=== PATIENT | male | born 1980 | race Caucasian/White ===

== ENCOUNTER 2023-03-23 15:24 | Outpatient (OUT) | payer MEDICARE, MEDICAID, SELFPAY ==
[2023-03-23 21:20] LABS: Valproic Acid 39.2 ug/mL (50.0-100.0)
[2023-03-31 14:15] LABS: Lamotrigine (Lamictal), Serum 15.9 ug/mL (2.0-20.0)
== END 2023-03-23 15:25 ==
PROVIDERS: PCP Internal Medicine; Visit Provider Psychiatry & Neurology Neurology
DX: R51.9 Headache, unspecified (principal); G40.909 Epilepsy, unspecified, not intractable, without status epilepticus; G62.9 Polyneuropathy, unspecified; Z79.899 Other long term (current) drug therapy; Z51.81 Encounter for therapeutic drug level monitoring; R79.89 Other specified abnormal findings of blood chemistry; I70.91 Generalized atherosclerosis; M79.10 Myalgia, unspecified site; D51.3 Other dietary vitamin B12 deficiency anemia; E78.5 Hyperlipidemia, unspecified; G60.9 Hereditary and idiopathic neuropathy, unspecified; Z11.3 Encounter for screening for infections with a predominantly sexual mode of transmission; E53.1 Pyridoxine deficiency
CPT/HCPCS: 36415; 80164; 80165; 80175

== ENCOUNTER 2023-04-10 09:21 | Emergency (ER) | payer MEDICARE, MEDICAID, SELFPAY ==
[2023-04-10 09:26] VITALS: BP 132/93; PULSE 103; RESP 20; TEMP 36.8; O2SAT 96; BMI 26.6
--- NOTE | 2023-04-10 09:33 | XR_ITS ---
The [address] [address] Patient Name: NOA LEWIS MRN: [id number] date: 1980 Sex: M Assigned Patient Location: ER Current Patient Location: ER Accession/Order Number: [id number] Exam Date: 04/10/2023 09:38 Report Date: 04/10/2023 10:18 At the request of: SAMANTHA PELAYO Procedure: XR chest 1V TITLE: XR chest 1V COMPARISON: 2021 chest x-ray CLINICAL HISTORY: cough TECHNIQUE: One view. FINDINGS: Hypoinflated. Stable cardiomegaly mediastinal silhouettes. Mild central vascular prominence. Elevated right hemidiaphragm. Increased density left lung base. No significant effusion There are no significant skeletal abnormalities. IMPRESSION: HYPOINFLATED. LEFT BASE DENSITY LIKELY ATELECTASIS VERSUS INFILTRATE Electronically authenticated by: REBEKAH PRICE Date: 04/10/2023 10:18
--- NOTE | 2023-04-10 09:34 | ED.URI1 ---
HPI - URI/Sore Throat General Chief Complaint: Upper Respiratory Infection Stated Complaint: COUGH Time Seen by Provider: 04/10/23 09:27 Source: family and caregiver Source comment: MOM Limitations: no limitations Limitations comment: PT LIMITED VERBAL History of Present Illness HPI Narrative: 42-year-old male presents to the emergency department for a cough. He's had it for a few days and family has been giving him Claritin. He has MRDD and all the history is obtained from his family. No known fever, he gets checked every day. He has been checked for Covid as well and it was negative. Family is worried about pneumonia. Related Data Previous Rx's Medication Instructions Recorded azithromycin 250 mg tablet See Rx Instructions PO .COMPLEX #6 04/10/23 (Zithromax Z-Marcio) tabs Review of Systems ROS Narrative not obtainable, psychiatric disorder PFSH PFSH Social History Smoking status: Never smoker Exam Narrative Exam Narrative: Nurses note and vital signs reviewed and patient is not hypoxic. General: The patient appears in no apparent distress. Patient is resting comfortably on cart. Skin: Warm, dry, no pallor noted. There is no rash noted. Head: Normocephalic, atraumatic Eye: Normal conjunctiva, no drainage Ears, Nose, Mouth, and Throat: oral mucosa is moist. Nares patent. both myself and his family could not get him to open his mouth. Cardiovascular: Regular Rate and Rhythm Respiratory: Patient is in no distress, no accessory muscle use, lungs are clear to auscultation, no wheezing, rales or rhonchi Back: non-tender GI: nontender Musculoskeletal: The patient has no evidence of calf tenderness, no pitting edema, symmetrical pulses noted bilaterally Neurological: nonverbal, this is his baseline Psychiatric: cannot be assessed Constitutional Vital Signs - 24 hr 04/10/23 09:26 Temperature 98.2 F Pulse Rate [Monitor] 103 H Respiratory Rate 20 Blood Pressure [Right Arm] 132/93 H Pulse Oximetry 96 Oxygen Delivery Method Room Air Course Vital Signs Vital signs: Vital Signs Temperature 98.2 F 04/10/23 09:26 Pulse Rate 103 H 04/10/23 09:26 Respiratory Rate 20 04/10/23 09:26 Blood Pressure 132/93 H 04/10/23 09:26 Pulse Oximetry 96 04/10/23 09:26 Oxygen Delivery Method Room Air 04/10/23 09:26 Temperature 98.2 F 04/10/23 09:26 Pulse Rate 103 H 04/10/23 09:26 Respiratory Rate 20 04/10/23 09:26 Blood Pressure 132/93 H 04/10/23 09:26 Pulse Oximetry 96 04/10/23 09:26 Oxygen Delivery Method Room Air 04/10/23 09:26 MDM - URI/Sore Throat MDM Narrative Medical decision making narrative: Chest x-ray per radiologist suggests possible infiltrate at the lung base. This is consistent with his symptoms. Treatment diagnosis and follow-up were discussed with his family. Differential Diagnosis Differential diagnosis: Likely upper respiratory infection, viral infection and bronchitis Discharge Plan Discharge Chief Complaint: Upper Respiratory Infection Clinical Impression: Pneumonia Patient Disposition: Home, Self-Care Time of Disposition Decision: 10:31 Condition: Good Prescriptions / Home Meds: New azithromycin [Zithromax Z-Marcio] 250 mg tablet See Rx Instructions .ROUTE .COMPLEX Qty: 6 0RF Rx Instructions: For 250 mg dose pack: take 500 mg today (day 1), then 250 mg for 4 days (days 2-5) Instructions: Pneumonia (ED) Stand Alone Forms: Portal Instructions Referrals: Gasper Persaud DO [Primary Care Provider] - 1 week
--- NOTE | 2023-04-10 09:48 | PC.NURSE ---
0948 pt lung sound clear t/o all [place]. pt skin pink warm and dry. interacting with caregivers wnl for pt. Selene Edmond RN
[2023-04-10 10:38] VITALS: PULSE 85; RESP 20; O2SAT 95
== END 2023-04-10 10:39 | disposition home or self-care (01) ==
PROVIDERS: Emergency Provider Emergency Medicine; PCP Internal Medicine
DX: J18.9 Pneumonia, unspecified organism (principal); F79 Unspecified intellectual disabilities
CPT/HCPCS: 71045; 99283

== ENCOUNTER 2023-05-17 14:17 | Outpatient (OUT) | payer MEDICARE, MEDICAID, SELFPAY | END 2023-05-17 14:18 | disposition home or self-care (01) | LOC: LAB 14:19 | PROVIDERS: PCP Internal Medicine; Visit Provider Psychiatry & Neurology Neurology | DX: G40.909 Epilepsy, unspecified, not intractable, without status epilepticus (principal); G62.9 Polyneuropathy, unspecified; G60.9 Hereditary and idiopathic neuropathy, unspecified; R79.89 Other specified abnormal findings of blood chemistry; Z11.3 Encounter for screening for infections with a predominantly sexual mode of transmission; E53.1 Pyridoxine deficiency; I70.91 Generalized atherosclerosis; D51.3 Other dietary vitamin B12 deficiency anemia; M79.10 Myalgia, unspecified site; E78.5 Hyperlipidemia, unspecified | CPT/HCPCS: 36415; 80164; 80165; 80171; 80175; 80299 ==

== ENCOUNTER 2023-07-06 13:43 | Outpatient (OUT) | payer MEDICARE, MEDICAID, SELFPAY ==
--- NOTE | 2023-07-06 13:45 | XR_ITS ---
The [address] [address] Patient Name: NOA LEWIS MRN: [id number] date: 1980 Sex: M Assigned Patient Location: RAD Current Patient Location: RAD Accession/Order Number: [id number] Exam Date: 07/06/2023 13:50 Report Date: 07/06/2023 14:13 At the request of: KAROLINA CHRISTIE Procedure: XR chest 2V EXAM: XR chest 2V HISTORY: Pneumonia of left lower lobe J18.9 COMPARISON: 04/10/2023 TECHNIQUE: Upright PA and lateral chest x-ray FINDINGS: Improved aeration. The heart is not enlarged and there is mild prominence of the central pulmonary vasculature, with interval improvement of vascular congestion. Improved aeration is seen at the left lung base. No discrete infiltrate, effusion or pneumothorax is identified. The osseous structures are grossly intact. XR/XR chest 2V IMPRESSION: Significant improvement in the overall appearance of the chest, with improvement of vascular congestion and the near complete resolution of the basilar infiltrate on the left. No focal infiltrate or cardiac decompensation is identified at this time. Electronically authenticated by: TAMEKA DAVIS Date: 07/06/2023 14:13
== END 2023-07-06 13:44 | disposition home or self-care (01) ==
LOC: RAD 13:43
PROVIDERS: PCP Internal Medicine; Visit Provider Internal Medicine
DX: J18.9 Pneumonia, unspecified organism (principal)
CPT/HCPCS: 71046

== ENCOUNTER 2023-07-15 09:05 | Outpatient (OUT) | payer MEDICARE, MEDICAID, SELFPAY ==
--- NOTE | 2023-07-15 09:13 | XR_ITS ---
[place] [address] Patient Name: NOA LEWIS MRN: [id number] date: 1980 Sex: M Assigned Patient Location: [facility] Current Patient Location: [facility] Accession/Order Number: [id number] Exam Date: 07/15/2023 09:25 Report Date: 07/15/2023 16:37 At the request of: GORDY OLIVAS Procedure: XR lumbar spine 6V w bending Exam: Radiographs: XR lumbar spine 6V w bending Reason for exam: Lumbar Pain M54.50 Comparison: CT scan dated 02/14/2022 XR/XR lumbar spine 6V w bending IMPRESSION: No radiographically evident lumbar spine fractures or malalignment. No instability on flexion/extension views. Mild lumbar spine degenerative changes with preserved intervertebral disc heights. Remainder unremarkable. Electronically authenticated by: KAELA TREADWELL Date: 07/15/2023 16:37
== END 2023-07-15 09:06 | disposition home or self-care (01) ==
LOC: RAD 09:05
PROVIDERS: PCP Internal Medicine; Visit Provider Psychiatry & Neurology Neurology
DX: M54.50 Low back pain, unspecified (principal); M47.816 Spondylosis without myelopathy or radiculopathy, lumbar region
CPT/HCPCS: 72114

== ENCOUNTER 2023-08-07 14:02 | Emergency (ER) | payer MEDICARE, MEDICAID, SELFPAY ==
[2023-08-07 14:06] VITALS: PULSE 88; RESP 16; TEMP 36.7; O2SAT 97; BMI 27.6
--- NOTE | 2023-08-07 14:25 | ED.ABDPAIN1 ---
HPI - Abdominal Pain General Chief Complaint: Abdominal Pain Stated Complaint: CONSAPATION Time Seen by Provider: 08/07/23 14:25 Source: family and caregiver Mode of arrival: Wheelchair Limitations: altered mental status History of Present Illness HPI narrative: pt has hx of MRDD presented with mother for complaint of constipation he had his last bowel movement was 4 days ago, no throwing up and according to her he is also passing gas and history of the p.o. intake with no difficulty Related Data Previous Rx's Medication Instructions Recorded azithromycin 250 mg tablet See Rx Instructions PO .COMPLEX #6 04/10/23 (Zithromax Z-Marcio) tabs Allergies Allergy/AdvReac Type Severity Reaction Status Date / Time Pertussis Vaccines Allergy Intermediate Verified 08/07/23 14:13 Review of Systems ROS Status of ROS 10 or more systems reviewed and unremarkable except as noted in history and below PFSH PFSH Social History Smoking status: Never smoker Exam Narrative Exam Narrative: Nurses notes and vital signs reviewed and patient is not hypoxic. General: Well-appearing and in no apparent distress. Not cooperative fully with examination Skin: Warm, dry, no pallor noted. No rash. Head: Normocephalic, atraumatic. Respiratory: No accessory muscle use or respiratory distress. The patient was not very cooperative with examination he allowed me to examine his abdomen and it was not tender mildly distended The abdomen shows no tenderness and mild distention Constitutional Vital Signs, click to edit/add: Last Vital Signs Temp 98.1 F 08/07/23 14:06 Pulse 88 08/07/23 14:06 Resp 16 08/07/23 14:06 Pulse Ox 97 08/07/23 14:06 O2 Del Method Room Air 08/07/23 14:06 Course Vital Signs Vital signs: Vital Signs Temperature 98.1 F 08/07/23 14:06 Pulse Rate 88 08/07/23 14:06 Respiratory Rate 16 08/07/23 14:06 Pulse Oximetry 97 08/07/23 14:06 Oxygen Delivery Method Room Air 08/07/23 14:06 Temperature 98.1 F 08/07/23 14:06 Pulse Rate 88 08/07/23 14:06 Respiratory Rate 16 08/07/23 14:06 Pulse Oximetry 97 08/07/23 14:06 Oxygen Delivery Method Room Air 08/07/23 14:06 MDM - Abdominal Pain MDM Narrative Medical decision making narrative: The patient was not very cooperative but took multiple people to take his vitals he did not have any distress before we were trying to get his vitals and according to the mother he did not have any symptoms other than being constipated although he is passing gas She did try colace at home with no effect right now magnesium citrate will be the next to try and the patient mother instructed about bring him back in case of any nausea vomiting or no response to the treatment The patient is to follow up with primary care physician in next 2-3 days or to return to the emergency department should any of the signs or symptoms worsen or new symptoms develop. The patient agrees with the following Diagnosis and Treatment plan and the patient will be discharged home. Discharge Plan Discharge Chief Complaint: Abdominal Pain Clinical Impression: Constipation Patient Disposition: Home, Self-Care Time of Disposition Decision: 14:26 Condition: Good Prescriptions / Home Meds: No Action azithromycin [Zithromax Z-Marcio] 250 mg tablet See Rx Instructions .ROUTE .COMPLEX Qty: 6 0RF Rx Instructions: For 250 mg dose pack: take 500 mg today (day 1), then 250 mg for 4 days (days 2-5) Instructions: Constipation (ED) Stand Alone Forms: Portal Instructions Referrals: Gasper Persaud DO [Primary Care Provider] - 1 week Discharge Date/Time: 08/07/23 14:43
[2023-08-07] MEDS: MAGNESIUM CITRATE 296 ML SOLUTION PO (14:38)
== END 2023-08-07 14:43 | disposition home or self-care (01) ==
PROVIDERS: Emergency Provider Emergency Medicine; PCP Internal Medicine
DX: K59.00 Constipation, unspecified (principal); F79 Unspecified intellectual disabilities
CPT/HCPCS: 99283

== ENCOUNTER 2024-01-02 14:50 | Outpatient (OUT) | payer MEDICARE, MEDICAID, SELFPAY ==
[2024-01-04 06:09] LABS: Lamotrigine (Lamictal), Serum 17.6 ug/mL (2.0-20.0)
== END 2024-01-02 14:51 | disposition home or self-care (01) ==
LOC: LAB 14:55
PROVIDERS: PCP Internal Medicine; Visit Provider Psychiatry & Neurology Neurology
DX: G62.9 Polyneuropathy, unspecified (principal); R79.89 Other specified abnormal findings of blood chemistry; G60.9 Hereditary and idiopathic neuropathy, unspecified; Z11.3 Encounter for screening for infections with a predominantly sexual mode of transmission; E53.1 Pyridoxine deficiency; I70.91 Generalized atherosclerosis; D51.3 Other dietary vitamin B12 deficiency anemia
CPT/HCPCS: 36415; 80175; 80299

== ENCOUNTER 2024-03-12 21:57 | Emergency (ER) | payer MEDICARE, MEDICAID, SELFPAY ==
[2024-03-12 22:01] VITALS: BP 148/92; PULSE 83; TEMP 36.6; O2SAT 95
--- OUTSIDE RECORDS SUMMARY | 2024-03-12 22:01 | XMS_ITS ---
Patient Summarization (C-CDA 2.1 CCD) Created on: March 12, 2024 NOA LEWIS : 1980 Sex: Male Author Organization Sample organization Care Team Providers Care Enterprise Solutions Architect Name Role Phone SHAHNAZ GASPER~[id number] UNKNOWN Unavailable Unavailable SHAHNAZ, GASPER~[id number] UNKNOWN Unavailable Unavailable BALL, GASPER~[id number] UNKNOWN Unavailable Unavailable BALL, GASPER~[id number] UNKNOWN Unavailable Unavailable Donna Haque Unavailable Jennifer Trujillo Unavailable Gasper Persaud Unavailable JUICE NAVA Consulting Unavailable DIAB ., CHICHI Attending Unavailable DIAB ., CHICHI Admitting Unavailable SHAHNAZ, DR TURCIOS Primary Care Unavailable DIAB ., CHICHI Consulting Unavailable KEMAL, KYLER Consulting Unavailable KEMAL, KYLER Attending Unavailable KEMAL, KYLER Admitting Unavailable SHAHNAZ, DR TURCIOS Primary Care Unavailable SIRI COLUNGA Consulting Unavailable PETER, RAY Consulting Unavailable GERALD CRUZ Consulting UnavailEMMA Serrato Consulting Unavailable SHAHNAZ, DR TURCIOS Primary Care Unavailable BALL, DR TURCIOS Attending Unavailable BALL, DR TURCIOS Admitting Unavailable BEJ, GORDY Consulting Unavailable SHAHNAZ, DR TURCIOS Primary Care Unavailable BEJ, GORDY Attending Unavailable BEJ, GORDY Admitting Unavailable ZIEBER, DR VAISHNAVI Larkin Consulting Unavailable BALL, DR TURCIOS Primary Care Unavailable BEJ, GORDY Attending Unavailable BEJ, GORDY Admitting Unavailable BEJ, GORDY Consulting Unavailable BEJ, GORDY Consulting Unavailable BALL, DR TURCIOS Primary Care Unavailable BEJ, GORDY Attending Unavailable BEJ, GORDY Admitting Unavailable BEJ, GORDY Consulting Unavailable BALL, DR TURCIOS Primary Care Unavailable BEJ, GORDY Attending Unavailable BEJ, GORDY Admitting Unavailable BALL, DR TURCIOS Consulting Unavailable BALL, DR TURCIOS Primary Care Unavailable BALL, DR TURCIOS Attending Unavailable BALL, DR TURCIOS Admitting Unavailable ZIEBER, DR VAISHNAVI Larkin Consulting Unavailable SHAHNAZ, DR TURCIOS Consulting Unavailable SHAHNAZ, DR TURCIOS Primary Care Unavailable SHAHNAZ, DR TURCIOS Attending Unavailable BALL, DR TURCIOS Admitting Unavailable ZIEBER, DR VAISHNAVI Larkin Consulting Unavailable TIARRA YATES Consulting Unavailable VEL VazquezSIRI Attending Unavailable VEL ., SIRI Admitting Unavailable DR GASPER PERSAUD Primary Care Unavailable JUICE WILD Consulting Unavailable PAY ., DR MACIAS Consulting Unavailable PAY ., DR MACIAS Attending Unavailable PAY ., DR MACIAS Admitting Unavailable DR GASPER PERSAUD Primary Care Unavailable GORDY OLIVAS Attending Unavailable GORDY OLIVAS Attending Unavailable Allergies Allergy Classification Reported Allergen(s) Allergy Type Date of Onset Reaction(s) Facility (1 source) Pertussis Immune Globulin Drug allergy (disorder) 3 [facility] Repository (3 sources) Pertussis Vaccine Drug Allergy Unknown [facility] Other (3 sources) Vaccine product containing Bordetella pertussis antigen (medicinal product) Drug allergy 5 Unknown [facility] Other (3 sources) patient allergy list reviewed by nurse or physicia Propensity to adverse reactions 5 Comment:Done [facility] Other Encounters Encounter Date Encounter Type Care Provider Facility Start: 01-17-2024 End: 01-17-2024 ambulatory GORDY D BEJ Not Available Start: 10-18-2023 End: 10-18-2023 ambulatory GORDY D BEJ Not Available Start: 07-07-2023 End: 07-07-2023 ambulatory Gasper Persaud Other [facility] Other Start: 07-07-2023 Telephone encounter Gasper Persaud [facility] Start: 07-06-2023 End: 07-06-2023 ambulatory Gasper Persaud Other [facility] Other Start: 07-06-2023 Telephone encounter Gasper Persaud [facility] Start: 06-21-2023 End: 06-21-2023 ambulatory Gasper Persaud Other [facility] Other Start: 06-21-2023 Nursing evaluation o f patient and report Gasper Persaud [facility] Start: 05-02-2023 End: 05-02-2023 ambulatory Gasper Persaud Other [facility] Other Start: 05-02-2023 Telephone encounter Gasper Persaud [facility] Start: 04-18-2023 End: 04-18-2023 ambulatory Gasper Persaud Other [facility] Other Start: 04-18-2023 Office outpatient vi sit 15 minutes Gasper Persaud [facility] Start: 02-07-2023 End: 02-07-2023 ambulatory Gasper Persaud Other [facility] Other Start: 02-07-2023 Telephone encounter Gasper Persaud [facility] Start: 01-26-2023 End: 01-26-2023 ambulatory Gasper Persaud Other [facility] Other Start: 01-26-2023 Telephone encounter Gasper Persaud [facility] Start: 01-25-2023 End: 01-25-2023 ambulatory Gasper Persaud Other [facility] Other Start: 01-25-2023 Office outpatient vi sit 15 minutes Gasper Persaud [facility] Start: 01-23-2023 End: 01-23-2023 ambulatory JUICE NAVA Facility:[facility] Start: 01-07-2023 End: 01-07-2023 ambulatory Gasper Persaud Other [facility] Other Start: 01-07-2023 Telephone encounter Gasper Persaud [facility] Start: 11-23-2022 End: 11-24-2022 ambulatory GORDY OLIVAS Facility:[facility] Start: 11-19-2022 End: 11-19-[address] COLLEEN JOHNSON . Facility:[facility] Start: 09-13-2022 End: 09-14-2022 ambulatory GORDY OLIVAS Facility:[facility] Start: 06-19-2022 End: 06-19-2022 ambulatory Jennifer Trujillo Other [facility] Other Start: 06-19-2022 Office outpatient vi sit 15 minutes Jennifer Trujillo [facility] Start: 06-16-2022 End: 06-17-[address] VAISHNAVI BAER Facility:[facility] Start: 06-09-2022 End: 06-09-2022 ambulatory TIARRA YATES Facility:[facility] Start: 04-21-2022 End: 04-22-2022 ambulatory GORDY OLIVAS Facility:[facility] Start: 04-16-[address] GASPER PERSAUD Facili ty:[facility] Start: 03-10-2022 End: 03-11-[address] GASPER PERSAUD Facility:[facility] Start: 02-14-2022 End: 02-14-2022 ambulatory KYLERKARLENE SOMMER Facility:[facility] Start: 02-02-2022 End: 02-03-[address] GASPER PERSAUD Facility:[facility] Start: 09-29-2021 End: 09-29-2021 ambulatory Donna Haque Other [facility] Other Start: 09-29-2021 Office outpatient vi sit 15 minutes Donna Haque [facility] Start: 03-10-2021 Adult health examination Gasper Persaud Other [facility] Other Start: 03-21-2017 End: 09-16-2017 Ambulatory [id number] BERTA PERSAUD [place] [place] Immunization Date Immunization Notes Care Provider Fa kari 06-21-2023 influenza, injectabl e, quadrivalent, preservative free Gasper Persaud Other [facility] Other 07-28-2022 influenza virus vaccine, split virus (incl. purified surface antigen) Gasper Persaud Other [facility] Other 08-10-2021 influenza virus vaccine, split virus (incl. purified surface antigen) Gasper Persaud Other [facility] Other 07-08-2020 influenza virus vaccine, split virus (incl. purified surface antigen) Gasper Persaud Other [facility] Other 07-31-2019 influenza virus vaccine, split virus (incl. purified surface antigen) Gasper Persaud Other [facility] Other 05-22-2019 tetanus toxoid, reduced diphtheria toxoid, and acellular pertussis vaccine, adsorbed Gasper Persaud Other [facility] Other 07-11-2018 influenza virus vaccine, split virus (incl. purified surface antigen) Gasper Persaud Other [facility] Other 07-13-2017 tetanus and diphther ia toxoids, adsorbed, preservative free, for adult use (5 Lf of tetanus toxoid and 2 Lf of diphtheria toxoid) Gasper Persaud Other [facility] Other 08-12-2016 influenza virus vaccine, split virus (incl. purified surface antigen) Gasper Persaud Other [facility] Other 07-25-2015 tetanus and diphther ia toxoids, adsorbed, preservative free, for adult use (5 Lf of tetanus toxoid and 2 Lf of diphtheria toxoid) Gasper Persaud Other [facility] Other 07-29-2014 tetanus and diphther ia toxoids, adsorbed, preservative free, for adult use (5 Lf of tetanus toxoid and 2 Lf of diphtheria toxoid) Gasper Persaud Other [facility] Other 08-09-2013 tetanus and diphther ia toxoids, adsorbed, preservative free, for adult use (5 Lf of tetanus toxoid and 2 Lf of diphtheria toxoid) Gasper Persaud Other [facility] Other Medications Current Medications Medication Drug Class(es) Dates Sig (Normalized) Sig (Original) clonazePAM 0.5 mg oral tablet (9 sources) Benzodiazepine take 1 tablet by mouth every twenty-four hours KlonoPIN 0.5 MG 1 tablet at bedtime Orally Once a day Active dexamethasone 6 mg oral tablet (1 source) Corticosteroid Start: 09-29-2021 take 1 tablet by mouth every twenty-four hours Dexamethasone 6 MG 1 tablet Orally Once a day for 5 day(s) Sep, Active doxycycline hyclate 100 mg oral capsule (8 sources) Tetracycline-class Drug Start: 01-25-2023 take 1 capsule by mouth twice daily Doxycycline Hyclate 100 MG 1 capsule Orally twice daily for 10 days Jan, Active eslicarbazepine (11 sources) Aptiom Active fluticasone propionate 0.05 mg/actuat metered dose nasal spray (5 sources) Corticosteroid Start: 04-18-2023 take 1 spray(s) nasal route once daily Flonase Allergy Relief 50 MCG/ACT 1 spray in each nostril Nasally Once a day for 30 days Apr, Active Start: 04-18-2023 gabapentin 600 mg oral tablet (9 sources) Anti-epileptic Agent take 1 tablet by mouth every twelve hours Gabapentin 600 MG 1 tablet Orally twice a day Active lamoTRIgine 200 mg oral tablet (11 sources) Mood Stabilizer, Anti-epileptic Agent take 1 tablet by mouth every twelve hours LaMICtal 200 MG 1 tablet Orally twice a day Active take 1 tablet by hakan th every twenty-four hours LaMICtal 100 MG 1 tablet Orally Once a day for 30 day(s) Active loratadine 10 mg oral tablet (5 sources) Start: 04-18-2023 take 1 tablet by mouth once daily Loratadine 10 MG 1 tablet Orally Once a day for 30 days Apr, Active Start: 04-18-2023 Payers Date Payer Category Payer Medicare [id number] 1980 Unknown [id number] 2.16.84 [id number] 1980 Unknown [id number] 2.16.84 [id number] 1980 Unknown [id number] 2.16.84 [id number] 1980 Unknown [id number] .16.84 [id number] 1980 Unknown [id number] 2.16.84 [id number] 1980 Unknown [id number] 2.16.84 [id number] 1980 Unknown [id number] 2.16.84 [id number] 1980 Unknown [id number] 2.16.84 [id number] 1980 Unknown [id number] 2.16.84 [id number] 1980 Unknown [id number] 2.16.84 0.1.129172.3.579.2.593 1980 Unknown [id number] 2.16.84 [id number] 1980 Unknown [id number] 2.16.84 0.1.853479.3.579.2.1259 1980 Unknown [id number] 2.16.840 .[id number] 1961 Medicaid [id number] 2. [id number] 1961 Medicare [id number] 2.1 [id number] 1961 Self-pay Problems Active Problems Problem Classification Problem Date Documented Da te Episodic/Chronic Acute bronchitis (10 sources) Acute bronchitis due to other specified organisms; Translations: [Acute bronchitis] Onset: 05-19-2015 Episodic Aspiration pneumonitis; food/vomitus (7 sources) Pneumonitis due to inhalation of food and vomit; Translations: [Pneumonitis due to inhalation of food or vomitus] Onset: 03-10-2022 Episodic Attention-deficit, conduct, and disruptive behavior disorders (3 sources) Attention deficit hyperactivity disorder; Translations: [Attention deficit disorder of childhood with hyperactivity] Onset: 08-24-2016 Chronic Deficiency and other anemia (1 source) Other dietary vitamin B12 deficiency anemia; Translations: [OTH DIETARY VITAMIN B12 DEF ANEMIA] Onset: 11-25-2022 Episodic Developmental disorders (20 sources) Difficulty using verbal communication; Translations: [Developmental disorder of speech and language, unspecified] Onset: 07-29-2014 Chronic Diseases of mouth; excluding dental (6 sources) Xerostomia; Translations: [Dry mouth, unspecified] Onset: 08-24-2016 Episodic Disorders of lipid metabolism (1 source) Hyperlipidemia, unspecified; Translations: [HYPERLIPIDEMIA UNSPECIFIED] Onset: 11-25-2022 Chronic Disorders usually diagnosed in infancy, childhood, or adolescence (12 sources) Autism spectrum disorder; Translations: [Pervasive developmental disorder, unspecified] Chronic E Codes: Fall (2 sources) Unspecified fall, initial encounter; Translations: [Fall on same level from slipping, tripping and stumbling with subsequent striking against unspecified object, initial encounter] Onset: 06-10-2022 Episodic Epilepsy; convulsions (20 sources) Epilepsy; Translations: [Generalized seizure disorder] Onset: 07-29-2014 Chronic Epilepsy; convulsions (1 source) Unspecified convulsions; Translations: [UNSPECIFIED CONVULSIONS] Onset: 11-22-2022 Episodic Genitourinary symptoms and ill-defined conditions (9 sources) Functional urinary incontinence; Translations: [Functional urinary incontinence] Chronic Headache; including migraine (5 sources) Headache; including migraine; Translations: [HEADACHE UNSPECIFIED] Onset: 04-26-2022 Immunizations and screening for infectious disease (4 sources) Encounter for screening for infections with a predominantly sexual mode of transmission; Translations: [Vaccination given] Onset: 11-25-2022 Episodic Intracranial injury (1 source) Concussion without loss of consciousness, subsequent encounter Episodic Joint disorders and dislocations; trauma-related (3 sources) Unspecified subluxation of left shoulder joint, subsequent encounter; Translations: [Unspecified subluxation of left shoulder joint, subsequent encounter] Episodic Nutritional deficiencies (1 source) Pyridoxine deficiency; 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] Onset: 11-25-2022 Episodic Other aftercare (1 source) Other snf (current) drug therapy; Translations: [OTH HALFWAY CURRENT DRUG THERAPY] Onset: 01-24-2023 Episodic Other aftercare (3 sources) Long-term current use of drug therapy; 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 snf (current) drug therapy] Episodic Other connective tissue disease (1 source) Myalgia, unspecified site; Translations: [MYALGIA UNSPECIFIED SITE] Onset: 11-25-2022 Episodic Other ear and sense organ disorders (3 sources) Hearing loss; Translations: [Unspecified hearing loss, bilateral] Onset: 08-11-2016 Chronic Other injuries and conditions due to external causes (4 sources) Other specified injuries of head, initial encounter; Translations: [OTH SPEC INJURIES HEAD INITIAL ENC] Onset: 11-19-2022 Episodic Other nervous system disorders (1 source) Hereditary and idiopathic neuropathy, unspecified; Translations: [HEREDITARY IDIOPATH NEUROPATHY UNS] Onset: 11-25-2022 Chronic Other nervous system disorders (5 sources) Polyneuropathy, unspecified; Translations: [POLYNEUROPATHY UNSPECIFIED] Onset: 04-21-2022 Chronic Other non-traumatic joint disorders (4 sources) Pain in left shoulder; Translations: [PAIN IN LEFT SHOULDER] Onset: 01-23-2023 Episodic Other non-traumatic joint disorders (6 sources) Shoulder joint pain; Translations: [Pain in left shoulder] Onset: 02-26-2016 Episodic Other nutritional; endocrine; and metabolic disorders (3 sources) Simple obesity ; 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 obesity due to excess calories] Onset: 04-12-2016 Chronic Other nutritional; endocrine; and metabolic disorders (3 sources) Obese class I; Translations: [Body mass index 32.0-32.9, adult] Onset: 04-12-2016 Chronic Other nutritional; endocrine; and metabolic disorders (3 sources) Body mass index 30+ - obesity; Translations: [Body mass index 30.0-30.9, adult] Onset: 04-12-2016 Chronic Other nutritional; endocrine; and metabolic disorders (9 sources) Developmental delay; Translations: [Unspecified lack of expected normal physiological development in childhood] Episodic Other nutritional; endocrine; and metabolic disorders (1 source) Unspecified lack of expected normal physiological development in childhood; Translations: [UNS LACK EXP NL PHYSIOLOG DEV CHLD] Onset: 01-24-2023 Episodic Other nutritional; endocrine; and metabolic disorders (3 sources) Physiological development failure; Translations: [Unspecified lack of expected normal physiological development in childhood] Episodic Other skin disorders (1 source) Hidradenitis suppurativa Episodic Other upper respiratory disease (5 sources) Allergic rhinitis due to pollen; Translations: [Allergic rhinitis due to pollen] Chronic Other upper respiratory disease (1 source) Allergic rhinitis due to pollen Chronic Other upper respiratory disease (3 sources) Seasonal allergic rhinitis; 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 seasonal allergic rhinitis] Onset: 03-06-2018 Chronic Other upper respiratory disease (3 sources) Vasomotor rhinitis; Translations: [Vasomotor rhinitis] Onset: 01-01-2019 Chronic Paralysis (14 sources) Ataxic cerebral palsy; 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-29-2014 Chronic Peripheral and visceral atherosclerosis (2 sources) Unspecified atherosclerosis; Translations: [Generalized atherosclerosis] Onset: 09-18-2022 Chronic Pneumonia (except that caused by tuberculosis or sexually transmitted disease) (6 sources) Pneumonia, unspecified organism; Translations: [Pneumonia] Onset: 02-23-2022 Episodic Skin and subcutaneous tissue infections (9 sources) Carbuncle of right axilla; Translations: [Carbuncle of right axilla] Episodic Sprains and strains (7 sources) Strain of unspecified muscle, fascia and tendon at shoulder and upper arm level, left arm, subsequent encounter; Translations: [Sprain of shoulder and upper arm] Resolved: 09-07-2021 Episodic Superficial injury; contusion (20 sources) Contusion of left hip, initial encounter; Translations: [Contusion of scalp, initial encounter] Onset: 02-20-2016 Resolved: 09-07-2021 Episodic Unclassified (1 source) CONTACT W/AND (SUSP) EXPOS COVID-19; Translations: [CONTACT W/AND (SUSP) EXPOS COVID-19] Onset: 02-23-2022 Past or Other Problems Problem Classification Problem Date Documented Da te Episodic/Chronic Bacterial infection; unspecified site (3 sources) Bacterial infectious disease; Translations: [Bacterial infection, unspecified, in conditions classified elsewhere and of unspecified site] Onset: 6 Episodic E Codes: Adverse effects of medical drugs (3 sources) Antihypertensive adverse reaction; Translations: [Adverse effect of other antihypertensive drugs, initial encounter] Onset: 6 Episodic Influenza (3 sources) Influenza due to identified novel influenza A virus with other respiratory manifestations; Translations: [Influenza due to identified novel influenza A virus with other respiratory manifestations] Onset: 9 Episodic Malaise and fatigue (2 sources) Other malaise; 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 fatigue] Onset: 2 Episodic Nonmalignant breast conditions (3 sources) Hypertrophy of breast; Translations: [Hypertrophy of breast] Onset: 6 Episodic Nonspecific chest pain (3 sources) Chest pain; 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 chest pain] Onset: 6 Episodic Other ear and sense organ disorders (3 sources) Impacted cerumen; Translations: [Impacted cerumen] Onset: 6 Episodic Other fractures (3 sources) Fracture of multiple ribs ; Translations: [Multiple fractures of ribs, left side, subsequent encounter for fracture with routine healing] Onset: 6 Episodic Other gastrointestinal disorders (4 sources) Dysphagia, unspecified; Translations: [DYSPHAGIA UNSPECIFIED] Onset: 2 Episodic Other injuries and conditions due to external causes (4 sources) Unspecified injury of left lower leg, initial encounter; Translations: [UNS INJURY LT LOWER LEG INITIAL ENC] Onset: 1 Resolved: 1 Episodic Other injuries and conditions due to external causes (3 sources) History of fall; Translations: [History of falling] Onset: 8 Episodic Other screening for suspected conditions (not mental disorders or infectious disease) (1 source) Other specified abnormal findings of blood chemistry; Translations: [OTH SPEC ABNORMAL FINDINGS BLD CHEM] Onset: 2 Episodic Other upper respiratory infections (6 sources) Acute maxillary sinusitis; Translations: [Acute maxillary sinusitis, unspecified] Onset: 6 Episodic Residual codes; unclassified (3 sources) Pain, unspecified; Translations: [PAIN UNSPECIFIED] Onset: 2 Episodic Residual codes; unclassified (3 sources) Requires influenza virus vaccination; Translations: [Need for prophylactic vaccination and inoculation, Influenza] Onset: 3 Episodic Unclassified (1 source) Contact with and (suspected) exposure to covid-19 Z20.822 Onset: 2 Resolved: 2 Viral infection (1 source) COVID-19 Onset: 2 Resolved: 2 Results Test Name Value Interpretation Reference Range Facility XR HIP LT 2 3V W PELVISon XR HIP LT 2 3V W PELVIS EXAM: PA of the pelvis and left hip HISTORY: . Falls . COMPARISON: None. TECHNIQUE: 3 views FINDINGS: Bony pelvis is intact. No fracture or bony destructive process is noted. No fracture or dislocation of left hip is noted. Joint spaces well-maintained. Surrounding soft tissues are unremarkable. IMPRESSION: 1 negative AP of the pelvis. 2. Negative left hip. Electronically authenticated by: JUICE NAVA Date: 2023-01-23 09:52 Normal [facility] XR SHOULDER LT 2V or >on XR SHOULDER LT 2V or > EXAM: XR SHOULDER LT 2V or > HISTORY: . Falls . COMPARISON: 08/10/2021 TECHNIQUE: 3 views FINDINGS: No fracture or dislocation of left shoulder is noted. Glenohumeral joint is unremarkable. Early arthritic changes of the left acromioclavicular joint are noted. Surrounding soft tissues are unremarkable. IMPRESSION: 1 no acute bony abnormality of left shoulder. 2. Early arthritic changes of the left acromioclavicular joint. Electronically authenticated by: JUICE NAVA Date: 2023-01-23 09:51 Normal [facility] LAMOTRIGINEon 11-25-2022 Lamotrigine, Serum 15.7 ug/mL Normal 2.0-20.0 [facility] Comment on above: Result Comment: Dete ction Limit = 1.0 Performed By: #### L AMOT #### [facility] [address] [address] [address] Daphne Cheney LAMOTRIGINEon 09-17-2022 Lamotrigine, Serum 23.2 ug/mL Invalid Interpretation Code 2.0-20.0 [facility] Comment on above: Result Comment: Ve rified by repeat analysis Detection Limit = 1.0 Performed By: #### L AMOT #### [facility] [address] [address] [address] Daphne Cheney SARS-CoV-2 (COVID-19) RNA NA A+probe Ql (Resp)on 06-19-2022 SARS-CoV-2 (COVID-19) RNA TEO+probe Ql (Unsp spec) Positive [facility] Other XR MODIFIED BARIUM SWALLOWon 06-16-2022 XR MODIFIED BARIUM SWALLOW EXAMINATION: XR MODIFIED BARIUM SWALLOW HISTORY: Dysphagia COMPARISON: No relevant comparison available. TECHNIQUE: A swallowing evaluation was performed with fluoroscopy in the usual manner. Standard level fluoroscopic mode of operation utilized. FINDINGS: ORAL PHASE: Normal deglutition. PHARYNGEAL PHASE: Small moderate residual between the base of tongue and epiglottis which clears with a second swallow. ASPIRATION: Suspect deep penetration, possibly silent aspiration when swallowing thin liquid, which did not convincingly occur with nectar thickened liquid. STRUCTURE: No visible obstruction, stricture, or dilatation. OTHER: Negative. IMPRESSION: 1. Very limited examination due to excessive patient motion and difficulty cooperating. 2. Suspect deep penetration versus an aspiration when swallowing thin liquid. 3. Small moderate residual swallowing solids which clears with a second swallow. 4. Please see speech pathologist report for additional findings and recommendations. Electronically authenticated by: VAISHNAVI BAER Date: 2022-06-16 11:18 Normal [facility] XR KNEE GEMA 4V or >on 2021 XR KNEE GEMA 4V or > EXAM: XR KNEE GEMA 4V or > HISTORY: Unspecified fall COMPARISON: None. TECHNIQUE: 9 views total FINDINGS: No fracture, dislocation, subluxation or osseous lesion. No visualized knee effusion. Joint spaces are normal. IMPRESSION: Normal knee x-rays Electronically authenticated by: JUICE WILD Date: 2022-06-09 17:19 Normal [facility] LAMOTRIGINEon 04-24-2022 Lamotrigine, Serum 11.2 ug/mL Normal 2.0-20.0 [facility] Comment on above: Result Comment: Dete ction Limit = 1.0 Performed By: #### L AMOT ####[facility] [id number] [place], [place] [address]Lo. Daphne Cheney XR CHEST 2 Von 03-10-2022 XR CHEST 2 V EXAMINATION: XR CHES T 2 V HISTORY: Pneumonitis due to inhaled substance COMPARISON: XR chest 02/02/2022 FINDINGS: LUNGS: Underexpanded lungs with mild haziness in the medial right lung base and lateral left lung base. VASCULATURE: No increased pulmonary vasculature. PLEURA: No pneumothorax, effusion, or pleural thickening. CARDIAC: No cardiomegaly or cardiac silhouette abnormality. MEDIASTINUM: No visible mass or adenopathy. BONES: No fracture or visible bone lesion. OTHER: Negative. IMPRESSION: 1. Low lung volume examination with trace amount bibasilar infiltrates versus atelectasis; increased on right, improved on left. Electronically authenticated by: VAISHNAVI BAER Date: 2022-03-10 14:59 Normal The [facility] CARDIAC GORDY 3-6on 2 CK [Catalytic activity/Vol] 73 U/L Normal 39-308 [facility] Comment on above: Performed By: #### C MREP #### [facility] [address] [place] [address] Dr. Daphne Cheney CK.MB [Mass/Vol] 0.95 ng/mL Normal <=3.60 The [facility] Comment on above: Performed By: #### C MREP #### [facility] [address] [place] [address] Dr. Daphne Cheney HSTROP 4.8 pg/mL Normal 4.0-76.1 [facility] Comment on above: Result Comment: CUT- OFF POINTS HAVE BEEN ESTABLISHED BASED ON THE FOURTH UNIVERSAL DEFINITIONS OF MYOCARDIAL INFARCTION. THE UPPER REFERENCE LIMIT (URL) OF TROPONIN, DEFINED THE 99TH PERCENTILE OF cTnI DISTRIBUTION IN A REFERENCE POPULATION, HAS BEEN CONFIRMED THE DECISION THRESHOLD FOR [place] DIAGNOSIS. Performed By: #### C MREP #### [facility] [address] [place] [address] Dr. Daphne Cheney CARDIAC GORDY ADMITon 022 CK [Catalytic activity/Vol] 64 U/L Normal 39-308 [facility] Comment on above: Performed By: #### Siobhan SAMAYOA CMADM #### [facility] [address] [place] [address] Dr. Daphne Cheney CK.MB [Mass/Vol] 0.85 ng/mL Normal <=3.60 [facility] Comment on above: Performed By: #### Siobhan SAMAYOA CMADM #### [facility] [address] [place] [address] Dr. Daphne Cheney HSTROP 4.1 pg/mL Normal 4.0-76.1 [facility] Comment on above: Result Comment: CUT- OFF POINTS HAVE BEEN ESTABLISHED BASED ON THE FOURTH UNIVERSAL DEFINITIONS OF MYOCARDIAL INFARCTION. THE UPPER REFERENCE LIMIT (URL) OF TROPONIN, DEFINED THE 99TH PERCENTILE OF cTnI DISTRIBUTION IN A REFERENCE POPULATION, HAS BEEN CONFIRMED THE DECISION THRESHOLD FOR [place] DIAGNOSIS. Performed By: #### B HAYDE SAMAYOA #### [facility] [address] [address] [address] Daphne Cheney MANDIE 98 ng/mL Critically high 16-96 The [facility] Comment on above: Performed By: #### B HAYDE SAMAYOA #### [facility] [address] [address] [address] Daphne Cheney CBC AUTO DIFFon 02-14-2022 BASO # 0.1 103/ul Normal 0.0-0.1 [facility] Comment on above: Performed By: #### C BC ####[facility] [address] [address]DrGeorge Cheney Basophils/100 WBC (Bld) 0.5 % Normal 0.2-2.0 [facility] Comment on above: Performed By: #### C BC ####[facility] [address] [place], [place] [address]DrGeorge Cheney EO # 0.0 103/ul Normal 0.0-0.7 [facility] Comment on above: Performed By: #### C BC ####[facility] [address] [place], [place] [address]DrGeorge Cheney Eosinophils/100 WBC (Bld) 0.2 % Critically low 0.9-7.0 [facility] Comment on above: Performed By: #### C BC ####[facility] [address] [address]DrGeorge Cheney Erythrocyte distribution width (RBC) [Ratio] 13.0 % Normal 11.0-15.0 [facility] Comment on above: Performed By: #### C BC ####[facility] [address] [address]DrGeorge Cheney Hematocrit (Bld) [Volume fraction] 48.6 % Normal 42.0-54.0 [facility] Comment on above: Performed By: #### C BC ####[facility] [address] [place], [place] [address]DrGeorge Cheney Hemoglobin (Bld) [Mass/Vol] 15.2 g/dL Normal 14.0-18.0 [facility] Comment on above: Performed By: #### C BC ####[facility] [address] [address]DrGeorge Cheney IG # 0.05 10e3/ul Critically high 0.00-0.03 [facility] Comment on above: Performed By: #### C BC ####[facility] [address] [address]DrGeorge Cheney IG % 0.4 % Normal 0.0-0.5 [facility] Comment on above: Performed By: #### C BC ####[facility] [address] [place], [place] [address]DrGeorge Cheney LYMPH # 1.2 103/ul Normal 1.2-3.8 [facility] Comment on above: Performed By: #### C BC ####[facility] [address] [place], [place] [address]DrGeorge Cheney Lymphocytes/100 WBC (Bld) 9.2 % Critically low 20.5-60.0 [facility] Comment on above: Performed By: #### C BC ####[facility] [address] [place], [place] [address]DrGeorge Shahrzadjt Cheney MANUAL DIFF REQ NO Normal [facility] Comment on above: Performed By: #### C BC ####[facility] [address] [address]DrGeorge Cheney MCH (RBC) [Entitic mass] 28.7 pg Normal 25.9-34.0 [facility] Comment on above: Performed By: #### C BC ####[facility] [address] [place], [place] [address]DrGeorge Cheney MCHC (RBC) [Mass/Vol] 31.3 g/dL Normal 29.9-35.2 [facility] Comment on above: Performed By: #### C BC ####[facility] [address] [place], [place] [address]DrGeorge Cheney MCV (RBC) [Entitic vol] 91.9 fL Normal 80.0-94.0 [facility] Comment on above: Performed By: #### C BC ####[facility] [address] [address]Dr. Daphne Cheney MONO # 0.9 103/ul Critically high 0.3-0.8 [facility] Comment on above: Performed By: #### C BC ####[facility] [address] [address]Dr. Daphne Shravan Monocytes/100 WBC (Bld) 7.2 % Normal 1.7-12.0 [facility] Comment on above: Performed By: #### C BC ####[facility] [address] [place], [place] [address]DrGeorge Daphne Cheney NEUT # 10.7 103/ul Critically high 1.4-6.5 The [facility] Comment on above: Performed By: #### C BC ####[facility] [address] [place], [place] [address]Dr. Shahrzadtj Cheney Neutrophils/100 WBC (Bld) 82.5 % Critically high 43.0-75.0 [facility] Comment on above: Performed By: #### C BC ####[facility] [address] [place], [place] [address]Dr. Daphne Shravan Platelet mean volume (Bld) [Entitic vol] 8.4 fL Critically low 9.5-13.5 [facility] Comment on above: Performed By: #### C BC ####[facility] [address] [address]Dr. Shahrzadtj Shravan PLT 446 103/ul Normal 150-450 [facility] Comment on above: Performed By: #### C BC ####[facility] [address] [place], [place] [address]Dr. Daphne Cheney RBC 5.29 106/ul Normal 4.70-6.10 [facility] Comment on above: Performed By: #### C BC ####[facility] [address] [place], [place] [address]Dr. Daphne Cheney WBC 13.0 103/ul Critically high 4.0-11.0 [facility] Comment on above: Performed By: #### C ####[facility] [address] [place], [place] [address] ABD/PELVIS WO CONon 02-14 CT ABD/PELVIS WO CON EXAMINATION: CT CHEST WO CON, CT ABD/PELVIS WO CON INDICATION: Pneumonia. COMPARISON: None. TECHNIQUE: Multiple contiguous axial CT images of the chest, abdomen, and pelvis were obtained without the use of intravenous contrast. Coronal and sagittal reformations were performed. Dose reduction techniques were achieved by using automated exposure control and/or adjustment of mA and/or kV according to patient size and/or use of iterative reconstruction technique. FINDINGS: Evaluation of visceral organs limited by noncontrast technique. LOWER NECK: Unremarkable thyroid gland. CHEST: Patent central airways scattered bilateral groundglass and consolidative opacities, left worse than right. Small right pleural effusion with mild adjacent right lower lobe atelectasis. No pneumothorax. No mediastinal, hilar, internal mammary, axillary, or lower neck adenopathy. Nonaneurysmal thoracic aorta. Normal caliber main pulmonary trunk. The heart is normal in size. No pericardial effusion. Normal esophagus. ABDOMEN: Normal liver, gallbladder, pancreas, spleen, adrenal glands, and kidneys. Normal caliber bowel. No bowel thickening or inflammation. Normal appendix. Nonaneurysmal abdominal aorta. No abdominal adenopathy or ascites. PELVIS: Normal bladder, prostate gland, and seminal vesicles. No free pelvic fluid or adenopathy. MUSCULOSKELETAL: No acute osseous abnormality or suspicious osseous lesion. Small fat-containing right inguinal hernia. Bilateral gynecomastia. IMPRESSION: 1. Bilateral multifocal pneumonia with small right pleural effusion. 2. No acute process identified in the abdomen or pelvis. Electronically authenticated by: EMMA RODRIGUEZ Date: 2022-02-14 08:30 Normal The [facility] CT HEAD WO CONon 02-14-2022 CT HEAD WO CON EXAMINATION: CT HEAD WO CON HISTORY: Pain COMPARISON: CT head 08/21/2018. TECHNIQUE: CT examination of the head without IV contrast. Dose reduction techniques were achieved by using automated exposure control and/or adjustment of mA and/or kV according to patient size and/or use of iterative reconstruction technique. FINDINGS: Calvarium/skull base: No evidence of acute fracture or destructive lesion. Mastoids and middle ears demonstrate no substantial mucosal disease. Paranasal sinuses: No air fluid levels. Brain: No acute intracranial hemorrhage. No acute large vascular territory infarct. Similar age advanced patchy hypodensities along the posterior periatrial white matter unchanged from 2018. No mass lesion or mass effect. No hydrocephalus. IMPRESSION: No acute intracranial process. Electronically authenticated by: GERALD CRUZ Date: 2022-02-14 08:27 Normal [facility] Covid-19 PCR (CVDTB)on SARS-CoV-2 (COVID-19) RNA TEO+probe Ql (Unsp spec) Not detected Normal NOT DETECTED [facility] Comment on above: Result Comment: When diagnostic testing is negative, the possibility of a false negative should be considered in the context of a patient's recent exposures and the presence of clinical signs and symptoms consistent with SARS-CoV-2. This test is not yet approved or cleared by the [place] Food and Drug Administration (FDA). This test was developed by [employer], [place], [place]. The performance characteristics of this test were validated by The [facility]. The results are not intended to be used as the sole means for clinical diagnosis or patient management decisions. The [facility] is authorized under Clinical Laboratory Improvement Amendments (CLIA) to perform high- complexity testing. This test is not yet approved or cleared by the [place] FDA. When there are no FDA-approved or cleared tests available, and other criteria are met, FDA can make tests available under an emergency access mechanism called an Emergency Use Authorization (EUA). The EUA for this test is supported by the Multigraph Operator of Health and Human Service's declaration that circumstances exist to justify the emergency use of in vitro diagnostics for the detection and/or diagnosis of the virus that causes COVID-19. This EUA will remain in effect for the duration of the COVID-19 declaration justifying emergency of IVDs, unless it is terminated or revoked by the FDA (after which the test may no longer be used). Performed By: #### C VDTB #### [facility] [address] [place] [address] Dr. Daphne Cheney LIPASEon 02-14-2022 Lipase [Catalytic activity/Vol] 92.0 U/L Normal 73.0-393.0 [facility] Comment on above: Performed By: #### L IPA ####[facility] [address] [address]Dr. Daphne BUSH BLD IMMUNO SCREENon OCCULT BLOOD Negative Normal NEGATIVE [facility] Comment on above: Performed By: #### O BSCRN ####[facility] [address] [address]Dr. Daphne Cheney PROF CHEM 8 (BAS METB)on Anion gap [Moles/Vol] 12.3 mmol/L Normal [facility] Comment on above: Performed By: #### B HAYDE SAMAYOA #### [facility] [address] [place] [address] Dr. Daphne Cheney Calcium [Mass/Vol] 9.6 mg/dL Normal 8.5-10.1 [facility] Comment on above: Performed By: #### B HAYDE SAMAYOA #### [facility] [address] [place] [address] Dr. Daphne Cheney Chloride [Moles/Vol] 98 mmol/L Normal 98-107 [facility] Comment on above: Performed By: #### B HAYDE SAMAYOA #### [facility] [address] [place] [address] Dr. Daphne Cheney CO2 [Moles/Vol] 32.4 mmol/L Critically high 21.0-32.0 [facility] Comment on above: Performed By: #### HAYDE Mccann MP #### [facility] [address] [place] [address] Dr. Daphne Cheney Creatinine [Mass/Vol] 1.19 mg/dL Normal 0.70-1.30 [facility] Comment on above: Performed By: #### B HAYDE SAMAYOA #### [facility] [address] [place] [address] Dr. Daphne Cheney EGFR-AF MACANESE >60 Normal >=60 [facility] Comment on above: Performed By: #### B HAYDE SAMAYOA #### [facility] [address] [place], [place] [address] Dr. Daphne Cheney EGFR-NON AF MACANESE >60 Normal >=60 [facility] Comment on above: Performed By: #### B HAYDE SAMAYOA #### [facility] [address] [place] [address] Dr. Daphne Cheney Glucose [Mass/Vol] 120 mg/dL Critically high 74-106 [facility] Comment on above: Performed By: #### B DANITA, HAYDE #### [facility] [address] [place] [address] Dr. Daphne Cheney Potassium [Moles/Vol] 4.7 mmol/L Normal 3.5-5.1 [facility] Comment on above: Performed By: #### B HAYDE SAMAYOA #### [facility] [address] [place] [address] Dr. Daphne Cheney Sodium [Moles/Vol] 138 mmol/L Normal 136-145 [facility] Comment on above: Performed By: #### B HAYDE SAMAYOA #### [facility] [address] [place] [address] Dr. Daphne Cheney Urea nitrogen [Mass/Vol] 12.0 mg/dL Normal 7.0-18.0 [facility] Comment on above: Performed By: #### HAYDE Mccann MP #### [facility] [address] [place] [address] Dr. Daphne Cheney Urea nitrogen/Creatini ne [Mass ratio] 10.1 mg/mg Normal [facility] Comment on above: Performed By: #### HAYDE Mccann MP #### [facility] [address] [place] [address] Dr. Daphne Cheney XR KUB 1 VIEWon 02-14-2022 XR KUB 1 VIEW EXAM: XR KUB 1 VIEW 02/14/2022 4:13 AM EDT [id number] CLINICAL STATEMENT: Pain COMPARISON: No prior studies are available at the time of dictation. TECHNIQUE: Single abdominal radiograph is submitted. FINDINGS: The small bowel and colon are not distended. There is a nonobstructive bowel gas pattern. There is no intraperitoneal free air. There is no abnormal calcification or organomegaly detected. Bony elements are unremarkable. IMPRESSION: No evidence of bowel obstruction or free intraperitoneal air. FOLLOW-UP: Follow-up as clinically indicated. Electronically authenticated by: RAY SAID Date: 2022-02-14 06:35 Normal [facility] CBC AUTO DIFFon 02-02-2022 BASO # 0.0 103/ul Normal 0.0-0.1 [facility] Comment on above: Performed By: #### C BC #### [facility] [address] [place] [address] Dr. Daphne Cheney Basophils/100 WBC (Bld) 0.2 % Normal 0.2-2.0 [facility] Comment on above: Performed By: #### C BC #### [facility] [address] [place] [address] Dr. Daphne Cheney EO # 0.0 103/ul Normal 0.0-0.7 [facility] Comment on above: Performed By: #### C BC #### [facility] [address] [place] [address] Dr. Daphne Cheney Eosinophils/100 WBC (Bld) 0.0 % Critically low 0.9-7.0 [facility] Comment on above: Performed By: #### C BC #### [facility] [address] [place] [address] Dr. Daphne Cheney Erythrocyte distribution width (RBC) [Ratio] 13.8 % Normal 11.0-15.0 [facility] Comment on above: Performed By: #### C BC #### [facility] [address] [place] [address] Dr. Daphne Cheney Hematocrit (Bld) [Volume fraction] 42.5 % Normal 42.0-54.0 [facility] Comment on above: Performed By: #### C BC #### [facility] [address] [place] [address] Dr. Daphne Cheney Hemoglobin (Bld) [Mass/Vol] 13.9 g/dL Critically low 14.0-18.0 [facility] Comment on above: Performed By: #### C BC #### [facility] [address] [place] [address] Dr. Daphne Cheney IG # 0.13 10e3/ul Critically high 0.00-0.03 [facility] Comment on above: Performed By: #### C BC #### [facility] [address] [place] [address] Dr. Daphne Cheney IG % 1.0 % Critically high 0.0-0.5 [facility] Comment on above: Performed By: #### C BC #### [facility] [address] [place] [address] Dr. Daphne Cheney LYMPH # 1.2 103/ul Normal 1.2-3.8 [facility] Comment on above: Performed By: #### C BC #### [facility] [address] [place] [address] Dr. Daphne Cheney Lymphocytes/100 WBC (Bld) 8.6 % Critically low 20.5-60.0 [facility] Comment on above: Performed By: #### C BC #### [facility] [address] [place] [address] Dr. Daphne Cheney MANUAL DIFF REQ NO Normal [facility] Comment on above: Performed By: #### C BC #### [facility] [address] [place] [address] Dr. Daphne Cheney MCH (RBC) [Entitic mass] 29.4 pg Normal 25.9-34.0 [facility] Comment on above: Performed By: #### C BC #### [facility] [address] [place] [address] Dr. Daphne Cheney MCHC (RBC) [Mass/Vol] 32.7 g/dL Normal 29.9-35.2 [facility] Comment on above: Performed By: #### C BC #### [facility] [address] [place] [address] Dr. Daphne Cheney MCV (RBC) [Entitic vol] 90.0 fL Normal 80.0-94.0 [facility] Comment on above: Performed By: #### C BC #### [facility] [address] [place] [address] Dr. Daphne Cheney MONO # 1.3 103/ul Critically high 0.3-0.8 [facility] Comment on above: Performed By: #### C BC #### [facility] [address] [address] [address] Daphne Cheney Monocytes/100 WBC (Bld) 9.2 % Normal 1.7-12.0 [facility] Comment on above: Performed By: #### C BC #### [facility] [address] [address] [address] Daphne Cheney NEUT # 11.0 103/ul Critically high 1.4-6.5 [facility] Comment on above: Performed By: #### C BC #### [facility] [address] [address] [address] Daphne Cheney Neutrophils/100 WBC (Bld) 81.0 % Critically high 43.0-75.0 [facility] Comment on above: Performed By: #### C BC #### [facility] [address] [place] [address] Dr. Daphne Cheney Platelet mean volume (Bld) [Entitic vol] 9.6 fL Normal 9.5-13.5 [facility] Comment on above: Performed By: #### C BC #### [facility] [address] [place] [address] Dr. Daphne Cheney PLT 193 103/ul Normal 150-450 [facility] Comment on above: Performed By: #### C BC #### [facility] [address] [place] [address] Dr. Daphne Cheney RBC 4.72 106/ul Normal 4.70-6.10 [facility] Comment on above: Performed By: #### C BC #### [facility] [address] [place] [address] Dr. Daphne Cheney WBC 13.6 103/ul Critically high 4.0-11.0 [facility] Comment on above: Performed By: #### C BC #### [facility] [address] [place] [address] Dr. Daphne Cheney PROF 14(COMP METB)on 022 Albumin [Mass/Vol] 2.4 g/dL Critically low 3.4-5.0 [facility] Comment on above: Performed By: #### C MP #### [facility] [address] [address] [address] Daphne Cheney Albumin/Globulin [Mass ratio] 0.4 {ratio} Normal [facility] Comment on above: Performed By: #### C MP #### [facility] [address] [address] [address] Daphne Cheney ALP [Catalytic activity/Vol] 111 U/L Normal 46-116 [facility] Comment on above: Performed By: #### C MP #### [facility] [address] [address] [address] Daphne Cheney ALT [Catalytic activity/Vol] 92 U/L Critically high 16-63 [facility] Comment on above: Performed By: #### C MP #### [facility] [address] [place] [address] Dr. Daphne Cheney Anion gap [Moles/Vol] 13.5 mmol/L Normal [facility] Comment on above: Performed By: #### C MP #### [facility] [address] [address] [address] Daphne Cheney AST [Catalytic activity/Vol] 83 U/L Critically high 15-37 [facility] Comment on above: Performed By: #### C MP #### [facility] [address] [place] [address] Dr. Daphne Cheney Bilirubin [Mass/Vol] 0.7 mg/dL Normal 0.2-1.3 [facility] [facility] Comment on above: Performed By: #### C MP #### [facility] [address] [place] [address] Dr. Daphne Cheney Calcium [Mass/Vol] 8.8 mg/dL Normal 8.5-10.1 The [facility] Comment on above: Performed By: #### C MP #### [facility] [address] [address] [address] Daphne Cheney Chloride [Moles/Vol] 105 mmol/L Normal 98-107 The [facility] Comment on above: Performed By: #### C MP #### [facility] [address] [address] [address] Daphne Cheney CO2 [Moles/Vol] 28.4 mmol/L Normal 22.0-30.0 The [facility] Comment on above: Performed By: #### C MP #### [facility] [address] [place] [address] Dr. Daphne Cheney Creatinine [Mass/Vol] 1.09 mg/dL Normal 0.66-1.25 The [facility] Comment on above: Performed By: #### C MP #### [facility] [address] [place] [address] Dr. Daphne Cheney EGFR-AF MACANESE >60 Normal >=60 The [facility] Comment on above: Performed By: #### C MP #### [facility] [address] [place] [address] Dr. Daphne Cheney EGFR-NON AF MACANESE >60 Normal >=60 The [facility] Comment on above: Performed By: #### C MP #### [facility] [address] [place] [address] Dr. Daphne Cheney Globulin (S) [Mass/Vol] 5.4 g/dL Normal [facility] Comment on above: Performed By: #### C MP #### [facility] [address] [place] [address] Dr. Daphne Cheney Glucose [Mass/Vol] 122 mg/dL Critically high 74-106 The [facility] Comment on above: Performed By: #### C MP #### [facility] [address] [place] [address] Dr. Daphne Cheney Potassium [Moles/Vol] 3.9 mmol/L Normal 3.4-5.0 The [facility] Comment on above: Performed By: #### C MP #### [facility] [address] [place] [address] Dr. Daphne Cheney Protein [Mass/Vol] 7.8 g/dL Normal 6.1-8.2 The [facility] Comment on above: Performed By: #### C MP #### [facility] [address] [place] [address] Dr. Daphne Cheney Sodium [Moles/Vol] 143 mmol/L Normal 137-145 [facility] Comment on above: Performed By: #### C MP #### [facility] [address] [address] [address] Daphne Cheney Urea nitrogen [Mass/Vol] 23.0 mg/dL Critically high 7.0-18.0 [facility] Comment on above: Performed By: #### C MP #### [facility] [address] [place], [place] [address] Dr. Daphne Cheney Urea nitrogen/Creatini ne [Mass ratio] 21.1 mg/mg Normal [facility] Comment on above: Performed By: #### C MP #### [facility] [id number] Daphne Cheney XR CHEST 2 Von 02-02-2022 XR CHEST 2 V EXAMINATION: XR CHES T 2 V HISTORY: Acute bronchitis , cough, congestion COMPARISON: XR chest 08/21/2018 FINDINGS: LUNGS: Small patchy opacities scattered throughout left lung. Right lung is relatively clear. Underexpanded lungs. VASCULATURE: No increased pulmonary vasculature. PLEURA: No pneumothorax, effusion, or pleural thickening. CARDIAC: No cardiomegaly or cardiac silhouette abnormality. MEDIASTINUM: No visible mass or adenopathy. BONES: No fracture or visible bone lesion. OTHER: Negative. IMPRESSION: 1. Low lung volume examination with moderate left pulmonary infiltrates suggestive of pneumonia. Electronically authenticated by: VAISHNAVI BAER Date: 2022-02-02 11:00 Normal [facility] Social History Date Type Detail Facility Unknown if ever smoked [facility] Other Sex Assigned At Sex Assigned At Bir th [facility] Other Vital Signs Date Time Vital Sign Value Performing Clinician Facility 04-18-2023 15:15-0400 Body height 165.1 cm Gasper Persaud Other [facility] Other 04-18-2023 15:15-0400 Body mass index (BMI) [Ratio] 27.15 kg/m2 Gasper Persaud Other [facility] Other 04-18-2023 15:15-0400 Body weight 74.03 kg Gasper Ball Other [facility] Other 04-18-2023 15:15-0400 Diastolic blood pressure 78 mm[Hg] Gasper Ball Other [facility] Other 04-18-2023 15:15-0400 Respiratory rate 12 /min Gasper Ball Other [facility] Other 04-18-2023 15:15-0400 Systolic blood pressure 132 mm[Hg] Gasper Ball Other [facility] Other 01-25-2023 14:30-0400 Body height 165.1 cm Gasper Ball Other [facility] Other 01-25-2023 14:30-0400 Body mass index (BMI) [Ratio] 24.96 kg/m2 Gasper Ball Other [facility] Other 01-25-2023 14:30-0400 Body weight 68.04 kg Gasper Ball Other [facility] Other 01-25-2023 14:30-0400 Respiratory rate 12 /min Gasper Ball Other [facility] Other 06-19-2022 10:35-0400 Body height 165.1 cm Jennifer Trujillo Other [facility] Other 09-29-2021 16:50-0500 Body height 165.1 cm Donna Haque Other [facility] Other 09-29-2021 16:50-0500 Body temperature 98.7 [degF] Donna Haque Other [facility] Other 09-29-2021 16:50-0500 Diastolic blood pressure 89 mm[Hg] Donna Haque Other [facility] Other 09-29-2021 16:50-0500 Respiratory rate 18 /min Donna Haque Other [facility] Other 09-29-2021 16:50-0500 SaO2% (BldA) [Mass fraction] 98 % Donna Haque Other [facility] Other 09-29-2021 16:50-0500 Systolic blood pressure 131 mm[Hg] Donna Haque Other [facility] Other Evaluation note 07-06-2023 Note Date & Type Note Facility 07-06-2023 Evaluation note Encounter Date Diagnosis Assessment Notes Jun, Pneumonia of left lower lobe due to infectious organism (ICD-10 - J18.9) [facility] Other Evaluation note 01-25-2023 Note Date & Type Note Facility 01-25-2023 Evaluation note Encounter Date Diagnosis Assessment Notes Jan, Hidradenitis axillaris (ICD-10 - L73.2) warm compresses, begin antibiotics Jan, Concussion without loss of consciousness, subsequent encounter (ICD-10 - S06.0X0D) Rest, Advil as needed, monitor for MS changes Jan, Strain of left shoulder, subsequent encounter (ICD-10 - S46.912D) Heat/ice and lidocaine. ROM exercises Jan, Contusion of left hip, subsequent encounter (ICD-10 - S70.02XD) Ice/heat and Voltaren Gel [facility] Other Evaluation note 06-19-2022 Note Date & Type Note Facility 06-19-2022 Evaluation note Encounter Date Diagnosis Assessment Notes Jun, Contact with and (suspected) exposure to covid-19 (ICD-10 - Z20.822) 03 Jun, 2022 COVID-19 (ICD-10 - U07.1) Discharge Instructions for COVID-19 (Suspected or Confirmed ) material was printed Drink plenty fluids get plenty of rest. Continue home medications as prescribed. Take Tylenol or Motrin as needed for aches pains or fevers. You must quarantine for 5 days after the onset of your symptoms. Follow-up with your family physician if no improvement in 2 to 3 days. Go to the ER for worsening symptoms or concerns. [facility] Other Evaluation note 09-29-2021 Note Date & Type Note Facility 09-29-2021 Evaluation note Encounter Date Diagnosis Assessment Notes Sep, Injury of left knee, initial encounter (ICD-10 - S89.92XA) . Use TYLENOL AND VOLTARON GEL as directed for pain if needed. Contact office if symptoms are not improved within the next few days and we will help you get into specialist. [facility] Other Evaluation note Note Date & Type Note Facility Evaluation note No Information [facility] Other Evaluation note Note Date & Type Note Facility Evaluation note [facility] Other History general Narrative - Reported Note Date & Type Note Facility History general Narrative - Reported Type Medical History seizures Medical History htn Medical History mrdd Surgical History dental surgery Surgical History cystoscopy Hospitalization History pneumonia [facility] Other History general Narrative - Reported Note Date & Type Note Facility History general Narrative - Reported Type Medical History Development delay Medical History Functional urinary incontinence Medical History Generalized seizure disorder 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 Medical History Impaired verbal communication Surgical History dental surgery Surgical History cystoscopy Hospitalization History pneumonia [facility] Other History general Narrative - Reported Note Date & Type Note Facility History general Narrative - Reported [facility] Other Summary Purpose Family History No Family History Records FoundNo Family History Records FoundNo Family History Records Found Advance Directives No Advanced Directives Records FoundNo Advanced Directives Records FoundNo Advanced Directives Records Found Additional Source Comments (unrecognized sect ion and content) No Status Records FoundNo Status Records FoundNo Status Records Found INFORMATION SOURCE (unrecogn ized section and content) DATE CREATED AUTHOR 04/11/2018 Ryan Rodarte [facility] DATE CREATED AUTHOR AUTHOR'S ORGANIZ ATION 01/24/2023 [facility] DATE CREATED AUTHOR AUTHOR'S ORGANIZ ATION 01/18/2024 [facility] EPIC REASON FOR VISIT (unrecogniz ed section and content) PT FELL AT [employer] MENT, NEEDS LEGS CHECKED OUTWHITE EQUINOX, COVID EXPOSUREUpdatefell, bumps under armPossible ReactionReturn to WorkIncreased coughingFLU-SHOTXrayXray results FOR RECORDS PERTAINING TO PATIENTS WHO ARE OR HAVE BEEN ENROLLED IN A CHEMICAL DEPENDENCY/SUBSTANCEABUSE PROGRAM, SOME INFORMATION MAY BE OMITTED. This clinical summary was aggregated from multiple sources. Caution should be exercised in using it in the provision of clinical care. This summary normalizes information from multiple sources, and as a consequence, information in this document may materially change the coding, format and clinical context of patient data. In addition, data may be omitted in some cases. CLINICAL DECISIONS SHOULD BE BASED ON THE PRIMARY CLINICAL RECORDS. The car easily beat [facility]. provides no warranty or guarantee of the accuracy or completeness of information in this document.
--- NOTE | 2024-03-12 22:20 | XR_ITS ---
The [address] [address] Patient Name: NOA LEWIS MRN: [id number] date: 1980 Sex: M Assigned Patient Location: ER Current Patient Location: ED.MAIN Accession/Order Number: [id number] Exam Date: 03/12/2024 22:40 Report Date: 03/13/2024 00:39 At the request of: NICOLLE MARKER Procedure: XR shoulder LT min 2V EXAM: XR shoulder LT min 2V HISTORY: seizure, shoulder deformity COMPARISON: None. TECHNIQUE: 1 view left shoulder submitted. FINDINGS/IMPRESSION: Only one view submitted. This demonstrates acute significantly displaced distal left clavicle shaft fracture. The proximal shaft is displaced 1.1 cm cephalad to distal fracture fragment with some mild bony overlap. The left acromioclavicular and glenohumeral joints are still intact. No subluxation or dislocation. No other fractures are seen at left shoulder. Electronically authenticated by: VICKIE HUNTER Date: 03/13/2024 00:39
--- NOTE | 2024-03-12 22:21 | ED.GENADUL1 ---
HPI HPI - General Adult General Chief complaint: Extremity Injury, Upper Stated complaint: fall Time Seen by Provider: 03/12/24 22:10 Source: family Mode of arrival: ambulance Limitations: other (Non verbal. Hx MR) Limitations comment: Hx MRDD History of Present Illness HPI narrative: This 43-year-old male who lives at home with his mother is brought to the emergency department by EMS from home for evaluation of a left shoulder injury. The patient's mother states that she gave him his nighttime medications including seizure medications around 8 PM. He then went to bed and she heard a loud sound coming from his bedroom. She went to the bedroom and found him between the bed and the dresser. She assumes he had a seizure because he has seizures every other day. He has some abrasions to the left knee and a lump at the proximal aspect of the left shoulder. He is otherwise at his baseline mental status. She states he was not able to help himself get up after the fall out of bed and she believes it is because he may have dislocated his shoulder area. Related Data Home Medications ?Medication ?Instructions ?Recorded ?Confirmed brivaracetam 100 mg tablet mg PO 03/12/24 (Briviact) clonazepam 0.5 mg tablet mg 03/12/24 divalproex 250 mg tablet,delayed mg PO 03/12/24 release lamotrigine 200 mg tablet mg 03/12/24 Allergies Allergy/AdvReac Type Severity Reaction Status Date / Time Pertussis Vaccines Allergy Intermediate Verified 08/07/23 14:13 Opioid HPI Opioid Management Most Recent Opioid Data: No Data to Display Review of Systems ROS Status of ROS 10 or more systems reviewed and unremarkable except as noted in history and below [facility] Social History Smoking status: Never smoker Exam Narrative Exam Narrative: Vital signs and Nursing Notes reviewed: Patient is afebrile with a normal pulse, blood pressure is elevated at 148/92, he is not hypoxic with pulse ox of 95% on room air General: Awake, alert, nontoxic male, he is making grunting verbal sounds and acting appropriately according to his mother HEENT: Normocephalic atraumatic, mucous membranes are moist and pink, Neck: Supple, no meningeal signs, no anterior or posterior cervical lymphadenopathy Chest: Lungs are clear to auscultation with good air entry, there is no wheezing rhonchi or rales appreciated no accessory muscle use, patient is speaking in complete sentences-no chest wall tenderness to palpation CVS: Regular rate and rhythm S1-S2, no murmurs rubs or gallops, pulses are brisk and equal bilaterally ABD: Soft, nondistended, nontender, no rebound guarding or rigidity, bowel sounds are normal, no pulsatile masses appreciated Extremities: Patient resists any movement of the left upper extremity. There is a firm tender area at the proximal aspect of the left shoulder with a deformity noted at the distal clavicle Skin: Normal in appearance without rash,pallor, petechiae or purpura Neuro: At baseline with a history of MR Constitutional Vital Signs, click to edit/add: Last Vital Signs Temp 98 F 03/12/24 22:01 Pulse 83 03/12/24 22:01 Resp 18 03/12/24 22:01 BP 148/92 H 03/12/24 22:01 Pulse Ox 95 03/12/24 22:01 O2 Del Method Room Air 03/12/24 22:01 Course Vital Signs Vital signs: Vital Signs Temperature 98 F 03/12/24 22:01 Pulse Rate 83 03/12/24 22:01 Respiratory Rate 18 03/12/24 22:01 Blood Pressure 148/92 H 03/12/24 22:01 Pulse Oximetry 95 03/12/24 22:01 Oxygen Delivery Method Room Air 03/12/24 22:01 Temperature 98 F 03/12/24 22:01 Pulse Rate 83 03/12/24 22:01 Respiratory Rate 18 03/12/24 22:01 Blood Pressure 148/92 H 03/12/24 22:01 Pulse Oximetry 95 03/12/24 22:01 Oxygen Delivery Method Room Air 03/12/24 22:01 Medical Decision Making MDM Narrative Medical decision making narrative: This 43-year-old male with a history of MR is brought to the emergency department by EMS from home. He is accompanied by his mother who is the chief historian. She states that he went to bed tonight she heard a thud in his room. She went into his room because he frequently has seizures. She found him between the bed and the dresser. He was unable to help himself up off of the floor at that time and she noted a deformity and swelling at the proximal aspect of the left shoulder. He resists any range of motion and is tender at the proximal left shoulder. X-rays show a displaced distal clavicle fracture. The left shoulder itself appears normal with no fracture or dislocation. He was medicated in the emergency department with Tylenol. I discussed placing a clavicle strap or sling on this patient with his mother. We both agree that this would be a safety risk for him. Will be discharged home with referral to outpatient orthopedics. Medical Records Medical records narrative: [place] [address] XRay Report Signed Patient: NOA LEWIS MR#: [id number] : 1980 Acct:[id number] Age/Sex: 43 / M ADM Date: 03/12/24 Loc: ER Attending Dr: Ordering Physician: Rebeka Che Date of Service: 03/12/24 Procedure(s): XR clavicle LT Accession Number(s): [id number] cc: Gasper Persaud D.O.; Rebeka Che~ The [address] [address] Patient Name: NOA LEWIS MRN: [id number] date: 1980 Sex: M Assigned Patient Location: ER Current Patient Location: ER Accession/Order Number: [id number] Exam Date: 03/12/2024 22:40 Report Date: 03/12/2024 23:11 At the request of: REBEKA CHE Procedure: XR clavicle LT Examination:XR clavicle LT INDICATION:fall COMPARISON:None. TECHNIQUE:2 views of the left clavicle are submitted. FINDINGS:There is an acute comminuted distal left clavicular fracture. The fracture does not extend to the acromioclavicular joint. XR/XR clavicle LT IMPRESSION: Acute distal left clavicular fracture. Electronically authenticated by: KAROLYN GABRIEL Date: 03/12/2024 23:11 The [address] [place] [id number] XRay Report Signed Patient: NOA LEWIS MR#: [id number] : 1980 Acct:[id number] Age/Sex: 43 / M ADM Date: 03/12/24 Loc: ER Attending Dr: Ordering Physician: Rebeka Che Date of Service: 03/12/24 Procedure(s): XR shoulder LT min 2V Accession Number(s): [id number] cc: Gasper Persaud D.O.; Rebeka Che~ The [address] [place] [id number] Patient Name: NOA LEWIS MRN: [facility]:[id number] date: 1980 Sex: M Assigned Patient Location: ER Current Patient Location: ED.MAIN Accession/Order Number: [id number] Exam Date: 03/12/2024 22:40 Report Date: 03/13/2024 00:39 At the request of: REBEKA MARKER Procedure: XR shoulder LT min 2V EXAM: XR shoulder LT min 2V HISTORY: seizure, shoulder deformity COMPARISON: None. TECHNIQUE: 1 view left shoulder submitted. FINDINGS/IMPRESSION: Only one view submitted. This demonstrates acute significantly displaced distal left clavicle shaft fracture. The proximal shaft is displaced 1.1 cm cephalad to distal fracture fragment with some mild bony overlap. The left acromioclavicular and glenohumeral joints are still intact. No subluxation or dislocation. No other fractures are seen at left shoulder. Electronically authenticated by: EARL ANTON Date: 03/13/2024 00:39 Dictated By: Earl Anton D.O. Signed By: Discharge Plan Discharge Stand Alone Forms: Portal Instructions Chief Complaint: Extremity Injury, Upper Clinical Impression: Closed fracture of left clavicle Patient Disposition: Home, Self-Care Time of Disposition Decision: 23:27 Condition: Good Prescriptions / Home Meds: No Action lamotrigine 200 mg tablet divalproex 250 mg tablet,delayed release (DR/EC) PO clonazepam 0.5 mg tablet Briviact 100 mg tablet PO Print Language: Irish Instructions: Clavicle Fracture (ED) Referrals: Gasper Persaud DO [Primary Care Provider] - 1 week Con Coyle MD [Physician] - 1 week Discharge Date/Time: 03/13/24 00:24
--- NOTE | 2024-03-12 22:49 | XR_ITS ---
The [address] [address] Patient Name: NOA LEWIS MRN: [id number] date: 1980 Sex: M Assigned Patient Location: ER Current Patient Location: ER Accession/Order Number: [id number] Exam Date: 03/12/2024 22:40 Report Date: 03/12/2024 23:11 At the request of: NICOLLE MARKER Procedure: XR clavicle LT Examination:XR clavicle LT INDICATION:fall COMPARISON:None. TECHNIQUE:2 views of the left clavicle are submitted. FINDINGS:There is an acute comminuted distal left clavicular fracture. The fracture does not extend to the acromioclavicular joint. XR/XR clavicle LT IMPRESSION: Acute distal left clavicular fracture. Electronically authenticated by: KAROLYN GABRIEL Date: 03/12/2024 23:11
[2024-03-12] MEDS: ACETAMINOPHEN 325 MG TABLET 650 MG PO (23:36)
== END 2024-03-13 00:24 | disposition home or self-care (01) ==
PROVIDERS: Emergency Provider Emergency Medicine; PCP Internal Medicine
DX: S42.032A Displaced fracture of lateral end of left clavicle, initial encounter for closed fracture (principal); F79 Unspecified intellectual disabilities; X58.XXXA Exposure to other specified factors, initial encounter
CPT/HCPCS: 73000; 73030; 99284

== ENCOUNTER 2024-03-19 13:31 | Outpatient (OUT) | payer MEDICARE, MEDICAID, SELFPAY ==
--- NOTE | 2024-03-19 | XR_ITS ---
[address] [address] Patient Name: NOA LEWIS MRN: [id number] date: 1980 Sex: M Assigned Patient Location: Current Patient Location: Accession/Order Number: [id number] Exam Date: 03/19/2024 13:32 Report Date: 03/20/2024 12:00 At the request of: VAISHNAVI MUNOZ Procedure: XR clavicle LT PROCEDURE: XR clavicle LT HISTORY: LEFT CLAVICLE PAIN ; follow-up left clavicle fracture COMPARISON: XR clavicle left 03/12/2024 FINDINGS: BONES:Oblique fracture through distal left clavicle inferior displacement of the distal end of the clavicle slightly greater than one full bone width. The acromioclavicular joint appears to remain intact. SOFT TISSUES:No visible soft tissue swelling. EFFUSION:None visible. OTHER: Negative. XR/XR clavicle LT IMPRESSION: 1. Distal left clavicle fracture with marked inferior displacement; greater than previously seen. 2. Intact acromioclavicular joint. Electronically authenticated by: VAISHNAVI BAER Date: 03/20/2024 12:00
== END 2024-03-19 13:32 | disposition home or self-care (01) ==
LOC: EC 13:31
PROVIDERS: PCP Internal Medicine; Visit Provider Orthopaedic Surgery
DX: M89.8X1 Other specified disorders of bone, shoulder (principal); S42.032A Displaced fracture of lateral end of left clavicle, initial encounter for closed fracture
CPT/HCPCS: 73000

== ENCOUNTER 2024-03-26 10:12 | Outpatient (OUT) | payer MEDICARE, MEDICAID, SELFPAY ==
[2024-03-28 15:09] LABS: Lamotrigine (Lamictal), Serum 17.1 ug/mL (2.0-20.0)
== END 2024-03-26 10:13 | disposition home or self-care (01) ==
LOC: LAB 10:12
PROVIDERS: PCP Internal Medicine; Visit Provider Psychiatry & Neurology Neurology
DX: G40.909 Epilepsy, unspecified, not intractable, without status epilepticus (principal)
CPT/HCPCS: 36415; 80164; 80165; 80175

== ENCOUNTER 2024-04-02 12:22 | Outpatient (OUT) | payer MEDICARE, MEDICAID, SELFPAY ==
--- NOTE | 2024-04-02 | XR_ITS ---
The [address] [address] Patient Name: NOA LEWIS MRN: [id number] date: 1980 Sex: M Assigned Patient Location: Current Patient Location: Accession/Order Number: [id number] Exam Date: 04/02/2024 12:23 Report Date: 04/03/2024 11:02 At the request of: VAISHNAVI MUNOZ Procedure: XR clavicle LT PROCEDURE: XR clavicle LT HISTORY: LEFT CLAVICLE PAIN COMPARISON: XR clavicle left 03/19/2024 FINDINGS: BONES:Fracture of distal left clavicle with inferior displacement greater than one full bone width. Intact acromioclavicular joint. No appreciable abnormality of the glenohumeral joint. SOFT TISSUES:No visible soft tissue swelling. EFFUSION:None visible. OTHER: Negative. XR/XR clavicle LT IMPRESSION: 1. Stable, markedly displaced distal left clavicle fracture without radiographic evidence of osseous fusion or significant bone healing. Electronically authenticated by: VAISHNAVI BAER Date: 04/03/2024 11:02
== END 2024-04-02 12:23 | disposition home or self-care (01) ==
LOC: EC 12:22
PROVIDERS: PCP Internal Medicine; Visit Provider Orthopaedic Surgery
DX: S42.002D Fracture of unspecified part of left clavicle, subsequent encounter for fracture with routine healing (principal)
CPT/HCPCS: 73000

== ENCOUNTER 2024-04-23 10:27 | Outpatient (OUT) | payer MEDICARE, MEDICAID, SELFPAY ==
[2024-04-23 11:15] LABS: Ammonia 38 umol/L (11-32)
[2024-04-23 11:20] LABS: Alanine Aminotransferase 23 U/L (16-63); Aspartate Amino Transferase 17 U/L (15-37)
[2024-04-25 15:08] LABS: Lamotrigine (Lamictal), Serum 23.3 ug/mL (2.0-20.0)
== END 2024-04-23 10:28 | disposition home or self-care (01) ==
LOC: LAB 10:31
PROVIDERS: PCP Internal Medicine; Visit Provider Psychiatry & Neurology Neurology
DX: G62.9 Polyneuropathy, unspecified (principal); R79.89 Other specified abnormal findings of blood chemistry; G60.9 Hereditary and idiopathic neuropathy, unspecified; Z11.3 Encounter for screening for infections with a predominantly sexual mode of transmission; E53.1 Pyridoxine deficiency; I70.91 Generalized atherosclerosis; D51.3 Other dietary vitamin B12 deficiency anemia; M79.10 Myalgia, unspecified site; E78.5 Hyperlipidemia, unspecified; G40.909 Epilepsy, unspecified, not intractable, without status epilepticus
CPT/HCPCS: 36415; 80175; 82140; 84450; 84460

== ENCOUNTER 2024-04-27 14:15 | Outpatient (OUT) | payer MEDICARE, MEDICAID, SELFPAY | END 2024-04-27 14:16 | disposition home or self-care (01) | LOC: LAB 14:16 | PROVIDERS: PCP Internal Medicine; Visit Provider Psychiatry & Neurology Neurology | DX: G40.909 Epilepsy, unspecified, not intractable, without status epilepticus (principal) | CPT/HCPCS: 36415; 80164; 80165 ==

== ENCOUNTER 2024-04-30 10:35 | Outpatient (OUT) | payer MEDICARE, MEDICAID, SELFPAY ==
--- NOTE | 2024-04-30 | XR_ITS ---
[address] [address] Patient Name: NOA LEWIS MRN: [id number] date: 1980 Sex: M Assigned Patient Location: Current Patient Location: Accession/Order Number: [id number] Exam Date: 04/30/2024 10:36 Report Date: 05/01/2024 11:39 At the request of: VAISHNAVI MUNOZ Procedure: XR clavicle LT PROCEDURE: XR clavicle LT COMPARISON: 04/02/2024 HISTORY: LEFT CLAVICLE PAIN FINDINGS: BONES:Complex distal clavicle fracture with up to 2.2 cm of separation between the fracture fragments. Interval bone formation consistent with healing, incomplete bony bridging. SOFT TISSUES:Negative. No visible soft tissue swelling. EFFUSION:None visible. OTHER: Negative. XR/XR clavicle LT IMPRESSION: Healing displaced complex distal clavicle fracture Electronically authenticated by: JUICE BARRIOS Date: 05/01/2024 11:39
== END 2024-04-30 10:36 | disposition home or self-care (01) ==
LOC: EC 10:35
PROVIDERS: PCP Internal Medicine; Visit Provider Orthopaedic Surgery
DX: S42.032A Displaced fracture of lateral end of left clavicle, initial encounter for closed fracture (principal)
CPT/HCPCS: 73000

== ENCOUNTER 2024-06-05 09:55 | Outpatient (OUT) | payer MEDICARE, MEDICAID, SELFPAY ==
--- OUTSIDE RECORDS SUMMARY | 2024-06-05 10:09 | XMS_ITS | CCD ---
Author Organization [facility]iniS[facility]n Care Team Providers Care [employer] Business Analyst Name Role Phone HUNG GASPER~[phone] UNKNOWN Unavailable Unavailable HUNG, GASPER~[phone] UNKNOWN Unavailable Unavailable HUNG, GASPER~[phone] UNKNOWN Unavailable Unavailable BALL, GASPER~[phone] UNKNOWN Unavailable Unavailable Donna Haque Unavailable Jennifer Trujillo Unavailable Gasper Persaud Unavailable JUICE NAVA Consulting Unavailable DIAB ., CHICHI Attending Unavailable DIAB ., CHICHI Admitting Unavailable BALL, DR TURCIOS Primary Care Unavailable DIAB ., CHICHI Consulting Unavailable KEMAL, KYLER Consulting Unavailable KEMAL, KYLER Attending Unavailable KEMAL, KYLER Admitting Unavailable HUNG, DR TURCIOS Primary Care Unavailable VEL Vazquez, SIRI Consulting Unavailable PETER, RAY Consulting Unavailable GERALD CRUZ Consulting UnavailEMMA Serrato Consulting Unavailable HUNG, DR TURCIOS Primary Care Unavailable BALL, DR TURCIOS Attending Unavailable BALL, DR TURCIOS Admitting Unavailable BEJ, GORDY Consulting Unavailable HUNG, DR TURCIOS Primary Care Unavailable BEJ, GORDY [...] Care Unavailable BEJ, GORDY Attending Unavailable BEJ, GRODY Admitting Unavailable BALL, DR TURCIOS Consulting Unavailable BALL, DR TURCIOS Primary Care Unavailable BALL, DR TURCIOS Attending Unavailable BALL, DR TURCIOS Admitting Unavailable ZIEBER, DR VAISHNAVI Larkin Consulting Unavailable HUNG, DR TURCIOS Consulting Unavailable HUNG, DR TURCIOS Primary Care Unavailable HUNG, DR TURCIOS Attending Unavailable BALL, DR TURCIOS Admitting Unavailable ZIEBER, DR VAISHNAVI Larkin Consulting Unavailable TONOTIARRA HAYWOOD Consulting Unavailable VEL VazquezSIRI Attending Unavailable VEL ., SIRI Admitting Unavailable DR GASPER PERSAUD Primary Care Unavailable JUICE WILD Consulting Unavailable PAY ., DR MACIAS Consulting Unavailable PAY ., DR MACIAS Attending Unavailable PAY ., DR MACIAS Admitting Unavailable DR GASPER PERSAUD Primary Care Unavailable GORDY SCOTT Attending Unavailable GORDY SCOTT Attending Unavailable GORDY SCOTT Attending Unavailable Allergies Allergy Classification Reported Allergen(s) Allergy Type Date of Onset Reaction(s) Facility (1 source) Pertussis Immune Globulin Drug allergy (disorder) 3 [facility] Repository (3 sources) Pertussis Vaccine Drug Allergy Unknown [facility] Other (3 sources) Vaccine product containing Bordetella pertussis antigen (medicinal product) Drug allergy 5 Unknown [facility] Other (3 sources) patient allergy list reviewed by nurse or physicia Propensity to adverse reactions 5 Comment:Done [facility] Other Medications Current Medications Medication Drug Class(es) Dates Sig (Normalized) Sig (Original) clonazePAM 0.5 mg oral tablet (10 sources) Benzodiazepine Start: 04-10-2024 take 0.5 mg by mouth once daily at bedtime Clonazepam Active 0.5 MG PO Daily at bedtime April 10, 2024 12:00am take 1 tablet by hakan th every twenty-four hours KlonoPIN 0.5 MG 1 [...] daily for 10 days Jan, Active eslicarbazepine acetate 200 mg oral tablet (12 sources) Start: 04-10-2024 take 1 tablet by mouth once daily Eslicarbazepine (Aptiom) 200 mg tablet Active 400 MG PO Daily April 10, 2024 12:00am Aptiom Active fluticasone propionate 0.05 mg/actuat metered dose nasal spray (6 sources) Corticosteroid Start: 04-10-2024 take 1 spray(s) nasal route once daily Fluticasone Propionate (Flonase Allergy Relief) 50 mcg/actuation spray,suspension Active 1 SPRAY INTRANASAL Daily April 10, 2024 12:00am [employer] spray in each nostril Nasally Once a day; Note: Source Status: Taking; Provider: Hung Bullock Start: 04-18-2023 take 1 spray(s) nasa l route once daily Flonase Allergy Relief 50 MCG/ACT 1 spray in each nostril Nasally Once a day for 30 days Apr, Active Start: 04-18-2023 gabapentin 600 mg oral tablet (10 sources) Anti-epileptic Agent Start: 04-10-2024 take 600 mg by mouth twice daily Gabapentin Active 600 MG PO Twice daily April 10, 2024 12:00am take 1 tablet by hakan th every twelve hours Gabapentin 600 MG 1 tablet Orally twice a day Active lamoTRIgine 200 mg oral tablet (12 sources) Mood Stabilizer, Anti-epileptic Agent Start: 04-10-2024 take 1 tablet by mouth twice daily Lamotrigine (Lamictal) 200 mg tablet Active 200 MG PO Twice daily April 10, 2024 12:00am take 1 tablet by mouth every twe lve hours LaMICtal 200 MG 1 tablet Orally twice a day Active take 1 tablet by hakan th every twenty-four hours LaMICtal 100 MG 1 tablet Orally Once a d ay for 30 day(s) Active loratadine 10 mg oral tablet (6 sources) Start: 04-10-2024 take 1 tablet by mouth once daily Loratadine Active 1 TAB PO Daily April 10, 2024 12:00am [employer] tablet Orally Once a day; Note: Source Status: Taking; Provider: Hung Bullock Start: 04-18-2023 take 1 tablet by hakan th once daily Loratadine 10 MG 1 tablet Orally Once a day for 30 days Apr, Active Start: 04-18-2023 Problems Active Problems Problem Classification Problem Date [...] of speech and language, unspecified] Onset: 07-29-2014 04-08-2024 Chronic Diseases of mouth; excluding dental (6 sources) Xerostomia; Translations: [Dry mouth, unspecified] Onset: 08-24-2016 Episodic Disorders of lipid metabolism (2 sources) Hyperlipidemia, unspecified; Translations: [Hypercholesterolemi a] Onset: 11-25-2022 04-10-2024 Chronic Disorders usually diagnosed in infancy, childhood, [...] 11-25-2022 Episodic Other aftercare (1 source) Other group home (current) drug therapy; Translations: [OTH 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 DRUG THERAPY] Onset: 01-24-2023 Episodic Other aftercare (3 sources) Long-term current use of drug therapy; 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 group home (current) drug therapy] Episodic Other connective tissue [...] Chronic Other nutritional; endocrine; and metabolic disorders (10 sources) Developmental delay; Translations: [Unspecified lack of expected normal physiological development in childhood] 04-08-2024 Episodic Other nutritional; endocrine; and metabolic disorders (2 sources) Unspecified lack of expected normal physiological development in childhood; Translations: [Lack of normal physiological development, unspecified] Onset: 01-24-2023 04-10-2024 Episodic Other nutritional; endocrine; and metabolic disorders (3 sources) Physiological development failure; Translations: [Unspecified lack of expected normal physiological development in childhood] Episodic Other screening for suspected conditions (not mental disorders or infectious disease) (2 sources) Other specified abnormal findings of blood chemistry; Translations: [Encounter for screening for malignant neoplasm of colon] Onset: 09-18-2022 04-10-2024 Episodic Other skin disorders (1 source) Hidradenitis [...] [History of falling] Onset: 8 Episodic Other upper respiratory infections (6 sources) [...] Test Name Value Interpretation Reference Range Facility No Panel Informationon 03-26 Lamotrigine (Lamictal) Level 17.1 ug/mL 2.0-20.0 [facility] Comment on above: Detection Limit = 1. 0Performed at: [employer] [id number] Director: Chris Lux MD, Phone: [phone] Miscellaneous Test COMMENT . [facility] Comment on above: Test Ordered: [id number] Valproic Acid (Total+Free)Valproic Acid (Depakote)(R),S 11 [L ] ug/mL Reference Range: 50-100 Detection Limit = 4 <4 indicates None DetectedToxicity may occur at levels of 100-500. Measurementsof free unbound valproic acid may improve the assess-ment of clinical response.Free Valproic Acid (Depakote) 2.6 [L ] ug/mL Reference Range: 6.0-22.0 Detection Limit = 0.5Performed at: [facility] [employer] [id number] Director: Silvestre Nelson PhD, Phone: [phone] at: [facility] [employer] [id number] Director: Chris Lux MD, Phone: [phone] XR HIP LT 2 3V W PELVISon [...] JUICE NAVA Date: 2023-01-23 09:52 Normal [facility] XR SHOULDER LT 2V or >on XR [...] JUICE NAVA Date: 2023-01-23 09:51 Normal [facility] LAMOTRIGINEon 11-25-2022 Lamotrigine, Serum 15.7 ug/mL Normal 2.0-20.0 [facility] Comment on above: Result Comment: Dete ction Limit = 1.0 Performed By: #### L AMOT #### [facility] Laboratory [address] [place] [address] Dr. Daphne Cheney LAMOTRIGINEon 09-17-2022 Lamotrigine, Serum 23.2 ug/mL Invalid Interpretation Code 2.0-20.0 [facility] Comment on above: Result Comment: Ve rified by repeat analysis Detection Limit = 1.0 Performed By: #### L AMOT #### [facility] Laboratory [address] [place] [address] Dr. Daphne Cheney SARS-CoV-2 (COVID-19) RNA NA A+probe Ql (Resp)on 06-19-2022 SARS-CoV-2 (COVID-19) RNA TEO+probe Ql (Unsp spec) Positive [facility] Other XR MODIFIED BARIUM SWALLOWon 06-16-2022 XR [...] VAISHNAVI BAER Date: 2022-06-16 11:18 Normal [facility] XR KNEE GEMA 4V or >on 2021 XR KNEE GEMA 4V or > EXAM: XR KNEE GEMA 4V or > HISTORY: Unspecified fall COMPARISON: None. TECHNIQUE: 9 views total FINDINGS: No fracture, dislocation, subluxation or osseous lesion. No visualized knee effusion. Joint spaces are normal. IMPRESSION: Normal knee x-rays Electronically authenticated by: JUICE WILD Date: 2022-06-09 17:19 Normal [facility] LAMOTRIGINEon 04-24-2022 Lamotrigine, Serum 11.2 ug/mL Normal 2.0-20.0 [facility] Comment on above: Result Comment: Dete ction Limit = 1.0 Performed By: #### L AMOT ####[facility] [address] [place], [place] [address]Vh. Daphne Cheney XR CHEST 2 Von 03-10-2022 [...] VAISHNAVI BAER Date: 2022-03-10 14:59 Normal [facility] CARDIAC GORDY 3-6on 2 CK [Catalytic activity/Vol] 73 U/L Normal 39-308 [facility] Comment on above: Performed By: #### C MREP #### [facility] Laboratory [address] [address] [address] Daphne Cheney CK.MB [Mass/Vol] 0.95 ng/mL Normal <=3.60 [facility] Comment on above: Performed By: #### C MREP #### [facility] Laboratory [address] [address] [address] Daphne Cheney HSTROP 4.8 pg/mL Normal 4.0-76.1 [facility] Comment on above: Result Comment: CUT- OFF POINTS HAVE BEEN ESTABLISHED BASED ON THE FOURTH UNIVERSAL DEFINITIONS OF MYOCARDIAL INFARCTION. THE UPPER REFERENCE LIMIT (URL) OF TROPONIN, DEFINED THE 99TH PERCENTILE OF cTnI DISTRIBUTION IN A REFERENCE POPULATION, HAS BEEN CONFIRMED THE DECISION THRESHOLD FOR HI DIAGNOSIS. Performed By: #### C MREP #### [facility] Laboratory [address] [address] [address] Daphne Cheney CARDIAC GORDY ADMITon 022 CK [Catalytic activity/Vol] 64 U/L Normal 39-308 [facility] Comment on above: Performed By: #### Siobhan SAMAYOA CMADM #### [facility] Laboratory [address] [place] [address] Dr. Daphne Cheney CK.MB [Mass/Vol] 0.85 ng/mL Normal <=3.60 [facility] Comment on above: Performed By: #### B DANITA, CMADM #### [facility] Laboratory [address] [place] [address] Dr. Daphne Cheney HSTROP 4.1 pg/mL Normal 4.0-76.1 [facility] Comment on above: Result Comment: CUT- OFF POINTS HAVE BEEN ESTABLISHED BASED ON THE FOURTH UNIVERSAL DEFINITIONS OF MYOCARDIAL INFARCTION. THE UPPER REFERENCE LIMIT (URL) OF TROPONIN, DEFINED THE 99TH PERCENTILE OF cTnI DISTRIBUTION IN A REFERENCE POPULATION, HAS BEEN CONFIRMED THE DECISION THRESHOLD FOR HI DIAGNOSIS. Performed By: #### B DANITA, CMADM #### [facility] Laboratory [address] [address] [address] Daphne Cheney MANDIE 98 ng/mL Critically high 16-96 The [facility] Comment on above: Performed By: #### B JUNE SAMAYOADM #### [facility] Laboratory [address] [address] [address] Daphne Cheney CBC AUTO DIFFon 02-14-2022 BASO # 0.1 103/ul Normal 0.0-0.1 [facility] Comment on above: Performed By: #### C BC ####[facility] [address] [address]DrGeorge Cheney Basophils/100 WBC (Bld) 0.5 % Normal 0.2-2.0 [facility] Comment on above: Performed By: #### C BC ####[facility] [address] [address]DrGeorge Cheney EO # 0.0 103/ul Normal 0.0-0.7 [facility] Comment on above: Performed By: #### C BC ####[facility] [address] [address]DrGeorge Cheney Eosinophils/100 WBC (Bld) 0.2 % Critically low 0.9-7.0 [facility] Comment on above: Performed By: #### C BC ####[facility] [address] [address]DrGeorge Cheney Erythrocyte distribution width (RBC) [Ratio] 13.0 % Normal 11.0-15.0 [facility] Comment on above: Performed By: #### C BC ####[facility] [address] [address]DrGeorge Cheney Hematocrit (Bld) [Volume fraction] 48.6 % Normal 42.0-54.0 [facility] Comment on above: Performed By: #### C BC ####[facility] [address] [address]DrGeorge Cheney Hemoglobin (Bld) [Mass/Vol] 15.2 g/dL Normal 14.0-18.0 [facility] Comment on above: Performed By: #### C BC ####[facility] [address] [place] [id number]. Daphne Cheney IG # 0.05 10e3/ul Critically high 0.00-0.03 [facility] Comment on above: Performed By: #### C BC ####[facility] [address] [place] [id number]. Daphne Cheney IG % 0.4 % Normal 0.0-0.5 [facility] Comment on above: Performed By: #### C BC ####[facility] [address] [address]Dr. Shahrzadtj Cheney LYMPH # 1.2 103/ul Normal 1.2-3.8 [facility] Comment on above: Performed By: #### C BC ####[facility] [address] [address]Dr. Daphne Cheney Lymphocytes/100 WBC (Bld) 9.2 % Critically low 20.5-60.0 [facility] Comment on above: Performed By: #### C BC ####[facility] [address] [place] [phone]. Shahrzadtj Cheney MANUAL DIFF REQ NO Normal [facility] Comment on above: Performed By: #### C BC ####[facility] [address] [place] [phone]. Daphne Shravan MCH (RBC) [Entitic mass] 28.7 pg Normal 25.9-34.0 [facility] Comment on above: Performed By: #### C BC ####[facility] [address] [place] [phone]. Daphne Cheney MCHC (RBC) [Mass/Vol] 31.3 g/dL Normal 29.9-35.2 [facility] Comment on above: Performed By: #### C BC ####[facility] [address] [place] [phone]. Daphne Shravan MCV (RBC) [Entitic vol] 91.9 fL Normal 80.0-94.0 [facility] Comment on above: Performed By: #### C BC ####[facility] [address] [place] [phone]. Daphne Cheney MONO # 0.9 103/ul Critically high 0.3-0.8 The [facility] Comment on above: Performed By: #### C BC ####[facility] [address] [place] [phone]. Daphne Cheney Monocytes/100 WBC (Bld) 7.2 % Normal 1.7-12.0 [facility] Comment on above: Performed By: #### C BC ####[facility] [address] [place] [phone]. Daphne Cheney NEUT # 10.7 103/ul Critically high 1.4-6.5 [facility] Comment on above: Performed By: #### C BC ####[facility] [address] [address]Dr. Daphne Cheney Neutrophils/100 WBC (Bld) 82.5 % Critically high 43.0-75.0 [facility] Comment on above: Performed By: #### C BC ####[facility] [address] [place] [phone]. Daphne Cheney Platelet mean volume (Bld) [Entitic vol] 8.4 fL Critically low 9.5-13.5 [facility] Comment on above: Performed By: #### C BC ####[facility] [address] [place] [phone]. Daphne Cheney PLT 446 103/ul Normal 150-450 [facility] Comment on above: Performed By: #### C BC ####[facility] [address] [place] [phone]. Daphne Cheney RBC 5.29 106/ul Normal 4.70-6.10 [facility] Comment on above: Performed By: #### C BC ####[facility] [address] [place] [phone]. Daphne Cheney WBC 13.0 103/ul Critically high 4.0-11.0 [facility] Comment on above: Performed By: #### C BC ####[facility] [address] [place], [place] [address]Rp. [address] ABD/PELVIS WO CONon 02-14 CT [...] by: EMMA RODRIGUEZ Date: 2022-02-14 08:[address] [facility] CT HEAD WO CONon 02-14-2022 CT HEAD [...] GERALD CRUZ Date: 2022-02-14 08:27 Normal [facility] Covid-19 PCR (CVDTB)on SARS-CoV-2 (COVID-19) RNA TEO+probe Ql (Unsp spec) Not detected Normal NOT DETECTED [facility] Comment on above: Result Comment: When diagnostic testing is negative, the possibility of a false negative should be considered in the context of a patient's recent exposures and the presence of clinical signs and symptoms consistent with SARS-CoV-2. This test is not yet approved or cleared by the [place] Food and Drug Administration (FDA). This test was developed by [employer], [place], [place]. The performance characteristics of this test were validated by The [facility]. The results are not intended to be used as the sole means for clinical diagnosis or patient management decisions. The [facility] is authorized under Clinical Laboratory Improvement Amendments [...] for this test is supported by the [place] of Health and Human Service's declaration that [...] longer be used). Performed By: #### C VDTBH #### [facility] Laboratory [address] [place] [address] Dr. Daphne Cheney LIPASEon 02-14-2022 Lipase [Catalytic activity/Vol] 92.0 U/L Normal 73.0-393.0 [facility] Comment on above: Performed By: #### L IPA ####[facility] [address] [place], [place] [address]UuDr. Daphne Cheney OCC BLD IMMUNO SCREENon OCCULT BLOOD Negative Normal NEGATIVE [facility] Comment on above: Performed By: #### O BSCRN ####[facility] [address] [place], [place] [address]DmDr. Daphne Cheney PROF CHEM 8 (BAS METB)on Anion gap [Moles/Vol] 12.3 mmol/L Normal [facility] Comment on above: Performed By: #### B DANITA, CMADM #### [facility] Laboratory [address] [address] [address] Daphne Cheney Calcium [Mass/Vol] 9.6 mg/dL Normal 8.5-10.1 [facility] Comment on above: Performed By: #### B DANITA, CMADM #### [facility] Laboratory [address] [address] [address] Daphne Cheney Chloride [Moles/Vol] 98 mmol/L Normal 98-107 [facility] Comment on above: Performed By: #### B DANITA, CMADM #### [facility] Laboratory [address] [address] [address] Daphne Cheney CO2 [Moles/Vol] 32.4 mmol/L Critically high 21.0-32.0 [facility] Comment on above: Performed By: #### B DANITA, CMADM #### [facility] Laboratory [address] [address] [address] Daphne Cheney Creatinine [Mass/Vol] 1.19 mg/dL Normal 0.70-1.30 [facility] Comment on above: Performed By: #### B DANITA, CMADM #### [facility] Laboratory [address] [address] [address] Daphne Cheney EGFR-AF TUNISIAN >60 Normal >=60 [facility] Comment on above: Performed By: #### B DANITA, CMADM #### [facility] Laboratory [address] [address] [address] Daphne Cheney EGFR-NON AF TUNISIAN >60 Normal >=60 [facility] Comment on above: Performed By: #### B MP, CMADM #### [facility] Laboratory [address] [address] [address] Daphne Cheney Glucose [Mass/Vol] 120 mg/dL Critically high 74-106 [facility] Comment on above: Performed By: #### B MP, CMADM #### [facility] Laboratory [address] [address] [address] Daphne Cheney Potassium [Moles/Vol] 4.7 mmol/L Normal 3.5-5.1 [facility] Comment on above: Performed By: #### B MP, CMADM #### [facility] Laboratory [address] [address] [address] Daphne Cheney Sodium [Moles/Vol] 138 mmol/L Normal 136-145 [facility] Comment on above: Performed By: #### B DANITA, CMADM #### [facility] Laboratory [address] [address] [address] Daphne Cheney Urea nitrogen [Mass/Vol] 12.0 mg/dL Normal 7.0-18.0 [facility] Comment on above: Performed By: #### B DANITA, CMADM #### [facility] Laboratory [address] [address] [address] Daphne Cheney Urea nitrogen/Creatini ne [Mass ratio] 10.1 mg/mg Normal [facility] Comment on above: Performed By: #### B DANITA, CMADM #### [facility] Laboratory [address] [address] [address] Daphne Cheney XR KUB 1 VIEWon [...] Follow-up as clinically indicated. Electronically authenticated by: BINOR SAID Date: 2022-02-14 06:35 Normal [facility] CBC AUTO DIFFon 02-02-2022 BASO # 0.0 103/ul Normal 0.0-0.1 [facility] Comment on above: Performed By: #### C BC #### [facility] [facility] [address] [address] [address] Daphne Cheney Basophils/100 WBC (Bld) 0.2 % Normal 0.2-2.0 [facility] Comment on above: Performed By: #### C BC #### [facility] [address] [address] [address] Daphne Cheney EO # 0.0 103/ul Normal 0.0-0.7 [facility] Comment on above: Performed By: #### C BC #### [facility] [address] [place] [address] Dr. Daphne Cheney Eosinophils/100 WBC (Bld) 0.0 % Critically low 0.9-7.0 [facility] Comment on above: Performed By: #### C BC #### [facility] [address] [address] [address] Daphne Cheney Erythrocyte distribution width (RBC) [Ratio] 13.8 % Normal 11.0-15.0 [facility] Comment on above: Performed By: #### C BC #### [facility] [address] [place] [address] Dr. Daphne Cheney Hematocrit (Bld) [Volume fraction] 42.5 % Normal 42.0-54.0 [facility] Comment on above: Performed By: #### C BC #### [facility] [address] [address] [address] Daphne Cheney Hemoglobin (Bld) [Mass/Vol] 13.9 g/dL Critically low 14.0-18.0 [facility] Comment on above: Performed By: #### C BC #### [facility] [address] [address] [address] Daphne Cheney IG # 0.13 10e3/ul Critically high 0.00-0.03 [facility] Comment on above: Performed By: #### C BC #### [facility] [address] [place] [address] Dr. Daphne Cheney IG % 1.0 % Critically high 0.0-0.5 The [facility] Comment on above: Performed By: #### C BC #### [facility] [address] [place] [address] Dr. Daphne Cheney LYMPH # 1.2 103/ul Normal 1.2-3.8 The [facility] Comment on above: Performed By: #### C BC #### [facility] [address] [place] [address] Dr. Daphne Cheney Lymphocytes/100 WBC (Bld) 8.6 % Critically low 20.5-60.0 [facility] Comment on above: Performed By: #### C BC #### [facility] [address] [place] [address] Dr. Daphne Cheney MANUAL DIFF REQ NO Normal The [facility] Comment on above: Performed By: #### C BC #### [facility] [address] [place] [address] Dr. Daphne Cheney MCH (RBC) [Entitic mass] 29.4 pg Normal 25.9-34.0 [facility] Comment on above: Performed By: #### C BC #### [facility] [address] [place] [address] Dr. Daphne Cheney MCHC (RBC) [Mass/Vol] 32.7 g/dL Normal 29.9-35.2 The [facility] Comment on above: Performed By: #### C BC #### [facility] [address] [place] [address] Dr. Daphne Cheney MCV (RBC) [Entitic vol] 90.0 fL Normal 80.0-94.0 The [facility] Comment on above: Performed By: #### C BC #### [facility] [address] [place] [address] Dr. Daphne Cheney MONO # 1.3 103/ul Critically high 0.3-0.8 The [facility] Comment on above: Performed By: #### C BC #### [facility] [address] [place] [address] Dr. Daphne Cheney Monocytes/100 WBC (Bld) 9.2 % Normal 1.7-12.0 The [facility] Comment on above: Performed By: #### C BC #### [facility] [address] [place] [address] Dr. Daphne Cheney NEUT # 11.0 103/ul Critically high 1.4-6.5 The [facility] Comment on above: Performed By: #### C BC #### [facility] [address] [place] [address] Dr. Daphne Cheney Neutrophils/100 WBC (Bld) 81.0 % Critically high 43.0-75.0 The [facility] Comment on above: Performed By: #### C BC #### [facility] [address] [place] [address] Dr. Daphne Cheney Platelet mean volume (Bld) [Entitic vol] 9.6 fL Normal 9.5-13.5 The [facility] Comment on above: Performed By: #### C BC #### [facility] [address] [place] [address] Dr. Daphne Cheney PLT 193 103/ul Normal 150-450 The [facility] Comment on above: Performed By: #### C BC #### [facility] [address] [place] [address] Dr. Daphne Cheney RBC 4.72 106/ul Normal 4.70-6.10 The [facility] Comment on above: Performed By: #### C BC #### [facility] [address] [place] [address] Dr. Daphne Cheney WBC 13.6 103/ul Critically high 4.0-11.0 The [facility] Comment on above: Performed By: #### C BC #### [facility] [address] [place] [address] Dr. Daphne Cheney PROF 14(COMP METB)on 022 Albumin [Mass/Vol] 2.4 g/dL Critically low 3.4-5.0 The [facility] Comment on above: Performed By: #### C MP #### [facility] [address] [place] [address] Dr. Daphne Cheney Albumin/Globulin [Mass ratio] 0.4 {ratio} Normal [facility] Comment on above: Performed By: #### C MP #### [facility] [address] [place] [address] Dr. Daphne Cheney ALP [Catalytic activity/Vol] 111 U/L Normal 46-116 The [facility] Comment on above: Performed By: #### C MP #### [facility] [address] [place] [address] Dr. Daphne Cheney ALT [Catalytic activity/Vol] 92 U/L Critically high 16-63 [facility] Comment on above: Performed By: #### C MP #### [facility] [address] [place] [address] Dr. Daphne Cheney Anion gap [Moles/Vol] 13.5 mmol/L Normal [facility] Comment on above: Performed By: #### C MP #### [facility] [address] [place] [address] Dr. Daphne Cheney AST [Catalytic activity/Vol] 83 U/L Critically high 15-37 [facility] Comment on above: Performed By: #### C MP #### [facility] [address] [place] [address] Dr. Daphne Cheney Bilirubin [Mass/Vol] 0.7 mg/dL Normal 0.2-1.3 The [facility] Comment on above: Performed By: #### C MP #### [facility] [address] [place] [address] Dr. Daphne Cheney Calcium [Mass/Vol] 8.8 mg/dL Normal 8.5-10.1 The [facility] Comment on above: Performed By: #### C MP #### [facility] [address] [place] [address] Dr. Daphne Cheney Chloride [Moles/Vol] 105 mmol/L Normal 98-107 The [facility] Comment on above: Performed By: #### C MP #### [facility] [address] [place] [address] Dr. Daphne Cheney CO2 [Moles/Vol] 28.4 mmol/L Normal 22.0-30.0 The [facility] Comment on above: Performed By: #### C MP #### [facility] [address] [place] [address] Dr. Daphne Cheney Creatinine [Mass/Vol] 1.09 mg/dL Normal 0.66-1.25 [facility] Comment on above: Performed By: #### C MP #### [facility] [address] [place] [address] Dr. Daphne Cheney EGFR-AF TUNISIAN >60 Normal >=60 The [facility] Comment on above: Performed By: #### C MP #### [facility] [address] [place] [address] Dr. Daphne Cheney EGFR-NON AF TUNISIAN >60 Normal >=60 The [facility] Comment on above: Performed By: #### C MP #### [facility] [address] [place] [address] Dr. Daphne Cheney Globulin (S) [Mass/Vol] 5.4 g/dL Normal [facility] Comment on above: Performed By: #### C MP #### [facility] [address] [place] [address] Dr. Daphne Cheney Glucose [Mass/Vol] 122 mg/dL Critically high 74-106 [facility] Comment on above: Performed By: #### C MP #### [facility] [address] [place] [address] Dr. Daphne Cheney Potassium [Moles/Vol] 3.9 mmol/L Normal 3.4-5.0 The [facility] Comment on above: Performed By: #### C MP #### [facility] [address] [place] [address] Dr. Daphne Cheney Protein [Mass/Vol] 7.8 g/dL Normal 6.1-8.2 The [facility] Comment on above: Performed By: #### C MP #### [facility] [address] [place] [address] Dr. Daphne Cheney Sodium [Moles/Vol] 143 mmol/L Normal 137-145 The [facility] Comment on above: Performed By: #### C MP #### [facility] [address] [place], [place] [address] Dr. Daphne Cheney Urea nitrogen [Mass/Vol] 23.0 mg/dL Critically high 7.0-18.0 [facility] Comment on above: Performed By: #### C MP #### [facility] [address] [place], [place] [address] Dr. Daphne Cheney Urea nitrogen/Creatini ne [Mass ratio] 21.1 mg/mg Normal [facility] Comment on above: Performed By: #### C MP #### [facility] [address] [place], [place] [address] Dr. Daphne Cheney XR CHEST 2 Von [...] by: VAISHNAVI BAER Date: 2022-02-02 11:[address] [facility] Vital Signs Date Time Vital Sign Value Performing Clinician Facility 04-10-2024 14:40-0400 Body height 165.1 cm [facility] 04-10-2024 14:40-0400 Body mass index (BMI) [Ratio] 27.1 kg/m2 [facility] 04-10-2024 14:40-0400 Body weight 73.93 kg [facility] 04-10-2024 14:40-0400 Diastolic blood pressure 70 mm[Hg] [facility] 04-10-2024 14:40-0400 Heart rate 65 /min [facility] 04-10-2024 14:40-0400 Respiratory rate 12 /min [facility] 04-10-2024 14:40-0400 Systolic blood pressure 122 mm[Hg] [facility] 04-18-2023 15:15-0400 Body height 165.1 cm Gasper Ball Other [facility] Other 04-18-2023 15:15-0400 Body mass index (BMI) [Ratio] 27.15 kg/m2 Gasper Ball Other [facility] Other 04-18-2023 15:15-0400 Body weight 74.03 kg Gasper Ball Other [facility] Other 04-18-2023 15:15-0400 Diastolic blood pressure 78 mm[Hg] Gasper Ball Other [facility] Other 04-18-2023 15:15-0400 Respiratory rate 12 /min Gasper Ball Other [facility] Other 04-18-2023 15:15-0400 Systolic blood pressure 132 mm[Hg] Gasper Ball Other [facility] Other 01-25-2023 14:30-0400 Body height 165.1 cm Gasper Ball Other [facility] Other 01-25-2023 14:30-0400 Body mass index (BMI) [Ratio] 24.96 kg/m2 Gasper Ball Other [facility] Other 01-25-2023 14:30-0400 Body weight 68.04 kg Gasper Ball Other [facility] Other 01-25-2023 14:30-0400 Respiratory rate 12 /min Gasper Ball Other [facility] Other 06-19-2022 10:35-0400 Body height 165.1 cm Jennifer Trujillo Other [facility] Other 09-29-2021 16:50-0500 Body height 165.1 cm Donna Haque Other [facility] Other 09-29-2021 16:50-0500 Body temperature 98.7 [degF] Donna Haque Other [facility] Other 09-29-2021 16:50-0500 Diastolic blood pressure 89 mm[Hg] Donna Haque Other [facility] Other 09-29-2021 16:50-0500 Respiratory rate 18 /min Donna Haque Other [facility] Other 09-29-2021 16:50-0500 SaO2% (BldA) [Mass fraction] 98 % Donna Haque Other [facility] Other 09-29-2021 16:50-0500 Systolic blood pressure 131 mm[Hg] Donna Haque Other [facility] Other Encounters Encounter Date Encounter Type Care Provider Facility Start: 04-17-2024 End: 04-17-2024 ambulatory GORDY Lopez BELatisha Not Available Start: 04-10-2024 End: 04-10-2024 ambulatory [facility] Work Phone: Start: 04-10-2024 End: 04-10-2024 Encounter for general adult medical examination without abnormal findings [facility] Start: 04-10-2024 End: 04-10-2024 Patient encounter procedure [facility] Work Phone: Start: 03-26-2024 Non-patient / Non-visit [facility] Work Phone: Start: 01-17-2024 End: 01-17-2024 ambulatory GORDY D BEJ Not Available Start: 10-18-2023 End: 10-18-2023 ambulatory GORDY D BEJ Not Available Start: 07-07-2023 End: 07-07-2023 ambulatory Gasper Persaud Other [facility] Other Start: 07-07-2023 Telephone encounter Gasper Ball [facility] Start: 07-06-2023 End: 07-06-2023 ambulatory Gasper Ball Other [facility] Other Start: 07-06-2023 Telephone encounter Gasper Ball [facility] Start: 06-21-2023 End: 06-21-2023 ambulatory Gasper Ball Other [facility] Other Start: 06-21-2023 Nursing evaluation o f patient and report Gasper Ball [facility] Start: 05-02-2023 End: 05-02-2023 ambulatory Gasper Ball Other [facility] Other Start: 05-02-2023 Telephone encounter Gasper Ball [facility] Start: 04-18-2023 End: 04-18-2023 ambulatory Gasper Ball Other [facility] Other Start: 04-18-2023 Office outpatient vi sit 15 minutes Gasper Ball [facility] Start: 02-07-2023 End: 02-07-2023 ambulatory Gasper Ball Other [facility] Other Start: 02-07-2023 Telephone encounter Gasper Ball [facility] Start: 01-26-2023 End: 01-26-2023 ambulatory Gasper Ball Other [facility] Other Start: 01-26-2023 Telephone encounter Gasper Ball [facility] Start: 01-25-2023 End: 01-25-2023 ambulatory Gasper Ball Other [facility] Other Start: 01-25-2023 Office outpatient vi sit 15 minutes Gasper Persaud [facility] Start: 01-23-2023 End: 01-23-2023 ambulatory JUICE NAVA Facility:[facility] Start: 01-07-2023 End: 01-07-2023 ambulatory Gasper Persaud Other [facility] Other Start: 01-07-2023 Telephone encounter Gasper Persaud [facility] Start: 11-23-2022 End: 11-24-2022 ambulatory GORDY BEJ Facility:[facility] Start: 11-19-2022 End: 11-19-[address] COLLEEN JOHNSON . Facility:[facility] Start: 09-13-2022 End: 09-14-2022 ambulatory GORDY BEJ Facility:[facility] Start: 06-19-2022 End: 06-19-2022 ambulatory Jennifer Trujillo Other [facility] Other Start: 06-19-2022 Office outpatient vi sit 15 minutes Jennifer Trujillo [facility] Start: 06-16-2022 End: 06-17-[address] VAISHNAVI BAER Facility:[facility] Start: 06-09-2022 End: 06-09-2022 ambulatory TIARRA YATES Facility:[facility] Start: 04-21-2022 End: 04-22-2022 ambulatory GORDY SCOTT Facility:[facility] Start: 04-16-[address] GASPER Cobbi ty:[facility] Start: 03-10-2022 End: 03-11-[address] GASPER PERSAUD Facility:[facility] Start: 02-14-2022 End: 02-14-2022 ambulatory KYLER SOMMER Facility:[facility] Start: 02-02-2022 End: 02-03-[address] GASPER PERSAUD Facility:[facility] Start: 09-29-2021 End: 09-29-2021 ambulatory Donna Haque Other [facility] Other Start: 09-29-2021 Office outpatient vi sit 15 minutes Donna Haque [facility] Start: 03-10-2021 Adult health examination Gasper Persaud Other [facility] Other Start: 03-21-2017 End: 09-16-2017 Ambulatory [id number] BERTA PERSAUD Facility[facility] Plan of Treatment Date Care Activity Detail Author Comprehensive metabo lic 2000 panel - Serum or Plasma [facility] Immunizations Immunization Date Immunization Notes Care Provider Fa cility 06-21-2023 influenza, injectabl e, quadrivalent, preservative free Gasper Hung Other [facility] 07-28-2022 influenza virus vaccine, split virus (incl. purified surface antigen) Gasper Hung Other [facility] Other 07-28-2022 influenza virus vaccine, unspecified formulation [facility] 08-10-2021 influenza virus vaccine, split virus (incl. purified surface antigen) Gasper Hung Other [facility] Other 08-10-2021 influenza virus vaccine, unspecified formulation [facility] 07-08-2020 influenza virus vaccine, split virus (incl. purified surface antigen) Gasper Persaud Other [facility] Other 07-08-2020 influenza virus vaccine, unspecified formulation [facility] 07-31-2019 influenza virus vaccine, split virus (incl. purified surface antigen) Gasper Hung Other [facility] Other 07-31-2019 influenza virus vaccine, unspecified formulation [facility] 05-22-2019 tetanus and diphther ia toxoids, adsorbed, preservative free, for adult use (5 Lf of tetanus toxoid and 2 Lf of diphtheria toxoid) [facility] 05-22-2019 tetanus toxoid, reduced diphtheria toxoid, and acellular pertussis vaccine, adsorbed Gasper Persaud Other [facility] Other 07-11-2018 influenza virus vaccine, split virus (incl. purified surface antigen) Gasper Persaud Other [facility] Other 07-11-2018 influenza virus vaccine, unspecified formulation [facility] 07-13-2017 tetanus and diphther ia toxoids, adsorbed, preservative free, for adult use (5 Lf of tetanus toxoid and 2 Lf of diphtheria toxoid) Gasper Persaud Other [facility] 08-12-2016 influenza virus vaccine, split virus (incl. purified surface antigen) Gasper Persaud Other [facility] Other 08-12-2016 influenza virus vaccine, unspecified formulation [facility] 07-25-2015 tetanus and diphther ia toxoids, adsorbed, preservative free, for adult use (5 Lf of tetanus toxoid and 2 Lf of diphtheria toxoid) Gasper Persaud Other [facility] 07-29-2014 tetanus and diphther ia toxoids, adsorbed, preservative free, for adult use (5 Lf of tetanus toxoid and 2 Lf of diphtheria toxoid) Gasper Persaud Other [facility] 08-09-2013 tetanus and diphther ia toxoids, adsorbed, preservative free, for adult use (5 Lf of tetanus toxoid and 2 Lf of diphtheria toxoid) Gasper Persaud Other [facility] Payers Date Payer Category Payer Medicare [id number] 1980 Unknown [id number] 2.16.84 [id number] 1978 Unknown [id number] 2.16.84 [id number] 1978 Unknown [id number] 2.16.84 [id number] 1978 Unknown [id number] 2.16.84 0.1.199992.3.579.2.593 1978 Unknown [id number] 2.16.84 [id number] 1978 Unknown [id number] 2.16.84 0.1.593205.3.579.2.593 1978 Unknown [id number] 2.16.84 0.1.452396.3.579.2.593 1978 Unknown [id number] 2.16.84 0.1.902168.3.579.2.593 1978 Unknown [id number] 2.16.84 [id number] 1978 Unknown [id number] 2.16.84 0.1.559366.3.579.2.593 1978 Unknown [id number] 2.16.84 0.1.103552.3.579.2.593 1978 Unknown [id number] 2.16.84 0.1.243727.3.579.2.1259 1978 Unknown [id number] 2.16.84 0.1.928813.3.579.2.1259 1978 Unknown [id number] 2.16.840 .1.148612.3.579.2.1259 1961 Medicaid [id number] 2. [id number] 1961 Medicare [id number] 2.1 [id number] 1961 Self-pay Social History Date Type Detail Facility Unknown if ever smoked [facility] Other Sex Assigned At Sex Assigned At Bir th [facility] Other Start: 07-07-2018 Tobacco smoking status NHIS Never smoked tobacco (finding) [facility] Start: 1980 Sex Assigned At Male F [facility] Evaluation note 07-06-2023 Note Date & Type Note Facility 07-06-2023 Evaluation note Encounter Date Diagnosis Assessment Notes Jun, Pneumonia of left lower lobe due to infectious organism (ICD-10 - J18.9) [facility] Other Evaluation note 01-25-2023 Note Date & [...] (ICD-10 - S70.02XD) Ice/heat and Voltaren Gel [facility] Other Evaluation note 06-19-2022 Note Date & Type Note Facility 06-19-2022 Evaluation note Encounter Date Diagnosis Assessment Notes Jun, Contact with and (suspected) exposure to covid-19 (ICD-10 - Z20.822) Jun, COVID-19 (ICD-10 - U07.1) Discharge Instructions for [...] the ER for worsening symptoms or concerns. [facility] Other Evaluation note 09-29-2021 Note Date & Type Note Facility 09-29-2021 Evaluation note Encounter Date Diagnosis Assessment Notes Sep, Injury of left knee, initial encounter (ICD-10 - S89.92XA) . Use TYLENOL AND VOLTARON GEL as directed for pain if needed. Contact office if symptoms are not improved within the next few days and we will help you get into specialist. 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 Screening for colon cancer n oneactive Wellness examination noneact [facility] Work Phone: History general Narrative - Reported Note Date & Type Note Facility History general Narrative - Reported Type Medical History seizures Medical History htn Medical History mrdd Surgical History dental surgery Surgical History cystoscopy Hospitalization History pneumonia [facility] Other History general Narrative - Reported Note Date & Type Note Facility History general Narrative - Reported Type Medical History Development delay Medical History Functional urinary incontinence Medical History Generalized seizure disorder 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 Medical History Impaired verbal communication Surgical History dental surgery Surgical History cystoscopy Hospitalization History pneumonia [facility] Other History general Narrative - Reported Note Date & Type Note Facility History general Narrative - Reported [facility] Other Summary Purpose Family History No Family History Records Found Relationship Condition Age at Onset Recorded Date/T bronson father Unknown Advance Directives No Advanced Directives Records Found Advance Directive Response Recorded Date/ Time Advance Directives No October 23, 2017 12:06pm Chief Complaint and Reason for Visit Chief Complaint wellness Reason for Visit Developmental delay, severe Developmental language disorder with language impairment Generalized onset vrdtqufxv-ozozh-ruahwa epileptic seizure Screening for colon cancer Wellness examination Additional Source Comments (unrecognized sect ion and content) No Status Records FoundNo Status Records FoundNo Status Records Found INFORMATION SOURCE (unrecogn ized section and content) DATE CREATED AUTHOR [facility]11/2018 [place] [facility] DATE CREATED AUTHOR AUTHOR'S ORGANIZ ATION 01/24/2023 [facility] DATE CREATED AUTHOR AUTHOR'S ORGANIZ ATION 04/18/2024 [facility] EPIC REASON FOR VISIT (unrecogniz ed section and content) PT FELL AT [facility] MENT, NEEDS LEGS CHECKED OUTWHITE EQUINOX, COVID EXPOSUREUpdatefell, bumps under armPossible ReactionReturn to WorkIncreased coughingFLU-SHOTXrayXray results Care Teams (unrecognized sec tion and content) Team Status: Active Member Role Status Dates PHYSICIAN NO FAMILY Primary Care Provider Active Team Status: Active Member Role Status Dates PHYSICIAN NO FAMILY Primary Care Provider Active Start: March 26, 2024 Gordy Scott MD Attending Provider Active Start: March 26, 2024 Team Status: Inactive Member Role Status Dates PHYSICIAN NO FAMILY Primary Care Provider Active Start: April 10, 2024 End: April 10, 2024 Gasper Persaud DO Attending Provider Active Sta rt: April 10, 2024 End: April 10, 2024 Goals (unrecognized section and content) Goals may be documented in a n alternate section FOR RECORDS PERTAINING TO PATIENTS WHO ARE [...] BE BASED ON THE PRIMARY CLINICAL RECORDS. [facility] [employer] provides no warranty or guarantee of the accuracy or completeness of information in this document.
[2024-06-06 15:09] LABS: Lamotrigine (Lamictal), Serum 19.4 ug/mL (2.0-20.0)
== END 2024-06-05 09:56 | disposition home or self-care (01) ==
LOC: LAB 09:58
PROVIDERS: PCP Internal Medicine; Visit Provider Psychiatry & Neurology Neurology
DX: G62.9 Polyneuropathy, unspecified (principal); R79.89 Other specified abnormal findings of blood chemistry; G60.9 Hereditary and idiopathic neuropathy, unspecified; Z11.3 Encounter for screening for infections with a predominantly sexual mode of transmission; E53.1 Pyridoxine deficiency; I70.91 Generalized atherosclerosis; D51.3 Other dietary vitamin B12 deficiency anemia; M79.10 Myalgia, unspecified site; E78.5 Hyperlipidemia, unspecified; G40.909 Epilepsy, unspecified, not intractable, without status epilepticus
CPT/HCPCS: 36415; 80175; 80299

== ENCOUNTER 2024-06-11 10:22 | Outpatient (OUT) | payer MEDICARE, MEDICAID, SELFPAY ==
--- NOTE | 2024-06-11 | XR_ITS ---
The [address] [address] Patient Name: NOA LEWIS MRN: [id number] date: 1980 Sex: M Assigned Patient Location: Current Patient Location: Accession/Order Number: [id number] Exam Date: 06/11/2024 10:39 Report Date: 06/12/2024 10:28 At the request of: VAISHNAVI MUNOZ Procedure: XR clavicle LT PROCEDURE: XR clavicle LT HISTORY: LEFT CLAVICLE PAIN COMPARISON: XR clavicle left 04/30/2024 FINDINGS: BONES:Displaced fracture of distal clavicle with developing callus formation and osseous changes within the widened fracture line. Intact acromioclavicular joint. SOFT TISSUES:No visible soft tissue swelling. EFFUSION:None visible. OTHER: Negative. XR/XR clavicle LT IMPRESSION: 1. Grossly stable alignment of displaced distal clavicle fracture with ongoing bony changes/osseous healing. Electronically authenticated by: VAISHNAVI BAER Date: 06/12/2024 10:28
--- OUTSIDE RECORDS SUMMARY | 2024-06-11 10:44 | XMS_ITS | CCD ---
Author Organization [facility] CliniSyms Care Team Providers Care Stone Rubber Name Role Phone HUNG GASPER~[phone] UNKNOWN Unavailable Unavailable HUNG, GASPER~[phone] UNKNOWN Unavailable Unavailable HUNG, GASPER~[phone] UNKNOWN Unavailable Unavailable BALL, GASPER~[phone] UNKNOWN Unavailable Unavailable Donna Haque Unavailable Jennifer [...] Immune Globulin Drug allergy (disorder) 3 [facility] Repository (3 sources) Pertussis Vaccine Drug Allergy Unknown [employer] Other (3 sources) Vaccine product containing Bordetella pertussis antigen (medicinal product) Drug allergy 5 Unknown [employer] Other (3 sources) patient allergy list reviewed by nurse or physicia Propensity to adverse reactions 5 Comment:Done [employer] Other Medications Current Medications Medication Drug Class(es) [...] 11-25-2022 Episodic Other aftercare (1 source) Other care home (current) drug therapy; Translations: [OTH [employer] TENDER CURRENT DRUG THERAPY] Onset: 01-24-2023 Episodic Other aftercare (3 sources) Long-term current use of drug therapy; 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 care home (current) drug therapy] Episodic Other connective [...] 03-26 Lamotrigine (Lamictal) Level 17.1 ug/mL 2.0-20.0 [facility] Comment on above: Detection Limit = 1. 0Performed at: [employer] [id number] Director: Chris Lux MD, Phone: [phone] Miscellaneous Test COMMENT . [facility] Comment on above: Test Ordered: 550367 Valproic Acid (Total+Free)Valproic Acid (Depakote)(R),S 11 [L ] ug/mL Reference Range: 50-100 Detection Limit = 4 <4 indicates None DetectedToxicity may occur at levels of 100-500. Measurementsof free unbound valproic acid may improve the assess-ment of clinical response.Free Valproic Acid (Depakote) 2.6 [L ] ug/mL Reference Range: 6.0-22.0 Detection Limit = 0.5Performed at: [facility] [employer] [id number] Director: Silvestre Nelson PhD, Phone: [phone] at: [facility] [employer] [employer] [id number] Director: Chris Lux MD, Phone: [phone] XR HIP LT 2 3V W PELVISon [...] JUICE NAVA Date: 2023-01-23 09:52 Normal [facility] XR SHOULDER LT 2V or [...] JUICE NAVA Date: 2023-01-23 09:51 Normal [facility] LAMOTRIGINEon 11-25-2022 Lamotrigine, Serum 15.7 ug/mL Normal 2.0-20.0 [facility] Comment on above: Result Comment: Dete ction Limit = 1.0 Performed By: #### L AMOT #### [facility] [address] [place] [address] Dr. Daphne Cheney LAMOTRIGINEon 09-17-2022 Lamotrigine, Serum 23.2 ug/mL Invalid Interpretation Code 2.0-20.0 [facility] Comment on above: Result Comment: Ve rified by repeat analysis Detection Limit = 1.0 Performed By: #### L AMOT #### [facility] [address] [place] [address] Dr. Daphne Cheney SARS-CoV-2 (COVID-19) RNA NA A+probe Ql (Resp)on 06-19-2022 SARS-CoV-2 (COVID-19) RNA TEO+probe Ql (Unsp spec) Positive [employer] Other XR MODIFIED BARIUM SWALLOWon 06-16-2022 XR [...] VAISHNAVI BAER Date: 2022-06-16 11:18 Normal [facility] XR KNEE GEMA 4V or >on 2021 XR KNEE GEMA 4V or > EXAM: XR KNEE GEMA 4V or > HISTORY: Unspecified fall COMPARISON: None. TECHNIQUE: 9 views total FINDINGS: No fracture, dislocation, subluxation or osseous lesion. No visualized knee effusion. Joint spaces are normal. IMPRESSION: Normal knee x-rays Electronically authenticated by: JUICE WILD Date: 2022-06-09 17:19 Normal [facility] LAMOTRIGINEon 04-24-2022 Lamotrigine, Serum 11.2 ug/mL Normal 2.0-20.0 [facility] Comment on above: Result Comment: Dete ction Limit = 1.0 Performed By: #### L AMOT ####[facility] [address] [place], [place] [address]Uy. Daphne Cheney XR CHEST 2 Von 03-10-2022 [...] VAISHNAVI BAER Date: 2022-03-10 14:59 Normal [facility] CARDIAC GORDY 3-6on 2 CK [Catalytic activity/Vol] 73 U/L Normal 39-308 [facility] Comment on above: Performed By: #### C MREP #### [facility] [address] [address] [address] Daphne Cheney CK.MB [Mass/Vol] 0.95 ng/mL Normal <=3.60 [facility] Comment on above: Performed By: #### C MREP #### [facility] [address] [address] [address] Daphne Cheney HSTROP 4.8 pg/mL Normal 4.0-76.1 [facility] Comment on above: Result Comment: CUT- OFF POINTS HAVE BEEN ESTABLISHED BASED ON THE FOURTH UNIVERSAL DEFINITIONS OF MYOCARDIAL INFARCTION. THE UPPER REFERENCE LIMIT (URL) OF TROPONIN, DEFINED THE 99TH PERCENTILE OF cTnI DISTRIBUTION IN A REFERENCE POPULATION, HAS BEEN CONFIRMED THE DECISION THRESHOLD FOR MA DIAGNOSIS. Performed By: #### C MREP #### [facility] [address] [address] [address] Daphne Cheney CARDIAC GORDY ADMITon 022 CK [Catalytic activity/Vol] 64 U/L Normal 39-308 [facility] Comment on above: Performed By: #### Siobhan SAMAYOA CMADM #### [facility] [address] [place] [address] Dr. Daphne Cheney CK.MB [Mass/Vol] 0.85 ng/mL Normal <=3.60 [facility] Comment on above: Performed By: #### B DANITA, CMADM #### [facility] [address] [place] [address] Dr. Daphne Cheney HSTROP 4.1 pg/mL Normal 4.0-76.1 [facility] Comment on above: Result Comment: CUT- OFF POINTS HAVE BEEN ESTABLISHED BASED ON THE FOURTH UNIVERSAL DEFINITIONS OF MYOCARDIAL INFARCTION. THE UPPER REFERENCE LIMIT (URL) OF TROPONIN, DEFINED THE 99TH PERCENTILE OF cTnI DISTRIBUTION IN A REFERENCE POPULATION, HAS BEEN CONFIRMED THE DECISION THRESHOLD FOR MA DIAGNOSIS. Performed By: #### B DANITA, CMADM #### [facility] [address] [address] [address] Daphne Cheney MANDIE 98 ng/mL Critically high 16-96 [facility] Comment on above: Performed By: #### B JUNE SAMAYOADM #### [facility] [address] [address] [address] Daphne Cheney CBC AUTO DIFFon 02-14-2022 BASO # 0.1 103/ul Normal 0.0-0.1 [facility] Comment on above: Performed By: #### C BC ####[facility] [address] [address]DrGeorge Cheney Basophils/100 WBC (Bld) 0.5 % Normal 0.2-2.0 [facility] Comment on above: Performed By: #### C BC ####[facility] [address] [address]DrGeorge Cheney EO # 0.0 103/ul Normal 0.0-0.7 [facility] Comment on above: Performed By: #### C BC ####[facility] [address] [address]DrGeorge Cheney Eosinophils/100 WBC (Bld) 0.2 % Critically low 0.9-7.0 [facility] Comment on above: Performed By: #### C BC ####[facility] [address] [address]DrGeorge Cheney Erythrocyte distribution width (RBC) [Ratio] 13.0 % Normal 11.0-15.0 [facility] Comment on above: Performed By: #### C BC ####[facility] [address] [address]DrGeorge Cheney Hematocrit (Bld) [Volume fraction] 48.6 % Normal 42.0-54.0 [facility] Comment on above: Performed By: #### C BC ####[facility] [address] [address]DrGeorge Cheney Hemoglobin (Bld) [Mass/Vol] 15.2 g/dL Normal 14.0-18.0 [facility] Comment on above: Performed By: #### C BC ####[facility] [address] [address]Dr. Daphne Cheney IG # 0.05 10e3/ul Critically high 0.00-0.03 [facility] Comment on above: Performed By: #### C BC ####[facility] [address] [address]Dr. Daphne Cheney IG % 0.4 % Normal 0.0-0.5 [facility] Comment on above: Performed By: #### C BC ####[facility] [address] [address]Dr. Shahrzadtj Cheney LYMPH # 1.2 103/ul Normal 1.2-3.8 [facility] Comment on above: Performed By: #### C BC ####[facility] [address] [address]Dr. Daphne Cheney Lymphocytes/100 WBC (Bld) 9.2 % Critically low 20.5-60.0 [facility] Comment on above: Performed By: #### C BC ####[facility] [address] [address]Dr. Shahrzadtj Cheney MANUAL DIFF REQ NO Normal [facility] Comment on above: Performed By: #### C BC ####[facility] [address] [address]Dr. Daphne Shravan MCH (RBC) [Entitic mass] 28.7 pg Normal 25.9-34.0 [facility] Comment on above: Performed By: #### C BC ####[facility] [address] [address]Dr. Daphne Cheney MCHC (RBC) [Mass/Vol] 31.3 g/dL Normal 29.9-35.2 [facility] Comment on above: Performed By: #### C BC ####[facility] [address] [address]Dr. Daphne Shravan MCV (RBC) [Entitic vol] 91.9 fL Normal 80.0-94.0 [facility] Comment on above: Performed By: #### C BC ####[facility] [address] [address]Dr. Daphne Cheney MONO # 0.9 103/ul Critically high 0.3-0.8 [facility] Comment on above: Performed By: #### C BC ####[facility] [address] [address]Dr. Daphne Cheney Monocytes/100 WBC (Bld) 7.2 % Normal 1.7-12.0 [facility] Comment on above: Performed By: #### C BC ####[facility] [address] [address]Dr. Daphne Cheney NEUT # 10.7 103/ul Critically high 1.4-6.5 [facility] Comment on above: Performed By: #### C BC ####[facility] [address] [address]Dr. Daphne Cheney Neutrophils/100 WBC (Bld) 82.5 % Critically high 43.0-75.0 [facility] Comment on above: Performed By: #### C BC ####[facility] [address] [address]Dr. Daphne Cheney Platelet mean volume (Bld) [Entitic vol] 8.4 fL Critically low 9.5-13.5 [facility] Comment on above: Performed By: #### C BC ####[facility] [address] [address]Dr. Daphne Cheney PLT 446 103/ul Normal 150-450 [facility] Comment on above: Performed By: #### C BC ####[facility] [address] [address]Dr. Daphne Cheney RBC 5.29 106/ul Normal 4.70-6.10 [facility] Comment on above: Performed By: #### C BC ####[facility] [address] [address]Dr. Daphne Cheney WBC 13.0 103/ul Critically high 4.0-11.0 [facility] Comment on above: Performed By: #### C BC ####[facility] [address] [place], [place] [address]Xr. D[address] Che[address] CT ABD/PELVIS WO CONon 02-14 [...] by: EMMA RODRIGUEZ Date: 2022-02-14 08:[address] [facility] [address] HEAD WO CONon 02-14-2022 CT [...] GERALD CRUZ Date: 2022-02-14 08:27 Normal [facility] Covid-19 PCR (CVDTB)on SARS-CoV-2 (COVID-19) RNA TEO+probe Ql (Unsp spec) Not detected Normal NOT DETECTED [facility] Comment on above: Result Comment: When diagnostic testing is negative, the possibility of a false negative should be considered in the context of a patient's recent exposures and the presence of clinical signs and symptoms consistent with SARS-CoV-2. This test is not yet approved or cleared by the [place] Food and Drug Administration (FDA). This test was developed by [employer], [place], [place]. The performance characteristics of this test were validated by [facility]. The results are not intended to be used as the sole means for clinical diagnosis or patient management decisions. [facility] is authorized under Clinical Laboratory [...] for this test is supported by the [place] of Health and Human Service's declaration that [...] used). Performed By: #### C VDTBH #### [facility] [address] [place] [address] Dr. Daphne Cheney LIPASEon 02-14-2022 Lipase [Catalytic activity/Vol] 92.0 U/L Normal 73.0-393.0 [facility] Comment on above: Performed By: #### L IPA ####[facility] [address] [place], [place] [address]CsDr. Daphne Cheney OCC BLD IMMUNO SCREENon OCCULT BLOOD Negative Normal NEGATIVE [facility] Comment on above: Performed By: #### O BSCRN ####[facility] [address] [place], [place] [address]BfDr. Daphne Cheney PROF CHEM 8 (BAS METB)on Anion gap [Moles/Vol] 12.3 mmol/L Normal [facility] Comment on above: Performed By: #### B DANITA, CMADM #### [facility] [address] [address] [address] Daphne Cheney Calcium [Mass/Vol] 9.6 mg/dL Normal 8.5-10.1 [facility] Comment on above: Performed By: #### B DANITA, CMADM #### [facility] [address] [address] [address] Daphne Cheney Chloride [Moles/Vol] 98 mmol/L Normal 98-107 [facility] Comment on above: Performed By: #### B DANITA, CMADM #### [facility] [address] [address] [address] Daphne Cheney CO2 [Moles/Vol] 32.4 mmol/L Critically high 21.0-32.0 [facility] Comment on above: Performed By: #### B DANITA, CMADM #### [facility] [address] [address] [address] Daphne Cheney Creatinine [Mass/Vol] 1.19 mg/dL Normal 0.70-1.30 [facility] Comment on above: Performed By: #### B DANITA, CMADM #### [facility] [address] [address] [address] Daphne Cheney EGFR-AF AUSTRIAN >60 Normal >=60 [facility] Comment on above: Performed By: #### B DANITA, CMADM #### [facility] [address] [address] [address] Daphne Cheney EGFR-NON AF AUSTRIAN >60 Normal >=60 [facility] Comment on above: Performed By: #### B MP, CMADM #### [facility] [address] [address] [address] Daphne Cheney Glucose [Mass/Vol] 120 mg/dL Critically high 74-106 [facility] Comment on above: Performed By: #### B MP, CMADM #### [facility] [address] [address] [address] Daphne Cheney Potassium [Moles/Vol] 4.7 mmol/L Normal 3.5-5.1 [facility] Comment on above: Performed By: #### B MP, CMADM #### [facility] [address] [address] [address] Daphne Cheney Sodium [Moles/Vol] 138 mmol/L Normal 136-145 [facility] Comment on above: Performed By: #### B DANITA, CMADM #### [facility] [address] [address] [address] Daphne Cheney Urea nitrogen [Mass/Vol] 12.0 mg/dL Normal 7.0-18.0 [facility] Comment on above: Performed By: #### B DANITA, CMADM #### [facility] [address] [address] [address] Daphne Cheney Urea nitrogen/Creatini ne [Mass ratio] 10.1 mg/mg Normal [facility] Comment on above: Performed By: #### B DANITA, CMADM #### [facility] [address] [address] [address] Daphne Cheney XR KUB 1 VIEWon [...] BINOR SAID Date: 2022-02-14 06:35 Normal [facility] CBC AUTO DIFFon 02-02-2022 BASO # 0.0 103/ul Normal 0.0-0.1 [facility] Comment on above: Performed By: #### C BC #### [facility] [address] [address] [address] Daphne Cheney Basophils/100 WBC (Bld) 0.2 % Normal 0.2-2.0 [facility] Comment on above: Performed By: #### C BC #### [facility] [address] [address] [address] Daphne Cheney EO # 0.0 103/ul Normal 0.0-0.7 [facility] Comment on above: Performed By: #### C BC #### [facility] [address] [place] [address] Dr. Daphne Cheney Eosinophils/100 WBC (Bld) 0.0 % Critically low 0.9-7.0 [facility] Comment on above: Performed By: #### C BC #### [facility] [address] [address] [address] Daphne Cheney Erythrocyte distribution width (RBC) [Ratio] 13.8 % Normal 11.0-15.0 [facility] Comment on above: Performed By: #### C BC #### [facility] [address] [place] [address] Dr. Daphne Cheney Hematocrit (Bld) [Volume fraction] 42.5 % Normal 42.0-54.0 [facility] Comment on above: Performed By: #### C BC #### [facility] [address] [address] [address] Daphne Cheney Hemoglobin (Bld) [Mass/Vol] 13.9 g/dL Critically low 14.0-18.0 [facility] Comment on above: Performed By: #### C BC #### [facility] [address] [address] [address] Daphne Cheney IG # 0.13 10e3/ul Critically high 0.00-0.03 [facility] Comment on above: Performed By: #### C BC #### [facility] [address] [place] [address] Dr. Daphne Cheney IG % 1.0 % Critically high 0.0-0.5 [facility] Comment on above: Performed By: #### C BC #### [facility] [address] [place] [address] Dr. Daphne Cheney LYMPH # 1.2 103/ul Normal 1.2-3.8 [facility] Comment on above: Performed By: #### C BC #### [facility] [address] [place] [address] Dr. Daphne Cheney Lymphocytes/100 WBC (Bld) 8.6 % Critically low 20.5-60.0 [facility] Comment on above: Performed By: #### C BC #### [facility] [address] [place] [address] Dr. Daphne Cheney MANUAL DIFF REQ NO Normal [facility] Comment on above: Performed By: #### C BC #### [facility] [address] [place] [address] Dr. Daphne Cheney MCH (RBC) [Entitic mass] 29.4 pg Normal 25.9-34.0 [facility] Comment on above: Performed By: #### C BC #### [facility] [address] [place] [address] Dr. Daphne Cheney MCHC (RBC) [Mass/Vol] 32.7 g/dL Normal 29.9-35.2 [facility] Comment on above: Performed By: #### C BC #### [facility] [address] [place] [address] Dr. Daphne Cheney MCV (RBC) [Entitic vol] 90.0 fL Normal 80.0-94.0 [facility] Comment on above: Performed By: #### C BC #### [facility] [address] [place] [address] Dr. Daphne Cheney MONO # 1.3 103/ul Critically high 0.3-0.8 [facility] Comment on above: Performed By: #### C BC #### [facility] [address] [place] [address] Dr. Daphne Cheney Monocytes/100 WBC (Bld) 9.2 % Normal 1.7-12.0 [facility] Comment on above: Performed By: #### C BC #### [facility] [address] [place] [address] Dr. Daphne Cheney NEUT # 11.0 103/ul Critically high 1.4-6.5 [facility] Comment on above: Performed By: #### C BC #### [facility] [address] [place] [address] Dr. Daphne Cheney Neutrophils/100 WBC (Bld) 81.0 % Critically high 43.0-75.0 [facility] Comment on above: Performed By: #### C BC #### [facility] [address] [place] [address] Dr. Daphne Cheney Platelet mean volume (Bld) [Entitic vol] 9.6 fL Normal 9.5-13.5 [facility] Comment on above: Performed By: #### C BC #### [facility] [address] [place] [address] Dr. Daphne Cheney PLT 193 103/ul Normal 150-450 [facility] Comment on above: Performed By: #### C BC #### [facility] [address] [place] [address] Dr. Daphne Cheney RBC 4.72 106/ul Normal 4.70-6.10 [facility] Comment on above: Performed By: #### C BC #### [facility] [address] [place] [address] Dr. Daphne Cheney WBC 13.6 103/ul Critically high 4.0-11.0 [facility] Comment on above: Performed By: #### C BC #### [facility] [address] [place] [address] Dr. Daphne Cheney PROF 14(COMP METB)on 022 Albumin [Mass/Vol] 2.4 g/dL Critically low 3.4-5.0 [facility] Comment on above: Performed By: #### C MP #### [facility] [address] [place] [address] Dr. Daphne Cheney Albumin/Globulin [Mass ratio] 0.4 {ratio} Normal [facility] Comment on above: Performed By: #### C MP #### [facility] [address] [place] [address] Dr. Daphne Cheney ALP [Catalytic activity/Vol] 111 U/L Normal 46-116 [facility] Comment on above: Performed By: #### C MP #### [facility] [address] [place] [address] Dr. Daphne Cheney ALT [Catalytic activity/Vol] 92 U/L Critically high 16-63 [facility] Comment on above: Performed By: #### C MP #### [facility] [address] [place] [address] Dr. Daphne Cheney Anion gap [Moles/Vol] 13.5 mmol/L Normal [facility] Comment on above: Performed By: #### C MP #### [facility] [address] [place] [address] Dr. Daphne Cheney AST [Catalytic activity/Vol] 83 U/L Critically high 15-37 [facility] Comment on above: Performed By: #### C MP #### [facility] [address] [place] [address] Dr. Daphne Cheney Bilirubin [Mass/Vol] 0.7 mg/dL Normal 0.2-1.3 [facility] Comment on above: Performed By: #### C MP #### [facility] [address] [place] [address] Dr. Daphne Cheney Calcium [Mass/Vol] 8.8 mg/dL Normal 8.5-10.1 [facility] Comment on above: Performed By: #### C MP #### [facility] [address] [place] [address] Dr. Daphne Cheney Chloride [Moles/Vol] 105 mmol/L Normal 98-107 [facility] Comment on above: Performed By: #### C MP #### [facility] [address] [place] [address] Dr. Daphne Cheney CO2 [Moles/Vol] 28.4 mmol/L Normal 22.0-30.0 [facility] Comment on above: Performed By: #### C MP #### [facility] [address] [place] [address] Dr. Daphne Cheney Creatinine [Mass/Vol] 1.09 mg/dL Normal 0.66-1.25 [facility] Comment on above: Performed By: #### C MP #### [facility] [address] [place] [address] Dr. Daphne Cheney EGFR-AF AUSTRIAN >60 Normal >=60 [facility] Comment on above: Performed By: #### C MP #### [facility] [address] [place] [address] Dr. Daphne Cheney EGFR-NON AF AUSTRIAN >60 Normal >=60 [facility] Comment on above: Performed By: #### C MP #### [facility] [address] [place] [address] Dr. Daphne Cheney Globulin (S) [Mass/Vol] 5.4 g/dL Normal [facility] Comment on above: Performed By: #### C MP #### [facility] [address] [place] [address] Dr. Daphne Cheney Glucose [Mass/Vol] 122 mg/dL Critically high 74-106 [facility] Comment on above: Performed By: #### C MP #### [facility] [address] [place] [address] Dr. Daphne Cheney Potassium [Moles/Vol] 3.9 mmol/L Normal 3.4-5.0 [facility] Comment on above: Performed By: #### C MP #### [facility] [address] [place] [address] Dr. Daphne Cheney Protein [Mass/Vol] 7.8 g/dL Normal 6.1-8.2 [facility] Comment on above: Performed By: #### C MP #### [facility] [address] [place] [address] Dr. Daphne Cheney Sodium [Moles/Vol] 143 mmol/L Normal 137-145 [facility] Comment on above: Performed By: #### C MP #### [facility] [address], [place] [address] Dr. Daphne Cheney Urea nitrogen [Mass/Vol] 23.0 mg/dL Critically high 7.0-18.0 [facility] Comment on above: Performed By: #### C MP #### [facility] [address], [place] [address] Dr. Daphne Cheney Urea nitrogen/Creatini ne [Mass ratio] 21.1 mg/mg Normal [facility] Comment on above: Performed By: #### C MP #### [facility] [address], [place] [address] Dr. Daphne Cheney XR CHEST 2 Von [...] by: VAISHNAVI BAER Date: 2022-02-02 11:00 Normal [facility] Vital Signs Date Time Vital Sign Value Performing Clinician Facility 04-10-2024 14:40-0400 Body height 165.1 cm [facility] 04-10-2024 14:40-0400 Body mass index (BMI) [Ratio] 27.1 kg/m2 [facility] 04-10-2024 14:40-0400 Body weight 73.93 kg [facility] 04-10-2024 14:40-0400 Diastolic blood pressure 70 mm[Hg] [facility] 04-10-2024 14:40-0400 Heart rate 65 /min [facility] 04-10-2024 14:40-0400 Respiratory rate 12 /min [facility] 04-10-2024 14:40-0400 Systolic blood pressure 122 mm[Hg] [facility] 04-18-2023 15:15-0400 Body height 165.1 cm Gasper Ball Other [employer] [facility] [facility] Other 04-18-2023 15:15-0400 Body mass index (BMI) [Ratio] 27.15 kg/m2 Gasper Ball Other [employer] Other 04-18-2023 15:15-0400 Body weight 74.03 kg Gasper Ball Other [employer] Other 04-18-2023 15:15-0400 Diastolic blood pressure 78 mm[Hg] Gasper Ball Other [employer] Other 04-18-2023 15:15-0400 Respiratory rate 12 /min Gasper Ball Other [employer] Other 04-18-2023 15:15-0400 Systolic blood pressure 132 mm[Hg] Gasper Ball Other [employer] [facility] Other 01-25-2023 14:30-0400 Body height 165.1 cm Gasper Ball Other [employer] [facility] Other 01-25-2023 14:30-0400 Body mass index (BMI) [Ratio] 24.96 kg/m2 Gasper Ball Other [employer] [facility] Other 01-25-2023 14:30-0400 Body weight 68.04 kg Gasper Ball Other [employer] Other 01-25-2023 14:30-0400 Respiratory rate 12 /min Gasper Ball Other [employer] Other 06-19-2022 10:35-0400 Body height 165.1 cm Jennifer Trujillo Other [employer] Other 09-29-2021 16:50-0500 Body height 165.1 cm Donna Haque Other [employer] Other 09-29-2021 16:50-0500 Body temperature 98.7 [degF] Donna Haque Other [employer] Other 09-29-2021 16:50-0500 Diastolic blood pressure 89 mm[Hg] Donna Haque Other [employer] Other 09-29-2021 16:50-0500 Respiratory rate 18 /min Donna Haque Other [employer] Other 09-29-2021 16:50-0500 SaO2% (BldA) [Mass fraction] 98 % Donna Haque Other [employer] Other 09-29-2021 16:50-0500 Systolic blood pressure 131 mm[Hg] Donna Haque Other [employer] Other Encounters Encounter Date Encounter Type Care Provider Facility Start: 04-17-2024 End: 04-17-2024 ambulatory GORDY Lopez BELatisha Not Available Start: 04-10-2024 End: 04-10-2024 ambulatory [facility] Work Phone: Start: 04-10-2024 End: 04-10-2024 Encounter for general adult medical examination without abnormal findings [facility] Start: 04-10-2024 End: 04-10-2024 Patient encounter procedure [facility] Work Phone: Start: 03-26-2024 Non-patient / Non-visit [facility] [employer] Work Phone: Start: 01-17-2024 End: 01-17-2024 ambulatory GORDY D BEJ Not Available Start: 10-18-2023 End: 10-18-2023 ambulatory GORDY D BEJ Not Available Start: 07-07-2023 End: 07-07-2023 ambulatory Gasper Persaud Other [employer] Other Start: 07-07-2023 Telephone encounter Gasper Ball [facility] Start: 07-06-2023 End: 07-06-2023 ambulatory Gasper Ball Other [employer] Other Start: 07-06-2023 Telephone encounter Gasper Ball [facility] Start: 06-21-2023 End: 06-21-2023 ambulatory Gasper Ball Other [employer] Other Start: 06-21-2023 Nursing evaluation o f patient and report Gasper Ball [facility] Start: 05-02-2023 End: 05-02-2023 ambulatory Gasper Ball Other [employer] Other Start: 05-02-2023 Telephone encounter Gasper Ball [facility] Start: 04-18-2023 End: 04-18-2023 ambulatory Gasper Ball Other [employer] Other Start: 04-18-2023 Office outpatient vi sit 15 minutes Gasper Ball [facility] Start: 02-07-2023 End: 02-07-2023 ambulatory Gasper Ball Other [employer] Other Start: 02-07-2023 Telephone encounter Gasper Ball [facility] Start: 01-26-2023 End: 01-26-2023 ambulatory Gasper Ball Other [employer] Other Start: 01-26-2023 Telephone encounter Gasper Ball [facility] Start: 01-25-2023 End: 01-25-2023 ambulatory Gasper Ball Other [employer] Other Start: 01-25-2023 Office outpatient vi sit 15 minutes Gasper Persaud [facility] Start: 01-23-2023 End: 01-23-2023 ambulatory JUICE NAVA Facility:[facility] Start: 01-07-2023 End: 01-07-2023 ambulatory Gasper Persaud Other [employer] Other Start: 01-07-2023 Telephone encounter Gasper Persaud [facility] Start: 11-23-2022 End: 11-24-2022 ambulatory GORDY BEJ Facility:[facility] Start: 11-19-2022 End: 11-19-[address] COLLEEN JOHNSON . Facility:[facility] Start: 09-13-2022 End: 09-14-2022 ambulatory GORDY BEJ Facility:[facility] Start: 06-19-2022 End: 06-19-2022 ambulatory Jennifer Trujillo Other [employer] Other Start: 06-19-2022 Office outpatient vi sit [...] 09-29-2021 End: 09-29-2021 ambulatory Donna Haque Other [employer] Other Start: 09-29-2021 Office outpatient vi sit 15 minutes Donna Haque [facility] Start: 03-10-2021 Adult health examination Gasper Persaud Other [facility] Other Start: 03-21-2017 End: 09-16-2017 Ambulatory [id number] BERTA PERSAUD Facility:[facility] Plan of Treatment Date Care Activity Detail Author Comprehensive metabo lic 2000 panel - Serum or Plasma [facility] Immunizations Immunization Date Immunization Notes Care Provider Fa cility 06-21-2023 influenza, injectabl e, quadrivalent, preservative free Gasper Hung Other [facility] 07-28-2022 influenza virus vaccine, split virus (incl. purified surface antigen) Gasper Hung Other [facility] Other 07-28-2022 influenza virus vaccine, unspecified formulation [facility] 08-10-2021 influenza virus vaccine, split virus (incl. purified surface antigen) Gasper Hung Other [facility] Other 08-10-2021 influenza virus vaccine, unspecified formulation [facility] 07-08-2020 influenza virus vaccine, split virus (incl. purified surface antigen) Gasper Persaud Other [facility] Other 07-08-2020 influenza virus vaccine, unspecified formulation [facility] 07-31-2019 influenza virus vaccine, split virus (incl. purified surface antigen) Gasper Hung Other [facility] Other 07-31-2019 influenza virus vaccine, unspecified formulation [facility] 05-22-2019 tetanus and diphther ia toxoids, adsorbed, preservative free, for adult use (5 Lf of tetanus toxoid and 2 Lf of diphtheria toxoid) [facility] 05-22-2019 tetanus toxoid, reduced diphtheria toxoid, and acellular pertussis vaccine, adsorbed Gasper Persaud Other [facility] Other 07-11-2018 influenza virus vaccine, split virus (incl. purified surface antigen) Gasper Persaud Other [facility] Other 07-11-2018 influenza virus vaccine, unspecified formulation [facility] 07-13-2017 tetanus and diphther ia toxoids, adsorbed, preservative free, for adult use (5 Lf of tetanus toxoid and 2 Lf of diphtheria toxoid) Gasper Persaud Other [facility] 08-12-2016 influenza virus vaccine, split virus (incl. purified surface antigen) Gasper Persaud Other [facility] Other 08-12-2016 influenza virus vaccine, unspecified formulation [facility] 07-25-2015 tetanus and diphther ia toxoids, adsorbed, preservative free, for adult use (5 Lf of tetanus toxoid and 2 Lf of diphtheria toxoid) Gasper Persaud Other [facility] 07-29-2014 tetanus and diphther ia toxoids, adsorbed, preservative free, for adult use (5 Lf of tetanus toxoid and 2 Lf of diphtheria toxoid) Gasper Persaud Other [facility] 08-09-2013 tetanus and diphther ia toxoids, adsorbed, preservative free, for adult use (5 Lf of tetanus toxoid and 2 Lf of diphtheria toxoid) Gasper Persaud Other [facility] Payers Date Payer Category Payer Medicare [id number] 1980 Unknown [id number] 2.16.84 [id number] 1980 Unknown [id number] 2.16.84 [id number] 1980 Unknown [id number] 2.16.84 0.1.701964.3.579.2.593 1978 Unknown [id number] 2.16.84 0.1.500767.3.579.2.593 1978 Unknown [id number] 2.16.84 0.1.349857.3.579.2.593 1978 Unknown [id number] 2.16.84 0.1.156879.3.579.2.593 1978 Unknown [id number] 2.16.84 0.1.258390.3.579.2.593 1978 Unknown [id number] 2.16.84 0.1.514088.3.579.2.593 1978 Unknown [id number] 2.16.84 0.1.624641.3.579.2.593 1978 Unknown [id number] 2.16.84 0.1.025109.3.579.2.593 1978 Unknown [id number] 2.16.84 0.1.460746.3.579.2.593 1978 Unknown [id number] 2.16.84 0.1.590976.3.579.2.1259 1978 Unknown [id number] 2.16.84 0.1.723165.3.579.2.1259 1978 Unknown [id number] 2.16.840 .1.249432.3.579.2.1259 1961 Medicaid [id number] 2. [id number] 1961 Medicare [id number] 2.1 [id number] 1961 Self-pay Social History Date Type Detail Facility Unknown if ever smoked [employer] Other Sex Assigned At Sex Assigned At Bir th [employer] Other Start: 07-07-2018 Tobacco smoking status NHIS Never smoked tobacco (finding) [facility] Start: 1980 Sex Assigned At Male F [facility] Evaluation note 07-06-2023 Note Date & Type Note Facility 07-06-2023 Evaluation note Encounter Date Diagnosis Assessment Notes Jun, Pneumonia of left lower lobe due to infectious organism (ICD-10 - J18.9) [employer] Other Evaluation note 01-25-2023 Note Date & [...] (ICD-10 - S70.02XD) Ice/heat and Voltaren Gel [employer] Other Evaluation note 06-19-2022 Note Date & [...] the ER for worsening symptoms or concerns. [employer] Other Evaluation note 09-29-2021 Note Date & Type Note Facility 09-29-2021 Evaluation note Encounter Date Diagnosis Assessment Notes Sep, Injury of left knee, initial encounter (ICD-10 - S89.92XA) . Use TYLENOL AND VOLTARON GEL as directed for pain if needed. Contact office if symptoms are not improved within the next few days and we will help you get into specialist. [employer] Other Evaluation note Note Date & Type Note Facility Evaluation note No Information [employer] Other Evaluation note Note Date & Type Note Facility Evaluation note [employer] Other Evaluation note Note Date & Type Note Facility Evaluation note Diagnosis Onset Date Developmental delay, severe acute Developmental language disor olesya with language impairment acute Generalized onset myoclonic- tonic-clonic epileptic seizure acute Screening for colon cancer n oneactive Wellness examination noneact [facility] Work Phone: History general Narrative - Reported Note Date & Type Note Facility History general Narrative - Reported Type Medical History seizures Medical History htn Medical History mrdd Surgical History dental surgery Surgical History cystoscopy Hospitalization History pneumonia [facility] Other History general Narrative - Reported Note Date & Type Note Facility History general Narrative - Reported Type Medical History Development delay Medical History Functional urinary incontinence Medical History Generalized seizure disorder 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 Medical History Impaired verbal communication Surgical History dental surgery Surgical History cystoscopy Hospitalization History pneumonia [facility] Other History general Narrative - Reported Note Date & Type Note Facility History general Narrative - Reported [facility] Other Summary Purpose Family History No Family History Records Found Relationship Condition Age at Onset Recorded Date/T bronson father Unknown Advance Directives No Advanced Directives Records Found Advance Directive Response Recorded Date/ Time Advance Directives No October 23, 2017 12:06pm Chief Complaint and Reason for Visit Chief Complaint wellness Reason for Visit Developmental delay, severe Developmental language disorder with language impairment Generalized onset [id number] epileptic seizure Screening for colon cancer Wellness examination Additional Source Comments (unrecognized sect ion and content) No Status Records FoundNo Status Records FoundNo Status Records Found INFORMATION SOURCE (unrecogn ized section and content) DATE CREATED AUTHOR [facility] DATE CREATED AUTHOR AUTHOR'S ORGANIZ ATION 01/24/2023 [facility] DATE CREATED AUTHOR AUTHOR'S ORGANIZ ATION 04/18/2024 [facility] EPIC REASON FOR VISIT (unrecogniz [...] BE BASED ON THE PRIMARY CLINICAL RECORDS. [facility] [employer] provides no warranty or guarantee of the accuracy or completeness of information in this document.
== END 2024-06-11 10:23 | disposition home or self-care (01) ==
LOC: EC 10:23
PROVIDERS: PCP Internal Medicine; Visit Provider Orthopaedic Surgery
DX: S42.032D Displaced fracture of lateral end of left clavicle, subsequent encounter for fracture with routine healing (principal)
CPT/HCPCS: 73000

== ENCOUNTER 2024-08-13 10:18 | Outpatient (OUT) | payer MEDICARE, MEDICAID, SELFPAY ==
--- NOTE | 2024-08-13 | XR_ITS ---
[address] [address] Patient Name: NOA LEWIS MRN: [id number] date: 1980 Sex: M Assigned Patient Location: Current Patient Location: Accession/Order Number: [id number] Exam Date: 08/13/2024 10:22 Report Date: 08/14/2024 12:12 At the request of: VAISHNAVI MUNOZ Procedure: XR clavicle LT PROCEDURE: XR clavicle LT HISTORY: LEFT CLAVICLE PAIN COMPARISON: XR clavicle left 06/11/2024 FINDINGS: BONES:Distal left clavicle fracture with slight inferior displacement of the distal fragment, unchanged. Moderate density of the prior fracture line compatible with partial bone healing. Grossly intact acromioclavicular joint. SOFT TISSUES:No visible soft tissue swelling. EFFUSION:None visible. OTHER: Negative. XR/XR clavicle LT IMPRESSION: 1. Stable alignment and partial osseous healing of distal left clavicle fracture. Electronically authenticated by: VAISHNAVI BAER Date: 08/14/2024 12:12
--- OUTSIDE RECORDS SUMMARY | 2024-08-13 10:21 | XMS_ITS | CCD ---
Author Organization [facility] Care Team Providers Care Skill Training Program Coordinator Name Role Phone HUNG GASPER~[phone] UNKNOWN Unavailable Unavailable HUNG, GASPER~[phone] UNKNOWN Unavailable Unavailable BALL, GASPER~[phone] UNKNOWN Unavailable Unavailable BALL, GASPER~[phone] UNKNOWN Unavailable Unavailable Donna Haque Unavailable Jennifer Trujillo Unavailable Gasper Persaud Unavailable JUICE NAVA Consulting Unavailable DIAB ., CHICHI Attending Unavailable DIAB ., CHICHI Admitting Unavailable BALL, DR TURCIOS Primary Care Unavailable DIAB ., CHICHI Consulting Unavailable KEMAL, KYLER Consulting Unavailable KEMAL, KYLER Attending Unavailable KEMAL, KYLER Admitting Unavailable HUNG, DR TURCIOS Primary Care Unavailable VEL ., SIRI Consulting Unavailable PETER, RAY Consulting Unavailable [...] Consulting Unavailable TIARRA YATES Consulting Unavailable VEL ., SIRI Attending Unavailable VEL ., SIRI Admitting Unavailable HUNG, DR TURCIOS Primary Care Unavailable JUICE WILD Consulting Unavailable PAY ., DR MACIAS Consulting Unavailable PAY ., DR MACIAS Attending Unavailable PAY ., DR MACIAS Admitting Unavailable HUNG, DR TURCIOS Primary Care Unavailable Hung MABRY, Gasper Bullock Primary Care Provider GORDY SCOTT Attending Unavailable GORDY SCOTT Attending Unavailable GORDY SCOTT Attending Unavailable GORDY SCOTT Attending Unavailable BRENDON, GORDY Lopez Attending Unavailable Allergies Allergy Classification Reported Allergen(s) Allergy Type Date of Onset Reaction(s) Facility (1 source) Pertussis Immune Globulin Drug allergy (disorder) 3 [facility] Repository (3 sources) Pertussis Vaccine Drug Allergy Unknown Apiary Other (3 sources) Vaccine product containing Bordetella pertussis antigen (medicinal product) Drug allergy 5 Unknown Apiary Other (3 sources) patient allergy list reviewed by nurse or physicia Propensity to adverse reactions 5 Comment:Done Apiary Other (3 sources) Pertussis Immune Globulin Propensity to adverse reactions 3 [facility] Medications Current Medications Medication Drug Class(es) Dates Sig (Normalized) Sig (Original) brivaracetam 100 mg oral tablet (3 sources) Start: 05-31-2024 take 1 tablet by mouth every twelve hours brivaracetam (Briviact) 100 MG tablet tablet Indications: Focal epilepsy with impairment of consciousness, intractable (CMS/HCC) TAKE 1 TABLET BY MOUTH EVERY 12 HOURS 60 tablet 5 05/31/2024 Active cenobamate 100 mg oral tablet (5 sources) Start: 07-18-2024 End: 01-14-2025 take 1 tablet by mouth at bedtime Cenobamate (Xcopri) 100 MG tablet Indications: Focal epilepsy with impairment of consciousness, intractable (CMS/HCC) Take 100 mg by mouth at bedtime 30 tablet 5 07/18/2024 01/14/2025 Active Start: 05-09-2024 End: 10-06-2024 take 1 tablet by mouth at bedtime Cenobamate (Xcopri) 50 MG tablet Indications: Focal epilepsy with impairment of consciousness, intractable (CMS/HCC) Take 50 mg by mouth at bedtime 30 tablet 3 05/09/2024 07/17/2024 Discontinued (Therapy completed) clonazePAM 0.5 mg oral tablet (14 sources) Benzodiazepine Start: 04-10-2024 take 0.5 tablet by mouth at bedtime clonazePAM (KlonoPIN) 0.5 MG tablet Indications: Focal epilepsy with impairment of consciousness, intractable (CMS/HCC) TAKE 1/2 (ONE-HALF) OF A TABLET BY MOUTH AT BEDTIME 15 tablet 5 05/31/2024 Active take 1 tablet by hakan th [...] Active eslicarbazepine acetate 200 mg oral tablet (13 sources) Start: 04-10-2024 take 1 tablet by mouth once daily Eslicarbazepine (Aptiom) 200 mg tablet Active 400 MG PO Daily April 10, 2024 12:00am Aptiom Active fluticasone propionate 0.05 mg/actuat metered dose nasal spray (7 sources) Corticosteroid Start: 04-10-2024 take 1 spray(s) [...] Start: 04-18-2023 gabapentin 600 mg oral tablet (11 sources) Anti-epileptic Agent Start: 04-10-2024 take 600 mg by mouth twice daily Gabapentin Active 600 MG PO Twice daily April 10, 2024 12:00am take 1 tablet by hakan th every twelve hours Gabapentin 600 MG 1 tablet Orally twice a day Active lamoTRIgine 200 mg oral tablet (16 sources) Mood Stabilizer, Anti-epileptic Agent Start: 12-27-2023 End: 12-21-2024 take 1 tablet by mouth in the morning lamoTRIgine (LaMICtal) 200 MG tablet Indications: Focal epilepsy with impairment of consciousness, intractable (CMS/HCC) Take 1 tablet (200 mg) by mouth in the morning and 1 tablet (200 mg) before bedtime. 180 tablet 3 12/27/2023 12/21/2024 Active take 1 tablet by mouth every twe lve hours LaMICtal 200 MG 1 tablet Orally twice a day Active take 1 tablet by hakan th every twenty-four hours LaMICtal 100 MG 1 tablet Orally Once a d ay for 30 day(s) Active loratadine 10 mg oral tablet (7 sources) Start: 04-10-2024 take 1 tablet by mouth once daily Loratadine Active 1 TAB PO Daily April 10, 2024 12:00am FreeTextSi tablet Orally Once a day; Note: Source Status: Taking; Provider: Hung Bullock Start: 04-18-2023 take 1 tablet by hakan th once daily Loratadine 10 MG 1 tablet Orally Once a day for 30 days Apr, Active Start: 04-18-2023 midazolam 50 mg/ml nasal spray (3 sources) Benzodiazepine Start: 05-09-2024 Midazolam 5 MG /0.1ML solution Indications: Focal epilepsy with impairment of consciousness, intractable (CMS/HCC) 1 dose after convulsive seizure > 5 minutes. May repeat in other nostril 10 minutes later if needed 4 each 3 05/09/2024 Active divalproex sodium 250 mg delayed release oral tablet (3 sources) Mood Stabilizer, Anti-epileptic Agent Start: 04-17-2024 divalproex (Depakot e) 250 MG EC tablet Indications: Focal epilepsy with impairment of consciousness, intractable (CMS/HCC) 1 tab Q12 60 tablet 5 04/17/2024 Active Completed/Discontinued Medications Medication Drug Class(es) Dates Sig (Normalized) Sig (Original) Cenobamate (Xcopri) 25 MG tablet (3 sources) Start: 05-09-2024 End: 07-17-2024 Cenobamate (Xcopri) 25 MG tablet Indications: Focal epilepsy with impairment of consciousness, intractable (CMS/HCC) Take 12.5 mg by mouth at bedtime for 14 days, THEN 25 mg at bedtime for 14 days, THEN 50 mg at bedtime. 30 tablet 05/09/2024 07/17/2024 Discontinued (Therapy completed) Start: 05-09-2024 Cenobamate (Xc opri) 25 MG tablet Indications: Focal epilepsy with impairment of consciousness, intractable (CMS/HCC) Take 12.5 mg by mouth at bedtime for 14 days, THEN 25 mg at bedtime for 14 days, THEN 50 mg at bedtime. 30 tablet 05/09/2024 Active Problems Active Problems Problem Classification Problem Date [...] Onset: 08-24-2016 Episodic Disorders of lipid metabolism (3 sources) Hyperlipidemia, unspecified; Translations: [Hypercholesterolemi a] Onset: [...] 11-25-2022 Episodic Other aftercare (1 source) Other intermediate (current) drug therapy; Translations: [OTH PRISON CURRENT DRUG THERAPY] Onset: 01-24-2023 Episodic Other aftercare (3 sources) Long-term current use of drug therapy; 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 intermediate (current) drug therapy] Episodic Other connective tissue [...] Translations: [POLYNEUROPATHY UNSPECIFIED] Onset: 04-21-2022 Chronic Other nervous system disorders (5 sources) Static encephalopathy; 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] Onset: 03-15-2023 03-15-2023 Chronic Other non-traumatic joint disorders (4 sources) [...] Chronic Other nutritional; endocrine; and metabolic disorders (11 sources) Developmental delay; Translations: [Unspecified lack of expected normal physiological development in childhood] 04-08-2024 Episodic Other nutritional; endocrine; and metabolic disorders (3 sources) Unspecified lack of expected normal physiological development in childhood; Translations: [Lack of normal physiological development, unspecified] Onset: 01-24-2023 04-10-2024 Episodic Other nutritional; endocrine; and metabolic disorders (3 sources) Physiological development failure; Translations: [Unspecified lack of expected normal physiological development in childhood] Episodic Other screening for suspected conditions (not mental disorders or infectious disease) (3 sources) Other specified abnormal findings of blood [...] and of unspecified site] Onset: 6 Episodic Complications of surgical procedures or medical care (3 sources) Drug therapy finding; Translations: [Unspecified adverse effect of drug or medicament, initial encounter] Onset: 3 05-17-2023 Episodic E Codes: Adverse effects of medical [...] Interpretation Reference Range Facility No Panel Informationon 06-05 Lamotrigine (Lamictal) Level 19.4 ug/mL 2.0-20.0 [facility] Comment on above: Detection Limit = 1.0Performed at: [facility] [address] [id number] Director: Chris Lux MD, Phone: [phone] Miscellaneous Test COMMENT . [facility] Comment on above: Test Ordered: [id number] Cenobamate (Xcopri) , PlasmaCenobamate 2.6 [L ] ug/mL MX Reference Range: .Although the therapeutic range is not well established, thesuggested range at doses of 100 - 400 mg/day is 5 - 35 ug/mL.Toxic range has not been established.This test was developed and its performance characteristicsdetermined by [employer]. It has not been cleared or approvedby the Food and Drug Administration.Performed at: [facility] [place] [address] [id number] Director: Vero i[facility]cks [facility], Phone: [phone] at: [facility] [address] [id number] Director: Silvestre Nelson PhD, Phone: [phone] No Panel Informationon 04-27 Miscellaneous Test COMMENT . [facility] Comment on above: Test Ordered: [id number] Valproic Acid (Tota l+Free)Valproic Acid (Depakote)(R),S 41 [L ] ug/mL Reference Range: 50-100 Detection Limit = 4 <4 indicates None DetectedToxicity may occur at levels of 100-500. Measurementsof free unbound valproic acid may improve the assess-ment of clinical response.Free Valproic Acid (Depakote) 9.4 ug/mL Reference Range: 6.0-22.0 Detection Limit = 0.5Performed at: [facility] [address] [id number] Director: Silvestre Nelson PhD, Phone: [phone] at: [address] [id number] Director: Chris Lux MD, Phone: [phone] Laboratory - Chemistry and C hemistry - challengeon 04-23-2024 ALT [Catalytic activity/Vol] 23 U/L 16-63 [facility] Ammonia (P) [Moles/Vol] 38 umol/L High 11-32 [facility] AST [Catalytic activity/Vol] 17 U/L 15-37 [facility] No Panel Informationon 04-23 Lamotrigine (Lamictal) Level 23.3 ug/mL Abnormal 2.0-20.0 [facility] Comment on above: Verified by repeat analysis Detectio n Limit = 1.0Performed at: [address] [id number] Director: Chris Lux MD, Phone: [phone] Miscellaneous Test COMMENT . [facility] Comment on above: Test Ordered: [id number] Brivaracetam, SE/PL Brivaracetam 3.33 [H ] ug/mL Reference Range: 0.20 - 2.00This test was developed and its performance characteristicsdetermined by [employer]. It has not been cleared or approvedby the Food and Drug Administration.Performed at: [facility] [address] [id number] Director: Vero Hicks [facility], Phone: [phone] at: [address] [id number] Director: Silvestre Nelson PhD, Phone: [phone] No Panel Informationon 03-26 Lamotrigine (Lamictal) Level 17.1 ug/mL 2.0-20.0 [facility] Comment on above: Detection Limit = 1.0Performed at: [address] [id number] Director: Chris Lux MD, Phone: [phone] Miscellaneous Test COMMENT . [facility] Comment on above: Test Ordered: [id number] Valproic Acid (Tota l+Free)Valproic Acid (Depakote)(R),S 11 [L ] ug/mL Reference Range: 50-100 Detection Limit = 4 <4 indicates None DetectedToxicity may occur at levels of 100-500. Measurementsof free unbound valproic acid may improve the assess-ment of clinical response.Free Valproic Acid (Depakote) 2.6 [L ] ug/mL Reference Range: 6.0-22.0 Detection Limit = 0.5Performed at: [facility] TechnologiesSt. [facility] CenterBmosmi[address] [place], [place] [id number] Director: Silvestre Nelson PhD, Phone: [phone] at: [facility] [employer] Technologies[place] [address] [place], [place] [id number] Director: Chris Lux MD, Phone: [phone] XR HIP LT 2 3V W PELVISon [...] JUICE NAVA Date: 2023-01-23 09:52 Normal [facility] XR SHOULDER LT 2V or >on XR [...] JUICE NAVA Date: 2023-01-23 09:51 Normal [facility] LAMOTRIGINEon 11-25-2022 Lamotrigine, Serum 15.7 ug/mL Normal 2.0-20.0 [facility] Comment on above: Result Comment: Detection Limit = 1.0 Performed By: #### L AMOT #### [facility] [address] [place] [address] Dr. Daphne Cheney LAMOTRIGINEon 09-17-2022 Lamotrigine, Serum 23.2 ug/mL Invalid Interpretation Code 2.0-20.0 [facility] Comment on above: Result Comment: Verified by repeat candelario lysis Detection Limit = 1.0 Performed By: #### L AMOT #### [facility] [address] [place], [place] [address] Dr. Daphne Cheney SARS-CoV-2 (COVID-19) RNA NA A+probe Ql (Resp)on 06-19-2022 SARS-CoV-2 (COVID-19) RNA TEO+probe Ql (Unsp spec) Positive Apiary Other XR MODIFIED BARIUM SWALLOWon 06-16-2022 XR [...] VAISHNAVI BAER Date: 2022-06-16 11:18 Normal [facility] XR KNEE GEMA 4V or >on 2021 XR KNEE GEMA 4V or > EXAM: XR KNEE GEMA 4V or > HISTORY: Unspecified fall COMPARISON: None. TECHNIQUE: 9 views total FINDINGS: No fracture, dislocation, subluxation or osseous lesion. No visualized knee effusion. Joint spaces are normal. IMPRESSION: Normal knee x-rays Electronically authenticated by: JUICE WILD Date: 2022-06-09 17:19 Normal [facility] LAMOTRIGINEon 04-24-2022 Lamotrigine, Serum 11.2 ug/mL Normal 2.0-20.0 [facility] Comment on above: Result Comment: Detection Limit = 1.0 Performed By: #### L AMOT ####[facility] [address] [place], [place] [address]YpDr. Daphne Cheney XR CHEST 2 Von 03-10-2022 [...] VAISHNAVI BAER Date: 2022-03-10 14:59 Normal [facility] CARDIAC GORDY 3-6on 2 CK [Catalytic activity/Vol] 73 U/L Normal 39-308 [facility] Comment on above: Performed By: #### CMREP #### [facility] [address] [place] [address] Dr. Daphne Cheney CK.MB [Mass/Vol] 0.95 ng/mL Normal <=3.[address] [facility] Comment on above: Performed By: #### CMREP #### [facility] [address] [place] [address] Dr. Daphne Cheney HSTROP 4.8 pg/mL Normal 4.0-76.1 [facility] Comment on above: Result Comment: CUT-OFF POINTS HAVE BEEN ESTABLISHED BASED ON THE FOURTH UNIVERSAL DEFINITIONS OF MYOCARDIAL INFARCTION. THE UPPER REFERENCE LIMIT (URL) OF TROPONIN, DEFINED THE 99TH PERCENTILE OF cTnI DISTRIBUTION IN A REFERENCE POPULATION, HAS BEEN CONFIRMED THE DECISION THRESHOLD FOR MD DIAGNOSIS. Performed By: #### C MREP #### [facility] [address] [place] [address] [address] Daphne Cheney CARDIAC GORDY ADMITon 022 CK [Catalytic activity/Vol] 64 U/L Normal 39-308 [facility] Comment on above: Performed By: #### BMP, CMADM #### [facility] [address] [place] [address] Dr. Yilan Cheney CK.MB [Mass/Vol] 0.85 ng/mL Normal <=3.[address] [facility] Comment on above: Performed By: #### HAYDE AUGUST #### [facility] [address] [place] [address] [address] Daphne Cheney HSTROP 4.1 pg/mL Normal 4.0-76.1 [facility] Comment on above: Result Comment: CUT-OFF POINTS HAVE BEEN ESTABLISHED BASED ON THE FOURTH UNIVERSAL DEFINITIONS OF MYOCARDIAL INFARCTION. THE UPPER REFERENCE LIMIT (URL) OF TROPONIN, DEFINED THE 99TH PERCENTILE OF cTnI DISTRIBUTION IN A REFERENCE POPULATION, HAS BEEN CONFIRMED THE DECISION THRESHOLD FOR MD DIAGNOSIS. Performed By: #### B HAYDE SAMAYOA #### [facility] [address] [place] [address] [address] Daphne Cheney MANDIE 98 ng/mL Critically high 16-96 [facility] Comment on above: Performed By: #### HAYDE AUGUST #### [facility] [address] [place] [address] [address] Daphne Cheney CBC AUTO DIFFon 02-14-2022 BASO # 0.1 103/ul Normal 0.0-0.1 [facility] Comment on above: Performed By: #### CBC ####[facility] [address] [place] [address]DrGeorge Cheney Basophils/100 WBC (Bld) 0.5 % Normal 0.2-2.0 [facility] Comment on above: Performed By: #### CBC ####[facility] [address] [place] [address]Dr. Daphne Cheney EO # 0.0 103/ul Normal 0.0-0.7 [facility] Comment on above: Performed By: #### CBC ####[facility] ital [address] [place] [address]Dr. Daphne Cheney Eosinophils/100 WBC (Bld) 0.2 % Critically low 0.9-7.0 [facility] Comment on above: Performed By: #### CBC ####[facility] [address] [place] [address]Dr. Daphne Cheney Erythrocyte distribution width (RBC) [Ratio] 13.0 % Normal 11.0-15.0 [facility] Comment on above: Performed By: #### CBC ####[facility] [address] [place] [address]Dr. Daphne Cheney Hematocrit (Bld) [Volume fraction] 48.6 % Normal 42.0-54.0 [facility] Comment on above: Performed By: #### CBC ####[facility] [address] [place] [address]Dr. Daphne Cheney Hemoglobin (Bld) [Mass/Vol] 15.2 g/dL Normal 14.0-18.0 [facility] Comment on above: Performed By: #### CBC ####[facility] [address] [place] [address]Dr. Daphne Cheney IG # 0.05 10e3/ul Critically high 0.00-0.03 [facility] Comment on above: Performed By: #### CBC ####[facility] [address] [place] [address]Dr. Daphne Cheney IG % 0.4 % Normal 0.0-0.5 [facility] Comment on above: Performed By: #### CBC ####[facility] [address] [place] [address]Dr. Daphne Cheney LYMPH # 1.2 103/ul Normal 1.2-3.8 [facility] Comment on above: Performed By: #### CBC ####[facility] [address] [place] [address]Dr. Daphne Cheney Lymphocytes/100 WBC (Bld) 9.2 % Critically low 20.5-60.0 [facility] Comment on above: Performed By: #### CBC ####[facility] [address] [place] [address]Dr. Daphne Cheney MANUAL DIFF REQ NO Normal [facility] Comment on above: Performed By: #### CBC ####[facility] [address] [place] [address]Dr. Shahrzadtj Cheney MCH (RBC) [Entitic mass] 28.7 pg Normal 25.9-34.0 [facility] Comment on above: Performed By: #### CBC ####[facility] ital [address] [place] [address]Dr. Daphne Cheney MCHC (RBC) [Mass/Vol] 31.3 g/dL Normal 29.9-35.2 [facility] Comment on above: Performed By: #### CBC ####[facility] [address] [place] [address]Dr. Daphne Shravan MCV (RBC) [Entitic vol] 91.9 fL Normal 80.0-94.0 [facility] Comment on above: Performed By: #### CBC ####[facility] [address] [place], [place] [address]Dr. Daphne Cheney MONO # 0.9 103/ul Critically high 0.3-0.8 [facility] Comment on above: Performed By: #### CBC ####[facility] [address] [place], [place] [address]Dr. Daphne Cheney Monocytes/100 WBC (Bld) 7.2 % Normal 1.7-12.0 [facility] Comment on above: Performed By: #### CBC ####[facility] [address] [place], [place] [address]Dr. Daphne Cheney NEUT # 10.7 103/ul Critically high 1.4-6.[address] [facility] Comment on above: Performed By: #### CBC ####[facility] [address] [place], [place] [address]Dr. Daphne Cheney Neutrophils/100 WBC (Bld) 82.5 % Critically high 43.0-75.0 [facility] Comment on above: Performed By: #### CBC ####[facility] [address] [place], [place] [address]Dr. Daphne Cheney Platelet mean volume (Bld) [Entitic vol] 8.4 fL Critically low 9.5-13.5 [facility] Comment on above: Performed By: #### CBC ####[facility] [address] [place], [place] [address]Ww. Daphne Cheney PLT 446 103/ul Normal 150-450 [facility] Comment on above: Performed By: #### CBC ####[facility] [address] [place], [place] [address]Fu. Daphne Cheney RBC 5.29 106/ul Normal 4.70-6.10 [facility] Comment on above: Performed By: #### CBC ####[facility] [address] [place], [place] [address]Hd. Daphne Cheney WBC 13.0 103/ul Critically high 4.0-11.[address] [facility] Comment on above: Performed By: #### CBC ####[facility] [address] [place], [place] [address] ABD/PELVIS WO CONon 02-14 CT [...] EMMA RODRIGUEZ Date: 2022-02-14 08:30 Normal [facility] CT HEAD WO CONon 02-14-2022 CT [...] GERALD CRUZ Date: 2022-02-14 08:27 Normal [facility] Covid-19 PCR (CVDTB)on SARS-CoV-2 (COVID-19) RNA TEO+probe Ql (Unsp spec) Not detected Normal NOT DETECTED [facility] Comment on above: Result Comment: When diagnostic testing is negative, the possibility of a false negative should be considered in the context of a patient's recent exposures and the presence of clinical signs and symptoms consistent with SARS-CoV-2. This test is not yet approved or cleared by the [place] Food and Drug Administration (FDA). This test was developed by [employer], [place], [place]. The performance characteristics of this test were validated by [facility]. The results are not intended to be used as the sole means for clinical diagnosis or patient management decisions. [facility] is authorized under Clinical Laboratory Improvement Amendments [...] for this test is supported by the Orthotic Fitter of Health and Human Service's declaration that [...] used). Performed By: #### C VDTBH #### [facility] [address] [place] [address] [address] Daphne Cheney LIPASEon 02-14-2022 Lipase [Catalytic activity/Vol] 92.0 U/L Normal 73.0-393.0 [facility] Comment on above: Performed By: #### LIPA ####[facility] [address] [place] [address]Dr. Daphne Cheney OCC BLD IMMUNO SCREENon OCCULT BLOOD Negative Normal NEGATIVE [facility] Comment on above: Performed By: #### OBSCRN ####[facility] [address] [place] [address]Dr. Daphne Cheney PROF CHEM 8 (BAS METB)on Anion gap [Moles/Vol] 12.3 mmol/L Normal [facility] Comment on above: Performed By: #### MATA, JUNEDM #### [facility] [address] [place] [address] Dr. Daphne Cheney Calcium [Mass/Vol] 9.6 mg/dL Normal 8.5-10.1 [facility] Comment on above: Performed By: #### MATA, CMADM #### [facility] [address] [place] [address] Dr. Daphne Cheney Chloride [Moles/Vol] 98 mmol/L Normal 98-107 [facility] Comment on above: Performed By: #### MATA, CMADM #### [facility] [address] [place] [address] Dr. Daphne Cheney CO2 [Moles/Vol] 32.4 mmol/L Critically high 21.0-32.0 [facility] Comment on above: Performed By: #### MATA, CMADM #### [facility] [address] [place] [address] [address] Daphne Cheney Creatinine [Mass/Vol] 1.19 mg/dL Normal 0.70-1.30 [facility] Comment on above: Performed By: #### BMP, CMADM #### [facility] [address] [place] [address] [address] Daphne Cheney EGFR-AF MOROCCAN >60 Normal >=[address] [facility] Comment on above: Performed By: #### BMP, CMADM #### [facility] [address] [place] [address] [address] Daphne [place] EGFR-NON AF MOROCCAN >60 Normal >=60 [facility] Comment on above: Performed By: #### BMP, CMADM #### [facility] [address] [address] [address] Daphne Cheney Glucose [Mass/Vol] 120 mg/dL Critically high 74-106 [facility] Comment on above: Performed By: #### BMP, CMADM #### [facility] [address] [address] [address] Daphne Cheney Potassium [Moles/Vol] 4.7 mmol/L Normal 3.5-5.1 [facility] Comment on above: Performed By: #### BMP, CMADM #### [facility] [address] [place] [address] Dr. Daphne Cheney Sodium [Moles/Vol] 138 mmol/L Normal 136-145 [facility] Comment on above: Performed By: #### BMP, CMADM #### [facility] [address] [address] [address] Daphne Cheney Urea nitrogen [Mass/Vol] 12.0 mg/dL Normal 7.0-18.0 [facility] Comment on above: Performed By: #### BMP, CMADM #### [facility] [address] [address] [address] Daphne Cheney Urea nitrogen/Creatin ine [Mass ratio] 10.1 mg/mg Normal [facility] Comment on above: Performed By: #### BMP, CMADM #### [facility] [address] [address] [address] Daphne Cheney XR KUB 1 VIEWon [...] as clinically indicated. Electronically authenticated by: RAY GREEN Date: 2022-02-14 06:35 Normal [facility] CBC AUTO DIFFon 02-02-2022 BASO # 0.0 103/ul Normal 0.0-0.1 [facility] Comment on above: Performed By: #### CBC #### [facility] [address] [place] [address] Dr. Daphne Cheney Basophils/100 WBC (Bld) 0.2 % Normal 0.2-2.0 [facility] Comment on above: Performed By: #### CBC #### [facility] [address] [address] [address] Daphne Cheney EO # 0.0 103/ul Normal 0.0-0.7 [facility] Comment on above: Performed By: #### CBC #### [facility] [address] [address] [address] Daphne Cheney Eosinophils/100 WBC (Bld) 0.0 % Critically low 0.9-7.0 [facility] Comment on above: Performed By: #### CBC #### [facility] [address] [address] [address] Daphne Cheney Erythrocyte distribution width (RBC) [Ratio] 13.8 % Normal 11.0-15.0 [facility] Comment on above: Performed By: #### CBC #### [facility] [address] [place] [address] Dr. Daphne Cheney Hematocrit (Bld) [Volume fraction] 42.5 % Normal 42.0-54.0 [facility] Comment on above: Performed By: #### CBC #### [facility] [address] [address] [address] Daphne Cheney Hemoglobin (Bld) [Mass/Vol] 13.9 g/dL Critically low 14.0-18.0 [facility] Comment on above: Performed By: #### CBC #### [facility] [address] [address] [address] Daphne Cheney IG # 0.13 10e3/ul Critically high 0.00-0.03 [facility] Comment on above: Performed By: #### CBC #### [facility] [address] [address] [address] Daphne Cheney IG % 1.0 % Critically high 0.0-0.5 [facility] Comment on above: Performed By: #### CBC #### [facility] [address] [address] [address] Daphne Cheney LYMPH # 1.2 103/ul Normal 1.2-3.8 [facility] Comment on above: Performed By: #### CBC #### [facility] [address] [address] [address] Daphne Cheney Lymphocytes/100 WBC (Bld) 8.6 % Critically low 20.5-60.0 [facility] Comment on above: Performed By: #### CBC #### [facility] [address] [address] [address] Daphne Cheney MANUAL DIFF REQ NO Normal [facility] Comment on above: Performed By: #### CBC #### [facility] [address] [address] [address] Daphne Cheney MCH (RBC) [Entitic mass] 29.4 pg Normal 25.9-34.0 [facility] Comment on above: Performed By: #### CBC #### [facility] [address] [address] [address] Daphne Cheney MCHC (RBC) [Mass/Vol] 32.7 g/dL Normal 29.9-35.2 [facility] Comment on above: Performed By: #### CBC #### [facility] [address] [address] [address] Daphne Cheney MCV (RBC) [Entitic vol] 90.0 fL Normal 80.0-94.0 [facility] Comment on above: Performed By: #### CBC #### [facility] [address] [address] [address] Daphne Cheney MONO # 1.3 103/ul Critically high 0.3-0.8 [facility] Comment on above: Performed By: #### CBC #### [facility] [address] [address] [address] Daphne Cheney Monocytes/100 WBC (Bld) 9.2 % Normal 1.7-12.0 [facility] Comment on above: Performed By: #### CBC #### [facility] [address] [place] [address] Dr. Daphne Cheney NEUT # 11.0 103/ul Critically high 1.4-6.5 [facility] Comment on above: Performed By: #### CBC #### [facility] [address] [address] [address] Daphne Cheney Neutrophils/100 WBC (Bld) 81.0 % Critically high 43.0-75.0 [facility] Comment on above: Performed By: #### CBC #### [facility] [address] [address] [address] Daphne Cheney Platelet mean volume (Bld) [Entitic vol] 9.6 fL Normal 9.5-13.5 [facility] Comment on above: Performed By: #### CBC #### [facility] [address] [address] [address] Daphne Cheney PLT 193 103/ul Normal 150-450 [facility] Comment on above: Performed By: #### CBC #### [facility] [address] [place] [address] Dr. Daphne Cheney RBC 4.72 106/ul Normal 4.70-6.10 [facility] Comment on above: Performed By: #### CBC #### [facility] [address] [address] [address] Daphne Cheney WBC 13.6 103/ul Critically high 4.0-11.[address] [facility] Comment on above: Performed By: #### CBC #### [facility] [address] [place] [address] Dr. Daphne Cheney PROF 14(COMP METB)on 022 Albumin [Mass/Vol] 2.4 g/dL Critically low 3.4-5.0 [facility] Comment on above: Performed By: #### CMP #### [facility] [address] [place] [address] Dr. Daphne Cheney Albumin/Globulin [Mass ratio] 0.4 {ratio} Normal [facility] Comment on above: Performed By: #### CMP #### [facility] [address] [place] [address] Dr. Daphne Cheney ALP [Catalytic activity/Vol] 111 U/L Normal 46-116 [facility] Comment on above: Performed By: #### CMP #### [facility] [address] [place] [address] Dr. Daphne Cheney ALT [Catalytic activity/Vol] 92 U/L Critically high 16-63 [facility] Comment on above: Performed By: #### CMP #### [facility] [address] [place] [address] Dr. Daphne Cheney Anion gap [Moles/Vol] 13.5 mmol/L Normal [facility] Comment on above: Performed By: #### CMP #### [facility] [address] [place] [address] Dr. Daphne Cheney AST [Catalytic activity/Vol] 83 U/L Critically high 15-37 [facility] Comment on above: Performed By: #### CMP #### [facility] [address] [place] [address] Dr. Daphne Cheney Bilirubin [Mass/Vol] 0.7 mg/dL Normal 0.2-1.3 [facility] Comment on above: Performed By: #### CMP #### [facility] [address] [place] [address] Dr. Daphne Cheney Calcium [Mass/Vol] 8.8 mg/dL Normal 8.5-10.1 [facility] Comment on above: Performed By: #### CMP #### [facility] [address] [place] [address] Dr. Daphne Cheney Chloride [Moles/Vol] 105 mmol/L Normal 98-107 [facility] Comment on above: Performed By: #### CMP #### [facility] [address] [place] [address] Dr. Daphne Cheney CO2 [Moles/Vol] 28.4 mmol/L Normal 22.0-30.[address] [facility] Comment on above: Performed By: #### CMP #### [facility] [address] [place] [address] Dr. Daphne Cheney Creatinine [Mass/Vol] 1.09 mg/dL Normal 0.66-1.25 [facility] Comment on above: Performed By: #### CMP #### [facility] [address] [place] [address] Dr. Daphne Cheney EGFR-AF MOROCCAN >60 Normal >=[address] [facility] Comment on above: Performed By: #### CMP #### [facility] [address] [place] [address] Dr. Daphne Cheney EGFR-NON AF MOROCCAN >60 Normal >=60 [facility] Comment on above: Performed By: #### CMP #### [facility] [address] [place] [address] Dr. Daphne Cheney Globulin (S) [Mass/Vol] 5.4 g/dL Normal [facility] Comment on above: Performed By: #### CMP #### [facility] [address] [place] [address] Dr. Daphne Cheney Glucose [Mass/Vol] 122 mg/dL Critically high 74-106 [facility] Comment on above: Performed By: #### CMP #### [facility] [address] [place] [address] Dr. Daphne Cheney Potassium [Moles/Vol] 3.9 mmol/L Normal 3.4-5.0 [facility] Comment on above: Performed By: #### CMP #### [facility] [address] [address] [address] Daphne Cheney Protein [Mass/Vol] 7.8 g/dL Normal 6.1-8.2 [facility] Comment on above: Performed By: #### CMP #### [facility] [address] [address] [address] Daphne Cheney Sodium [Moles/Vol] 143 mmol/L Normal 137-145 [facility] Comment on above: Performed By: #### CMP #### [facility] [address] [address] [address] Daphne Cheney Urea nitrogen [Mass/Vol] 23.0 mg/dL Critically high 7.0-18.0 [facility] Comment on above: Performed By: #### CMP #### [facility] [address] [address] [address] Daphne Cheney Urea nitrogen/Creatin ine [Mass ratio] 21.1 mg/mg Normal [facility] Comment on above: Performed By: #### CMP #### [facility] [address] [address] [address] Daphne Cheney XR CHEST 2 Von [...] infiltrates suggestive of pneumonia. Electronically authenticated by: VAIHSNAVI BAER Date: 2022-02-02 11:00 Normal [facility] Vital Signs Date Time Vital Sign Value Performing Clinician Facility 04-10-2024 14:40-0400 Body height 165.1 cm [facility] 04-10-2024 14:40-0400 Body mass index (BMI) [Ratio] 27.1 kg/m2 [facility] 04-10-2024 14:40-0400 Body weight 73.93 kg [facility] 04-10-2024 14:40-0400 Diastolic blood pressure 70 mm[Hg] [facility] 04-10-2024 14:40-0400 Heart rate 65 /min [facility] 04-10-2024 14:40-0400 Respiratory rate 12 /min [facility] 04-10-2024 14:40-0400 Systolic blood pressure 122 mm[Hg] [facility] 04-18-2023 15:15-0400 Body height 165.1 cm Gasper Ball Other [facility] Other 04-18-2023 15:15-0400 Body mass index (BMI) [Ratio] 27.15 kg/m2 Gasper Ball Other [facility] Other 04-18-2023 15:15-0400 Body weight 74.03 kg Gasper Ball Other [facility] Other 04-18-2023 15:15-0400 Diastolic blood pressure 78 mm[Hg] Gasper Ball Other [facility] Other 04-18-2023 15:15-0400 Respiratory rate 12 /min Gasper Ball Other [facility] Other 04-18-2023 15:15-0400 Systolic blood pressure 132 mm[Hg] Gasper Ball Other [facility] Other 01-25-2023 14:30-0400 Body height 165.1 cm Gasper Ball Other [facility] Other 01-25-2023 14:30-0400 Body mass index (BMI) [Ratio] 24.96 kg/m2 Gasper Ball Other [facility] Other 01-25-2023 14:30-0400 Body weight 68.04 kg Gasper Ball Other [facility] Other 01-25-2023 14:30-0400 Respiratory rate 12 /min Gasper Ball Other [facility] Other 06-19-2022 10:35-0400 Body height 165.1 cm Jennifer Trujillo Other [facility] Other 09-29-2021 16:50-0500 Body height 165.1 cm Donna Archerault Other [facility] Other 09-29-2021 16:50-0500 Body temperature 98.7 [degF] Donna Archerault Other [facility] Other 09-29-2021 16:50-0500 Diastolic blood pressure 89 mm[Hg] Donna Archerault Other [facility] Other 09-29-2021 16:50-0500 Respiratory rate 18 /min Donna Archerault Other [facility] Other 09-29-2021 16:50-0500 SaO2% (BldA) [Mass fraction] 98 % Donna Archerault Other [facility] Other 09-29-2021 16:50-0500 Systolic blood pressure 131 mm[Hg] Donna Shabnam Other [facility] Other Encounters Encounter Date Encounter Type Care Provider Facility Start: 07-17-2024 End: 07-17-2024 Tio Scott MD Work Phone: [facility] Start: 07-17-2024 End: 07-17-2024 Tio Scott MD Work Phone: [facility] Start: 07-17-2024 End: 07-17-2024 Office outpatient visit 25 minutes Gordy Scott MD Work Phone: [facility] Comment on above: Focal epilepsy with impairment of consciousness, intractable (CMS/HCC) (Primary Dx); Static encephalopathy Start: 07-17-2024 End: 07-17-2024 ambulatory GORDY D BEJ Not Available Start: 06-26-2024 End: 06-26-2024 ambulatory [facility] Work Phone: Start: 06-26-2024 End: 06-26-2024 Patient encounter procedure [facility] Work Phone: Start: 06-05-2024 Non-patient / Non-visit [facility] Work Phone: Start: 05-09-2024 End: 05-09-2024 ambulatory GORDY D BEJ Not Available Start: 04-27-2024 Non-patient / Non-visit [facility] Work Phone: Start: 04-23-2024 Non-patient / Non-visit [facility] Work Phone: Start: 04-17-2024 End: 04-17-2024 ambulatory GORDY D BEJ Not Available Start: 04-10-2024 End: 04-10-2024 ambulatory [facility] Work Phone: Start: 04-10-2024 End: 04-10-2024 Encounter for general adult medical examination without abnormal findings [facility] Start: 04-10-2024 End: 04-10-2024 Patient encounter procedure [facility] Work Phone: Start: 03-26-2024 Non-patient / Non-visit [facility] Work Phone: Start: 01-17-2024 End: 01-17-2024 ambulatory GORDY D BEJ Not Available Start: 10-18-2023 End: 10-18-2023 ambulatory GORDY D BEJ Not Available Start: 07-07-2023 End: 07-07-2023 ambulatory Gasper Persaud Other [facility] Other Start: 07-07-2023 Telephone encounter Gasper Persaud [facility] Start: 07-06-2023 End: 07-06-2023 ambulatory Gasper Persaud Other [facility] Other Start: 07-06-2023 Telephone encounter Gasper Ball [facility] Start: 06-21-2023 End: 06-21-2023 ambulatory Gasper Persaud Other [facility] Other Start: 06-21-2023 Nursing evaluation o f patient and report Gasper Persaud [facility] Start: 05-02-2023 End: 05-02-2023 ambulatory Gasper Persaud Other [facility] Other Start: 05-02-2023 Telephone encounter Gasper Ball [facility] Start: 04-18-2023 End: 04-18-2023 ambulatory Gasper Persaud Other [facility] Other Start: 04-18-2023 Office outpatient vi sit 15 minutes Gasper Hung [facility] Start: 02-07-2023 End: 02-07-2023 ambulatory Gasper Persaud Other [facility] Other Start: 02-07-2023 Telephone encounter Gasper Ball [facility] Start: 01-26-2023 End: 01-26-2023 ambulatory Gasper Ball Other [facility] Other Start: 01-26-2023 Telephone encounter Gasper Ball [facility] Start: 01-25-2023 End: 01-25-2023 ambulatory Gasper Ball Other [facility] Other Start: 01-25-2023 Office outpatient vi sit 15 minutes Gasper Persaud [facility] Start: 01-23-2023 End: 01-23-2023 ambulatory JUICE NAVA Facility:[facility] Start: 01-07-2023 End: 01-07-2023 ambulatory Gasper Persaud Other [facility] Other Start: 01-07-2023 Telephone encounter Gasper Persaud [facility] Start: 11-23-2022 End: 11-24-2022 ambulatory GORDY RBENDON Facility:[facility] Start: 11-19-2022 End: 11-19-[address] COLLEEN JOHNSON . Facility:[facility] Start: 09-13-2022 End: 09-14-2022 ambulatory GORDY BEJ Facility:[facility] Start: 06-19-2022 End: 06-19-2022 ambulatory Jennifer Trujillo Other [facility] Other Start: 06-19-2022 Office outpatient vi sit 15 minutes Jennifer Trujillo [facility] Start: 06-16-2022 End: 06-17-[address] VAISHNAVI BAER Facility:[facility] Start: 06-09-2022 End: 06-09-2022 ambulatory TIARRA YATES Facility:[facility] Start: 04-21-2022 End: 04-22-2022 ambulatory GORDY SCOTT Facility:[facility] Start: 04-16-[address] [facility] Start: 03-10-2022 End: 03-11-[address] GASPER PERSAUD Facility:[facility] Start: 02-14-2022 End: 02-14-2022 ambulatory KYLER SOMMER Facility:[facility] Start: 02-02-2022 End: 02-03-[address] GASPER PERSAUD Facility:[facility] Start: 09-29-2021 End: 09-29-2021 ambulatory Donna Haque Other [facility] Other Start: 09-29-2021 Office outpatient vi sit 15 minutes Donna Haque [facility] Start: 03-10-2021 Adult health examination Aceremberto Persaud Other [facility] Other Start: 03-21-2017 End: 09-16-2017 Ambulatory GASPER~[id number] BERTA PERSAUD [place] [place] of Treatment Date Care Activity Detail Author Start: 09-18-2024 End: 09-18-2024 Patient encounter procedure 09/18/2024 11:30 AM EST Office Visit [facility] [address] [place] [address] Gordy Scott MD [address] [id number] [facility] Start: 07-17-2024 End: 07-17-2024 Patient encounter procedure 07/17/2024 11:30 AM EDT Office Visit [facility] [address] [place] [address] Gordy Scott MD [address] [address] [facility] Comment on above: Arrived Start: 06-17-2024 Influenza vaccination Influenz a Vaccine (#1) [facility] Start: 1980 Screening for malign ant neoplasm of colon [facility] Comprehensive metabo lic 2000 panel - Serum or Plasma [facility] Immunizations Immunization Date Immunization Notes Care Provider Fa cility 06-26-2024 influenza virus vaccine, unspecified formulation Gordy Scott MD Work Phone: [facility] 06-21-2023 influenza, injectabl e, quadrivalent, preservative free Gasper Persaud Other [facility] 07-28-2022 influenza virus vaccine, split virus (incl. purified surface antigen) Gasper Persaud Other [facility] Other 07-28-2022 influenza virus vaccine, unspecified formulation [facility] 08-10-2021 influenza virus vaccine, split virus (incl. purified surface antigen) Gasper Persaud Other [facility] Other 08-10-2021 influenza virus vaccine, unspecified formulation [facility] 07-08-2020 influenza virus vaccine, split virus (incl. purified surface antigen) Gasper Persaud Other [facility] Other 07-08-2020 influenza virus vaccine, unspecified formulation [facility] 07-31-2019 influenza virus vaccine, split virus (incl. purified surface antigen) Gasper Persaud Other [facility] Other 07-31-2019 influenza virus vaccine, unspecified formulation [facility] 05-22-2019 tetanus and diphther ia toxoids, adsorbed, preservative free, for adult use (5 Lf of tetanus toxoid and 2 Lf of diphtheria toxoid) [facility] 05-22-2019 tetanus toxoid, reduced diphtheria toxoid, and acellular pertussis vaccine, adsorbed Gasper Persaud Other [facility] Other 07-11-2018 influenza virus vaccine, split virus (incl. purified surface antigen) Gasper Persaud Other [facility] Other 07-11-2018 influenza virus vaccine, unspecified formulation [facility] 07-13-2017 tetanus and diphther ia toxoids, adsorbed, preservative free, for adult use (5 Lf of tetanus toxoid and 2 Lf of diphtheria toxoid) Gasper Persaud Other [facility] 08-12-2016 influenza virus vaccine, split virus (incl. purified surface antigen) Gasper Persaud Other [facility] Other 08-12-2016 influenza virus vaccine, unspecified formulation [facility] 07-25-2015 tetanus and diphther ia toxoids, adsorbed, preservative free, for adult use (5 Lf of tetanus toxoid and 2 Lf of diphtheria toxoid) Gasper Persaud Other [facility] 07-29-2014 tetanus and diphther ia toxoids, adsorbed, preservative free, for adult use (5 Lf of tetanus toxoid and 2 Lf of diphtheria toxoid) Gasper Persaud Other [facility] 08-09-2013 tetanus and diphther ia toxoids, adsorbed, preservative free, for adult use (5 Lf of tetanus toxoid and 2 Lf of diphtheria toxoid) Gasper Persaud Other [facility] Payers Date Payer Category Payer Medicaid [facility] [id number] 2017-Present [phone] [address] [place] [address] Medicaid [id number] 2017 Medicare [id number] 2008 Medicare MEDICARE MEDICAR E RAILROAD [id number] 2008-Present [facility] RAILROAD MEDICARE [address] [address] [place] [address] Medicare [id number] 1978 Unknown [id number] 1978 Unknown [id number] 1978 Unknown [id number] 1978 Unknown [id number] [id number] 1978 Unknown [id number] [id number] 1978 Unknown [id number] .[id number] 1978 Unknown [id number] 1978 Unknown [id number] [id number]3 1978 Unknown [id number] 2.16.840.1.593685.3.579.2.593 1978 Unknown [id number] [id number]3 1978 Unknown [id number] [id number]3 1978 Unknown [id number] [id number]59 1978 Unknown [id number] [id number]59 1978 Unknown [id number] 2.16.840.1.528094.3.579.2.1259 1978 Unknown [id number] [id number]59 1978 Unknown [id number] [id number] 1959 Medicaid [id number] 1959 Medicare [id number] 1961 Self-pay Social History Date Type Detail Facility Unknown if ever smoked [facility] Other Start: 03-11-2023 Sex Assigned At N [facility] Other Start: 07-07-2018 End: 03-11-2023 Tobacco smoking status [facility] Never smoked tobacco (finding) [facility] Start: 1980 Sex Assigned At Male F [facility] Start: 03-11-2023 Alcoholic beverage intake Lifetime non-drinker (finding) [facility] Start: 03-11-2023 History of Social function [facility] Start: 03-11-2023 Alcohol Comment Caffeine: none [facility] Start: 1980 Sex assigned at Not on file [facility] Clinical Notes 12-14-2021 to 07-17-2024 Gordy Scott MD - 07/17/2024 11:55 AM EDTMpradip Scott MD - 07/17/2024 11:30 AM EDT Note Date & Type Note Facility 07-17-2024 History of Presen t illness Narrative Associated Problem(s): Focal epilepsy with impairment of consciousness, intractable (CMS/HCC) Driving - does not drive. Incr CNB to 100 hs. Refer for VNS implantation - Odom. I will get the name of the surgeon. CNB level before f/u appt. Images from the original note were not included. Outpatient Progress Note Prev Appt: 04/24/2024 Chief Complaint Patient presents with Seizures Assessment and Plan - Focal epilepsy with impairment of consciousness, intractable (CMS/HCC) Driving - does not drive. Incr CNB to 100 hs. Refer for VNS implantation - Odom. I will get the name of the surgeon. CNB level before f/u appt. No orders of the defined types were placed in this encounter. Follow-Up - Follow up in about 2 months (around 09/16/2024). Lab Frequency Next Occurrence XR lumbar spine 6+ views including oblique flexion extension Once 07/14/2023 History of Present Illness, Associated Treatments and Results - Dx EPILEPSY Tx CNB 50 [2.6] + VPA 250 q12 [41/9.4f] + LTG 200 q12 [23.3, was 10.5, was 15.7 (on 500), was 8.0..11.2 (on 400)] + BRV 100 q12 [was 2.9] + clonazapam 0.25 hs + prn midazolam nasal 5 AEs somnolence since med change Hx Sz - , , Sep, mostly at work, convulsive, recently without falls. 2 sz recently, staring, biting fingers, Jeremías, tremoring , 17 min. Hand shaking - somewhat new sx. Jerks - still very frequent spasms, were up to 40/d in Apr, now much less. Fully alert. Nearly all early AM after pt's arrival at work, apparently all myoclonic jerks. ?Behavioral, excitement. ?Carbs with breakfast. ... Mid-Jan 9 jerks in a row. Last GTC - ~2019. Note home had been recording extremely long times, 10-35 min, but apparently they were counting pt chewing on thumb while still responsive. Prev pt of Dr. Rivera, [facility]). Failed VPA 500 (15# wt gain), TPM ?dose (ineff) ([facility]), [facility], ESL 800 (no change), LTG 500-600 (ataxia), clonazepam 0.5 (drooling, other behaviors) ZNS 200 (mood-grouchy, chewing hands) ... Highest LTG dose 400 mg/d, no more effective; failed GTC wean (11/2018) ([facility]) Note possibility that ASDs are controlling GTCs but extremity extension events are behavioral. Onset after 1982 (after age 3) Semeiology Staring -> extrems extended to lower right, body to upper left. No GTCs. Duration 1-2 s . No significant change since age 1. 2-20 in a row, fully alert in between. (Difficult to test alertness interictally due to brevity.) (Note some descriptions use the word jerks , but description was more shukri to brief tonic sz.). 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 Only 2-3 words at age 3. L hand preference noted age 10 mo. Trigger Preg EEG (_, [facility]) - _ (_, [facility]) - _. Amb EEG (none). VEEG (03/2022) Review of phone video of recent event. Pt stares, rocks forward/backward, R hand brought to mouth, then will stick arms out, R arm somewhat more stiffly than L. Then back to rocking, arm to mouth. Several iterations. Will follow some instructions (07/2016, 6 d, [facility]) - (a) EEG Sz L fro-tem, no clinical signs; (b) Parox Event (rocking back and forth, repeated touching of R hand to mouth, mouth opening and closing, head turning R & L), no EEG change; (c) SW L fro-tem & R tem (2007, 6 d) - ??Sp L temp. ARMAAN MR PET SPECT Imaging CT brain (02/2022, [facility]) - patchy hypodensities . Testing Surgery Born -- at term , labor and delivery -- HTN, but not clearly dx as eclampsia Congenital anomalies -- absent complications -- absent Meningitis/encephalitis -- absent Head trauma -- none Structural lesions -- absent Febrile seizures -- none FHx epilepsy -- absent FHx febrile sz -- absent Physical Exam - General appearance, mentation, extraocular movements, facial strength and movement, hearing, upper and lower extremity strength and tone, sensation to gross testing, coordination, and gait are normal or at baseline unless noted below. HEENT - ___, unchanged: ___, orig: ___ MS - ___, unchanged: Vocalizations, perseverative and self-stim behaviors, orig: ___ CNN - ___, unchanged: ___, orig: ___ Motor - ___, unchanged: ___, orig: ___ Sens - ___, unchanged: ___, orig: ___ Reflex - ___, unchanged: ___, orig: ___ Coord - ___, unchanged: ___, orig: ___ Gait - ___, unchanged: ___, orig: ___ Vestib - ___, unchanged: ___, orig: ___ MSK - ___, unchanged: ___, orig: ___ Other - ___, unchanged: ___, orig: ___ Vital Signs - Visit Vitals Smoking Status Never Review of Systems - . Const: Denies appetite change, fever, chills. Allergy: Denies medication reaction. Ocular: Denies visual acuity change. ENT: Denies hearing change. Endoc: Denies weight loss. Resp: Denies dyspnoea, wheezing. Cardiac: Denies angina, palpitations. GI: Denies nausea, vomiting. Haem: Denies bleeding. : Denies incontinence. MSK: Denies arthralgias, joint oedema. Derm: Denies rash, hair loss. Neuro: Denies ataxia, tremor. Also see HPI for elements of ROS documented therein and for details of positive findings, which shall supersede the foregoing. PMH, PSH, Allergies, FH, SH - Past Medical History: Diagnosis Date Developmental delay Seizure disorder (CMS/HCC) Past Surgical History: Procedure Laterality Date DENTAL SURGERY multiple Allergies Allergen Reactions Pertussis Immune Globulin Family History Problem Relation Name Age of Onset Hypertension Mother Heart disease Father COD: MD Hypertension Maternal Grandmother Cancer Maternal Grandmother Hypertension Maternal Grandfather Diabetes Maternal Grandfather Hypertension Paternal Grandmother Hypertension Paternal Grandfather Outpatient Encounter Medications as of 07/17/2024 Medication Sig Dispense Refill brivaracetam (Briviact) 100 MG tablet tablet TAKE 1 TABLET BY MOUTH EVERY 12 HOURS 60 tablet 5 Cenobamate (Xcopri) 25 MG tablet Take 12.5 mg by mouth at bedtime for 14 days, THEN 25 mg at bedtime for 14 days, THEN 50 mg at bedtime. 30 tablet 0 Cenobamate (Xcopri) 50 MG tablet Take 50 mg by mouth at bedtime 30 tablet 3 clonazePAM (KlonoPIN) 0.5 MG tablet TAKE 1/2 (ONE-HALF) OF A TABLET BY MOUTH AT BEDTIME 15 tablet 5 divalproex (Depakote) 250 MG EC tablet 1 tab Q12 60 tablet 5 lamoTRIgine (LaMICtal) 200 MG tablet Take 1 tablet (200 mg) by mouth in the morning and 1 tablet (200 mg) before bedtime. 180 tablet 3 Midazolam 5 MG/0.1ML solution 1 dose after convulsive seizure > 5 minutes. May repeat in other nostril 10 minutes later if needed 4 each 3 No facility-administered encounter medications on file as of 07/17/2024. Gordy Scott M.D. documented in this encounter [facility] 07-06-2023 Evaluation note Encounter Date Diagnosis Assessment Notes Jun, Pneumonia of left lower lobe due to infectious organism (ICD-10 - J18.9) [facility] Other 04-11-2023 Evaluation note* Encounter Date Diagnosis Assessment Notes Treatment Notes Treatment Clinical Notes Jan, Hidradenitis axillaris (ICD-10 - L73.2) warm compresses, begin antibiotics Jan, Concussion without loss of consciousness, subsequent encounter (ICD-10 - S06.0X0D) Rest, Advil as needed, monitor for MS changes Jan, Strain of left shoulder, subsequent encounter (ICD-10 - S46.912D) Heat/ice and lidocaine. ROM exercises Jan, Contusion of left hip, subsequent encounter (ICD-10 - S70.02XD) Ice/heat and Voltaren Gel [facility] Other 2022 Evaluation note* Encounter Date Diagnosis Assessment Notes Treatment Notes Treatment Clinical Notes Jun, Contact with and (suspected) exposure [...] the ER for worsening symptoms or concerns. [facility] Other 12-14-2021 Evaluation note* Encounter Date Diagnosis Assessment Notes Treatment Notes Treatment Clinical Notes Sep, Injury of left knee, initial encounter (ICD-10 - S89.92XA) . Use TYLENOL AND VOLTARON GEL as directed for pain if needed. Contact office if symptoms are not improved within the next few days and we will help you get into specialist. [facility] Other Evaluation noteNo InformationNortAquaBling Other Evaluation noteNoMurfie Other evaluation note* Diagnosis Onset Date Resolution Status Developmental delay, severe acute Developmental language disor olesya with language impairment acute Generalized onset myoclonic- tonic-clonic epileptic seizure acute Screening for colon cancer n oneactive Wellness examination noneact [facility] Work Phone: Evaluation note* Diagnosis Onset Date Resolution Status Developmental delay, severe acute Developmental language disor olesya with language impairment acute Generalized onset myoclonic- tonic-clonic epileptic seizure acute Medicare annual wellness visit, subsequent noneactive Screening for colon cancer n oneactive [facility] Work Phone: Evaluation note* Diagnosis Focal epilepsy with impairment of consciousness, intractable (CMS/HCC)- Primary Localization-related (focal) (partial) epilepsy and epileptic syndromes with simple partial seizures, with intractable epilepsy 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, spinal cord, and nervous system documented in this encounter [facility] Narrative - Reported* Type Description Date Medical History seizures Medical History htn Medical History mrdd Surgical History dental surgery Surgical History cystoscopy Hospitalization History pneumonia Api[facility] Other History general Narrative - Reported* Type Description Date Medical History Development delay Medical History Functional urinary incontinence Medical History Generalized seizure disorder 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 Medical History Impaired verbal communication Surgical History dental surgery Surgical History cystoscopy Hospitalization History pneumonia [facility]pi[facility] Other History general Narrative - ReportedNort [employer] Other Summary Purpose Family History Relationship Condition Age at Onset Recorded Date/T bronson father Unknown Advance Directives Advance Directive Response Recorded Date/ Time Advance Directives No October 23, 2017 12:06pm Chief Complaint and Reason for Visit Chief Complaint wellness Reason for Visit Developmental delay, severe Developmental language disorder with language impairment Generalized onset lrzcavhgn-ewabp-ewmmsp epileptic seizure Screening for colon cancer Wellness examination Chief Complaint wellness flu shot Reason for Visit Developmental delay, severe Developmental language disorder with language impairment Generalized onset glzpurizt-parib-amyprh epileptic seizure Medicare annual wellness visit, subsequent Screening for colon cancer Additional Source Comments (unrecognized sect ion and content) No Status Records FoundNo Status Records FoundNo Status Records Found INFORMATION SOURCE (unrecogn ized section and content) DATE CREATED AUTHOR 04/11/2018 [facility] DATE CREATED AUTHOR AUTHOR'S ORGANIZ ATION 01/24/2023 [facility] DATE CREATED AUTHOR AUTHOR'S ORGANIZ ATION 07/18/2024 [facility] EPIC REASON FOR VISIT (unrecogniz ed section and content) Reason Comments Seizures Care Teams (unrecognized sec tion and content) Team Status: Active Member Role Status Dates PHYSICIAN NO FAMILY Primary Care Provider Active Team Status: Inactive Member Role Status Dates PHYSICIAN NO FAMILY Primary Care Provider Active Start: April 10, 2024 End: April 10, 2024 Gasper Persaud DO Attending Provider Active Sta rt: April 10, 2024 End: April 10, 2024 Team Status: Active Member Role Status Dates PHYSICIAN NO FAMILY Primary Care Provider Active Start: April 23, 2024 Gordy Scott MD Attending Provider Active Start: April 23, 2024 Team Status: Active Member Role Status Dates PHYSICIAN NO FAMILY Primary Care Provider Active Start: April 27, 2024 Gordy Scott MD Attending Provider Active Start: April 27, 2024 Team Status: Active Member Role Status Dates PHYSICIAN NO FAMILY Primary Care Provider Active Start: June 05, 2024 Gordy Scott MD Attending Provider Active Start: June 05, 2024 Team Status: Inactive Member Role Status Dates PHYSICIAN NO FAMILY Primary Care Provider Active Start: June 26, 2024 End: June 26, 2024 Gasper Persaud DO Attending Provider Active Sta rt: June 26, 2024 End: June 26, 2024 Team Status: Active Member Role Status Dates PHYSICIAN NO FAMILY Primary Care Provider Active Start: March 26, 2024 Gordy Scott MD Attending Provider Active Start: March 26, 2024 Skill Training Program Coordinator Relationship Specialty Start Date End Date Gasper Persaud MD PCP - General Internal Medicine 03/15/23 Skill Training Program Coordinator Relationship Specialty Start Date End Date Gasper Persaud MD PCP - General Internal Medicine 03/15/23 Goals (unrecognized section and content) Goals may [...] BE BASED ON THE PRIMARY CLINICAL RECORDS. [employer] [facility]. provides no warranty or guarantee of the accuracy or completeness of information in this document.
== END 2024-08-13 10:19 | disposition home or self-care (01) ==
LOC: EC 10:18
PROVIDERS: PCP Internal Medicine; Visit Provider Orthopaedic Surgery
DX: S42.032D Displaced fracture of lateral end of left clavicle, subsequent encounter for fracture with routine healing (principal)
CPT/HCPCS: 73000

== ENCOUNTER 2024-08-31 14:16 | Outpatient (OUT) | payer MEDICARE, MEDICAID, SELFPAY ==
--- OUTSIDE RECORDS SUMMARY | 2024-08-31 14:24 | XMS_ITS | CCD ---
Author Organization [facility] Care Team Providers Care Traffic I Manager Name Role Phone HUNG GASPER~[phone] UNKNOWN Unavailable Unavailable HUNG, GASPER~[phone] UNKNOWN Unavailable Unavailable BALL, GASPER~[phone] UNKNOWN Unavailable Unavailable BALL, GASPER~[phone] UNKNOWN Unavailable Unavailable Donna Haque Unavailable Jennifer [...] Immune Globulin Drug allergy (disorder) 3 [facility] Repository (3 sources) Pertussis Vaccine Drug Allergy Unknown [facility] Other (3 sources) Vaccine product containing Bordetella pertussis antigen (medicinal product) Drug allergy 5 Unknown [facility] Other (3 sources) patient allergy list reviewed by nurse or physicia Propensity to adverse reactions 5 Comment:Done [facility] Other (3 sources) Pertussis Immune Globulin Propensity [...] 11-25-2022 Episodic Other aftercare (1 source) Other penitentiary (current) drug therapy; Translations: [OTH SENIOR CARE CURRENT DRUG THERAPY] Onset: 01-24-2023 Episodic Other aftercare (3 sources) Long-term current use of drug therapy; 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 [facility] Comment on above: Test Ordered: [id number] Cenobamate (Xcopri) , PlasmaCenobamate 2.6 [L ] ug/mL MX Reference Range: .Although the therapeutic range is not well established, thesuggested range at doses of 100 - 400 mg/day is 5 - 35 ug/mL.Toxic range has not been established.This test was developed and its performance characteristicsdetermined by [employer]. It has not been cleared or approvedby the Food and Drug Administration.Performed at: [facility] [place] [address] [id number] Director: Vero Hicks [facility], Phone: [phone] at: [facility] [employer] [id number] Director: Silvestre Nelson PhD, Phone: [phone] No Panel Informationon 04-27 Miscellaneous Test COMMENT . [facility] Comment on above: Test Ordered: [id number] Valproic Acid (Tota l+Free)Valproic Acid (Depakote)(R),S 41 [L ] ug/mL Reference Range: 50-100 Detection Limit = 4 <4 indicates None DetectedToxicity may occur at levels of 100-500. Measurementsof free unbound valproic acid may improve the assess-ment of clinical response.Free Valproic Acid (Depakote) 9.4 ug/mL Reference Range: 6.0-22.0 Detection Limit = 0.5Performed at: [facility] [employer] [id number] Director: Silvestre Nelson PhD, Phone: [phone] at: [address] [id number] Director: Chris Lux MD, Phone: [phone] Laboratory - Chemistry and C hemistry - challengeon 04-23-2024 ALT [Catalytic activity/Vol] 23 U/L 16-63 [facility] Ammonia (P) [Moles/Vol] 38 umol/L High 11-32 [facility] AST [Catalytic activity/Vol] 17 U/L 15-37 [facility] No Panel Informationon 04-23 Lamotrigine (Lamictal) Level 23.3 ug/mL Abnormal 2.0-20.0 [facility] Comment on above: Verified by repeat analysis Detectio n Limit = 1.0Performed at: [address] [id number] Director: Chris Lux MD, Phone: [phone] Miscellaneous Test COMMENT . [facility] Comment on above: Test Ordered: [id number] Brivaracetam, SE/PL Brivaracetam 3.33 [H ] ug/mL Reference Range: 0.20 - 2.00This test was developed and its performance characteristicsdetermined by [employer]. It has not been cleared or approvedby the Food and Drug Administration.Performed at: [employer] [address] [id number] Director: Vero Hicks [facility], Phone: [phone] at: [address] [id number] Director: Silvestre Nelson PhD, Phone: [phone] No Panel Informationon 03-26 Lamotrigine (Lamictal) Level 17.1 ug/mL 2.0-20.0 [facility] Comment on above: Detection Limit = 1.0Performed at: [address] [id number] Director: Chris Lux MD, Phone: [phone] Miscellaneous Test COMMENT . [facility] Comment on above: Test Ordered: [id number] Valproic Acid (Tota l+Free)Valproic Acid (Depakote)(R),S 11 [L ] ug/mL Reference Range: 50-100 Detection Limit = 4 <4 indicates None DetectedToxicity may occur at levels of 100-500. Measurementsof free unbound valproic acid may improve the assess-ment of clinical response.Free Valproic Acid (Depakote) 2.6 [L ] ug/mL Reference Range: 6.0-22.0 Detection Limit = 0.5Performed at: [facility] [place], [place] [id number] Director: Silvestre Nelson PhD, Phone: [phone] at: [facility] [address] [place], [place] [id number] Director: Chris Lux MD, Phone: [phone] XR HIP LT 2 3V W PELVISon [...] JUICE NAVA Date: 2023-01-23 09:52 Normal [facility] XR SHOULDER LT 2V or >on [...] JUICE NAVA Date: 2023-01-23 09:51 Normal [facility] LAMOTRIGINEon 11-25-2022 Lamotrigine, Serum 15.7 ug/mL Normal 2.0-20.0 [facility] Comment on above: Result Comment: Detection Limit = 1.0 Performed By: #### L AMOT #### [facility] [address] [place] [address] Dr. Daphne Cheney LAMOTRIGINEon 09-17-2022 Lamotrigine, Serum 23.2 ug/mL Invalid Interpretation Code 2.0-20.0 [facility] Comment on above: Result Comment: Verified by repeat candelario lysis Detection Limit = 1.0 Performed By: #### L AMOT #### [facility] [address] [place], [place] [address] Dr. Daphne Cheney SARS-CoV-2 (COVID-19) RNA NA A+probe Ql (Resp)on 06-19-2022 SARS-CoV-2 (COVID-19) RNA TEO+probe Ql (Unsp spec) Positive [facility] Other XR MODIFIED BARIUM SWALLOWon 06-16-2022 XR [...] VAISHNAVI BAER Date: 2022-06-16 11:18 Normal [facility] XR KNEE GEMA 4V or >on 2021 XR KNEE GEMA 4V or > EXAM: XR KNEE GEMA 4V or > HISTORY: Unspecified fall COMPARISON: None. TECHNIQUE: 9 views total FINDINGS: No fracture, dislocation, subluxation or osseous lesion. No visualized knee effusion. Joint spaces are normal. IMPRESSION: Normal knee x-rays Electronically authenticated by: JUICE WILD Date: 2022-06-09 17:19 Normal [facility] LAMOTRIGINEon 04-24-2022 Lamotrigine, Serum 11.2 ug/mL Normal 2.0-20.0 [facility] Comment on above: Result Comment: Detection Limit = 1.0 Performed By: #### L AMOT ####[facility] [address] [place], [place] [address]CsDr. Daphne Cheney XR CHEST 2 Von 03-10-2022 [...] VAISHNAVI BAER Date: 2022-03-10 14:59 Normal [facility] CARDIAC GORDY 3-6on 2 CK [Catalytic activity/Vol] 73 U/L Normal 39-308 [facility] Comment on above: Performed By: #### CMREP #### [facility] [address] [place] [address] Dr. Daphne Cheney CK.MB [Mass/Vol] 0.95 ng/mL Normal <=3.[address] [facility] Comment on above: Performed By: #### CMREP #### [facility] [address] [place] [address] Dr. Daphne Cheney HSTROP 4.8 pg/mL Normal 4.0-76.1 [facility] Comment on above: Result Comment: CUT-OFF POINTS HAVE BEEN ESTABLISHED BASED ON THE FOURTH UNIVERSAL DEFINITIONS OF MYOCARDIAL INFARCTION. THE UPPER REFERENCE LIMIT (URL) OF TROPONIN, DEFINED THE 99TH PERCENTILE OF cTnI DISTRIBUTION IN A REFERENCE POPULATION, HAS BEEN CONFIRMED THE DECISION THRESHOLD FOR MD DIAGNOSIS. Performed By: #### C MREP #### [facility] [address] [place] [address] [address] Daphne Cheney CARDIAC GORDY ADMITon 022 CK [Catalytic activity/Vol] 64 U/L Normal 39-308 [facility] Comment on above: Performed By: #### BMP, CMADM #### [facility] [address] [place] [address] Dr. Yilan Cheney CK.MB [Mass/Vol] 0.85 ng/mL Normal <=3.[address] [facility] Comment on above: Performed By: #### HAYDE AUGUST #### [facility] [address] [place] [address] [address] Daphne Cheney HSTROP 4.1 pg/mL Normal 4.0-76.1 [facility] Comment on above: Result Comment: CUT-OFF POINTS HAVE BEEN ESTABLISHED BASED ON THE FOURTH UNIVERSAL DEFINITIONS OF MYOCARDIAL INFARCTION. THE UPPER REFERENCE LIMIT (URL) OF TROPONIN, DEFINED THE 99TH PERCENTILE OF cTnI DISTRIBUTION IN A REFERENCE POPULATION, HAS BEEN CONFIRMED THE DECISION THRESHOLD FOR MD DIAGNOSIS. Performed By: #### B HAYDE SAMAYOA #### [facility] [address] [place] [address] [address] Daphne Cheney MANDIE 98 ng/mL Critically high 16-96 [facility] Comment on above: Performed By: #### HAYDE AUGUST #### [facility] [address] [place] [address] [address] Daphne Cheney CBC AUTO DIFFon 02-14-2022 BASO # 0.1 103/ul Normal 0.0-0.1 [facility] Comment on above: Performed By: #### CBC ####[facility] [address] [place] [address]DrGeorge Cheney Basophils/100 WBC (Bld) 0.5 % Normal 0.2-2.0 [facility] Comment on above: Performed By: #### CBC ####[facility] [address] [place] [address]Dr. Daphne Cheney EO # 0.0 103/ul Normal 0.0-0.7 [facility] Comment on above: Performed By: #### CBC ####[facility] ital [address] [place] [address]Dr. Daphne Cheney Eosinophils/100 WBC (Bld) 0.2 % Critically low 0.9-7.0 [facility] Comment on above: Performed By: #### CBC ####[facility] [address] [place] [address]Dr. Daphne Cheney Erythrocyte distribution width (RBC) [Ratio] 13.0 % Normal 11.0-15.0 [facility] Comment on above: Performed By: #### CBC ####[facility] [address] [place] [address]Dr. Daphne Cheney Hematocrit (Bld) [Volume fraction] 48.6 % Normal 42.0-54.0 [facility] Comment on above: Performed By: #### CBC ####[facility] [address] [place] [address]Dr. Daphne Cheney Hemoglobin (Bld) [Mass/Vol] 15.2 g/dL Normal 14.0-18.0 [facility] Comment on above: Performed By: #### CBC ####[facility] [address] [place] [address]Dr. Daphne Cheney IG # 0.05 10e3/ul Critically high 0.00-0.03 [facility] Comment on above: Performed By: #### CBC ####[facility] [address] [place] [address]Dr. Daphne Cheney IG % 0.4 % Normal 0.0-0.5 [facility] Comment on above: Performed By: #### CBC ####[facility] [address] [place] [address]Dr. Daphne Cheney LYMPH # 1.2 103/ul Normal 1.2-3.8 [facility] Comment on above: Performed By: #### CBC ####[facility] [address] [place] [address]Dr. Daphne Cheney Lymphocytes/100 WBC (Bld) 9.2 % Critically low 20.5-60.0 [facility] Comment on above: Performed By: #### CBC ####[facility] [address] [place] [address]Dr. Daphne Cheney MANUAL DIFF REQ NO Normal [facility] Comment on above: Performed By: #### CBC ####[facility] [address] [place] [address]Dr. Shahrzadtj Cheney MCH (RBC) [Entitic mass] 28.7 pg Normal 25.9-34.0 [facility] Comment on above: Performed By: #### CBC ####[facility] ital [address] [place] [address]Dr. Daphne Chneey MCHC (RBC) [Mass/Vol] 31.3 g/dL Normal 29.9-35.2 [facility] Comment on above: Performed By: #### CBC ####[facility] ital [address] [place] [address]Dr. Daphne Shravan MCV (RBC) [Entitic vol] 91.9 fL Normal 80.0-94.0 [facility] Comment on above: Performed By: #### CBC ####[facility] [address] [place], [place] [address]Dr. Daphne Cheney MONO # 0.9 103/ul Critically high 0.3-0.8 [facility] Comment on above: Performed By: #### CBC ####[facility] [address] [place], [place] [address]Dr. Daphne Cheney Monocytes/100 WBC (Bld) 7.2 % Normal 1.7-12.0 [facility] Comment on above: Performed By: #### CBC ####[facility] [address] [place], [place] [address]Dr. Daphne Cheney NEUT # 10.7 103/ul Critically high 1.4-6.[address] [facility] Comment on above: Performed By: #### CBC ####[facility] [address] [place], [place] [address]Dr. Daphne Cheney Neutrophils/100 WBC (Bld) 82.5 % Critically high 43.0-75.0 [facility] Comment on above: Performed By: #### CBC ####[facility] [address] [place], [place] [address]Dr. Daphne Cheney Platelet mean volume (Bld) [Entitic vol] 8.4 fL Critically low 9.5-13.5 [facility] Comment on above: Performed By: #### CBC ####[facility] [address] [place], [place] [address]Bq. Daphne Cheney PLT 446 103/ul Normal 150-450 [facility] Comment on above: Performed By: #### CBC ####[facility] [address] [place], [place] [address]Or. Daphne Cheney RBC 5.29 106/ul Normal 4.70-6.10 [facility] Comment on above: Performed By: #### CBC ####[facility] [address] [place], [place] [address]Lu. Daphne Cheney WBC 13.0 103/ul Critically high 4.0-11.[address] [facility] Comment on above: Performed By: #### CBC ####[facility] [address] [place], [place] [address] ABD/PELVIS WO CONon 02-14 CT [...] EMMA RODRIGUEZ Date: 2022-02-14 08:30 Normal [facility] CT HEAD WO CONon 02-14-2022 CT [...] GERALD CRUZ Date: 2022-02-14 08:27 Normal [facility] Covid-19 PCR (CVDTB)on SARS-CoV-2 (COVID-19) RNA TEO+probe Ql (Unsp spec) Not detected Normal NOT DETECTED [facility] Comment on above: Result Comment: When diagnostic testing is negative, the possibility of a false negative should be considered in the context of a patient's recent exposures and the presence of clinical signs and symptoms consistent with SARS-CoV-2. This test is not yet approved or cleared by the [place] Food and Drug Administration (FDA). This test was developed by [employer], [place], [place]. The performance characteristics of this test were validated by [facility]. The results are not intended to be used as the sole means for clinical diagnosis or patient management decisions. [facility] is authorized under Clinical Laboratory Improvement [...] for this test is supported by the Certified [employer] of Health and Human Service's declaration that [...] used). Performed By: #### C VDTBH #### [facility] [address] [place] [address] [address] Daphne Cheney LIPASEon 02-14-2022 Lipase [Catalytic activity/Vol] 92.0 U/L Normal 73.0-393.0 [facility] Comment on above: Performed By: #### LIPA ####[facility] [address] [place] [address]Dr. Daphne Cheney OCC BLD IMMUNO SCREENon OCCULT BLOOD Negative Normal NEGATIVE [facility] Comment on above: Performed By: #### OBSCRN ####[facility] [address] [place] [address]Dr. Daphne Cheney PROF CHEM 8 (BAS METB)on Anion gap [Moles/Vol] 12.3 mmol/L Normal [facility] Comment on above: Performed By: #### MATA, JUNEDM #### [facility] [address] [place] [address] Dr. Daphne Cheney Calcium [Mass/Vol] 9.6 mg/dL Normal 8.5-10.1 [facility] Comment on above: Performed By: #### MATA, CMADM #### [facility] [address] [place] [address] Dr. Daphne Cheney Chloride [Moles/Vol] 98 mmol/L Normal 98-107 [facility] Comment on above: Performed By: #### MATA, CMADM #### [facility] [address] [place] [address] Dr. Daphne Cheney CO2 [Moles/Vol] 32.4 mmol/L Critically high 21.0-32.0 [facility] Comment on above: Performed By: #### MATA, CMADM #### [facility] [address] [place] [address] [address] Daphne Cheney Creatinine [Mass/Vol] 1.19 mg/dL Normal 0.70-1.30 [facility] Comment on above: Performed By: #### BMP, CMADM #### [facility] [address] [place] [address] [address] Daphne Cheney EGFR-AF SOUTH AFRICAN >60 Normal >=[address] [facility] Comment on above: Performed By: #### BMP, CMADM #### [facility] [address] [place] [address] [address] Daphne Cheney EGFR-NON AF SOUTH AFRICAN >60 Normal >=60 [facility] Comment on above: Performed By: #### BMP, CMADM #### [facility] [address] [place] [address] [address] Daphne Cheney Glucose [Mass/Vol] 120 mg/dL Critically high 74-106 [facility] Comment on above: Performed By: #### BMP, CMADM #### [facility] [address] [place] [address] [address] Daphne Cheney Potassium [Moles/Vol] 4.7 mmol/L Normal 3.5-5.1 [facility] Comment on above: Performed By: #### BMP, CMADM #### [facility] [address] [place] [address] Dr. Daphne Cheney Sodium [Moles/Vol] 138 mmol/L Normal 136-145 [facility] Comment on above: Performed By: #### BMP, CMADM #### [facility] [address] [place] [address] [address] Daphne Cheney Urea nitrogen [Mass/Vol] 12.0 mg/dL Normal 7.0-18.0 [facility] Comment on above: Performed By: #### BMP, CMADM #### [facility] [address] [place] [address] [address] Daphne Cheney Urea nitrogen/Creatin ine [Mass ratio] 10.1 mg/mg Normal [facility] Comment on above: Performed By: #### BMP, CMADM #### [facility] [address] [place] [address] [address] Daphne Cheney XR KUB 1 VIEWon [...] RAY GREEN Date: 2022-02-14 06:35 Normal [facility] CBC AUTO DIFFon 02-02-2022 BASO # 0.0 103/ul Normal 0.0-0.1 [facility] Comment on above: Performed By: #### CBC #### [facility] [address] [place] [address] Dr. Daphne Cheney Basophils/100 WBC (Bld) 0.2 % Normal 0.2-2.0 [facility] Comment on above: Performed By: #### CBC #### [facility] [address] [place] [address] [address] Daphne Cheney EO # 0.0 103/ul Normal 0.0-0.7 [facility] Comment on above: Performed By: #### CBC #### [facility] [address] [place] [address] [address] Daphne Cheney Eosinophils/100 WBC (Bld) 0.0 % Critically low 0.9-7.0 [facility] Comment on above: Performed By: #### CBC #### [facility] [address] [place] [address] [address] Daphne Cheney Erythrocyte distribution width (RBC) [Ratio] 13.8 % Normal 11.0-15.0 [facility] Comment on above: Performed By: #### CBC #### [facility] [address] [place] [address] Dr. Daphne Cheney Hematocrit (Bld) [Volume fraction] 42.5 % Normal 42.0-54.0 [facility] Comment on above: Performed By: #### CBC #### [facility] [address] [place] [address] [address] Daphne Cheney Hemoglobin (Bld) [Mass/Vol] 13.9 g/dL Critically low 14.0-18.0 [facility] Comment on above: Performed By: #### CBC #### [facility] [address] [place] [address] [address] Daphne Cheney IG # 0.13 10e3/ul Critically high 0.00-0.03 [facility] Comment on above: Performed By: #### CBC #### [facility] [address] [place] [address] [address] Daphne Cheney IG % 1.0 % Critically high 0.0-0.5 [facility] Comment on above: Performed By: #### CBC #### [facility] [address] [place] [address] [address] Daphne Cheney LYMPH # 1.2 103/ul Normal 1.2-3.8 [facility] Comment on above: Performed By: #### CBC #### [facility] [address] [place] [address] [address] Daphne Cheney Lymphocytes/100 WBC (Bld) 8.6 % Critically low 20.5-60.0 [facility] Comment on above: Performed By: #### CBC #### [facility] [address] [place] [address] [address] Daphne Cheney MANUAL DIFF REQ NO Normal [facility] Comment on above: Performed By: #### CBC #### [facility] [address] [place] [address] [address] Daphne Cheney MCH (RBC) [Entitic mass] 29.4 pg Normal 25.9-34.0 [facility] Comment on above: Performed By: #### CBC #### [facility] [address] [place] [address] [address] Daphne Cheney MCHC (RBC) [Mass/Vol] 32.7 g/dL Normal 29.9-35.2 [facility] Comment on above: Performed By: #### CBC #### [facility] [address] [place] [address] [address] Daphne Cheney MCV (RBC) [Entitic vol] 90.0 fL Normal 80.0-94.0 [facility] Comment on above: Performed By: #### CBC #### [facility] [address] [place] [address] [address] Daphne Cheney MONO # 1.3 103/ul Critically high 0.3-0.8 [facility] Comment on above: Performed By: #### CBC #### [facility] [address] [place] [address] [address] Daphne Cheney Monocytes/100 WBC (Bld) 9.2 % Normal 1.7-12.0 [facility] Comment on above: Performed By: #### CBC #### [facility] [address] [place] [address] Dr. Daphne Cheney NEUT # 11.0 103/ul Critically high 1.4-6.5 [facility] Comment on above: Performed By: #### CBC #### [facility] [address] [place] [address] [address] Daphne Cheney Neutrophils/100 WBC (Bld) 81.0 % Critically high 43.0-75.0 [facility] Comment on above: Performed By: #### CBC #### [facility] [address] [place] [address] [address] Daphne Cheney Platelet mean volume (Bld) [Entitic vol] 9.6 fL Normal 9.5-13.5 [facility] Comment on above: Performed By: #### CBC #### [facility] [address] [place] [address] [address] Daphne Cheney PLT 193 103/ul Normal 150-450 [facility] Comment on above: Performed By: #### CBC #### [facility] [address] [place] [address] Dr. Daphne Cheney RBC 4.72 106/ul Normal 4.70-6.10 [facility] Comment on above: Performed By: #### CBC #### [facility] [address] [place] [address] [address] Daphne Cheney WBC 13.6 103/ul Critically high 4.0-11.[address] [facility] Comment on above: Performed By: #### CBC #### [facility] [address] [place] [address] Dr. Daphne Cheney PROF 14(COMP METB)on 022 Albumin [Mass/Vol] 2.4 g/dL Critically low 3.4-5.0 The [facility] Comment on above: Performed By: #### CMP #### [facility] [address] [place] [address] Dr. Daphne Cheney Albumin/Globulin [Mass ratio] 0.4 {ratio} Normal [facility] Comment on above: Performed By: #### CMP #### [facility] [address] [place] [address] Dr. Daphne Cheney ALP [Catalytic activity/Vol] 111 U/L Normal 46-116 [facility] Comment on above: Performed By: #### CMP #### [facility] [address] [place] [address] Dr. Daphne Cheney ALT [Catalytic activity/Vol] 92 U/L Critically high 16-63 [facility] Comment on above: Performed By: #### CMP #### [facility] [address] [place] [address] Dr. Daphne Cheney Anion gap [Moles/Vol] 13.5 mmol/L Normal [facility] Comment on above: Performed By: #### CMP #### [facility] [address] [place] [address] Dr. Daphne Cheney AST [Catalytic activity/Vol] 83 U/L Critically high 15-37 [facility] Comment on above: Performed By: #### CMP #### [facility] [address] [place] [address] Dr. Daphne Cheney Bilirubin [Mass/Vol] 0.7 mg/dL Normal 0.2-1.3 [facility] Comment on above: Performed By: #### CMP #### [facility] [address] [place] [address] Dr. Daphne Cheney Calcium [Mass/Vol] 8.8 mg/dL Normal 8.5-10.1 [facility] Comment on above: Performed By: #### CMP #### [facility] [address] [place] [address] Dr. Daphne Cheney Chloride [Moles/Vol] 105 mmol/L Normal 98-107 [facility] Comment on above: Performed By: #### CMP #### [facility] [address] [place] [address] Dr. Daphne Cheney CO2 [Moles/Vol] 28.4 mmol/L Normal 22.0-30.[address] [facility] Comment on above: Performed By: #### CMP #### [facility] [address] [place] [address] Dr. Daphne Cheney Creatinine [Mass/Vol] 1.09 mg/dL Normal 0.66-1.25 [facility] Comment on above: Performed By: #### CMP #### [facility] [address] [place] [address] Dr. Daphne Cheney EGFR-AF SOUTH AFRICAN >60 Normal >=[address] [facility] Comment on above: Performed By: #### CMP #### [facility] [address] [place] [address] Dr. Daphne Cheney EGFR-NON AF SOUTH AFRICAN >60 Normal >=60 [facility] Comment on above: Performed By: #### CMP #### [facility] [address] [place] [address] Dr. Daphne Cheney Globulin (S) [Mass/Vol] 5.4 g/dL Normal [facility] Comment on above: Performed By: #### CMP #### [facility] [address] [place] [address] Dr. Daphne Cheney Glucose [Mass/Vol] 122 mg/dL Critically high 74-106 [facility] Comment on above: Performed By: #### CMP #### [facility] [address] [place] [address] Dr. Daphne Cheney Potassium [Moles/Vol] 3.9 mmol/L Normal 3.4-5.0 [facility] Comment on above: Performed By: #### CMP #### [facility] [address] [address] [address] Daphne Cheney Protein [Mass/Vol] 7.8 g/dL Normal 6.1-8.2 [facility] Comment on above: Performed By: #### CMP #### [facility] [address] [address] [address] Daphne Cheney Sodium [Moles/Vol] 143 mmol/L Normal 137-145 [facility] Comment on above: Performed By: #### CMP #### [facility] [address] [address] [address] Daphne Cheney Urea nitrogen [Mass/Vol] 23.0 mg/dL Critically high 7.0-18.0 [facility] Comment on above: Performed By: #### CMP #### [facility] [address] [address] [address] Daphne Cheney Urea nitrogen/Creatin ine [Mass ratio] 21.1 mg/mg Normal [facility] Comment on above: Performed By: #### CMP #### [facility] [address] [address] [address] Daphne Cheney XR CHEST 2 Von [...] by: VAISHNAVI BAER Date: 2022-02-02 11:00 Normal [facility] Vital Signs Date Time Vital Sign Value Performing Clinician Facility 04-10-2024 14:40-0400 Body height 165.1 cm [facility] 04-10-2024 14:40-0400 Body mass index (BMI) [Ratio] 27.1 kg/m2 [facility] 04-10-2024 14:40-0400 Body weight 73.93 kg [facility] 04-10-2024 14:40-0400 Diastolic blood pressure 70 mm[Hg] [facility] 04-10-2024 14:40-0400 Heart rate 65 /min [facility] 04-10-2024 14:40-0400 Respiratory rate 12 /min [facility] 04-10-2024 14:40-0400 Systolic blood pressure 122 mm[Hg] [facility] 04-18-2023 15:15-0400 Body height 165.1 cm Gasper Ball Other [facility] Other 04-18-2023 15:15-0400 Body mass index (BMI) [Ratio] 27.15 kg/m2 Gasper Ball Other [employer] [facility] Other 04-18-2023 15:15-0400 Body weight 74.03 kg Gasper Ball Other [facility] Other 04-18-2023 15:15-0400 Diastolic blood pressure 78 mm[Hg] Gasper Ball Other [facility] Other 04-18-2023 15:15-0400 Respiratory rate 12 /min Gasper Ball Other [facility] Other 04-18-2023 15:15-0400 Systolic blood pressure 132 mm[Hg] Gasper Ball Other [facility] Other 01-25-2023 14:30-0400 Body height 165.1 cm Gasper Ball Other [facility] Other 01-25-2023 14:30-0400 Body mass index (BMI) [Ratio] 24.96 kg/m2 Gasper Ball Other [facility] Other 01-25-2023 14:30-0400 Body weight 68.04 kg Gasper Ball Other [facility] Other 01-25-2023 14:30-0400 Respiratory rate 12 /min Gasper Ball Other [facility] Other 06-19-2022 10:35-0400 Body height 165.1 cm Jennifer Trujillo Other [facility] Other 09-29-2021 16:50-0500 Body height 165.1 cm Donna Archerault Other [facility] Other 09-29-2021 16:50-0500 Body temperature 98.7 [degF] Donna Archerault Other [facility] Other 09-29-2021 16:50-0500 Diastolic blood pressure 89 mm[Hg] Donna Archerault Other [facility] Other 09-29-2021 16:50-0500 Respiratory rate 18 /min Donna Archerault Other [facility] Other 09-29-2021 16:50-0500 SaO2% (BldA) [Mass fraction] 98 % Donna Archerault Other [facility] Other 09-29-2021 16:50-0500 Systolic blood pressure 131 mm[Hg] Donna Shabnam Other [facility] Other Encounters Encounter Date Encounter Type Care [...] Not Available Start: 06-26-2024 End: 06-26-2024 ambulatory [facility] Work Phone: Start: 06-26-2024 End: 06-26-2024 Patient encounter procedure [facility] Work Phone: Start: 06-05-2024 Non-patient / Non-visit [facility] Work Phone: Start: 05-09-2024 End: 05-09-2024 ambulatory GORDY D BEJ Not Available Start: 04-27-2024 Non-patient / Non-visit [facility] Work Phone: Start: 04-23-2024 Non-patient / Non-visit [facility] Work Phone: Start: 04-17-2024 End: 04-17-2024 ambulatory GORDY D BEJ Not Available Start: 04-10-2024 End: 04-10-2024 ambulatory [facility] Work Phone: Start: 04-10-2024 End: 04-10-2024 Encounter for general adult medical examination without abnormal findings [facility] Start: 04-10-2024 End: 04-10-2024 Patient encounter procedure [facility] Work Phone: Start: 03-26-2024 Non-patient / Non-visit [facility] Work Phone: Start: 01-17-2024 End: 01-17-2024 ambulatory GORDY D BEJ Not Available Start: 10-18-2023 End: 10-18-2023 ambulatory GORDY D BEJ Not Available Start: 07-07-2023 End: 07-07-2023 ambulatory Gasper Persaud Other [facility] Other Start: 07-07-2023 Telephone encounter Gasper Persaud [facility] Start: 07-06-2023 End: 07-06-2023 ambulatory Gasper Persaud Other [facility] Other Start: 07-06-2023 Telephone encounter Gasper Ball [facility] Start: 06-21-2023 End: 06-21-2023 ambulatory Gasper Persaud Other [facility] Other Start: 06-21-2023 Nursing evaluation o f patient and report Gasper Persaud [facility] Start: 05-02-2023 End: 05-02-2023 ambulatory Gasper Persaud Other [facility] Other Start: 05-02-2023 Telephone encounter Gasper Ball [facility] Start: 04-18-2023 End: 04-18-2023 ambulatory Gasper Persaud Other [facility] Other Start: 04-18-2023 Office outpatient vi sit 15 minutes Gasper Hung [facility] Start: 02-07-2023 End: 02-07-2023 ambulatory Gasper Persaud Other [facility] Other Start: 02-07-2023 Telephone encounter Gasper Ball [facility] Start: 01-26-2023 End: 01-26-2023 ambulatory Gasper Ball Other [facility] Other Start: 01-26-2023 Telephone encounter Gasper Ball [facility] Start: 01-25-2023 End: 01-25-2023 ambulatory Gasper Ball Other [facility] Other Start: 01-25-2023 Office outpatient vi sit 15 minutes Gasper Persaud [facility] Start: 01-23-2023 End: 01-23-2023 ambulatory JUICE ANVA Facility:[facility] Start: 01-07-2023 End: 01-07-2023 ambulatory Gasper Persaud Other [facility] Other Start: 01-07-2023 Telephone encounter Gasper Persaud [facility] Start: 11-23-2022 End: 11-24-2022 ambulatory GORDY BRENDON Facility:[facility] Start: 11-19-2022 End: 11-19-[address] COLLEEN JOHNSON . Facility:[facility] Start: 09-13-2022 End: 09-14-2022 ambulatory GORDY BEJ Facility:[facility] Start: 06-19-2022 End: 06-19-2022 ambulatory Jennifer Trujillo Other [facility] Other Start: 06-19-2022 Office outpatient vi sit 15 minutes Jennifer Trujillo [facility] Start: 06-16-2022 End: 06-17-[address] VAISHNAVI BAER Facility:[facility] Start: 06-09-2022 End: 06-09-2022 ambulatory TIARRA YATES Facility:[facility] Start: 04-21-2022 End: 04-22-2022 ambulatory GORDY SCOTT Facility:[facility] Start: 04-16-[address] [facility] Start: 03-10-2022 End: 03-11-[address] GASPER PERSAUD Facility:[facility] Start: 02-14-2022 End: 02-14-2022 ambulatory KYLER SOMMER Facility:[facility] Start: 02-02-2022 End: 02-03-[address] GASPER PERSAUD Facility:[facility] Start: 09-29-2021 End: 09-29-2021 ambulatory Donna Haque Other [facility] Other Start: 09-29-2021 Office outpatient vi sit 15 minutes Donna Haque [facility] Start: 03-10-2021 Adult health examination Aceremberto Persaud Other [facility] Other Start: 03-21-2017 End: 09-16-2017 Ambulatory GASPER~[id number] BERTA PERSAUD [place] Treatment Date Care Activity Detail Author Start: 09-18-2024 End: 09-18-2024 Patient encounter procedure 09/18/2024 11:30 AM EST Office Visit [facility] [address] [place] [address] Gordy Scott MD [address] [id number] [facility] Start: 07-17-2024 End: 07-17-2024 Patient encounter procedure 07/17/2024 11:30 AM EDT Office Visit [facility] [address] [place] [address] Gordy Scott MD [address] [address] [facility] Comment on above: Arrived Start: 06-17-2024 Influenza vaccination Influenz a Vaccine (#1) [facility] Start: 1980 Screening for malign ant neoplasm of colon [facility] Comprehensive metabo lic 2000 panel - Serum or Plasma [facility] Immunizations Immunization Date Immunization Notes Care Provider Fa cility 06-26-2024 influenza virus vaccine, unspecified formulation Gordy Scott MD Work Phone: [facility] 06-21-2023 influenza, injectabl e, quadrivalent, preservative free Gasper Persaud Other [facility] 07-28-2022 influenza virus vaccine, split virus (incl. purified surface antigen) Gasper Persaud Other [facility] Other 07-28-2022 influenza virus vaccine, unspecified formulation [facility] 08-10-2021 influenza virus vaccine, split virus (incl. purified surface antigen) Gasper Persaud Other [facility] Other 08-10-2021 influenza virus vaccine, unspecified formulation [facility] 07-08-2020 influenza virus vaccine, split virus (incl. purified surface antigen) Gasper Persaud Other [facility] Other 07-08-2020 influenza virus vaccine, unspecified formulation [facility] 07-31-2019 influenza virus vaccine, split virus (incl. purified surface antigen) Gasper Persaud Other [facility] Other 07-31-2019 influenza virus vaccine, unspecified formulation [facility] 05-22-2019 tetanus and diphther ia toxoids, adsorbed, preservative free, for adult use (5 Lf of tetanus toxoid and 2 Lf of diphtheria toxoid) [facility] 05-22-2019 tetanus toxoid, reduced diphtheria toxoid, and acellular pertussis vaccine, adsorbed Gasper Persaud Other [facility] Other 07-11-2018 influenza virus vaccine, split virus (incl. purified surface antigen) Gasper Persaud Other [facility] Other 07-11-2018 influenza virus vaccine, unspecified formulation [facility] 07-13-2017 tetanus and diphther ia toxoids, adsorbed, preservative free, for adult use (5 Lf of tetanus toxoid and 2 Lf of diphtheria toxoid) Gasper Persaud Other [facility] 08-12-2016 influenza virus vaccine, split virus (incl. purified surface antigen) Gasper Persaud Other [facility] Other 08-12-2016 influenza virus vaccine, unspecified formulation [facility] 07-25-2015 tetanus and diphther ia toxoids, adsorbed, preservative free, for adult use (5 Lf of tetanus toxoid and 2 Lf of diphtheria toxoid) Gasper Persaud Other [facility] 07-29-2014 tetanus and diphther ia toxoids, adsorbed, preservative free, for adult use (5 Lf of tetanus toxoid and 2 Lf of diphtheria toxoid) Gasper Persaud Other [facility] 08-09-2013 tetanus and diphther ia toxoids, adsorbed, preservative free, for adult use (5 Lf of tetanus toxoid and 2 Lf of diphtheria toxoid) Gasper Persaud Other [facility] Payers Date Payer Category Payer Medicaid [facility] [place] [id number] 2017-Present [phone] [address] [place] [address] Medicaid [id number] 2017 Medicare [id number] 2008 Medicare MEDICARE MEDICAR E RAILROAD [id number] 2008-Present [facility] RAILROAD MEDICARE [address] [address] [place] [address] Medicare [id number] 1978 Unknown [id number] 1978 Unknown [id number] 1978 Unknown [id number] 1978 Unknown [id number] 2.16840.1.483644.3.579.2.593 1978 Unknown [id number] 2.16.840.1.253843.3.579.2.593 1978 Unknown [id number] .[id number] 1978 Unknown [id number] 1978 Unknown [id number] 2.16.840.1.280005.3.579.2.593 1978 Unknown [id number] 2.16.840.1.915369.3.579.2.593 1978 Unknown [id number] 2.16.840.1.385284.3.579.2.593 1978 Unknown [id number] 2.16.840.1.434516.3.579.2.593 1978 Unknown [id number] 2.16.840.1.522336.3.579.2.1259 1978 Unknown [id number] 2.16.840.1.243492.3.579.2.1259 1978 Unknown [id number] 2.16.840.1.148693.3.579.2.1259 1978 Unknown [id number] 2.16.840.1.233476.3.579.2.1259 1978 Unknown [id number] 2.16.840.1.157597.3.579.2.1259 1959 Medicaid [id number] [id number] 1961 Medicare [id number] [id number] 1961 Self-pay Social History Date Type Detail Facility Unknown if ever smoked [facility] Other Start: 03-11-2023 Sex Assigned At [facility] Other Start: 07-07-2018 End: 03-11-2023 Tobacco smoking status [facility] Never smoked tobacco (finding) [facility] Start: 1980 Sex Assigned At Male [facility] Start: 03-11-2023 Alcoholic beverage intake Lifetime [...] 100 hs. Refer for VNS implantation - Odmo. I will get the name of the [...] Preg EEG (_, [facility]) - _ (_, [facility]) - _. Amb EEG (none). VEEG (03/2022) [...] Gordy Scott M.D. documented in this encounter [facility] 07-06-2023 Evaluation note Encounter Date Diagnosis Assessment Notes Jun, Pneumonia of left lower lobe due to infectious organism (ICD-10 - J18.9) [facility] Other 04-11-2023 Evaluation note* Encounter Date Diagnosis [...] (ICD-10 - S70.02XD) Ice/heat and Voltaren Gel [facility] Other 2022 Evaluation note* Encounter Date Diagnosis [...] the ER for worsening symptoms or concerns. [facility] Other 12-14-2021 Evaluation note* Encounter Date Diagnosis Assessment Notes Treatment Notes Treatment Clinical Notes Sep, Injury of left knee, initial encounter (ICD-10 - S89.92XA) . Use TYLENOL AND VOLTARON GEL as directed for pain if needed. Contact office if symptoms are not improved within the next few days and we will help you get into specialist. 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 Medicare annual wellness visit, subsequent noneactive Screening for colon cancer n oneactive [facility] Work Phone: Evaluation note* Diagnosis Focal [...] surgery Surgical History cystoscopy Hospitalization History pneumonia [facility] Other History general Narrative - Reported* Type Description Date Medical History Development delay Medical History Functional urinary incontinence Medical History Generalized seizure disorder 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 Medical History Impaired verbal communication Surgical History dental surgery Surgical History cystoscopy Hospitalization History pneumonia [facility] Other History general Narrative - ReportedNort [place] Other Summary Purpose Family History Relationship Condition Age at Onset Recorded Date/T bronson father Unknown Advance Directives Advance Directive Response Recorded Date/ Time Advance Directives No October 23, 2017 12:06pm Chief Complaint and Reason for Visit Chief Complaint wellness Reason for Visit Developmental delay, severe Developmental language disorder with language impairment Generalized onset wljwdjsgf-xfqco-zrkvbd epileptic seizure Screening for colon cancer Wellness examination Chief Complaint wellness flu shot Reason for Visit Developmental delay, severe Developmental language disorder with language impairment Generalized onset xqqcyoqiq-gfahy-euhnaq epileptic seizure Medicare annual wellness visit, subsequent Screening for colon cancer Additional Source Comments (unrecognized sect ion and content) No Status Records FoundNo Status Records FoundNo Status Records Found INFORMATION SOURCE (unrecogn ized section and content) DATE CREATED AUTHOR [facility]11/[facility] DATE CREATED AUTHOR AUTHOR'S ORGANIZ ATION 01/24/2023 [facility] DATE CREATED AUTHOR AUTHOR'S ORGANIZ ATION 07/18/2024 [facility] Special[facility] EPIC REASON FOR VISIT (unrecogniz [...] Attending Provider Active Start: March 26, 2024 Traffic I Manager Relationship Specialty Start Date End Date Gasper Persaud MD PCP - General Internal Medicine 03/15/23 Traffic I Manager Relationship Specialty Start Date End Date Gasper [...] BE BASED ON THE PRIMARY CLINICAL RECORDS. [employer] [facility]. provides no warranty or guarantee of the accuracy or completeness of information in this document.
== END 2024-08-31 14:17 | disposition home or self-care (01) ==
LOC: LAB 14:18
PROVIDERS: PCP Internal Medicine; Visit Provider Psychiatry & Neurology Neurology
DX: R51.9 Headache, unspecified (principal); G62.9 Polyneuropathy, unspecified; R79.89 Other specified abnormal findings of blood chemistry; G60.9 Hereditary and idiopathic neuropathy, unspecified; Z11.3 Encounter for screening for infections with a predominantly sexual mode of transmission; E53.1 Pyridoxine deficiency; I70.91 Generalized atherosclerosis; D51.3 Other dietary vitamin B12 deficiency anemia; M79.10 Myalgia, unspecified site; E78.5 Hyperlipidemia, unspecified
CPT/HCPCS: 36415; 80299

== ENCOUNTER 2024-10-22 13:07 | Outpatient (OUT) | payer MEDICARE, MEDICAID, SELFPAY ==
--- NOTE | 2024-10-22 | XR_ITS ---
The [address] [address] Patient Name: NOA LEWIS MRN: [id number] date: 1980 Sex: M Assigned Patient Location: Current Patient Location: Accession/Order Number: [id number] Exam Date: 10/22/2024 13:12 Report Date: 10/22/2024 15:00 At the request of: VAISHNAVI MUNOZ Procedure: XR clavicle LT PROCEDURE: XR clavicle LT DATE: 10/22/2024 1:12 PM EST COMPARISONS: 08/13/2024 CLINICAL INDICATION: LEFT CLAVICLE PAIN FINDINGS: There is deformity of the distal clavicle as on previous images. This is consistent with a lucency that persists at a placed distal clavicle fracture. It appears there is osseous bridging across the fracture site. This deformity is stable from previous exam. The acromioclavicular joint is intact.. XR/XR clavicle LT IMPRESSION: Left clavicle radiographs are stable from 08/13/2024. There is evidence of residual deformity due to old distal clavicle fracture. The appearance of the clavicle is stable from previous exam of 08/13/2024 Electronically authenticated by: HAYLIE RODRIGUES Date: 10/22/2024 15:00
== END 2024-10-22 13:08 | disposition home or self-care (01) ==
LOC: EC 13:08
PROVIDERS: PCP Internal Medicine; Visit Provider Orthopaedic Surgery
DX: S42.032D Displaced fracture of lateral end of left clavicle, subsequent encounter for fracture with routine healing (principal)
CPT/HCPCS: 73000

== ENCOUNTER 2024-10-25 15:56 | Outpatient (OUT) | payer MEDICARE, MEDICAID, SELFPAY ==
--- OUTSIDE RECORDS SUMMARY | 2024-10-25 16:17 | XMS_ITS | CCD ---
Author Organization [facility] Care Team Providers Care Medical Records Assistant Name Role Phone HUNG GASPER~[phone] UNKNOWN Unavailable Unavailable HUNG, GASPER~[phone] UNKNOWN Unavailable Unavailable BALL, GASPER~[phone] UNKNOWN Unavailable Unavailable BALL, GASPER~[phone] UNKNOWN Unavailable Unavailable Donna Haque Unavailable Jennifer [...] Unavailable HUNG, DR TURCIOS Primary Care Unavailable Gasper Persaud MD Primary Care Provider Gasper Persaud DO Primary Care Provider GORDY SCOTT Attending Unavailable BEGORDY Good Attending Unavailable BEGORDY Good Attending Unavailable BEGORDY Good Attending Unavailable BEGORDY Good Attending Unavailable BELatisha, GORDY Lopez Attending Unavailable Allergies Allergy Classification Reported Allergen(s) Allergy Type Date of Onset Reaction(s) Facility (1 source) Pertussis Immune Globulin Drug allergy (disorder) 3 [facility] (3 sources) Pertussis Vaccine Drug Allergy Unknown [facility] Other (3 sources) Vaccine product containing Bordetella pertussis antigen (medicinal product) Drug allergy 5 Unknown [facility] Other (3 sources) patient allergy list reviewed by nurse or physicia Propensity to adverse reactions 5 Comment:Done [facility] Other (6 sources) Pertussis Immune Globulin Propensity to adverse reactions 3 [facility] (1 source) Pertussis Vaccines Propensity to adverse reactions to drug 7 [facility] Medications Current Medications Medication Drug Class(es) Dates Sig (Normalized) Sig (Original) brivaracetam 100 mg oral tablet (6 sources) Start: 05-31-2024 take 1 tablet by mouth every twelve hours brivaracetam (Briviact) 100 MG tablet tablet Indications: Focal epilepsy with impairment of consciousness, intractable (CMS/HCC) TAKE 1 TABLET BY MOUTH EVERY 12 HOURS 60 tablet 5 05/31/2024 Active cenobamate 100 mg oral tablet (8 sources) Start: 07-18-2024 End: 01-14-2025 take 1 [...] (Therapy completed) clonazePAM 0.5 mg oral tablet (17 sources) Benzodiazepine Start: 04-10-2024 take 0.5 tablet by mouth at bedtime clonazePAM (KlonoPIN) 0.5 MG tablet Indications: Focal epilepsy with impairment of consciousness, intractable (CMS/HCC) TAKE 1/2 (ONE-HALF) OF A TABLET BY MOUTH AT BEDTIME 15 tablet 5 05/31/2024 Active take 1 tablet by hakan th every twenty-four hours KlonoPIN 0.5 MG 1 tablet at bedtime Orally Once a day Active cloNIDine hydrochloride 0.1 mg oral tablet (1 source) Central alpha-2 Adrenergic Agonist Start: 08-26-2017 take 1 tablet by mouth twice daily cloNIDine (CATAPRES) 0.1 mg tablet Take 1 tablet (0.1 mg total) by mouth 2 (two) times a day. 60 tablet 5 08/26/2017 Active dexamethasone 6 mg oral tablet (1 [...] day Active lamoTRIgine 200 mg oral tablet (20 sources) Mood Stabilizer, Anti-epileptic Agent Start: 12-27-2023 End: 12-21-2024 take 1 tablet by mouth in the morning lamoTRIgine (LaMICtal) 200 MG tablet Indications: Focal epilepsy with impairment of consciousness, intractable (CMS/HCC) Take 1 tablet (200 mg) by mouth in the morning and 1 tablet (200 mg) before bedtime. 180 tablet 3 12/27/2023 12/21/2024 Active take 450 mg by mouth once daily LAMOTRIGINE (LAMICTAL ORAL) Indications: 450mg daily Take by mouth Indications: 450mg daily. Active take 1 tablet by hakan th every twelve hours LaMICtal 200 MG 1 [...] for 30 days Apr, Active Start: 04-18-2023 LORazepam 0.5 mg oral tablet (1 source) Benzodiazepine Start: 11-01-2017 LORazepam (ATI VAN) 0.[address] Cobian 11/01/2017 Active midazolam 50 mg/ml nasal spray (8 sources) Benzodiazepine Start: 05-09-2024 End: 09-18-2024 Midazolam 5 MG/0.1ML solution Indications: Focal epilepsy with impairment of consciousness, intractable (CMS/HCC) 1 dose after convulsive seizure > 5 minutes. May repeat in other nostril 10 minutes later if needed 4 each 3 09/18/2024 Active divalproex sodium 250 mg delayed release oral tablet (6 sources) Mood Stabilizer, Anti-epileptic Agent Start: 04-17-2024 [...] usually diagnosed in infancy, childhood, or adolescence (13 sources) Autism spectrum disorder; Translations: [Pervasive developmental disorder, unspecified] Onset: 05-25-2017 05-25-2017 Chronic E Codes: Fall (2 sources) Unspecified [...] 11-25-2022 Episodic Other aftercare (1 source) Other terminal clerk (current) drug therapy; Translations: [OTH [facility] CURRENT DRUG THERAPY] Onset: 01-24-2023 Episodic Other aftercare (3 sources) Long-term current use of drug therapy; 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 penitentiary (current) drug therapy] Episodic Other connective tissue [...] Onset: 04-21-2022 Chronic Other nervous system disorders (10 sources) Static encephalopathy; 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 Comment on above: Detection Limit = 1.0Performed at: - [address] [id number] Director: Chris Lux MD, Phone: [phone] Miscellaneous Test COMMENT . [facility] Comment on above: Test Ordered: [id number] Cenobamate (Xcopri) , PlasmaCenobamate 2.6 [L ] ug/mL MX Reference Range: .Although the therapeutic range is not well established, thesuggested range at doses of 100 - 400 mg/day is 5 - 35 ug/mL.Toxic range has not been established.This test was developed and its performance characteristicsdetermined by [facility]. It has not been cleared or approvedby the Food and Drug Administration.Performed at: [email or web address] [address] [id number] Director: [facility], Phone: [phone] at: [facility] [address] [id number] Director: Silvestre Nelson PhD, Phone: [phone] No Panel Informationon 04-27 Miscellaneous Test COMMENT . [facility] Comment on above: Test Ordered: [id number] Valproic Acid (Tota l+Free)Valproic Acid (Depakote)(R),S 41 [L ] ug/mL CB Reference Range: 50-100 Detection Limit = 4 <4 indicates None DetectedToxicity may occur at levels of 100-500. Measurementsof free unbound valproic acid may improve the assess-ment of clinical response.Free Valproic Acid (Depakote) 9.4 ug/mL Reference Range: 6.0-22.0 Detection Limit = 0.5Performed at: [address] [id number] Director: Silvestre Nelson PhD, Phone: [phone] at: [address] [id number] Director: Chris Lux MD, Phone: [phone] Laboratory - Chemistry and C hemistry - challengeon 04-23-2024 ALT [Catalytic activity/Vol] 23 U/L 16-[address] [facility] Ammonia (P) [Moles/Vol] 38 umol/L High 11-[address] [facility] AST [Catalytic activity/Vol] 17 U/L 15-[address] [facility] No Panel Informationon 04-23 Lamotrigine (Lamictal) Level 23.3 ug/mL Abnormal 2.0-20.[address] [facility] Comment on above: Verified by repeat analysis Detectio n Limit = 1.0Performed at: [address] [id number] Director: Chris Lux MD, Phone: [phone] Miscellaneous Test COMMENT . [facility] Comment on above: Test Ordered: [id number] Brivaracetam, SE/PL Brivaracetam 3.33 [H ] ug/mL MX Reference Range: 0.20 - 2.00This test was developed and its performance characteristicsdetermined by [facility]. It has not been cleared or approvedby the Food and Drug Administration.Performed at: [employer] [employer] [address] [id number] Director: [facility], Phone: [phone] at: [address] [id number] Director: Silvestre Nelson PhD, Phone: [phone] No Panel Informationon 03-26 Lamotrigine (Lamictal) Level 17.1 ug/mL 2.0-20.[address] [facility] Comment on above: Detection Limit = 1.0Performed at: [employer] [id number] Director: Chris Lux MD, Phone: [phone] Miscellaneous Test COMMENT . [facility] Comment on above: Test Ordered: [id number] Valproic Acid (Tota l+Free)Valproic Acid (Depakote)(R),S 11 [L ] ug/mL Reference Range: 50-100 Detection Limit = 4 <4 indicates None DetectedToxicity may occur at levels of 100-500. Measurementsof free unbound valproic acid may improve the assess-ment of clinical response.Free Valproic Acid (Depakote) 2.6 [L ] ug/mL Reference Range: 6.0-22.0 Detection Limit = 0.5Performed at: [facility] [id number] Director: Silvestre Nelson PhD, Phone: [phone] at: [employer] [id number] Director: Chris Lux MD, Phone: [phone] XR HIP LT 2 3V W PELVISon [...] by: JUICE NAVA Date: 2023-01-23 09:52 Normal [facility] XR SHOULDER LT 2V or >on [...] JUICE NAVA Date: 2023-01-23 09:51 Normal [facility] LAMOTRIGINEon 11-25-2022 Lamotrigine, Serum 15.7 ug/mL Normal 2.0-20.0 [facility] Comment on above: Result Comment: Detection Limit = 1.0 Performed By: #### L AMOT #### [facility] [address] [address] [address] Daphne Cheney LAMOTRIGINEon 09-17-2022 Lamotrigine, Serum 23.2 ug/mL Invalid Interpretation Code 2.0-20.0 [facility] Comment on above: Result Comment: Verified by repeat candelario lysis Detection Limit = 1.0 Performed By: #### L AMOT #### [facility] [address] [address] [address] Daphne Cheney SARS-CoV-2 (COVID-19) RNA NA A+probe Ql (Resp)on 06-19-2022 SARS-CoV-2 (COVID-19) RNA TEO+probe Ql (Unsp spec) Positive [facility] Other XR MODIFIED BARIUM SWALLOWon 06-16-2022 XR [...] VAISHNAVI BAER Date: 2022-06-16 11:18 Normal [facility] XR KNEE GEMA 4V or >on 2021 XR KNEE GEMA 4V or > EXAM: XR KNEE GEMA 4V or > HISTORY: Unspecified fall COMPARISON: None. TECHNIQUE: 9 views total FINDINGS: No fracture, dislocation, subluxation or osseous lesion. No visualized knee effusion. Joint spaces are normal. IMPRESSION: Normal knee x-rays Electronically authenticated by: JUICE WILD Date: 2022-06-09 17:19 Normal [facility] LAMOTRIGINEon 04-24-2022 Lamotrigine, Serum 11.2 ug/mL Normal 2.0-20.0 [facility] Comment on above: Result Comment: Detection Limit = 1.0 Performed By: #### L AMOT ####[facility] [address] [place], [place] [address]KlDr. Daphne Cheney XR CHEST 2 Von 03-10-2022 [...] VAISHNAVI BAER Date: 2022-03-10 14:59 Normal [facility] CARDIAC GORDY 3-6on 2 CK [Catalytic activity/Vol] 73 U/L Normal 39-308 [facility] Comment on above: Performed By: #### CMREP #### [facility] [address] [place], [place] [address] Dr. Daphne Cheney CK.MB [Mass/Vol] 0.95 ng/mL Normal <=3.60 [facility] Comment on above: Performed By: #### CMREP #### [facility] [address] [address] [address] Daphne Cheney HSTROP 4.8 pg/mL Normal 4.0-76.1 [facility] Comment on above: Result Comment: CUT-OFF POINTS HAVE BEEN ESTABLISHED BASED ON THE FOURTH UNIVERSAL DEFINITIONS OF MYOCARDIAL INFARCTION. THE UPPER REFERENCE LIMIT (URL) OF TROPONIN, DEFINED THE 99TH PERCENTILE OF cTnI DISTRIBUTION IN A REFERENCE POPULATION, HAS BEEN CONFIRMED THE DECISION THRESHOLD FOR MT DIAGNOSIS. Performed By: #### C MREP #### [facility] [address] [address] [address] Daphne Cheney CARDIAC GORDY ADMITon 022 CK [Catalytic activity/Vol] 64 U/L Normal 39-308 [facility] Comment on above: Performed By: #### BMP, CMADM #### [facility] [address] [place] [address] Dr. Daphne Cheney CK.MB [Mass/Vol] 0.85 ng/mL Normal <=3.60 [facility] Comment on above: Performed By: #### BMP, CMADM #### [facility] [address] [address] [address] Daphne Cheney HSTROP 4.1 pg/mL Normal 4.0-76.1 [facility] Comment on above: Result Comment: CUT-OFF POINTS HAVE BEEN ESTABLISHED BASED ON THE FOURTH UNIVERSAL DEFINITIONS OF MYOCARDIAL INFARCTION. THE UPPER REFERENCE LIMIT (URL) OF TROPONIN, DEFINED THE 99TH PERCENTILE OF cTnI DISTRIBUTION IN A REFERENCE POPULATION, HAS BEEN CONFIRMED THE DECISION THRESHOLD FOR MT DIAGNOSIS. Performed By: #### B MP, CMADM #### [facility] [address] [address] [address] Daphne Cheney MANDIE 98 ng/mL Critically high 16-96 [facility] Comment on above: Performed By: #### BMP, CMADM #### [facility] [address] [address] [address] Daphne Cheney CBC AUTO DIFFon 02-14-2022 BASO # 0.1 103/ul Normal 0.0-0.1 [facility] Comment on above: Performed By: #### CBC ####[facility] [address] [address]Dr. Daphne Cheney Basophils/100 WBC (Bld) 0.5 % Normal 0.2-2.0 [facility] Comment on above: Performed By: #### CBC ####[facility] ital [address] [address]Dr. Daphne Cheney EO # 0.0 103/ul Normal 0.0-0.7 [facility] Comment on above: Performed By: #### CBC ####[facility] ital [address] [address]Dr. Daphne Cheney Eosinophils/100 WBC (Bld) 0.2 % Critically low 0.9-7.0 [facility] Comment on above: Performed By: #### CBC ####[facility] [address] [place], [place] [address]Dr. Daphne Cheney Erythrocyte distribution width (RBC) [Ratio] 13.0 % Normal 11.0-15.0 [facility] Comment on above: Performed By: #### CBC ####[facility] [address] [place], [place] [address]Dr. Daphne Cheney Hematocrit (Bld) [Volume fraction] 48.6 % Normal 42.0-54.0 [facility] Comment on above: Performed By: #### CBC ####[facility] [address] [place], [place] [address]Dr. Daphne Cheney Hemoglobin (Bld) [Mass/Vol] 15.2 g/dL Normal 14.0-18.0 [facility] Comment on above: Performed By: #### CBC ####[facility] ital [address] [address]Dr. Daphne Cheney IG # 0.05 10e3/ul Critically high 0.00-0.03 [facility] Comment on above: Performed By: #### CBC ####[facility] ital [address] [place], [place] [address]Dr. Daphne Cheney IG % 0.4 % Normal 0.0-0.5 [facility] Comment on above: Performed By: #### CBC ####[facility] [address] [address]Dr. Daphne Cheney LYMPH # 1.2 103/ul Normal 1.2-3.8 [facility] Comment on above: Performed By: #### CBC ####[facility] [address] [id number]. Daphne Cheney Lymphocytes/100 WBC (Bld) 9.2 % Critically low 20.5-60.0 [facility] Comment on above: Performed By: #### CBC ####[facility] ital [address] [address]Dr. Daphne Cheney MANUAL DIFF REQ NO Normal [facility] Comment on above: Performed By: #### CBC ####[facility] ital [address] [address]Dr. Daphne Cheney MCH (RBC) [Entitic mass] 28.7 pg Normal 25.9-34.0 [facility] Comment on above: Performed By: #### CBC ####[facility] [address] [address]Dr. Daphne Cheney MCHC (RBC) [Mass/Vol] 31.3 g/dL Normal 29.9-35.2 [facility] Comment on above: Performed By: #### CBC ####[facility] ital [address] [address]Dr. Daphne Chenye MCV (RBC) [Entitic vol] 91.9 fL Normal 80.0-94.0 [facility] Comment on above: Performed By: #### CBC ####[facility] [address] [address]DrGeorge Cheney MONO # 0.9 103/ul Critically high 0.3-0.8 [facility] Comment on above: Performed By: #### CBC ####[facility] [address] [address]Dr. Daphne Cheney Monocytes/100 WBC (Bld) 7.2 % Normal 1.7-12.0 [facility] Comment on above: Performed By: #### CBC ####[facility] ital [address] [address]Dr. Daphne Cheney NEUT # 10.7 103/ul Critically high 1.4-6.5 [facility] Comment on above: Performed By: #### CBC ####[facility] ital [address] [address]Dr. Daphne Cheney Neutrophils/100 WBC (Bld) 82.5 % Critically high 43.0-75.0 [facility] Comment on above: Performed By: #### CBC ####[facility] [address] [address]Dr. Daphne Cheney Platelet mean volume (Bld) [Entitic vol] 8.4 fL Critically low 9.5-13.5 [facility] Comment on above: Performed By: #### CBC ####[facility] [address] [address]Dr. Daphne Cheney PLT 446 103/ul Normal 150-450 [facility] Comment on above: Performed By: #### CBC ####[facility] [address] [address]Dr. Daphne Cheney RBC 5.29 106/ul Normal 4.70-6.10 [facility] Comment on above: Performed By: #### CBC ####[facility] [address] [address]Dr. Daphne Cheney WBC 13.0 103/ul Critically high 4.0-11.0 [facility] Comment on above: Performed By: #### CBC ####[facility] [address] [address] Daphne [address] CT ABD/PELVIS WO CONon 02-14 [...] EMMA RODRIGUEZ Date: 2022-02-14 08:30 Normal [facility] CT HEAD WO CONon 02-14-2022 CT [...] GERALD CRUZ Date: 2022-02-14 08:27 Normal [facility] Covid-19 PCR (CVDTB)on SARS-CoV-2 (COVID-19) RNA TEO+probe Ql (Unsp spec) Not detected Normal NOT DETECTED [facility] Comment on above: Result Comment: When diagnostic testing is negative, the possibility of a false negative should be considered in the context of a patient's recent exposures and the presence of clinical signs and symptoms consistent with SARS-CoV-2. This test is not yet approved or cleared by the [place] Food and Drug Administration (FDA). This test was developed by [employer], [place], [place]. The performance characteristics of this test were validated by [facility]. The results are not intended to be used as the sole means for clinical diagnosis or patient management decisions. [facility] is authorized under Clinical Laboratory Improvement [...] for this test is supported by the [place] of Health and Human Service's declaration that [...] used). Performed By: #### C VDTBH #### [facility] [address] [place], [place] [address] Dr. Daphne Cheney LIPASEon 02-14-2022 Lipase [Catalytic activity/Vol] 92.0 U/L Normal 73.0-393.0 [facility] Comment on above: Performed By: #### LIPA ####[facility] [address] [place], [place] [address]OiDr. Daphne Cheney OCC BLD IMMUNO SCREENon OCCULT BLOOD Negative Normal NEGATIVE [facility] Comment on above: Performed By: #### OBSCRN ####[facility] [address] [place], [place] [address]QnDr. Daphne Cheney PROF CHEM 8 (BAS METB)on Anion gap [Moles/Vol] 12.3 mmol/L Normal [facility] Comment on above: Performed By: #### BMP, CMADM #### [facility] [address] [address] [address] Daphne Cheney Calcium [Mass/Vol] 9.6 mg/dL Normal 8.5-10.1 [facility] Comment on above: Performed By: #### BMP, CMADM #### [facility] [address] [address] [address] Daphne Cheney Chloride [Moles/Vol] 98 mmol/L Normal 98-107 [facility] Comment on above: Performed By: #### BMP, CMADM #### [facility] [address] [address] [address] Daphne Cheney CO2 [Moles/Vol] 32.4 mmol/L Critically high 21.0-32.0 [facility] Comment on above: Performed By: #### BMP, CMADM #### [facility] [address] [place] [address] Dr. Daphne Cheney Creatinine [Mass/Vol] 1.19 mg/dL Normal 0.70-1.30 [facility] Comment on above: Performed By: #### BMP, CMADM #### [facility] [address] [place] [address] Dr. Daphne Cheney EGFR-AF SUDANESE >60 Normal >=60 [facility] Comment on above: Performed By: #### BMP, CMADM #### [facility] [address] [place] [address] Dr. Daphne Cheney EGFR-NON AF SUDANESE >60 Normal >=60 [facility] Comment on above: Performed By: #### BMP, CMADM #### [facility] [address] [address] [address] Daphne Cheney Glucose [Mass/Vol] 120 mg/dL Critically high 74-106 [facility] Comment on above: Performed By: #### BMP, CMADM #### [facility] [address] [place] [address] Dr. Daphne Cheney Potassium [Moles/Vol] 4.7 mmol/L Normal 3.5-5.1 [facility] Comment on above: Performed By: #### BMP, CMADM #### [facility] [address] [address] [address] Daphne Cheney Sodium [Moles/Vol] 138 mmol/L Normal 136-145 [facility] Comment on above: Performed By: #### BMP, CMADM #### [facility] [address] [address] [address] Daphne Cheney Urea nitrogen [Mass/Vol] 12.0 mg/dL Normal 7.0-18.0 [facility] Comment on above: Performed By: #### BMP, CMADM #### [facility] [address] [address] [address] Daphne Cheney Urea nitrogen/Creatin ine [Mass ratio] 10.1 mg/mg Normal [facility] Comment on above: Performed By: #### BMP, CMADM #### [facility] [address] [place] [address] Dr. Daphne Cheney XR KUB 1 VIEWon [...] RAY SAID Date: 2022-02-14 06:35 Normal [facility] CBC AUTO DIFFon 02-02-2022 BASO # 0.0 103/ul Normal 0.0-0.1 [facility] Comment on above: Performed By: #### CBC #### [facility] [address] [address] [address] Daphne Cheney Basophils/100 WBC (Bld) 0.2 % Normal 0.2-2.0 [facility] Comment on above: Performed By: #### CBC #### [facility] [address] [address] [address] Daphne Cheney EO # 0.0 103/ul Normal 0.0-0.7 [facility] Comment on above: Performed By: #### CBC #### [facility] [address] [address] [address] Daphne Cheney Eosinophils/100 WBC (Bld) 0.0 % Critically low 0.9-7.0 [facility] Comment on above: Performed By: #### CBC #### [facility] [address] [address] [address] Daphne Cheney Erythrocyte distribution width (RBC) [Ratio] 13.8 % Normal 11.0-15.0 [facility] Comment on above: Performed By: #### CBC #### [facility] [address] [place] [address] Dr. Daphne Cheney Hematocrit (Bld) [Volume fraction] 42.5 % Normal 42.0-54.0 [facility] Comment on above: Performed By: #### CBC #### [facility] [address] [address] [address] Daphne Cheney Hemoglobin (Bld) [Mass/Vol] 13.9 g/dL Critically low 14.0-18.0 [facility] Comment on above: Performed By: #### CBC #### [facility] [address] [address] [address] Daphne Cheney IG # 0.13 10e3/ul Critically high 0.00-0.03 [facility] Comment on above: Performed By: #### CBC #### [facility] [address] [place] [address] Dr. Daphne Cheney IG % 1.0 % Critically high 0.0-0.5 [facility] Comment on above: Performed By: #### CBC #### [facility] [address] [place] [address] Dr. Daphne Cheney LYMPH # 1.2 103/ul Normal 1.2-3.8 [facility] Comment on above: Performed By: #### CBC #### [facility] [address] [place] [address] Dr. Daphne Cheney Lymphocytes/100 WBC (Bld) 8.6 % Critically low 20.5-60.0 [facility] Comment on above: Performed By: #### CBC #### [facility] [address] [place] [address] Dr. Daphne Cheney MANUAL DIFF REQ NO Normal [facility] Comment on above: Performed By: #### CBC #### [facility] [address] [place] [address] Dr. Daphne Cheney MCH (RBC) [Entitic mass] 29.4 pg Normal 25.9-34.0 [facility] Comment on above: Performed By: #### CBC #### [facility] [address] [place] [address] Dr. Daphne Cheney MCHC (RBC) [Mass/Vol] 32.7 g/dL Normal 29.9-35.2 [facility] Comment on above: Performed By: #### CBC #### [facility] [address] [place] [address] Dr. Daphne Cheney MCV (RBC) [Entitic vol] 90.0 fL Normal 80.0-94.0 [facility] Comment on above: Performed By: #### CBC #### [facility] [address] [place] [address] Dr. Daphne Cheney MONO # 1.3 103/ul Critically high 0.3-0.8 [facility] Comment on above: Performed By: #### CBC #### [facility] [address] [place] [address] Dr. Daphne Cheney Monocytes/100 WBC (Bld) 9.2 % Normal 1.7-12.0 [facility] Comment on above: Performed By: #### CBC #### [facility] [address] [place] [address] Dr. Daphne Cheney NEUT # 11.0 103/ul Critically high 1.4-6.5 [facility] Comment on above: Performed By: #### CBC #### [facility] [address] [place] [address] Dr. Daphne Cheney Neutrophils/100 WBC (Bld) 81.0 % Critically high 43.0-75.0 [facility] Comment on above: Performed By: #### CBC #### [facility] [address] [place] [address] Dr. Daphne Cheney Platelet mean volume (Bld) [Entitic vol] 9.6 fL Normal 9.5-13.5 [facility] Comment on above: Performed By: #### CBC #### [facility] [address] [place] [address] Dr. Daphne Cheney PLT 193 103/ul Normal 150-450 [facility] Comment on above: Performed By: #### CBC #### [facility] [address] [place] [address] Dr. Daphne Cheney RBC 4.72 106/ul Normal 4.70-6.10 [facility] Comment on above: Performed By: #### CBC #### [facility] [address] [place] [address] Dr. Daphne Cheney WBC 13.6 103/ul Critically high 4.0-11.0 [facility] Comment on above: Performed By: #### CBC #### [facility] [address] [place] [address] Dr. Daphne Cheney PROF 14(COMP METB)on 022 Albumin [Mass/Vol] 2.4 g/dL Critically low 3.4-5.0 [facility] Comment on above: Performed By: #### CMP #### [facility] [address] [place] [address] Dr. Daphne Cheney Albumin/Globulin [Mass ratio] 0.4 {ratio} Normal [facility] Comment on above: Performed By: #### CMP #### [facility] [address] [place] [address] Dr. Daphne Cheney ALP [Catalytic activity/Vol] 111 U/L Normal 46-116 [facility] Comment on above: Performed By: #### CMP #### [facility] [address] [place] [address] Dr. Daphne Cheney ALT [Catalytic activity/Vol] 92 U/L Critically high 16-63 [facility] Comment on above: Performed By: #### CMP #### [facility] [address] [address] [address] Daphne Cheney Anion gap [Moles/Vol] 13.5 mmol/L Normal [facility] Comment on above: Performed By: #### CMP #### [facility] [address] [address] [address] Daphne Cheney AST [Catalytic activity/Vol] 83 U/L Critically high 15-37 [facility] Comment on above: Performed By: #### CMP #### [facility] [address] [address] [address] Daphne Cheney Bilirubin [Mass/Vol] 0.7 mg/dL Normal 0.2-1.3 [facility] Comment on above: Performed By: #### CMP #### [facility] [address] [place] [address] Dr. Daphne Cheney Calcium [Mass/Vol] 8.8 mg/dL Normal 8.5-10.1 [facility] Comment on above: Performed By: #### CMP #### [facility] [address] [address] [address] Daphne Cheney Chloride [Moles/Vol] 105 mmol/L Normal 98-107 [facility] Comment on above: Performed By: #### CMP #### [facility] [address] [place] [address] Dr. Daphne Cheney CO2 [Moles/Vol] 28.4 mmol/L Normal 22.0-30.0 [facility] Comment on above: Performed By: #### CMP #### [facility] [address] [address] [address] Daphne Cheney Creatinine [Mass/Vol] 1.09 mg/dL Normal 0.66-1.25 [facility] Comment on above: Performed By: #### CMP #### [facility] [address] [place] [address] Dr. Daphne Cheney EGFR-AF SUDANESE >60 Normal >=60 [facility] Comment on above: Performed By: #### CMP #### [facility] [address] [address] [address] Daphne Cheney EGFR-NON AF SUDANESE >60 Normal >=60 [facility] Comment on above: Performed By: #### CMP #### [facility] [address] [place] [address] Dr. Daphne Cheney Globulin (S) [Mass/Vol] 5.4 g/dL Normal [facility] Comment on above: Performed By: #### CMP #### [facility] [address] [place] [address] Dr. Daphne Cheney Glucose [Mass/Vol] 122 mg/dL Critically high 74-106 [facility] Comment on above: Performed By: #### CMP #### [facility] [address] [place] [address] Dr. Daphne Cheney Potassium [Moles/Vol] 3.9 mmol/L Normal 3.4-5.0 [facility] Comment on above: Performed By: #### CMP #### [facility] [address] [place] [address] Dr. Daphne Cheney Protein [Mass/Vol] 7.8 g/dL Normal 6.1-8.2 [facility] Comment on above: Performed By: #### CMP #### [facility] [address] [place] [address] Dr. Daphne Cheney Sodium [Moles/Vol] 143 mmol/L Normal 137-145 [facility] Comment on above: Performed By: #### CMP #### [facility] [address] [place] [address] Dr. Daphne Cheney Urea nitrogen [Mass/Vol] 23.0 mg/dL Critically high 7.0-18.0 [facility] Comment on above: Performed By: #### CMP #### [facility] [address] [place] [address] Dr. Daphne Cheney Urea nitrogen/Creatin ine [Mass ratio] 21.1 mg/mg Normal [facility] Comment on above: Performed By: #### CMP #### [facility] [address] [place] [address] Dr. Daphne Cheney XR CHEST 2 Von [...] by: VAISHNAVI BAER Date: 2022-02-02 11:00 Normal [facility] Vital Signs Date Time Vital Sign Value Performing Clinician Facility 09-18-2024 12:00-0500 Body height 162.6 cm Gordy Scott MD Work Phone: [facility] 09-18-2024 12:00-0500 Body mass index (BMI) [Ratio] 26.61 kg/m2 Gordy Scott MD Work Phone: [facility] 09-18-2024 12:00-0500 Body weight 70.31 kg Gordy Scott MD Work Phone: [facility] 04-10-2024 14:40-0400 Body height 165.1 cm [facility] 04-10-2024 14:40-0400 Body mass index (BMI) [Ratio] 27.1 kg/m2 [facility] 04-10-2024 14:40-0400 Body weight 73.93 kg [facility] 04-10-2024 14:40-0400 Diastolic blood pressure 70 mm[Hg] [facility] 04-10-2024 14:40-0400 Heart rate 65 /min [facility] 04-10-2024 14:40-0400 Respiratory rate 12 /min [facility] 04-10-2024 14:40-0400 Systolic blood pressure 122 mm[Hg] [facility] 04-18-2023 15:15-0400 Body height 165.1 cm Gasper Ball Other [facility] Other 04-18-2023 15:15-0400 Body mass index (BMI) [Ratio] 27.15 kg/m2 Gasper Ball Other [facility] Other 04-18-2023 15:15-0400 Body weight 74.03 kg Gasper Ball Other [facility] Other 04-18-2023 15:15-0400 Diastolic blood pressure 78 mm[Hg] Gasper Ball Other [facility] Other 04-18-2023 15:15-0400 Respiratory rate 12 /min Gasper Ball Other [facility] Other 04-18-2023 15:15-0400 Systolic blood pressure 132 mm[Hg] Gasper Ball Other [facility] Other 01-25-2023 14:30-0400 Body height 165.1 cm Gasper Ball Other [facility] Other 01-25-2023 14:30-0400 Body mass index (BMI) [Ratio] 24.96 kg/m2 Gasper Ball Other [facility] Other 01-25-2023 14:30-0400 Body weight 68.04 kg Gasper Ball Other [facility] Other 01-25-2023 14:30-0400 Respiratory rate 12 /min Gasper Ball Other [facility] Other 06-19-2022 10:35-0400 Body height 165.1 cm Jennifer Trujillo Other [facility] Other 09-29-2021 16:50-0500 Body height 165.1 cm Donna Haque Other [facility] Other 09-29-2021 16:50-0500 Body temperature 98.7 [degF] Donna Haque Other [facility] Other 09-29-2021 16:50-0500 Diastolic blood pressure 89 mm[Hg] Donna Haque Other [facility] Other 09-29-2021 16:50-0500 Respiratory rate 18 /min Donna Haque Other [facility] Other 09-29-2021 16:50-0500 SaO2% (BldA) [Mass fraction] 98 % Donna Haque Other [facility] Other 09-29-2021 16:50-0500 Systolic blood pressure 131 mm[Hg] Donna Haque Other [facility] Other Encounters Encounter Date Encounter Type Care Provider Facility Start: 09-18-2024 End: 09-18-2024 [employer] Gordy Scott MD Work Phone: [facility] Start: 09-18-2024 End: 09-18-2024 Bamboo flowsheet Gordy Scott MD Work Phone: [facility] Start: 09-18-2024 End: 09-18-2024 Office outpatient visit 25 minutes Gordy Scott MD Work Phone: [facility] Comment on above: Focal epilepsy with impairment of consciousness, intractable (CMS/HCC) (Primary Dx); Static encephalopathy Start: 09-18-2024 End: 09-18-2024 ambulatory GORDY SCOTT Not Available Start: 08-30-2024 End: 09-05-2024 Telephone encounter [facility] Comment on above: NEW PATIENT REFERRAL Start: 07-17-2024 End: 07-17-2024 Bamboo flowsheet Gordy Scott MD Work Phone: [facility] Start: 07-17-2024 End: 07-17-2024 Bamboo flowsheet Gordy Scott MD Work Phone: [facility] Start: 07-17-2024 End: 07-17-2024 Office outpatient visit 25 minutes Gordy Scott MD Work Phone: [facility] Comment on above: Focal epilepsy with impairment of consciousness, intractable (CMS/HCC) (Primary Dx); Static encephalopathy Start: 07-17-2024 End: 07-17-2024 ambulatory GORDY D BEJ Not Available Start: 06-26-2024 End: 06-26-2024 ambulatory [facility] Work Phone: Start: 06-26-2024 End: 06-26-2024 Patient encounter procedure [facility] Work Phone: Start: 06-05-2024 Non-patient / Non-visit [facility] Work Phone: Start: 05-09-2024 End: 05-09-2024 ambulatory GORDY D BEJ Not Available Start: 04-27-2024 Non-patient / Non-visit [facility] Work Phone: Start: 04-23-2024 Non-patient / Non-visit [facility] Work Phone: Start: 04-17-2024 End: 04-17-2024 ambulatory GORDY D BEJ Not Available Start: 04-10-2024 End: 04-10-2024 ambulatory [facility] Work Phone: Start: 04-10-2024 End: 04-10-2024 Encounter for general adult medical examination without abnormal findings [facility] Start: 04-10-2024 End: 04-10-2024 Patient encounter procedure [facility] Work Phone: Start: 03-26-2024 Non-patient / Non-visit [facility] Work Phone: Start: 01-17-2024 End: 01-17-2024 ambulatory GORDY D BEJ Not Available Start: 10-18-2023 End: 10-18-2023 ambulatory GORDY D BEJ Not Available Start: 07-07-2023 End: 07-07-2023 ambulatory Gasper Persaud Other [facility] Other Start: 07-07-2023 Telephone encounter Gasper Ball [facility] Start: 07-06-2023 End: 07-06-2023 ambulatory Gasper Ball Other [facility] Other Start: 07-06-2023 Telephone encounter Gasper Ball [facility] Start: 06-21-2023 End: 06-21-2023 ambulatory Gasper Ball Other [facility] Other Start: 06-21-2023 Nursing evaluation o f patient and report Gasper Persaud [facility] Start: 05-02-2023 End: 05-02-2023 ambulatory Gasper Hung Other [facility] Other Start: 05-02-2023 Telephone encounter Gasper Ball [facility] Start: 04-18-2023 End: 04-18-2023 ambulatory Gasper Ball Other [facility] Other Start: 04-18-2023 Office outpatient vi sit 15 minutes Gasper Ball [facility] Start: 02-07-2023 End: 02-07-2023 ambulatory Gasper Ball Other [facility] Other Start: 02-07-2023 Telephone encounter Gasper Ball [facility] Start: 01-26-2023 End: 01-26-2023 ambulatory Gasper Ball Other [facility] Other Start: 01-26-2023 Telephone encounter Gasper Ball [facility] Start: 01-25-2023 End: 01-25-2023 ambulatory Gasper Persaud Other [facility] Other Start: 01-25-2023 Office outpatient vi sit 15 minutes Gasper Persaud [facility] Start: 01-23-2023 End: 01-23-2023 ambulatory JUICE NAVA Facility:[facility] Start: 01-07-2023 End: 01-07-2023 ambulatory Gasper Persaud Other [facility] Other Start: 01-07-2023 Telephone encounter Gasper Persaud [facility] Start: 11-23-2022 End: 11-24-2022 ambulatory GORDY BELatisha Facility:[facility] Start: 11-19-2022 End: 11-19-[address] COLLEEN JOHNSON . Facility:[facility] Start: 09-13-2022 End: 09-14-2022 ambulatory GORDY BELatisha Facility:[facility] Start: 06-19-2022 End: 06-19-2022 ambulatory Jennifer Trujillo Other [facility] Other Start: 06-19-2022 Office outpatient vi sit 15 minutes Jennifer Trujillo [facility] Start: 06-16-2022 End: 06-17-2022 [...] 09-29-2021 End: 09-29-2021 ambulatory Donna Haque Other [facility] Other Start: 09-29-2021 Office outpatient vi sit 15 minutes Donna Haque [facility] Start: 03-10-2021 Adult health examination Ace Persaud Other [facility] Other Start: 03-21-2017 End: 09-16-2017 Ambulatory GASPER~[id number] UNKNOWN BALL Facility:[facility] Plan of Treatment Date Care Activity Detail Author Start: 12-18-2024 End: 12-18-2024 Patient encounter procedure 12/18/2024 10:45 AM EST Office Visit [facility] [address] [facility] [address] [place] [address] Gordy Scott MD [address] [facility] [address] [id number] [facility] Start: 09-18-2024 End: 09-18-2024 Patient encounter procedure [facility] Comment on above: Arrived Start: 07-17-2024 End: 07-17-2024 Patient encounter procedure 07/17/2024 11:30 AM EDT Office Visit [facility] [address] [facility] [address] [place] [address] Gordy Scott MD [address] [facility] [address] [address] Arrived [facility] Comment on above: Arrived Start: 06-17-2024 Influenza vaccination N S [facility] Start: 1997 DTaP,Tdap and Td Vac cines (1 - Tdap) DTaP,Tdap and Td Vaccines (1 - Tdap) [facility] Start: 1996 Adult BMI Screening Adult BMI Screen ing [facility] Start: 1990 Depression Screening Depression Scre ening [facility] Start: 1990 Tobacco Screening Tobacco Screening [facility] Start: 1978 Screening for malign ant neoplasm of colon [facility] Comprehensive metabo lic 2000 panel - Serum or Plasma [facility] Immunizations Immunization Date Immunization Notes Care Provider Travon pierce 06-26-2024 influenza virus vaccine, unspecified formulation Gordy Scott MD Work Phone: [facility] 06-21-2023 influenza, injectabl e, quadrivalent, preservative free Gasper Persaud Other [facility] 07-28-2022 influenza virus vaccine, split virus (incl. purified surface antigen) Gasper Persaud Other [employer] Other 07-28-2022 influenza virus vaccine, unspecified formulation [facility] 08-10-2021 influenza virus vaccine, split virus (incl. purified surface antigen) Gasper Persaud Other [employer] Other 08-10-2021 influenza virus vaccine, unspecified formulation [facility] 07-08-2020 influenza virus vaccine, split virus (incl. purified surface antigen) Gasper Persaud Other [facility] [employer] Other 07-08-2020 influenza virus vaccine, unspecified formulation [facility] 07-31-2019 influenza virus vaccine, split virus (incl. purified surface antigen) Gasper Persaud Other [facility] [employer] Other 07-31-2019 influenza virus vaccine, unspecified formulation [facility] 05-22-2019 tetanus and diphther ia toxoids, adsorbed, preservative free, for adult use (5 Lf of tetanus toxoid and 2 Lf of diphtheria toxoid) [facility] 05-22-2019 tetanus toxoid, reduced diphtheria toxoid, and acellular pertussis vaccine, adsorbed Gasper Persaud Other [facility] [employer] Other 07-11-2018 influenza virus vaccine, split virus (incl. purified surface antigen) Gasper Persaud Other [facility] [employer] Other 07-11-2018 influenza virus vaccine, unspecified formulation [facility] 07-13-2017 tetanus and diphther ia toxoids, adsorbed, preservative free, for adult use (5 Lf of tetanus toxoid and 2 Lf of diphtheria toxoid) Gasper Persaud Other [facility] 08-12-2016 influenza virus vaccine, split virus (incl. purified surface antigen) Gasper Persaud Other [facility] [employer] Other 08-12-2016 influenza virus vaccine, unspecified formulation [facility] 07-25-2015 tetanus and diphther ia toxoids, adsorbed, preservative free, for adult use (5 Lf of tetanus toxoid and 2 Lf of diphtheria toxoid) Gasper Persaud Other [facility] 07-29-2014 tetanus and diphther ia toxoids, adsorbed, preservative free, for adult use (5 Lf of tetanus toxoid and 2 Lf of diphtheria toxoid) Gasper Persaud Other [facility] 08-09-2013 tetanus and diphther ia toxoids, adsorbed, preservative free, for adult use (5 Lf of tetanus toxoid and 2 Lf of diphtheria toxoid) Gasper Persaud Other [facility] Payers Date Payer Category Payer Medicaid [id number] 2017 Medicare [id number] 2008 Medicare [id number] 1978 Unknown [id number] 2.16.84 0.1.076796.3.579.2.593 1978 Unknown [id number] 2.16.84 0.1.186480.3.579.2.593 1978 Unknown [id number] 2.16.84 0.1.494332.3.579.2.593 1978 Unknown [id number] 2.16.84 0.1.843091.3.579.2.593 1978 Unknown [id number] 2.16.84 0.1.908061.3.579.2.593 1978 Unknown [id number] 2.16.84 0.1.109864.3.579.2.593 1978 Unknown [id number] 2.16.84 0.1.373348.3.579.2.593 1978 Unknown [id number] 2.16.84 0.1.962707.3.579.2.593 1978 Unknown [id number] 2.16.84 0.1.220015.3.579.2.593 1978 Unknown [id number] 2.16.84 0.1.548347.3.579.2.593 1978 Unknown [id number] 2.16.84 0.1.548931.3.579.2.593 1978 Unknown [id number] 2.16.84 0.1.556905.3.579.2.1259 1978 Unknown [id number] 2.16.84 0.1.550127.3.579.2.1259 1978 Unknown [id number] 2.16.84 0.1.650795.3.579.2.1259 1978 Unknown [id number] 2.16.84 0.1.045175.3.579.2.1259 1978 Unknown [id number] 2.16.84 0.1.544371.3.579.2.1259 1978 Unknown [id number] 2.16.840 .1.506292.3.579.2.1259 1961 Medicaid [id number] 2. [id number]. 1961 Medicare [id number] 2.1 [id number] 1961 Self-pay Social History Date Type Detail Facility Unknown if ever smoked [facility] Other Start: 11-27-2020 End: 03-11-2023 Sex Assigned At [employer] Other Start: 07-07-2018 End: 03-11-2023 Tobacco smoking status NHIS Never smoked tobacco (finding) [facility] Start: 1980 Sex Assigned At Male F [facility] Start: 03-11-2023 Alcoholic beverage intake Lifetime non-drinker (finding) [facility] Start: 11-27-2020 End: 03-11-2023 History of Social function [facility] Start: 03-11-2023 Alcohol Comment Caffeine: none [facility] Start: 1980 Sex assigned at Not on file [facility] Tobacco smoking status NCIS Tobacco smoking consumption unknown [facility] Unknown [facility] Start: 05-22-2015 Sex Male (finding) [facility] Clinical Notes 09-29-2021 to 09-18-2024 Gordy Scott MD - 09/18/2024 11:30 AM Radha Scott MD - 09/18/2024 11:30 AM Radha Scott MD - 09/18/2024 11:30 AM ESTTelephone Encounter - Rebekah Puckett - 08/30/2024 2:30 PM EST Note Date & Type Note Facility 09-18-2024 History of Presen t illness Narrative Associated Problem(s): Focal epilepsy with impairment of consciousness, intractable (CMS/HCC) Driving - does not drive. (Continue current regimen.) Re-refer for VNS implantation - Odom. No phone call received. Levels before appt. Orders: Midazolam 5 MG/0.1ML solution; 1 dose after convulsive seizure > 5 minutes. May repeat in other nostril 10 minutes later if needed Associated Problem(s): Static encephalopathy Images from the original note were not included. Outpatient Progress Note Patient: Armando Hameed Dept: Neurology : 1980 Appt Date: 09/18/2024 Prev Appt: 07/17/2024 Chief Complaint Patient presents with Seizures Assessment and Plan - Assessment & Plan Focal epilepsy with impairment of consciousness, intractable (CMS/HCC) Driving - does not drive. (Continue current regimen.) Re-refer for VNS implantation - Odom. No phone call received. Levels before appt. Orders: Midazolam 5 MG/0.1ML solution; 1 dose after convulsive seizure > 5 minutes. May repeat in other nostril 10 minutes later if needed Static encephalopathy No orders of the defined types were placed in this encounter. Follow-Up - Follow up December - routine appt MD; also after implantation. Lab Frequency Next Occurrence XR lumbar spine 6+ views including oblique flexion extension Once 07/14/2023 History of Present Illness, Associated Treatments and Results - Dx EPILEPSY Tx CNB 100 [11.8 on 100, was 2.6 on 50] + VPA 250 q12 [was 41/9.4f] + LTG 200 q12 [was 23.3, 10.5, 15.7 (on 500), was 8.0..11.2 (on 400)] + BRV 100 q12 [was 2.9] + clonazapam 0.25 hs + prn midazolam nasal 5 AEs somnolence since med change Hx Sz - remain ~5/mo (outlier 10 in Sep), mostly at work, convulsive, some with falls. 2 sz recently, staring, biting fingers, Jeremías, tremoring , 17 min. Hand shaking - somewhat new sx. Jerks - still very frequent spasms, were up to 40/d in Apr, now much less. Fully alert. Nearly all early AM after pt's arrival at work, apparently all myoclonic jerks. ?Behavioral, excitement. ?Carbs with breakfast. ... Mid-Apr 9 jerks in a row. Last GTC [...] Preg EEG (_, [facility]) - _ (_, [place]) - _. Amb EEG (none). VEEG (03/2022) [...] orig: ___ Vital Signs - Visit Vitals Ht 5' 4 Wt 155 lb BMI 26.61 kg/m Smoking Status Never BSA 1.78 m Review of Systems - . Const: Denies [...] Onset Hypertension Mother Heart disease Father COD: [place] Hypertension Maternal Grandmother Cancer Maternal Grandmother Hypertension Maternal Grandfather Diabetes Maternal Grandfather Hypertension Paternal Grandmother Hypertension Paternal Grandfather Outpatient Encounter Medications as of 09/18/2024 Medication Sig Dispense Refill brivaracetam (Briviact) 100 MG tablet tablet TAKE 1 TABLET BY MOUTH EVERY 12 HOURS 60 tablet 5 Cenobamate (Xcopri) 100 MG tablet Take 100 mg by mouth at bedtime 30 tablet 5 clonazePAM (KlonoPIN) 0.5 MG tablet TAKE 1/2 [...] facility-administered encounter medications on file as of 09/18/2024. Gordy Scott M.D. [facility] Neurology ? [address] [facility] [address] ? [place] [address] ? ? fax Neurology ? Clinical Neurophysiology ? Epilepsy ? Sleep Disorders ? Clinical Informatics documented in this encounter [facility] 08-30-2024 Miscellaneous Notes Formattin g of this note might be different from the original. First Attempt Made from [employer]- Left Voicemail New patient referral received. Dx:Localization-related (focal) (partial) symptomatic epilepsy and epileptic syndromes with complex partial seizures, intractable, without status epilepticus ([facility]) [G40.219]/ Referred by: Gordy Scott MD Referred to: Providers patient can see in clinic (Make sure if ASHLI is listed the patient has not seen a Neurologist before): Please contact patient to schedule from referral, Thanks! PLEASE REVIEW PLAN OVER THE PHONE AND ADVISE PATIENT TO BRING UPDATED INSURANCE INFORMATION TO THEIR NEW PATIENT APPOINTMENT 2nd attempt: Called and left patient a voicemail once more letting them know we have received their referral, are ready to schedule, and to call us back at their earliest convenience to do so. Machine Silver Stripper provided callback number for scheduling or to address any questions or concerns they may have. [facility] Telephone encount er Note First Attempt Made from Workque- Left Voicemail New patient referral received. Dx:Localization-related (focal) (partial) symptomatic epilepsy and epileptic syndromes with complex partial seizures, intractable, without status epilepticus (CMS-HCC) [G40.219]/ Referred by: Gordy Scott MD Referred to: Providers patient can see in clinic (Make sure if ASHLI is listed the patient has not seen a Neurologist before): Please contact patient to schedule from referral, Thanks! PLEASE REVIEW PLAN OVER THE PHONE AND ADVISE PATIENT TO BRING UPDATED INSURANCE INFORMATION TO THEIR NEW PATIENT APPOINTMENT [facility]-30-2024 Telephone encount er Note 2nd attempt: Called and left patient a voicemail once more letting them know we have received their referral, are ready to schedule, and to call us back at their earliest convenience to do so. Machine Silver Stripper provided callback number for scheduling or to address any questions or concerns they may have. [facility] 07-17-2024 History of Presen t illness Narrative [...] 100 hs. Refer for VNS implantation - Ilene. I will get the name of the [...] med change Hx Sz - , , , mostly at work, convulsive, recently without falls. 2 sz recently, staring, biting fingers, Jeremías, tremoring , 17 min. Hand shaking - somewhat new sx. Jerks - still very frequent spasms, were up to 40/d in Jan, now much less. Fully alert. Nearly all [...] Preg EEG (_, [facility]) - _ (_, [place]) - _. Amb EEG (none). VEEG (03/2022) [...] Onset Hypertension Mother Heart disease Father COD: [place] Hypertension Maternal Grandmother Cancer Maternal Grandmother Hypertension [...] Gordy Scott M.D. documented in this encounter [facility] 07-06-2023 Evaluation note Encounter Date Diagnosis Assessment Notes Jun, Pneumonia of left lower lobe due to infectious organism (ICD-10 - J18.9) [facility] Other 04-11-2023 Evaluation note* Encounter Date Diagnosis [...] (ICD-10 - S70.02XD) Ice/heat and Voltaren Gel [facility] Other 2022 Evaluation note* Encounter Date Diagnosis [...] the ER for worsening symptoms or concerns. [facility] Other 12-14-2021 Evaluation note* Encounter Date Diagnosis Assessment Notes Treatment Notes Treatment Clinical Notes Sep, Injury of left knee, initial encounter (ICD-10 - S89.92XA) . Use TYLENOL AND VOLTARON GEL as directed for pain if needed. Contact office if symptoms are not improved within the next few days and we will help you get into specialist. [facility] Other Evaluation noteNo InformationNortBeatDeck Other Evaluation noteNortBeatDeck Other Evaluation note* Diagnosis Onset Date Resolution Status Developmental delay, severe acute Developmental language disor olesya with language impairment acute Generalized onset myoclonic- tonic-clonic epileptic seizure acute Screening for colon cancer n oneactive Wellness examination noneact [facility] Work Phone: Evaluation note* Diagnosis Onset Date Resolution Status Developmental delay, severe acute Developmental language disor olesya with language impairment acute Generalized onset myoclonic- tonic-clonic epileptic seizure acute Medicare annual wellness visit, subsequent noneactive Screening for colon cancer n oneactive [facility] Work Phone: Evaluation note* Diagnosis Focal epilepsy with impairment of consciousness, intractable (CMS/HCC)- Primary Localization-related (focal) (partial) epilepsy and epileptic syndromes with simple partial seizures, with intractable epilepsy 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, spinal cord, and nervous system documented [facility] Diagnosis Focal epilepsy with impairment of consciousness, intractable (CMS/HCC)- Primary Localization-related (focal) (partial) epilepsy and epileptic syndromes with simple partial seizures, with intractable epilepsy 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, spinal cord, and nervous system Medication side effect Focal epilepsy with impairment of consciousness, intractable (CMS/HCC)- Primary Localization-related (focal) (partial) epilepsy and epileptic syndromes with simple partial seizures, with intractable epilepsy Medication side effect Focal epilepsy with impairment of consciousness, intractable (CMS/HCC)- Primary Localization-related (focal) (partial) epilepsy and epileptic syndromes with simple partial seizures, with intractable epilepsy 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, spinal cord, and nervous system Medication side effect Focal epilepsy with impairment of consciousness, intractable (CMS/HCC) Localization-related (focal) (partial) epilepsy and epileptic syndromes with simple partial seizures, with intractable epilepsy Focal epilepsy with impairment of consciousness, intractable (CMS/HCC) Localization-related (focal) (partial) epilepsy and epileptic syndromes with simple partial seizures, with intractable epilepsy Focal epilepsy with impairment of consciousness, intractable (CMS/HCC) Localization-related (focal) (partial) epilepsy and epileptic syndromes with simple partial seizures, with intractable epilepsy Focal epilepsy with impairment of consciousness, intractable (CMS/HCC)- Primary Localization-related (focal) (partial) epilepsy and epileptic syndromes with simple partial seizures, with intractable epilepsy 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, spinal cord, 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, intractable (CMS/HCC)- Primary Localization-related (focal) (partial) epilepsy and epileptic syndromes with simple partial seizures, with intractable epilepsy 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, spinal cord, and nervous system documented in this encounter [facility] Healthcare[facility] general Narrative - Reported* Type Description Date Medical History seizures Medical History htn Medical History mrdd Surgical History dental surgery Surgical History cystoscopy Hospitalization History pneumonia [facility] Other History general Narrative - Reported* Type Description Date Medical History Development delay Medical History Functional urinary incontinence Medical History Generalized seizure disorder 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 Medical History Impaired verbal communication Surgical History dental surgery Surgical History cystoscopy Hospitalization History pneumonia [facility] Other History general Narrative - ReportedNort FlipKey Other InstructionsNot on filedocumented in this encounter [facility] Summary Purpose Family History Relationship Condition Age at Onset Recorded Date/T bronson father Unknown Advance Directives Advance Directive Response Recorded Date/ Time Advance Directives No October 23, 2017 12:06pm Chief Complaint and Reason for Visit Chief Complaint wellness Reason for Visit Developmental delay, severe Developmental language disorder with language impairment Generalized onset abntunnpq-cuves-timkgg epileptic seizure Screening for colon cancer Wellness examination Chief Complaint wellness flu shot Reason for Visit Developmental delay, severe Developmental language disorder with language impairment Generalized onset mrgorsowu-yxhjv-wqvtid epileptic seizure Medicare annual wellness visit, subsequent Screening for colon cancer Additional Source Comments (unrecognized sect ion and content) No Status Records FoundNo Status Records FoundNo Status Records Found INFORMATION SOURCE (unrecogn ized section and content) DATE CREATED AUTHOR 04/11/2018 Ryan Rodarte [facility] DATE CREATED AUTHOR AUTHOR'S ORGANIZ ATION 01/24/2023 [facility] DATE CREATED AUTHOR AUTHOR'S ORGANIZ ATION 09/20/2024 [facility] EPIC REASON FOR VISIT (unrecogniz ed section and content) Reason Comments Seizures Reason Onset Date Comments NEW PATIENT REFERRAL 08/30/2024 Care Teams (unrecognized sec tion and content) [...] Attending Provider Active Start: March 26, 2024 Medical Records Assistant Relationship Specialty Start Date End Date Gasper Persaud MD PCP - General Internal Medicine 03/15/23 Medical Records Assistant Relationship Specialty Start Date End Date Gasper Persaud MD PCP - General Internal Medicine 03/15/23 Medical Records Assistant Relationship Specialty Start Date End Date Gasper Persaud DO [address] [place] [address] PCP - General 05/25/17 Medical Records Assistant Relationship Specialty Start Date End Date Gasper Persaud MD PCP - General Internal Medicine 03/15/23 Medical Records Assistant Relationship Specialty Start Date End Date Gasper [...] BE BASED ON THE PRIMARY CLINICAL RECORDS. [employer] provides no warranty or guarantee of the accuracy or completeness of information in this document.
[2024-10-29 11:07] LABS: Lamotrigine (Lamictal), Serum 19.7 ug/mL (2.0-20.0)
== END 2024-10-25 15:57 | disposition home or self-care (01) ==
LOC: LAB 15:58
PROVIDERS: PCP Internal Medicine; Visit Provider Psychiatry & Neurology Neurology
DX: G62.9 Polyneuropathy, unspecified (principal); R79.89 Other specified abnormal findings of blood chemistry; G60.9 Hereditary and idiopathic neuropathy, unspecified; Z11.3 Encounter for screening for infections with a predominantly sexual mode of transmission; E53.1 Pyridoxine deficiency; I70.91 Generalized atherosclerosis; D51.3 Other dietary vitamin B12 deficiency anemia; M79.10 Myalgia, unspecified site; E78.5 Hyperlipidemia, unspecified; G40.909 Epilepsy, unspecified, not intractable, without status epilepticus
CPT/HCPCS: 36415; 80164; 80165; 80175; 80299

== ENCOUNTER 2025-04-25 15:09 | Outpatient (OUT) | payer MEDICARE, MEDICAID, SELFPAY ==
--- OUTSIDE RECORDS SUMMARY | 2024-03-13 07:00 | XMS_ITS ---
Author Organization [facility] Address [address] [place] [address] Care Team Providers Care Assistant Maintenance Manager Name Role Phone Dr. Roger Strange Primary Care Provider [phone] REASON FOR VISIT new patient dental exam Encounters Encounter Location Date Provider Diagnosis [facility] [address] [place] [address] 03/13/2024 Roger Strange Plan Of Treatment No Information Progress Notes * NOA LE[birth year]DOB:[birth year] (44 yo M)Acc No.[id number]:03/13/2024 Patient: NOA RENAE Provider: Latisha Strange DDS :1980 A ge:43 Y S ex:Male Date:03/13/2024 Address:[address] [place], [place] [id number] Subjective: * Chief Complaints: * 1 . New patient dental exam. * Medical History: Objective: * Vitals: Assessment: Plan: * Treatment: * Images: * Electronic signature of Dr. Roger Strange , DMD on 04/25/2025 at 03:15 PM EDT Sign off status: Pending * Provider: Latisha Strange DDS Date: 03/13/2024 Generated for Ally aguayo/Jeri/eTransmitting on: 0 04/25/2025 03:15 PM EDT
--- OUTSIDE RECORDS SUMMARY | 2024-10-15 06:30 | XMS_ITS ---
Author Organization [facility] Address [address] [place] [address] Care Team Providers Care Salesperson [employer] Name Role Phone KAROLINA CHRISTIE DO Primary Care Provider Con Shields Unavailable [phone] Results Component Value Reference Range Notes SCC- CLAVICLE LEFT [id number] Reviewed date:10/23/2024 03:06:28 PM Interpretation: Performing Lab: Notes/Report: REASON FOR VISIT LEFT CLAVICLE FX Encounters Encounter Location Date Provider Diagnosis [facility] Office [address] [place] [address] [place] [address] 10/15/2024 Con Coyle Displaced fracture of lateral end of left clavicle, subsequent encounter for fracture with routine healing S42.032D Assessments Encounter Date Diagnosis (ICD Code) Assessment Notes Treatment Notes Treatment Clinical Notes Section Notes 10/15/2024 Displaced fracture of lateral end of left clavicle, subsequent encounter for fracture with routine healing (ICD-10 - S42.032D) Plan Of Treatment No Information Progress Notes * NOA HAMEED BDOB:1979 (44 yo M)Acc No.[id number]:10/15/2024 Patient: NOA RENAE Siobhan Provider: Selene Coyle MD :1980 A ge:44 Y S ex:Male Date:10/15/2024 Address:[address] [place] [id number] Pcp:KAROLINA CHRISTIE DO Subjective: * Chief Complaints: * 1 . LEFT CLAVICLE FX. * Medical History: Objective: * Vitals: Assessment: * Assessment: 1. D isplaced fracture of lateral end of left clavicle, subsequent encounter for fracture with routine healing - S42.032D Plan: * Treatment: Forms: * Images: * Electronic signature of Ananda Coyle MD on 04/25/2025 at 03:15 PM EDT Sign off status: Pending * Provider: Selene Coyle MD Date: Generated for Ally aguayo/Jeri/Irineo on: 0 04/25/2025 03:15 PM EDT
--- OUTSIDE RECORDS SUMMARY | 2025-04-25 15:14 | XMS_ITS | Patient Health Record ---
Author Organization [facility] es Address [address] [place] [address] Care Team Providers Care Manager Oracle Database Name Role Phone Dr. Roger Strange Primary Care Provider Renate Duke Unavailable [phone] Reason For Referral No Information Encounters Encounter Location Date Provider Diagnosis [facility] [address] [place] [address] 02/21/2025 Renate Duke Plan Of Treatment No Information Insurance Providers Payer Name Payer Address Payer Phone Subscriber Number Group Number Insured Name Patient Relationship to Insured Coverage Start Date Coverage End Date [place] [address] [place] [phone] [id number] NOA LEWIS Self - patient is the insured 5
--- OUTSIDE RECORDS SUMMARY | 2025-04-25 15:14 | XMS_ITS | Clinical Summary ---
Author Organization [facility] Address [address] [place] [address] Care Team Providers Care Still Pump Operator Name Role Phone Gasper Persaud Primary Care Provider [phone] Allergies Active Allergy Reactions Criticality Noted Date Comments Pertussis Immune Globulin 05/30/2003 Medications Midazolam 5 MG/0.1ML solutionIndicati ons:Focal epilepsy with impairment of consciousness, intractable (HCC) 1 dose after convulsive seizure > 5 minutes. May repeat in other nostril 10 minutes later if needed 4 each 3 4 Active brivaracetam (Briviact) 100 MG tablet tabletIndication s:Focal epilepsy with impairment of consciousness, intractable (HCC) TAKE 1 TABLET BY MOUTH EVERY 12 HOURS 60 tablet 5 5 Active clonazePAM (KlonoPIN) 0.5 MG tabletIndication s:Focal epilepsy with impairment of consciousness, intractable (HCC) TAKE 1/2 (ONE-HALF) OF A TABLET BY MOUTH AT BEDTIME 15 tablet 5 5 Active lamoTRIgine (LaMICtal) 200 MG tabletIndication s:Focal epilepsy with impairment of consciousness, intractable (HCC) Take 1 tablet (200 mg) by mouth in the morning and 1 tablet (200 mg) before bedtime. 60 tablet 5 5 06/16/20 25 Active Xcopri 100 MG tabletIndication s:Focal epilepsy with impairment of consciousness, intractable (HCC) TAKE 1 TABLET BY MOUTH ONCE DAILY AT BEDTIME 30 tablet 5 5 Active divalproex (Depakote) 250 MG EC tabletIndication s:Focal epilepsy with impairment of consciousness, intractable (HCC) 1 tab QAM 30 tablet 5 5 Active Active Problems Problem Noted Date Diagnosed Date Developmental delay, severe 09/17/2024 Assessment & Plan (12/19/2024 9:57 AM EST): (No available tx.) Medication side effect 05/17/2023 Assessment & Plan (07/19/2023 12:58 PM EDT): (Med stopped.) Focal epilepsy with impairme nt of consciousness, intractable 03/15/2023 Assessment & Plan (12/19/2024 9:57 AM EST): Driving - does not drive. (Continue current regimen.) Hold off on VNS referral for now, mom wants to consider. Ask pt ambassador to speak with mom. Long discussion re low-carb diet. Avoid bread, potatoes, (regular) ice cream. Levels before appt. Orders: lamoTRIgine (LaMICtal) 200 MG tablet; Take 1 tablet (200 mg) by mouth in the morning and 1 tablet (200 mg) before bedtime. divalproex (Depakote) 250 MG EC tablet; 1 tab Q12 Cenobamate (Xcopri) 100 MG tablet; Take 100 mg by mouth at bedtime Assessment & Plan (09/18/2024 2:57 PM EST): Driving - does not drive. (Continue current regimen.) Re-refer for VNS implantation - [place]. No phone call received. Levels before appt. Orders: Midazolam 5 MG/0.1ML solution; 1 dose after convulsive seizure > 5 minutes. May repeat in other nostril 10 minutes later if needed Assessment & Plan (07/17/2024 11:56 AM EDT): Driving - does not drive. Incr CNB to 100 hs. Refer for VNS implantation - [facility]. I will get the name of the surgeon. CNB level before f/u appt. Assessment & Plan (05/09/2024 2:07 PM EDT): Driving - does not drive. Add CNB titration pack (12.5 qhs x 2 w then 25 at bedtime x 2 w), then 50 at bedtime. When changing to 50, decr VPA to qd x 1 week, then stop. CNB, LTG levels in 8 w. Also nasal midazolam 5, std instr: spray in 1 nostril for seizure lasting 5 min, may repeat spray in other nostril in 3-5 min. At f/u appt consider re-adding low dose VPA e.g. 125 to keep LTG level higher. Further Options - LCM, CBD, VNS. Assessment & Plan (04/17/2024 1:53 PM EDT): Driving - does not drive. Incr VPA to 250 q12. Levels in 1 w, f/t, with AST ALT NH4. Also consider LCM, CBD, VNS. Assessment & Plan (01/17/2024 1:10 PM EDT): Driving - does not drive. Restart VPA 250 qam. Also start ZNS 100 -> 200. Level after 3 w, *decide on dose change*. Then begin LTG taper - LTG 100/200 x 1 w, 100 q12 x 1 w, 50/100 x 1 w, 50 q12 x 1 w, 50 hs x 1 w, then stop. Call office if seizures worsen. Also consider LCM, CBD, VNS. Assessment & Plan (10/18/2023 11:39 AM EST): Driving - does not drive. Try tapering GBP by 1/2 pill q 2 w until stopped. Levels before next appt. Should addl med be needed, consider TPM, or LCM. From prev: [[[ Consider amb EEG, VNS, re-EMU. ]]] Assessment & Plan (07/19/2023 12:57 PM EDT): Levels before next appt. Should addl med be needed, consider TPM, or LCM. (Continue current meds.) Driving - does not drive. From prev: [[[ Consider amb EEG, VNS, re-EMU. ]]] Assessment & Plan (05/17/2023 1:09 PM EDT): (Continue current regimen.) Levels now. (All) Action/reminder - MD to call mom when levels received, consider dose changes. From prev: [[[ Consider amb EEG, VNS, re-EMU. 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 Assessment & Plan (12/19/2024 9:57 AM EST): (No available tx.) Assessment & Plan (09/18/2024 2:57 PM EST): Encounters Date Type Department Care Team Description 03/18/2025 Telephone [facility] [address] [place] [address] Sayda Anderson MA from Last 3 Months Family History Medical History Relation Name Comments Heart disease Father COD: [place] Diabetes Maternal Grandfather Hypertension Maternal Grandfather Cancer Maternal Grandmother Hypertension Maternal Grandmother Hypertension Mother Hypertension Paternal Grandfather Hypertension Paternal Grandmother Relation Name Status Comments Father Maternal Grandfather Maternal Grandmother Mother Alive Paternal Grandfather Paternal Grandmother Social History Tobacco Use Types Packs/Day Years Used Date Smoking Tobacco: Never Tobacco Cessation:Counseling Given: Not Answered Alcohol Use Standard Drinks/Week Comments Never 0 (1 standard drink = 0.6 oz pur e alcohol) Caffeine: none Sex and Gender Information Value Date Recorded Sex Assigned at Not on file Legal Sex Male 7:17 PM EDT Gender Identity Not on file Sexual Orientation Not on file Last Filed Vital Signs Vital Sign Reading Time Taken Comments Blood Pressure 189/108 05/09/2024 1:00 PM EDT Pulse 77 05/09/2024 1:00 PM EDT Temperature - - Respiratory Rate - - Oxygen Saturation - - Inhaled Oxygen Concentration - - Weight 68 kg (150 lb) 12/18/2024 10:41 AM EST Height 162.6 cm (5' 4 ) 12/18/2024 10:41 AM EST Body Mass Index 25.75 12/18/2024 10:41 AM EST Plan of Treatment Upcoming Encounters Date Type Department Care Team (Late Contact Info) Description 07/02/2025 10:45 AM EDT Office Visit [facility] [address] [place] [address] Prabhu Scott MD [address] [facility] [address] [place] [address] Health Maintenance Due Date Last Done Comments CT Colonography 1978 Colonoscopy 1978 Colorectal Cancer Screening 1978 FIT-DNA 1978 FIT 1978 FOBT 1978 Sigmoidoscopy 1978 Influenza Vaccine (#1) 2025 4, 07/28/2022, 07/11/2018, Additional history exists [place] [address] MEDICAID [place] Care Teams Still Pump Operator Relationship Specialty Start Date End Date Gasper Persaud DO PCP - General Internal Medicine 03/15/23
--- OUTSIDE RECORDS SUMMARY | 2025-04-25 15:14 | XMS_ITS | Patient Health Record ---
Author Organization [facility] [place] Address [address] [place] [address] Care Team Providers Care Shaper Set Up Operator Name Role Phone Gasper Persaud DO Primary Care Provider Unavaila ble Allergies Allergen (clinical drug ingredient) Drug/Non Drug Allergy documented on EMR Reaction Allergy Type Onset Date Status Pertussis from DPT vaccine (uncoded) Unknown Allergy Active Reason For Referral No Information Medications Medication SIG (Take, Route, Frequency, Duration) Notes Start Date End Date Status Aptiom 400 MG 1 tablet Orally Once a day 9 Active Social History Tobacco Use: Social History Observation Description Date Details (start date - stop date) Never Smoker NA - NA Tobacco Use/Smoking Question Answer Notes Patient is a nonsmoker Problems Problem Type SNOMED Code ICD Code Onset Dates Problem Status W/U Status Risk Notes Problem [id number] 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) Active confirmed Problem 151161475 Unspecified 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 (F09) Active confirmed Problem 822585744 Nonpsychotic mental disorder, 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) Active confirmed Problem 442399333 Partial symptomatic epilepsy with complex partial seizures, not intractable, without status epilepticus (G40.209) Active confirmed Plan Of Treatment No Information Insurance Providers Payer Name Payer Address Payer Phone Subscriber Number Group Number Insured Name Patient Relationship to Insured Coverage Start Date Coverage End Date MEDICARE RAILROAD [address] [address] [place], [place] [id number] Armando Hameed Self - patient is the insured 8 [place]ID [place] 2ND [place] [address] [facility] [place] [id number] Hameed Armando Self - patient is the insured 8 Medical (General) History Medical History History ICD Code epilepsy Surgical History Surgery Date(Month/Year) sedation with oral surgery 1983 1995 199 9 2002 2007 2010 Hospitalization History Reason Date(Month/Year) bronchitis 1983 week in [facility] for work up of epilepsy 2016
--- OUTSIDE RECORDS SUMMARY | 2025-04-25 15:15 | XMS_ITS | Encounter Summary ---
Author Organization [facility] Address [address] [place] [address] Care Team Providers Care Casino Attendant Name Role Phone Gasper Persaud DO Primary Care Provider [phone] Encounter Details Date Type Department Care Team ([facility] Contact Info) Description 05/22/2024 Telephone [facility] [place] [facility] [address] [place] [phone] Prabhu Scott MD [address] [place], [place] [id number] Social History Tobacco Use Types Packs/Day Years Used Date Smoking Tobacco: Never Alcohol Use Standard Drinks/Week Comments Never 0 (1 standard drink = 0.6 oz pur e alcohol) Caffeine: none Sex and Gender Information Value Date Recorded Sex Assigned at Not on file Legal Sex Male 7:17 PM EDT Gender Identity Not on file Sexual Orientation Not on file documented as of this encounter Miscellaneous Notes * Telephone Encounter - [place] - 05/22/2024 3:11 PM EDT Mom called states patient is doing well on the Xcopri 25 mg titr. He is now on the 25 mg part of the titr. She did say that his legs are shaking from the waist down only. He is have some difficulty with bowel movements, once he has a movement the leg shaking stops. She has given him some miralax for a day or two to help it along. documented in this encounter Plan of Treatment Upcoming Encounters Date Type Department Care Team (Late Contact Info) Description 07/02/2025 10:45 AM EDT Office Visit [facility] [address] [facility] [address] [place] [address] Prabhu Scott MD [address] [facility] [address] [place] [address] documented as of this encounter Visit Diagnoses Not on filedocumented in this encounter Care Teams Casino Attendant Relationship Specialty Start Date End Date Gasper Persaud DO PCP - General Internal Medicine 03/15/23 documented as of this encounter
--- OUTSIDE RECORDS SUMMARY | 2025-04-25 15:15 | XMS_ITS | Encounter Summary ---
Author Organization [facility] Address [address] [facility] [place] [address] Care Team Providers Care Electrical Instrument Technician Name Role Phone Gasper Persaud DO Primary Care Provider [phone] Encounter Details Date Type Department Care Team ([facility] Contact Info) Description 03/11/[address] [facility] [address] [phone] Prabhu Scott MD [address] [phone] Social History Tobacco Use Types Packs/Day Years [...] on file documented as of this encounter Plan of Treatment Upcoming Encounters Date Type Department Care Team ([facility] Contact Info) Description 07/02/2025 10:45 AM EDT Office Visit [facility] [address] [facility] [address] [place] [phone] Prabhu Scott MD [address] [phone] documented as of this encounter Visit Diagnoses Not on filedocumented in this encounter Care Teams Electrical Instrument Technician Relationship Specialty Start Date End Date Gasper Persaud DO PCP - General Internal Medicine 03/15/23 documented as of this encounter
--- OUTSIDE RECORDS SUMMARY | 2025-04-25 15:15 | XMS_ITS | Patient Health Record ---
Author Organization [facility] Address [address] [place] [address] Care Team Providers Care Compressor Station Engineer Chief Name Role Phone KAROLINA CHRISTIE DO Primary Care Provider Con Shields Unavailable [phone] Lyndsay Malik Unavailable Allergies No Known Allergies Results Component Value Reference Range Notes [facility]- [facility] LEFT [id number] Reviewed date:08/13/2024 10:49:17 AM Interpretation: Performing Lab: Notes/Report: [facility]- [facility] LEFT [id number] Reviewed date:12/19/2024 09:48:48 AM Interpretation: Performing Lab: Notes/Report: Reason For Referral No Information Medications Medication SIG (Take, Route, Frequency, Duration) Notes Start Date End Date Status Depakote Active LaMICtal Active Briviact Active KlonoPIN Active Social History Tobacco Use: Social History Observation Description Date Details (start date - stop date) Never Smoker NA - NA AUDIT-C (Standard) Question Answer Notes Did you have a drink containing alcohol in the p ast year? No Points 0 Interpretation Negative Tobacco Control (Standard) Question Answer Notes Tobacco use: Nonsmoker Problems Problem Type SNOMED Code ICD Code Onset Dates Problem Status W/U Status Risk Notes Problem 8854759 Displaced fracture of lateral end of left clavicle, initial encounter for closed fracture (S42.032A) Active confirmed Problem 31512112 Displaced fracture of lateral end of left clavicle, subsequent encounter for fracture with routine healing (S42.032D) Active confirmed Vital Signs Height 5'4 in 08/13/2024 Weight 160 lbs 08/13/2024 BMI 27.46 08/13/2024 Encounters Encounter Location Date Provider Diagnosis [facility] Office [address] [place] [address] [place] [address] 04/30/2024 Lyndsay Malik Displaced fracture of lateral end of left clavicle, initial encounter for closed fracture S42.032A [facility] [address] [facility] [place] [address] [place] [address] 06/11/2024 Lyndsay [facility] Displaced fracture of lateral end of left clavicle, subsequent encounter for fracture with routine healing S42.032D [facility] [address] [facility] [place] [address] [place] [address] 08/13/2024 Lyndsay [facility] Displaced fracture of lateral end of left clavicle, subsequent encounter for fracture with routine healing S42.032D [facility] [address] [facility] [place] [address] [place] [address] 10/22/2024 Lyndsay [facility] Displaced fracture of lateral end of left clavicle, subsequent encounter for fracture with routine healing S42.032D Assessments Encounter Date Diagnosis (ICD Code) Assessment Notes Treatment Notes Treatment Clinical Notes Section Notes 04/30/2024 Displaced fracture of lateral end of left clavicle, initial encounter for closed fracture (ICD-10 - S42.032A) 06/11/2024 Displaced fracture of lateral end of left clavicle, subsequent encounter for fracture with routine healing (ICD-10 - S42.032D) 08/13/2024 Displaced fracture of lateral end of left clavicle, subsequent encounter for fracture with routine healing (ICD-10 - S42.032D) 10/22/2024 Displaced fracture of lateral end of left clavicle, subsequent encounter for fracture with routine healing (ICD-10 - S42.032D) 04/30/2024 Other The patient is doing well with help of his mother. I discussed with her to try to prevent him from lifting/pushing/p ulling with this arm. We will see him back in 4 weeks with another x-ray to reevaluate his progress. 06/11/2024 Other Patient is doin g well and has returned to his baseline activities of daily living pain-free. We will see him back in 2 months to repeat x-rays and reassess his progress. 08/13/2024 Other Patient's x-ray today is reassuring that there was no further displacement of the current fracture/no new fractures after his recent fall during his seizure. Patient is back to his normal activities of daily living with no issue. We will see patient back in 2 months for likely a final x-ray. 10/22/2024 Other Patient is now 7 months out from injury and doing well and back to all his activities of daily living. X-rays look good today and we can see the patient back on an as-needed basis. Plan Of Treatment Pending Test Test Name Order Date [facility]- [facility] LEFT [id number] 03/19/2024 [facility]- [facility] LEFT [id number] 04/02/2024 [facility]- [facility] LEFT [id number] 04/30/2024 [facility]- [facility] LEFT [id number] 06/11/2024 Insurance Providers Payer Name Payer Address Payer Phone Subscriber Number Group Number Insured Name Patient Relationship to Insured Coverage Start Date Coverage End Date [employer] [address] [address] [place] [address] [id number] NOA LEWIS Self - patient is the insured
--- OUTSIDE RECORDS SUMMARY | 2025-04-25 15:15 | XMS_ITS | Encounter Summary ---
Author Organization [facility] Address [address] [place], [place] [address] Care Team Providers Care Layout Mechanic Name Role Phone Treasure Ruth Primary Care Provider [phone] Source Comments In the event this information is protected by the Federal Confidentiality of Alcohol and Drug AbusePatient Records regulations: The Federal rules restrict any use of the information to criminally investigate or prosecute any alcohol or drug abuse patient.[facility] Encounter Details Date Type Department Care Team (Latest Contact Info) Description 05/28/2003 Prob Sum Review Provider, Marcelino Social History Tobacco Use Types Packs/Day Years Used Date Smoking Tobacco: Never Assessed Sex and Gender Information Value Date Recorded Sex Assigned at Not on file Legal Sex Male 8:45 AM EST Gender Identity Not on file Sexual Orientation Not on file documented as of this encounter Plan of Treatment Not on file documented as of this encounter Visit Diagnoses Not on filedocumented in this encounter Care Teams Layout Mechanic Relationship Specialty Start Date End Date Treasure Ruth [address] [place] [address] PCP - General 05/29/02 documented as of this encounter
--- OUTSIDE RECORDS SUMMARY | 2025-04-25 15:15 | XMS_ITS | Clinical Summary ---
Author Organization [facility] Address [id number] [address] [place] [address] Care Team Providers Care Jewelry Polisher Name Role Phone Gasper Persaud DO Primary Care Provider [phone] Allergies Active Allergy Reactions Criticality Noted Date Comments Pertussis Vaccines 05/16/2017 Medications * This document contains information received from the source organization and may not represent a complete record from that organization. LAMOTRIGINE (LAMICTAL ORAL)Indication s:450mg daily Take by mouth Indications: 450mg daily. Active cloNIDine (CATAPRES) 0.1 mg tablet Take 1 tablet (0.1 mg total) by mouth 2 (two) times a day. 60 tablet 5 08/26/2017 Active LORazepam (ATIVAN) 0.[address] 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 Intellectual disability 05/25/2017 Encounters Date Type Department Care Team Description 03/15/2025 Travel from Last 3 Months Social History Tobacco Use Types Packs/Day Years Used Date Smoking Tobacco: Never Assessed Childcare Answer Date Recorded Childcare Unknown 03/28/2019 Employment Answer Date Recorded Employment Unknown 03/28/2019 Purpose - Life Answer Date Recorded Purpose and direction in life Unknown Sex and Gender Information Value Date Recorded Sex Assigned at Not on file Legal Sex Male 11:50 AM EDT Gender Identity Not on file Sexual Orientation Not on file Plan of Treatment Health Maintenance Due Date Last Done Comments Depression Screening 1990 Tobacco Screening 1990 Adult BMI Screening 1996 COVID-19 Vaccine (2023-2 5 season) 2024 12/11/2020, 11/13/2020 Influenza Vaccine 06/17/2025 06/26/2024, , 07/11/2018, Additional history exists DTaP,Tdap and Td Vaccines (2 - Td or Tdap) 05/22/2029 05/22/2019 Medical Devices Not on file Insurance MEDICAID [place] MEDICARE Care Teams Jewelry Polisher Relationship Specialty Start Date End Date Gasper Persaud DO [address] [place] [address] PCP - General 05/25/17
--- OUTSIDE RECORDS SUMMARY | 2025-04-25 15:15 | XMS_ITS | Encounter Summary ---
Author Organization [facility] Address [address] [place] [address] Care Team Providers Care Electronic Service Technician Name Role Phone Gasper Persaud DO Primary Care Provider [phone] Encounter Details Date Type Department Care Team ([facility] Contact Info) Description 11/05/2024 Orders Only [facility] [address] [id number] Prabhu Scott MD [address] [id number] Social History Tobacco Use Types Packs/Day Years [...] Upcoming Encounters Date Type Department Care Team ([facility] Contact Info) Description 07/02/2025 10:45 AM EDT Office Visit [facility] [address] [facility] [address] [place] [id number] Prabhu Scott MD [address] [id number] documented as of this encounter Visit Diagnoses Not on filedocumented in this encounter Care Teams Electronic Service Technician Relationship Specialty Start Date End Date Gsaper Persaud DO PCP - General Internal Medicine 03/15/23 documented as of this encounter
--- OUTSIDE RECORDS SUMMARY | 2025-04-25 15:15 | XMS_ITS | Clinical Summary ---
Author Organization [facility] Address [address] [place] [address] Care Team Providers Care Air Conditioning Unit Tester Name Role Phone Treasure Ruth Primary Care Provider [phone] Allergies Active Allergy Reactions Criticality Noted Date Comments Pertussis Immune Globulin 05/30/2003 Medications lamoTRIgine (LAMICTAL) 200 mg tablet Take 1 tablet by mouth twice daily. 60 tablet 5 6 Active cloNIDine HCl (CATAPRES) 0.1 mg tablet Take 0.5 tablets by mouth every 12 hours. 30 tablet 0 6 Active White Petrolatum-Mine ral Oil (LUBRICANT EYE) 56.8-41.5 % oint Use 1 application in both eyes at bedtime as needed. 1 Tube 0 6 Active Active Problems Problem Noted Date Diagnosed Date Seizure 08/02/2016 Localization-related (focal) (partial) epilepsy and epileptic syndromes with simple partial seizures, without mention of intractable epilepsy 05/29/2003 Other sleep disturbances 05/29/2003 Unspecified intellectual disabilities 05/29/2003 Social History Tobacco Use Types Packs/Day Years Used Date Smoking Tobacco: Never Assessed Sex and Gender Information Value Date Recorded Sex Assigned at Not on file Legal Sex Male 8:45 AM EST Gender Identity Not on file Sexual Orientation Not on file Last Filed Vital Signs Vital Sign Reading Time Taken Comments Blood Pressure 129/79 08/07/2016 7:40 AM EDT Pulse 76 08/07/2016 7:40 AM EDT Temperature 36.8 C (98.2 F) 08/07/2016 7:40 AM EDT Respiratory Rate 16 08/07/2016 7:40 AM EDT Oxygen Saturation 95% 08/07/2016 7:40 AM EDT Inhaled Oxygen Concentration - - Weight 84.2 kg (185 lb 10 oz) 08/02/2016 10:00 A M EDT Height 166.1 cm (5' 5.39 ) 05/30/2003 3:20 PM ED T Body Mass Index - - Plan of Treatment Health Maintenance Due Date Last Done Comments Anxiety Screening 1996 Depression Screening 1996 HIV Screening 1996 Hepatitis C Screening 1996 DTaP,Tdap,Td Vaccine (1 - Tdap) 1997 Hepatitis B Vaccine (1 of 3 - 19+ 3-dose series) 09/[address] Colonography 2023 Cologuard (FIT-DNA) 2023 Colonoscopy 2023 Colorectal Cancer Screening 2023 Diabetes Screening 2023 08/02/2016 Fecal Occult Blood 2023 Sigmoidoscopy 2023 Covid-19 Vaccine ( season) 2024 Influenza Vaccine (#1) 2025 Procedures Procedure Name Priority Date/Time Associated Diagnosis Comments COMPREHENSIVE METABOLIC PANEL (EU,FV,HL,LUISA,MM,SP) JAYDEN 08/02/2016 3:54 PM EDT from Last 3 Months or Most Recently Relevant to Health Maintenance Results * COMPREHENSIVE METABOLIC PANEL (EU,FV,HL,LUISA,MM,SP) (08/02/2016 3:54 PM EDT) Pathologist [facility] Protein, Total 7.3 6.0 - 8.4 g/dL 08/02/2016 5:20 PM EDT [facility] Albumin 3.6 3.5 - 5.0 g/dL 08/02/2016 5:20 PM EDT [facility] Calcium 9.8 8.5 - 10.5 mg/dL 08/02/2016 5:20 PM EDT [facility] Bilirubin, Total 0.3 0.0 - 1.5 mg/dL 08/02/2016 5:20 PM EDT [facility] Alkaline Phosphatase 96 40 - 150 U/L 08/02/2016 5:20 PM EDT [facility] AST 21 7 - 40 U/L 08/02/2016 5:20 PM EDT [facility] Glucose 87 65 - 100 mg/dL 08/02/2016 5:20 PM EDT [facility] BUN 17 10 - 25 mg/dL 08/02/2016 5:20 PM EDT [facility] Creatinine 1.12 0.70 - 1.40 mg/dL 08/02/2016 5:20 PM EDT [facility] Sodium 142 135 - 146 mmol/L 08/02/2016 5:20 PM EDT [facility] Potassium 4.0 3.5 - 5.0 mmol/L 08/02/2016 5:20 PM EDT [facility] Chloride 102 98 - 110 mmol/L 08/02/2016 5:20 PM EDT [facility] CO2 24 23 - 32 mmol/L 08/02/2016 5:20 PM EDT [facility] Anion Gap 16 9 - 18 mmol/L 08/02/2016 5:20 PM EDT [facility] ALT 18 5 - 50 U/L 08/02/2016 5:20 PM EDT [facility] Glom Filtration Rate (AA) >60 >60 08/02/2016 5:20 PM EDT [facility] eGFR-All Other Races >60 >60 . 08/02/2016 5:20 PM EDT [facility] Comment:eGFR LRR Standardiza tion Blood specimen (specimen) BLOOD SPECIMEN / Unknown 08/02/2016 3:54 PM EDT 08/02/2016 3:55 PM EDT Kianna Waldrop PATTERN SETTER.[facility] Result [facility] [address] [place] [address] from Last 3 Months or Most Recently Relevant to Health Maintenance Insurance [place]ICAID [place] MEDICARE [employer] Care Teams Air Conditioning Unit Tester Relationship Specialty Start Date End Date Treasure Ruth [address] [place] [id number] PCP - General 05/29/02
[2025-04-25 15:30] LABS: Hematocrit 47.0 % (42.0-54.0); Hemoglobin 15.7 g/dL (14.0-18.0); Immature Granulocytes Abs Auto 0.02 10^3/uL (0.00-0.03); Immature Granulocytes Pct Auto 0.3 % (0.0-0.5); Lymphocytes Absolute Auto 3.1 10^3/uL (1.2-3.8); Mean Corpuscular HGB Conc 33.4 g/dL (29.9-35.2); Mean Corpuscular Hemoglobin 30.8 pg (25.9-34.0); Mean Corpuscular Volume 92.2 fL (80.0-94.0); Platelet Count 208 10^3/uL (150-450); Red Blood Count 5.10 10^6/uL (4.70-6.10); White Blood Count 7.3 10^3/uL (4.0-11.0)
[2025-04-25 15:59] LABS: Alanine Aminotransferase 19 U/L (16-63); Albumin Globulin Ratio 0.6; Albumin Level 2.9 g/dL (3.4-5.0); Alkaline Phosphatase 116 U/L (46-116); Anion Gap 9.9; Aspartate Amino Transferase 17 U/L (15-37); Blood Urea Nitrogen 15.0 mg/dL (7.0-18.0); Calcium 9.5 mg/dL (8.5-10.1); Carbon Dioxide 32.4 mmol/L (21.0-32.0); Chloride 103 mmol/L (98-107); Estimated GFR (African America >60 (>=60 mL/min/1.73m^2); Estimated GFR (Non-African Ame >60 (>=60 mL/min/1.73m^2); Globulin 4.8 g/dL; Glucose 114 mg/dL (74-106); Potassium 4.3 mmol/L (3.5-5.1); Sodium 141 mmol/L (136-145); Total Protein 7.7 g/dL (6.4-8.2)
== END 2025-04-25 15:10 | disposition home or self-care (01) ==
LOC: LAB 15:12
PROVIDERS: PCP Internal Medicine; Visit Provider Internal Medicine
DX: G40.409 Other generalized epilepsy and epileptic syndromes, not intractable, without status epilepticus (principal); R53.83 Other fatigue; Z79.899 Other long term (current) drug therapy
CPT/HCPCS: 36415; 80053; 85025

== ENCOUNTER 2025-06-18 14:55 | Outpatient (OUT) | payer MEDICARE, MEDICAID, SELFPAY ==
--- OUTSIDE RECORDS SUMMARY | 2025-06-18 15:16 | XMS_ITS | CCD ---
Author Organization [facility] Care Team Providers Care Polytechnic Teacher Name Role Phone HUNG GASPER~[phone] UNKNOWN Unavailable Unavailable HUNG, GASPER~[phone] UNKNOWN Unavailable Unavailable BALL, GASPER~[phone] UNKNOWN Unavailable Unavailable BALL, GASPER~[phone] UNKNOWN Unavailable Unavailable Donna Haque Unavailable Jennifer Trujillo Unavailable Gasper Persaud Unavailable JUICE NAVA Consulting Unavailable DIAB ., CHICHI Attending Unavailable DIAB ., CHICHI Admitting Unavailable BALL, DR TURCIOS Primary Care Unavailable DIAB ., CHICHI Consulting Unavailable KEMAL, KYLER Consulting Unavailable KEMAL, KYLER Attending Unavailable KEMAL, KYLER Admitting Unavailable BALL, DR TURCIOS Primary Care Unavailable VEL ., [...] DR TURCIOS Admitting Unavailable ZIEBER, DR VAISHNAVI aLrkin Consulting Unavailable TIARRA YATES Consulting Unavailable VEL [...] SCOTT Attending Unavailable BEGORDY Good Attending Unavailable BEJGORDY Attending Unavailable BEGORDY Good Attending Unavailable BELatisha, GORDY Lopez Attending Unavailable BRENDON, GORDY Lopez Attending Unavailable GASPER PERSAUD Referring Unavailable GASPER PERSAUD Primary Care Unavailable NO FAMILY, PHYSICIAN Primary Care Provider Unava ilable Gasper Persaud DO Attending Provider [phone] Gasper Persaud DO Primary Care Provider Gasper Persaud DO Primary Care Provider Allergies Allergy Classification Reported Allergen(s) Allergy Type Date of Onset Reaction(s) Facility (1 source) Pertussis Immune Globulin Drug allergy (disorder) 3 [facility] Repository (3 sources) Pertussis Vaccine Drug Allergy Unknown [facility] Other (3 sources) Vaccine product containing Bordetella pertussis antigen (medicinal product) Drug allergy 5 Unknown [facility] Other (3 sources) patient allergy list reviewed by nurse or physicia Propensity to adverse reactions 5 Comment:Done [employer] Other (14 sources) Pertussis Immune Globulin Propensity to adverse reactions 3 [facility] (2 sources) Pertussis Vaccines; Translations: [PERTUSSIS VACCINES] Propensity to adverse reactions to drug 7 [facility] Medications Current Medications Medication Drug Class(es) Dates Sig (Normalized) Sig (Original) brivaracetam 100 mg oral tablet (16 sources) Start: 05-31-2024 End: 06-03-2025 take 1 tablet by mouth every twelve hours Briviact 100 MG tablet tablet Indications: Focal epilepsy with impairment of consciousness, intractable (HCC) TAKE 1 TABLET BY MOUTH EVERY 12 HOURS 60 tablet 5 06/03/2025 Active cenobamate 100 mg oral tablet (19 sources) Start: 07-18-2024 End: 06-17-2025 take 1 tablet by mouth once daily at bedtime Xcopri 100 MG tablet Indications: Focal epilepsy with impairment of consciousness, intractable (HCC) TAKE 1 TABLET BY MOUTH ONCE DAILY AT BEDTIME 30 tablet 5 01/15/2025 Active Start: 05-09-2024 End: 10-06-2024 take 1 tablet by mouth at bedtime Cenobamate (Xcopri) 50 MG tablet Indications: Focal epilepsy with impairment of consciousness, intractable (CMS/HCC) Take 50 mg by mouth at bedtime 30 tablet 3 05/09/2024 07/17/2024 Discontinued (Therapy completed) cloNIDine hydrochloride 0.1 mg oral tablet (1 [...] Active eslicarbazepine acetate 200 mg oral tablet (15 sources) Start: 04-10-2024 take 1 tablet by mouth once daily Eslicarbazepine (Aptiom) 200 mg tablet Active 400 MG PO Daily April 10, 2024 12:00am Complies with drug therapy Aptiom Active fluticasone propionate 0.05 mg/actuat metered dose nasal spray (9 sources) Corticosteroid Start: 04-10-2024 take 1 spray(s) nasal route once daily Fluticasone Propionate (Flonase Allergy Relief) 50 mcg/actuation spray,suspension Active 1 SPRAY INTRANASAL Daily April 10, 2024 12:00am [employer] spray in each nostril Nasally Once a day; Note: Source Status: Taking; Provider: Hung Bullock Complies with drug therapy Start: 04-18-2023 take 1 spray(s) nasa l route once daily Flonase Allergy Relief 50 MCG/ACT 1 spray in each nostril Nasally Once a day for 30 days Apr, Active Start: 04-18-2023 gabapentin 600 mg oral tablet (13 sources) Anti-epileptic Agent Start: 04-10-2024 take 1 tablet by mouth twice daily Gabapentin 600 mg tablet Active 600 MG PO Twice daily April 10, 2024 12:00am Complies with drug therapy take 1 tablet by hakan th every twelve hours Gabapentin 600 MG 1 tablet Orally twice a day Active lamoTRIgine 200 mg oral tablet (20 sources) Mood Stabilizer, Anti-epileptic Agent Start: 12-27-2023 End: 06-16-2025 take 1 tablet by mouth in the morning lamoTRIgine (LaMICtal) 200 MG tablet Indications: Focal epilepsy with impairment of consciousness, intractable (HCC) Take 1 tablet (200 mg) by mouth in the morning and 1 tablet (200 mg) before bedtime. 60 tablet 5 12/18/2024 06/16/2025 Active take 450 mg by mouth once [...] day(s) Active loratadine 10 mg oral tablet (9 sources) Start: 04-10-2024 take 1 tablet by mouth once daily Loratadine 10 mg tablet Active 1 TAB PO Daily April 10, 2024 12:00am [employer] tablet Orally Once a day; Note: Source Status: Taking; Provider: Hung Bullock Complies with drug therapy Start: 04-18-2023 take 1 tablet by hakan th once daily Loratadine 10 MG 1 tablet Orally Once a day for 30 days Apr, Active Start: 04-18-2023 LORazepam 0.5 mg oral tablet (1 source) Benzodiazepine Start: 11-01-2017 LORazepam (CHERRI DIEGO) 0.[address] Cobian 11/01/2017 Active midazolam 50 mg/ml nasal spray (16 sources) Benzodiazepine Start: 05-09-2024 End: 09-18-2024 Midazolam 5 MG/0.1ML solution Indications: Focal epilepsy with impairment of consciousness, intractable (HCC) 1 dose after convulsive seizure > 5 minutes. May repeat in other nostril 10 minutes later if needed 4 each 3 09/18/2024 Active divalproex sodium 250 mg delayed release oral tablet (16 sources) Mood Stabilizer, Anti-epileptic Agent Start: 03-18-2025 divalproex (Depakot e) 250 MG EC tablet Indications: Focal epilepsy with impairment of consciousness, intractable (HCC) 1 tab QAM 30 tablet 5 03/18/2025 Active Start: 04-17-2024 End: 12-18-2024 divalproex (Depakote) 250 MG EC tablet Indications: Focal epilepsy with impairment of consciousness, intractable (CMS/HCC) 1 tab Q12 60 tablet 5 12/18/2024 Active Completed/Discontinued Medications Medication Drug Class(es) Dates Sig (Normalized) Sig (Original) azithromycin 250 mg oral tablet (2 sources) Macrolide Antimicrobial Start: 01-30-2025 End: 04-24-2025 Azithromycin 250 mg tablet Discontinued 250 MG PO .COMPLEX 6 5 January 30, 2025 12:00am April 24, 2025 1:51pm 2 tabs on first day followed by 1 tab on days 2-5 Cenobamate (Xcopri) 25 MG tablet (3 sources) [...] mg at bedtime. 30 tablet 05/09/2024 Active clonazePAM 0.5 mg oral tablet (20 sources) Benzodiazepine Start: 04-10-2024 End: 06-04-2025 take 0.5 tablet by mouth at bedtime clonazePAM (KlonoPIN) 0.5 MG tablet Indications: Focal epilepsy with impairment of consciousness, intractable (HCC) TAKE 1/2 (ONE-HALF) OF A TABLET BY MOUTH AT BEDTIME 15 tablet 5 12/07/2024 06/04/2025 Discontinued (Reorder) take 1 tablet by hakan th every twenty-four hours KlonoPIN 0.5 MG 1 tablet at bedtime Orally Once a day Active Problems Active Problems Problem Classification Problem [...] Onset: 08-24-2016 Episodic Disorders of lipid metabolism (5 sources) Hyperlipidemia, unspecified; Translations: [Hypercholesterolemi a] Onset: [...] 11-25-2022 Episodic Other aftercare (1 source) Other jail (current) drug therapy; Translations: [OTH GROUP HOME CURRENT DRUG THERAPY] Onset: 01-24-2023 Episodic Other aftercare (3 sources) Long-term current use of drug therapy; 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 jail (current) drug therapy] Episodic Other aftercare (1 source) Taking high risk medication; 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 jail (current) drug therapy] 04-24-2025 Episodic Other connective tissue disease (1 source) Myalgia, unspecified site; Translations: [MYALGIA UNSPECIFIED SITE] Onset: 11-25-2022 Episodic Other connective tissue disease (1 source) Repeated falls; Translations: [Repeated falls] Onset: 03-15-2025 Episodic Other ear and sense organ disorders [...] Onset: 04-21-2022 Chronic Other nervous system disorders (20 sources) Static encephalopathy; 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] Onset: [...] Chronic Other nutritional; endocrine; and metabolic disorders (4 sources) Unspecified lack of expected normal physiological development in childhood; Translations: [Lack of normal physiological development, unspecified] Onset: 01-24-2023 04-10-2024 Episodic Other nutritional; endocrine; and metabolic disorders (3 sources) Physiological development failure; Translations: [Unspecified lack of expected normal physiological development in childhood] Episodic Other screening for suspected conditions (not mental disorders or infectious disease) (4 sources) Other specified abnormal findings of blood [...] rhinitis; Translations: [Vasomotor rhinitis] Onset: 01-01-2019 Chronic Other upper respiratory infections (8 sources) Acute maxillary sinusitis; Translations: [Acute maxillary sinusitis, unspecified] Onset: 05-10-2016 01-30-2025 Episodic Paralysis (14 sources) Ataxic cerebral palsy; Translations: [...] Complications of surgical procedures or medical care (14 sources) Drug therapy finding; Translations: [Unspecified adverse [...] [History of falling] Onset: 8 Episodic Other nutritional; endocrine; and metabolic disorders (20 sources) Developmental delay; Translations: [Unspecified lack of expected normal physiological development in childhood] Onset: 4 04-08-2024 Episodic Residual codes; unclassified (3 sources) Pain, [...] 06-05 Lamotrigine (Lamictal) Level 19.4 ug/mL 2.0-20.0 [facility] Comment on above: Detection Limit = 1.0Performed at: [address] [id number] Director: Chris Lux MD, Phone: [phone] Miscellaneous Test COMMENT . [facility] Comment on above: Test Ordered: [id number] Cenobamate (Xcopri) , PlasmaCenobamate 2.6 [L ] ug/mL Reference Range: .Although the therapeutic range is not well established, thesuggested range at doses of 100 - 400 mg/day is 5 - 35 ug/mL.Toxic range has not been established.This test was developed and its performance characteristicsdetermined by [employer]. It has not been cleared or approvedby the Food and Drug Administration.Performed at: [facility] [place] [id number] Director: Vero Hicks [facility], Phone: [phone] at: [address] [id number] Director: Silvestre Nelson PhD, Phone: [phone] No Panel Informationon 04-27 Miscellaneous Test COMMENT . [facility] Comment on above: Test Ordered: [id number] Valproic Acid (Tota l+Free)Valproic Acid (Depakote)(R),S 41 [L ] ug/mL Reference Range: 50-100 Detection Limit = 4 <4 indicates None DetectedToxicity may occur at levels of 100-500. Measurementsof free unbound valproic acid may improve the assess-ment of clinical response.Free Valproic Acid (Depakote) 9.4 ug/mL Reference Range: 6.0-22.0 Detection Limit = 0.5Performed at: [address] [id number] Director: Silvestre Nelson PhD, Phone: [phone] at: [address] [id number] Director: Chris Lux MD, Phone: [phone] Laboratory - Chemistry and C hemistry - challengeon 04-23-2024 ALT [Catalytic activity/Vol] 23 U/L 16-63 [facility] Ammonia (P) [Moles/Vol] 38 umol/L High 11-32 [facility] AST [Catalytic activity/Vol] 17 U/L 15-37 [facility] No Panel Informationon 04-23 Lamotrigine (Lamictal) Level 23.3 ug/mL Abnormal 2.0-20.0 [facility] Comment on above: Verified by repeat analysis Detectio n Limit = 1.0Performed at: [address] [id number] Director: Chris Lux MD, Phone: [phone] Miscellaneous Test COMMENT . [facility] Comment on above: Test Ordered: [id number] Brivaracetam, SE/PL Brivaracetam 3.33 [H ] ug/mL Reference Range: 0.20 - 2.00This test was developed and its performance characteristicsdetermined by [employer]. It has not been cleared or approvedby the Food and Drug Administration.Performed at: [employer] [address] [id number] Director: Vero Hicks [facility], Phone: [phone] at: [address] [id number] Director: Silvestre Nelson PhD, Phone: [phone] No Panel Informationon 03-26 Lamotrigine (Lamictal) Level 17.1 ug/mL 2.0-20.0 [facility] Comment on above: Detection Limit = 1.0Performed at: [address] [id number] Director: Chris Lux MD, Phone: [phone] Miscellaneous Test COMMENT . [facility] Comment on above: Test Ordered: [id number] Valproic Acid (Tota l+Free)Valproic Acid (Depakote)(R),S 11 [L ] ug/mL Reference Range: 50-100 Detection Limit = 4 <4 indicates None DetectedToxicity may occur at levels of 100-500. Measurementsof free unbound valproic acid may improve the assess-ment of clinical response.Free Valproic Acid (Depakote) 2.6 [L ] ug/mL Reference Range: 6.0-22.0 Detection Limit = 0.5Performed at: - [facility] [place], [place] [id number] Director: Silvestre Nelson PhD, Phone: [phone] at: [facility] [id number] Director: Chris Lux MD, Phone: [phone] XR HIP LT 2 3V W PELVISon [...] Date: 2023-01-23 09:52 Normal [facility] XR SHOULDER LT 2V or >on [...] Date: 2023-01-23 09:51 Normal [facility] LAMOTRIGINEon 11-25-2022 Lamotrigine, Serum 15.7 ug/mL Normal 2.0-20.0 [facility] Comment on above: Result Comment: Detection Limit = 1.0 Performed By: #### L AMOT #### [facility] [address] [place] [address] Dr. Daphne Cheney LAMOTRIGINEon 09-17-2022 Lamotrigine, Serum 23.2 ug/mL Invalid Interpretation Code 2.0-20.0 [facility] Comment on above: Result Comment: Verified by repeat candelario lysis Detection Limit = 1.0 Performed By: #### L AMOT #### [facility] [address] [address] [address] Daphne Cheney SARS-CoV-2 (COVID-19) RNA NA A+probe Ql (Resp)on 06-19-2022 SARS-CoV-2 (COVID-19) RNA TEO+probe Ql (Unsp spec) Positive [employer] Other XR MODIFIED BARIUM SWALLOWon 06-16-2022 XR [...] Date: 2022-06-16 11:18 Normal [facility] XR KNEE GEMA 4V or >on 2021 XR KNEE GEMA 4V or > EXAM: XR KNEE GEMA 4V or > HISTORY: Unspecified fall COMPARISON: None. TECHNIQUE: 9 views total FINDINGS: No fracture, dislocation, subluxation or osseous lesion. No visualized knee effusion. Joint spaces are normal. IMPRESSION: Normal knee x-rays Electronically authenticated by: JUICE WILD Date: 2022-06-09 17:19 Normal [facility] LAMOTRIGINEon 04-24-2022 Lamotrigine, Serum 11.2 ug/mL Normal 2.0-20.0 [facility] Comment on above: Result Comment: Detection Limit = 1.0 Performed By: #### L AMOT ####[facility] [address] [place], [place] [address]YhDr. Daphne Cheney XR CHEST 2 Von 03-10-2022 [...] Date: 2022-03-10 14:59 Normal [facility] CARDIAC GORDY 3-6on 2 CK [Catalytic activity/Vol] 73 U/L Normal 39-308 [facility] Comment on above: Performed By: #### CMREP #### [facility] [address] [address] [address] Daphne Cheney CK.MB [Mass/Vol] 0.95 ng/mL Normal <=3.60 [facility] Comment on above: Performed By: #### CMREP #### [facility] [address] [address] [address] Daphne Cheney HSTROP 4.8 pg/mL Normal 4.0-76.1 [facility] Comment on above: Result Comment: CUT-OFF POINTS HAVE BEEN ESTABLISHED BASED ON THE FOURTH UNIVERSAL DEFINITIONS OF MYOCARDIAL INFARCTION. THE UPPER REFERENCE LIMIT (URL) OF TROPONIN, DEFINED THE 99TH PERCENTILE OF cTnI DISTRIBUTION IN A REFERENCE POPULATION, HAS BEEN CONFIRMED THE DECISION THRESHOLD FOR ID DIAGNOSIS. Performed By: #### C MREP #### [facility] [address] [address] [address] Daphne Cheney CARDIAC GORDY ADMITon 022 CK [Catalytic activity/Vol] 64 U/L Normal 39-308 [facility] Comment on above: Performed By: #### BMP, CMADM #### [facility] [address] [address] [address] Daphne Cheney CK.MB [Mass/Vol] 0.85 ng/mL Normal <=3.60 [facility] Comment on above: Performed By: #### MATA, CMADM #### [facility] [address] [address] [address] Daphne Cheney HSTROP 4.1 pg/mL Normal 4.0-76.1 [facility] Comment on above: Result Comment: CUT-OFF POINTS HAVE BEEN ESTABLISHED BASED ON THE FOURTH UNIVERSAL DEFINITIONS OF MYOCARDIAL INFARCTION. THE UPPER REFERENCE LIMIT (URL) OF TROPONIN, DEFINED THE 99TH PERCENTILE OF cTnI DISTRIBUTION IN A REFERENCE POPULATION, HAS BEEN CONFIRMED THE DECISION THRESHOLD FOR ID DIAGNOSIS. Performed By: #### B HAYDE SAMAYOA #### [facility] [address] [address] [address] Daphne Cheney MANDIE 98 ng/mL Critically high 16-96 [facility] Comment on above: Performed By: #### BMP, CMADM #### [facility] [address] [address] [address] Daphne Cheney CBC AUTO DIFFon 02-14-2022 BASO # 0.1 103/ul Normal 0.0-0.1 [facility] Comment on above: Performed By: #### CBC ####[facility] [address] [address]DrGeorge Cheney Basophils/100 WBC (Bld) 0.5 % Normal 0.2-2.0 [facility] Comment on above: Performed By: #### CBC ####[facility] [address] [address]DrGeorge Cheney EO # 0.0 103/ul Normal 0.0-0.7 [facility] Comment on above: Performed By: #### CBC ####[facility] [address] [address]DrGeorge Cheney Eosinophils/100 WBC (Bld) 0.2 % Critically low 0.9-7.0 [facility] Comment on above: Performed By: #### CBC ####[facility] [address] [address]Dr. Daphne Cheney Erythrocyte distribution width (RBC) [Ratio] 13.0 % Normal 11.0-15.0 [facility] Comment on above: Performed By: #### CBC ####[facility] [address] [address]Dr. Daphne Cheney Hematocrit (Bld) [Volume fraction] 48.6 % Normal 42.0-54.0 [facility] Comment on above: Performed By: #### CBC ####[facility] [address] [address]Dr. Dpahne Cheney Hemoglobin (Bld) [Mass/Vol] 15.2 g/dL Normal 14.0-18.0 [facility] Comment on above: Performed By: #### CBC ####[facility] [address] [address]Dr. Daphne Cheney IG # 0.05 10e3/ul Critically high 0.00-0.03 [facility] Comment on above: Performed By: #### CBC ####[facility] [address] [address]Dr. Daphne Cheney IG % 0.4 % Normal 0.0-0.5 [facility] Comment on above: Performed By: #### CBC ####[facility] [address] [address]Dr. Daphne Cheney LYMPH # 1.2 103/ul Normal 1.2-3.8 [facility] Comment on above: Performed By: #### CBC ####[facility] [address] [address]Dr. Daphne Cheney Lymphocytes/100 WBC (Bld) 9.2 % Critically low 20.5-60.0 [facility] Comment on above: Performed By: #### CBC ####[facility] [address] [address]Dr. Daphne Cheney MANUAL DIFF REQ NO Normal [facility] Comment on above: Performed By: #### CBC ####[facility] [address] [address]Dr. Daphne Cheney MCH (RBC) [Entitic mass] 28.7 pg Normal 25.9-34.0 [facility] Comment on above: Performed By: #### CBC ####[facility] [address] [address]Dr. Daphne Cheney MCHC (RBC) [Mass/Vol] 31.3 g/dL Normal 29.9-35.2 [facility] Comment on above: Performed By: #### CBC ####[facility] [address] [address]Dr. Shahrzadtj Cheney MCV (RBC) [Entitic vol] 91.9 fL Normal 80.0-94.0 [facility] Comment on above: Performed By: #### CBC ####[facility] [address] [address]Dr. Daphne Cheney MONO # 0.9 103/ul Critically high 0.3-0.8 [facility] Comment on above: Performed By: #### CBC ####[facility] [address] [address]Dr. Daphne Cheney Monocytes/100 WBC (Bld) 7.2 % Normal 1.7-12.0 [facility] Comment on above: Performed By: #### CBC ####[facility] [address] [address]Dr. Daphne Cheney NEUT # 10.7 103/ul Critically high 1.4-6.5 [facility] Comment on above: Performed By: #### CBC ####[facility] [address] [address]Dr. Daphne Cheney Neutrophils/100 WBC (Bld) 82.5 % Critically high 43.0-75.0 [facility] Comment on above: Performed By: #### CBC ####[facility] [address] [place], [place] [address]Dr. Daphne Cheney Platelet mean volume (Bld) [Entitic vol] 8.4 fL Critically low 9.5-13.5 [facility] Comment on above: Performed By: #### CBC ####[facility] [address] [place], [place] [address]Fh. Daphne Cheney PLT 446 103/ul Normal 150-450 [facility] Comment on above: Performed By: #### CBC ####[facility] [address] [place], [place] [address]Xk. Daphne Cheney RBC 5.29 106/ul Normal 4.70-6.10 [facility] Comment on above: Performed By: #### CBC ####[facility] [address] [place], [place] [address]Ij. Daphne Cheney WBC 13.0 103/ul Critically high 4.0-11.0 [facility] Comment on above: Performed By: #### CBC ####[facility] [address] [place], [place] [address]Yk. Daphne Cheney CT ABD/PELVIS WO CONon 02-14 [...] Date: 2022-02-14 08:30 Normal [facility] CT HEAD WO CONon 02-14-2022 CT [...] Date: 2022-02-14 08:27 Normal [facility] Covid-19 PCR (CVDTB)on SARS-CoV-2 (COVID-19) RNA TEO+probe Ql (Unsp spec) Not detected Normal NOT DETECTED [facility] Comment on above: Result Comment: When diagnostic testing is negative, the possibility of a false negative should be considered in the context of a patient's recent exposures and the presence of clinical signs and symptoms consistent with SARS-CoV-2. This test is not yet approved or cleared by the [place] Food and Drug Administration (FDA). This test was developed by [employer], [place], [place]. The performance characteristics of this test were validated by [facility]. The results are not intended to be used as the sole means for clinical diagnosis or patient management decisions. [facility] is authorized under Clinical Laboratory Improvement [...] for this test is supported by the [place] of Health and Human Service's declaration that [...] used). Performed By: #### C VDTBH #### [facility] [address] [address] [address] Daphne Cheney LIPASEon 02-14-2022 Lipase [Catalytic activity/Vol] 92.0 U/L Normal 73.0-393.0 [facility] Comment on above: Performed By: #### LIPA ####[facility] [address] [address]Dr. Daphne Cheney OCC BLD IMMUNO SCREENon OCCULT BLOOD Negative Normal NEGATIVE [facility] Comment on above: Performed By: #### OBSCRN ####[facility] [address] [address]Dr. Daphne Cheney PROF CHEM 8 (BAS METB)on Anion gap [Moles/Vol] 12.3 mmol/L Normal [facility] Comment on above: Performed By: #### MATA, CMADM #### [facility] [address] [address] [address] Daphne Cheney Calcium [Mass/Vol] 9.6 mg/dL Normal 8.5-10.1 [facility] Comment on above: Performed By: #### BMP, CMADM #### [facility] [address] [address] [address] Daphne Cheney Chloride [Moles/Vol] 98 mmol/L Normal 98-107 [facility] Comment on above: Performed By: #### BMP, CMADM #### [facility] [address] [address] [address] Daphne Cheney CO2 [Moles/Vol] 32.4 mmol/L Critically high 21.0-32.0 [facility] Comment on above: Performed By: #### BMP, CMADM #### [facility] [address] [address] [address] Daphne Cheney Creatinine [Mass/Vol] 1.19 mg/dL Normal 0.70-1.30 [facility] Comment on above: Performed By: #### BMP, CMADM #### [facility] [address] [address] [address] Daphne Cheney EGFR-AF SAO TOMEAN >60 Normal >=60 [facility] Comment on above: Performed By: #### BMP, CMADM #### [facility] [address] [address] [address] Daphne Cheney EGFR-NON AF SAO TOMEAN >60 Normal >=60 [facility] Comment on above: Performed By: #### BMP, CMADM #### [facility] [address] [address] [address] Daphne Cheney Glucose [Mass/Vol] 120 mg/dL Critically high 74-106 [facility] Comment on above: Performed By: #### BMP, CMADM #### [facility] [address] [address] [address] Daphne Cheney Potassium [Moles/Vol] 4.7 mmol/L Normal 3.5-5.1 [facility] Comment on above: Performed By: #### BMP, CMADM #### [facility] [address] [address] [address] Daphne Cheney Sodium [Moles/Vol] 138 mmol/L Normal 136-145 [facility] Comment on above: Performed By: #### BMP, CMADM #### [facility] [address] [address] [address] Daphne Cheney Urea nitrogen [Mass/Vol] 12.0 mg/dL Normal 7.0-18.0 [facility] Comment on above: Performed By: #### BMP, CMADM #### [facility] [address] [address] [address] Daphne Cheney Urea nitrogen/Creatin ine [Mass ratio] 10.1 mg/mg Normal [facility] Comment on above: Performed By: #### BMP, CMADM #### [facility] [address] [place] [address] Dr. Daphne Cheney XR KUB 1 VIEWon [...] RAY GREEN Date: 2022-02-14 06:35 Normal [facility] CBC AUTO DIFFon 02-02-2022 BASO # 0.0 103/ul Normal 0.0-0.1 [facility] Comment on above: Performed By: #### CBC #### [facility] [address] [place] [address] Dr. Daphne Cheney Basophils/100 WBC (Bld) 0.2 % Normal 0.2-2.0 [facility] Comment on above: Performed By: #### CBC #### [facility] [address] [place] [address] Dr. Daphne Cheney EO # 0.0 103/ul Normal 0.0-0.7 [facility] Comment on above: Performed By: #### CBC #### [facility] [address] [place] [address] Dr. Daphne Cheney Eosinophils/100 WBC (Bld) 0.0 % Critically low 0.9-7.0 [facility] Comment on above: Performed By: #### CBC #### [facility] [address] [place] [address] Dr. Daphne Cheney Erythrocyte distribution width (RBC) [Ratio] 13.8 % Normal 11.0-15.0 [facility] Comment on above: Performed By: #### CBC #### [facility] [address] [place] [address] Dr. Daphne Cheney Hematocrit (Bld) [Volume fraction] 42.5 % Normal 42.0-54.0 [facility] Comment on above: Performed By: #### CBC #### [facility] [address] [place] [address] Dr. Daphne Cheney Hemoglobin (Bld) [Mass/Vol] 13.9 g/dL Critically low 14.0-18.0 [facility] Comment on above: Performed By: #### CBC #### [facility] [address] [place] [address] Dr. Daphne Cheney IG # 0.13 10e3/ul Critically high 0.00-0.03 [facility] Comment on above: Performed By: #### CBC #### [facility] [address] [place] [address] Dr. Daphne Cheney IG % 1.0 % Critically high 0.0-0.5 [facility] Comment on above: Performed By: #### CBC #### [facility] [address] [place] [address] Dr. Daphne Cheney LYMPH # 1.2 103/ul Normal 1.2-3.8 [facility] Comment on above: Performed By: #### CBC #### [facility] [address] [place] [address] Dr. Daphne Cheney Lymphocytes/100 WBC (Bld) 8.6 % Critically low 20.5-60.0 [facility] Comment on above: Performed By: #### CBC #### [facility] [address] [place] [address] Dr. Daphne Cheney MANUAL DIFF REQ NO Normal [facility] Comment on above: Performed By: #### CBC #### [facility] [address] [place] [address] Dr. Daphne Cheney MCH (RBC) [Entitic mass] 29.4 pg Normal 25.9-34.0 [facility] Comment on above: Performed By: #### CBC #### [facility] [address] [place] [address] Dr. Daphne Cheney MCHC (RBC) [Mass/Vol] 32.7 g/dL Normal 29.9-35.2 [facility] Comment on above: Performed By: #### CBC #### [facility] [address] [address] [address] Daphne Cheney MCV (RBC) [Entitic vol] 90.0 fL Normal 80.0-94.0 [facility] Comment on above: Performed By: #### CBC #### [facility] [address] [address] [address] Daphne Cheney MONO # 1.3 103/ul Critically high 0.3-0.8 [facility] Comment on above: Performed By: #### CBC #### [facility] [address] [place] [address] Dr. Daphne Cheney Monocytes/100 WBC (Bld) 9.2 % Normal 1.7-12.0 [facility] Comment on above: Performed By: #### CBC #### [facility] [address] [place] [address] Dr. Daphne Cheney NEUT # 11.0 103/ul Critically high 1.4-6.5 [facility] Comment on above: Performed By: #### CBC #### [facility] [address] [place] [address] Dr. Daphne Cheney Neutrophils/100 WBC (Bld) 81.0 % Critically high 43.0-75.0 [facility] Comment on above: Performed By: #### CBC #### [facility] [address] [place] [address] Dr. Daphne Cheney Platelet mean volume (Bld) [Entitic vol] 9.6 fL Normal 9.5-13.5 [facility] Comment on above: Performed By: #### CBC #### [facility] [address] [place] [address] Dr. Daphne Cheney PLT 193 103/ul Normal 150-450 [facility] Comment on above: Performed By: #### CBC #### [facility] [address] [place] [address] Dr. Daphne Cheney RBC 4.72 106/ul Normal 4.70-6.10 [facility] Comment on above: Performed By: #### CBC #### [facility] [address] [address] [address] Daphne Cheney WBC 13.6 103/ul Critically high 4.0-11.0 [facility] Comment on above: Performed By: #### CBC #### [facility] [address] [address] [address] Daphne Cheney PROF 14(COMP METB)on 022 Albumin [Mass/Vol] 2.4 g/dL Critically low 3.4-5.0 [facility] Comment on above: Performed By: #### CMP #### [facility] [address] [address] [address] Daphne Cheney Albumin/Globulin [Mass ratio] 0.4 {ratio} Normal [facility] Comment on above: Performed By: #### CMP #### [facility] [address] [place] [address] Dr. Daphne Cheney ALP [Catalytic activity/Vol] 111 U/L Normal 46-116 [facility] Comment on above: Performed By: #### CMP #### [facility] [address] [place] [address] Dr. Daphne Cheney ALT [Catalytic activity/Vol] 92 U/L Critically high 16-63 [facility] Comment on above: Performed By: #### CMP #### [facility] [address] [place] [address] Dr. Daphne Cheney Anion gap [Moles/Vol] 13.5 mmol/L Normal [facility] Comment on above: Performed By: #### CMP #### [facility] [address] [place] [address] Dr. Daphne Cheney AST [Catalytic activity/Vol] 83 U/L Critically high 15-37 [facility] Comment on above: Performed By: #### CMP #### [facility] [address] [place] [address] Dr. Daphne Cheney Bilirubin [Mass/Vol] 0.7 mg/dL Normal 0.2-1.3 [facility] Comment on above: Performed By: #### CMP #### [facility] [address] [address] [address] Daphne Cheney Calcium [Mass/Vol] 8.8 mg/dL Normal 8.5-10.1 [facility] Comment on above: Performed By: #### CMP #### [facility] [address] [place] [address] Dr. Daphne Cheney Chloride [Moles/Vol] 105 mmol/L Normal 98-107 [facility] Comment on above: Performed By: #### CMP #### [facility] [address] [address] [address] Daphne Cheney CO2 [Moles/Vol] 28.4 mmol/L Normal 22.0-30.0 [facility] Comment on above: Performed By: #### CMP #### [facility] [address] [place] [address] Dr. Daphne Cheney Creatinine [Mass/Vol] 1.09 mg/dL Normal 0.66-1.25 [facility] Comment on above: Performed By: #### CMP #### [facility] [address] [place] [address] Dr. Daphne Cheney EGFR-AF SAO TOMEAN >60 Normal >=60 [facility] Comment on above: Performed By: #### CMP #### [facility] [address] [address] [address] Daphne Cheney EGFR-NON AF SAO TOMEAN >60 Normal >=60 [facility] Comment on above: Performed By: #### CMP #### [facility] [address] [place] [address] Dr. Daphne Cheney Globulin (S) [Mass/Vol] 5.4 g/dL Normal [facility] Comment on above: Performed By: #### CMP #### [facility] [address] [address] [address] Daphne Cheney Glucose [Mass/Vol] 122 mg/dL Critically high 74-106 [facility] Comment on above: Performed By: #### CMP #### [facility] [address] [address] [address] Daphne Cheney Potassium [Moles/Vol] 3.9 mmol/L Normal 3.4-5.0 [facility] Comment on above: Performed By: #### CMP #### [facility] [address] [place], [place] [address] Dr. Daphne Cheney Protein [Mass/Vol] 7.8 g/dL Normal 6.1-8.2 [facility] Comment on above: Performed By: #### CMP #### [facility] [address] [address] [address] Daphne Cheney Sodium [Moles/Vol] 143 mmol/L Normal 137-145 [facility] Comment on above: Performed By: #### CMP #### [facility] [address] [place], [place] [address] Dr. Daphne Cheney Urea nitrogen [Mass/Vol] 23.0 mg/dL Critically high 7.0-18.0 [facility] Comment on above: Performed By: #### CMP #### [facility] [address] [address] [address] Daphne Cheney Urea nitrogen/Creatin ine [Mass ratio] 21.1 mg/mg Normal [facility] Comment on above: Performed By: #### CMP #### [facility] [address] [address] [address] Daphne Cheney XR CHEST 2 Von [...] Time Vital Sign Value Performing Clinician Facility 04-24-2025 13:54-0400 Body height 165.1 cm PHYSICIAN [facility] 04-24-2025 13:54-0400 Body mass index (BMI) [Ratio] 25.1 kg/m2 PHYSICIAN NO [facility] 04-24-2025 13:54-0400 Body weight 68.49 kg PHYSICIAN NO [facility] 04-24-2025 13:54-0400 Diastolic blood pressure 88 mm[Hg] PHYSICIAN NO [facility] 04-24-2025 13:54-0400 Heart rate 73 /min PHYSICIAN NO [facility] 04-24-2025 13:54-0400 Respiratory rate 12 /min PHYSICIAN NO [facility] 04-24-2025 13:54-0400 Systolic blood pressure 137 mm[Hg] PHYSICIAN NO [facility] 01-30-2025 14:21-0400 Body height 165.1 cm [facility] 01-30-2025 14:21-0400 Body temperature 97.1 [degF] [facility] 01-30-2025 14:21-0400 Diastolic blood pressure 82 mm[Hg] [facility] 01-30-2025 14:21-0400 Heart rate 73 /min [facility] 01-30-2025 14:21-0400 Respiratory rate 16 /min [facility] 01-30-2025 14:21-0400 Systolic blood pressure 129 mm[Hg] [facility] 12-18-2024 10:41-0500 Body height 162.6 cm Gordy Scott MD Work Phone: [facility] 12-18-2024 10:41-0500 Body mass index (BMI) [Ratio] 25.75 kg/m2 Gordy Scott MD Work Phone: [facility] 12-18-2024 10:41-0500 Body weight 68.04 kg Gordy Scott MD Work Phone: [facility] 09-18-2024 12:00-0500 Body height 162.6 cm Gordy Scott MD Work Phone: [facility] 09-18-2024 12:00-0500 Body mass index (BMI) [Ratio] 26.61 kg/m2 Gordy Scott MD Work Phone: [facility] 09-18-2024 12:00-0500 Body weight 70.31 kg Gordy Scott MD Work Phone: [facility] 04-10-2024 14:40-0400 Body height 165.1 cm [facility] 04-10-2024 14:40-0400 Body mass index (BMI) [Ratio] 27.1 kg/m2 [facility] 04-10-2024 14:40-0400 Body weight 73.93 kg [facility] 04-10-2024 14:40-0400 Diastolic blood pressure 70 mm[Hg] [facility] 04-10-2024 14:40-0400 Heart rate 65 /min [facility] 04-10-2024 14:40-0400 Respiratory rate 12 /min [facility] 04-10-2024 14:40-0400 Systolic blood pressure 122 mm[Hg] [facility] 04-18-2023 15:15-0400 Body height 165.1 cm Gasper Ball Other [facility] [employer] Other 04-18-2023 15:15-0400 Body mass index (BMI) [Ratio] 27.15 kg/m2 Gasper Ball Other [facility] [employer] Other 04-18-2023 15:15-0400 Body weight 74.03 kg Gasper Ball Other [facility] [employer] Other 04-18-2023 15:15-0400 Diastolic blood pressure 78 mm[Hg] Gasper Ball Other [facility] [employer] Other 04-18-2023 15:15-0400 Respiratory rate 12 /min Gasper Ball Other [facility] [employer] Other 04-18-2023 15:15-0400 Systolic blood pressure 132 mm[Hg] Gasper Ball Other [facility] [employer] Other 01-25-2023 14:30-0400 Body height 165.1 cm Gasper Ball Other [employer] Other 01-25-2023 14:30-0400 Body mass index (BMI) [Ratio] 24.96 kg/m2 Gasper Ball Other [employer] Other 01-25-2023 14:30-0400 Body weight 68.04 kg Gasper Ball Other [employer] Other 01-25-2023 14:30-0400 Respiratory rate 12 /min Gasper Ball Other [employer] Other 06-19-2022 10:35-0400 Body height 165.1 cm Jennifer Cassandra Other [employer] Other 09-29-2021 16:50-0500 Body height 165.1 cm Donna Haque Other [employer] Other 09-29-2021 16:50-0500 Body temperature 98.7 [degF] Donna Haque Other [employer] Other 09-29-2021 16:50-0500 Diastolic blood pressure 89 mm[Hg] Donna Haque Other [employer] Other 09-29-2021 16:50-0500 Respiratory rate 18 /min Donna Haque Other [employer] Other 09-29-2021 16:50-0500 SaO2% (BldA) [Mass fraction] 98 % Donna Haque Other [employer] Other 09-29-2021 16:50-0500 Systolic blood pressure 131 mm[Hg] Donna Haque Other [employer] Other Encounters Encounter Date Encounter Type Care Provider Facility Start: 06-04-2025 End: 06-04-2025 Refill Stephenie Bobby MA [facility] Comment on above: Focal epilepsy with impairment of consciousness, intractable (HCC) Start: 06-02-2025 End: 06-03-2025 Refill Gordy Scott MD Work Phone: [facility] Comment on above: Focal epilepsy with impairment of consciousness, intractable (HCC) Start: 04-24-2025 End: 04-24-2025 ambulatory PHYSICIAN [facility] Work Phone: Start: 04-24-2025 End: 04-24-2025 Patient encounter procedure Gasper Persaud DO -[facility] Work Phone: Start: 03-15-2025 ambulatory GASPER PERSAUD [facility] Start: 01-30-2025 End: 01-30-2025 ambulatory [facility] Work Phone: Start: 01-30-2025 End: 01-30-2025 Patient encounter procedure [facility] Work Phone: Start: 01-14-2025 End: 01-15-2025 Refill Gordy Scott MD Work Phone: [facility] Comment on above: Focal epilepsy with impairment of consciousness, intractable (CMS/HCC) Start: 12-18-2024 End: 12-18-2024 Bamboo flowshernandez Scott MD Work Phone: [facility] Start: 12-18-2024 End: 12-18-2024 Bamboo flowsheet Gordy Scott MD Work Phone: [facility] Start: 12-18-2024 End: 12-18-2024 Office outpatient visit 25 minutes Gordy Scott MD Work Phone: [facility] Comment on above: Focal epilepsy with impairment of consciousness, intractable (CMS/HCC) (Primary Dx); Developmental delay, severe; Static encephalopathy; Focal epilepsy with impairment of consciousness, intractable (CMS/HCC) Start: 12-18-2024 End: 12-18-2024 ambulatory GORDY D BEJ Not Available Start: 11-30-2024 End: 11-30-2024 Refill Sayda Anderson MA [facility] 111 Comment on above: Focal epilepsy with impairment of consciousness, intractable (CMS/HCC) Start: 11-08-2024 End: 11-08-2024 Telephone encounter Gordy Scott MD Work Phone: [facility] 111 Start: 09-18-2024 End: 09-18-2024 Bamboo flowshernandez Scott MD Work Phone: [facility] Start: 09-18-2024 End: 09-18-2024 Bamboo flowshernandez Scott MD Work Phone: [facility] Start: 09-18-2024 End: 09-18-2024 Office outpatient visit 25 minutes Gordy Scott MD Work Phone: [facility] Comment on above: Focal epilepsy with impairment of consciousness, intractable (CMS/HCC) (Primary Dx); Static encephalopathy Start: 09-18-2024 End: 09-18-2024 ambulatory GORDY D BEJ Not Available Start: 08-30-2024 End: 09-05-2024 Telephone encounter [facility] Comment on above: NEW PATIENT REFERRAL Start: 07-17-2024 End: 07-17-2024 Bamboo flowshernandez Scott MD Work Phone: [facility] Start: 07-17-2024 End: 07-17-2024 Bamboo flowshernandez Scott MD Work Phone: [facility] Start: 07-17-2024 End: 07-17-2024 Office outpatient visit 25 minutes Gordy Scott MD Work Phone: [facility] Comment on above: Focal epilepsy with impairment of consciousness, intractable (CMS/HCC) (Primary Dx); Static encephalopathy Start: 07-17-2024 End: 07-17-2024 ambulatory GORDY D BEJ Not Available Start: 06-26-2024 End: 06-26-2024 ambulatory [facility] Work Phone: Start: 06-26-2024 End: 06-26-2024 Patient encounter procedure [facility] Work Phone: Start: 06-05-2024 Non-patient / Non-visit [facility] Work Phone: Start: 05-09-2024 End: 05-09-2024 ambulatory GORDY D BEJ Not Available Start: 04-27-2024 Non-patient / Non-visit [facility] Work Phone: Start: 04-23-2024 Non-patient / Non-visit [facility] Work Phone: Start: 04-17-2024 End: 04-17-2024 ambulatory GORDY D BEJ Not Available Start: 04-10-2024 End: 04-10-2024 ambulatory [facility] Work Phone: Start: 04-10-2024 End: 04-10-2024 Encounter for general adult medical examination without abnormal findings [facility] Start: 04-10-2024 End: 04-10-2024 Patient encounter procedure [facility] Work Phone: Start: 03-26-2024 Non-patient / Non-visit [facility] Work Phone: Start: 01-17-2024 End: 01-17-2024 ambulatory GORDY D BEJ Not Available Start: 07-07-2023 End: 07-07-2023 ambulatory Gasper Persaud Other [employer] Other Start: 07-07-2023 Telephone encounter Gasper [facility] Start: 07-06-2023 End: 07-06-2023 ambulatory Gasper Ball Other [employer] Other Start: 07-06-2023 Telephone encounter Gasper Ball [facility] Start: 06-21-2023 End: 06-21-2023 ambulatory Gasper Ball Other [employer] Other Start: 06-21-2023 Nursing evaluation o f patient and report Gasper Ball [facility] Start: 05-02-2023 End: 05-02-2023 ambulatory Gasper Ball Other [employer] Other Start: 05-02-2023 Telephone encounter Gasper Ball [facility] Start: 04-18-2023 End: 04-18-2023 ambulatory Gasper Ball Other [employer] Other Start: 04-18-2023 Office outpatient vi sit 15 minutes Gasper Ball [facility] Start: 02-07-2023 End: 02-07-2023 ambulatory Gasper Ball Other [employer] Other Start: 02-07-2023 Telephone encounter Gasper Ball [facility] Start: 01-26-2023 End: 01-26-2023 ambulatory Gasper Ball Other [employer] Other Start: 01-26-2023 Telephone encounter Gasper Ball [facility] Start: 01-25-2023 End: 01-25-2023 ambulatory Gasper Ball Other [employer] Other Start: 01-25-2023 Office outpatient vi sit 15 minutes Gasper Ball [facility] Start: 01-23-2023 End: 01-23-2023 ambulatory JUICE NAVA Facility: Start: 01-07-2023 End: 01-07-2023 ambulatory Gasper Ball Other [employer] Other Start: 01-07-2023 Telephone encounter Gasper Ball [facility] Start: 11-23-2022 End: 11-24-2022 ambulatory GORDY BEJ Facility:[facility] Start: 11-19-2022 End: 11-19-[address] COLLEEN JOHNSON . Facility:[facility] Start: 09-13-2022 End: 09-14-2022 ambulatory GORDY BEJ Facility:[facility] Start: 06-19-2022 End: 06-19-2022 ambulatory Jennifer Trujillo Other [employer] Other Start: 06-19-2022 Office outpatient vi sit [...] 09-29-2021 End: 09-29-2021 ambulatory Donna Haque Other [employer] Other Start: 09-29-2021 Office outpatient vi sit 15 minutes Donna Haque [facility] Start: 03-10-2021 Adult health examination Ace Persaud Other [employer] Other Start: 03-21-2017 End: 09-16-2017 Ambulatory [id number] BERTA PERSAUD Facility[place] Plan of Treatment Date Care Activity Detail Author Start: 07-02-2025 End: 07-02-2025 Patient encounter procedure [facility] Start: 06-17-2025 Influenza vaccination Influenz a Vaccine (#1) [facility] Start: 12-18-2024 End: 12-18-2024 Patient encounter procedure [facility] Comment on above: Arrived Start: 09-18-2024 End: 09-18-2024 Patient encounter procedure [facility] Comment on above: Arrived Start: 07-17-2024 End: 07-17-2024 Patient encounter procedure 07/17/2024 11:30 AM EDT Office Visit [facility] [address] [place] [address] Brendon, Gordy Lopez MD [address] [facility] [address] [place] [address] Arrived [facility] Comment on above: Arrived Start: 06-17-2024 Influenza [facility] Start: 1997 DTaP,Tdap and Td Vac cines (1 - Tdap) DTaP,Tdap and Td Vaccines (1 - Tdap) [facility] Start: 1996 Adult BMI Screening Adult BMI Screen ing [facility] Start: 1990 Depression Screening Depression Scre ening [facility] Start: 1990 Tobacco Screening Tobacco Screening [facility] Start: 1978 Screening for malign ant neoplasm of colon [facility] metabo lic 1999 panel - Serum or Plasma [facility] Comprehensive metabo lic 1999 panel - Serum or Plasma [facility] Immunizations Immunization Date Immunization Notes Care Provider Fa cility 06-26-2024 influenza, seasonal, injectable, preservative free [facility] 06-26-2024 influenza virus vaccine, unspecified formulation Gordy Scott MD Work Phone: [facility] 06-21-2023 influenza, injectabl e, quadrivalent, preservative free Gasper Persaud Other [facility] 07-28-2022 influenza virus vaccine, split virus (incl. purified surface antigen) Gasper Persaud Other [employer] Other 07-28-2022 influenza virus vaccine, unspecified formulation [facility] 08-10-2021 influenza virus vaccine, split virus (incl. purified surface antigen) Gasper Persaud Other [facility] [employer] Other 08-10-2021 influenza virus vaccine, unspecified formulation [facility] 07-08-2020 influenza virus vaccine, split virus (incl. purified surface antigen) Gasper Persaud Other [facility] [employer] Other 07-08-2020 influenza virus vaccine, unspecified formulation [facility] 07-31-2019 influenza virus vaccine, split virus (incl. purified surface antigen) Gasper Persaud Other [facility] [employer] Other 07-31-2019 influenza virus vaccine, unspecified formulation [facility] 05-22-2019 tetanus and diphther ia toxoids, adsorbed, preservative free, for adult use (5 Lf of tetanus toxoid and 2 Lf of diphtheria toxoid) [facility] 05-22-2019 tetanus toxoid, reduced diphtheria toxoid, and acellular pertussis vaccine, adsorbed Gasper Persaud Other [facility] [employer] Other 07-11-2018 influenza virus vaccine, split virus (incl. purified surface antigen) Gasper Persaud Other [facility] [employer] Other 07-11-2018 influenza virus vaccine, unspecified formulation [facility] 07-13-2017 tetanus and diphther ia toxoids, adsorbed, preservative free, for adult use (5 Lf of tetanus toxoid and 2 Lf of diphtheria toxoid) Gasper Persaud Other [facility] 08-12-2016 influenza virus vaccine, split virus (incl. purified surface antigen) Gasper Persaud Other [facility] [employer] Other 08-12-2016 influenza virus vaccine, unspecified formulation [facility] 07-25-2015 tetanus and diphther ia toxoids, adsorbed, preservative free, for adult use (5 Lf of tetanus toxoid and 2 Lf of diphtheria toxoid) Gasper Persaud Other [facility] 07-29-2014 tetanus and diphther ia toxoids, adsorbed, preservative free, for adult use (5 Lf of tetanus toxoid and 2 Lf of diphtheria toxoid) Gasper Persaud Other [facility] 08-09-2013 tetanus and diphther ia toxoids, adsorbed, preservative free, for adult use (5 Lf of tetanus toxoid and 2 Lf of diphtheria toxoid) Gasper Persaud Other [facility] Payers Date Payer Category Payer Medicaid [id number] 2017 Medicare [id number] 2008 Medicare [id number] 1978 Unknown [id number] 2.16.84 0.1.713205.3.579.2.593 1978 Unknown [id number] 2.16.84 0.1.925318.3.579.2.593 1978 Unknown [id number] 2.16.84 0.1.944719.3.579.2.593 1978 Unknown [id number] 2.16.84 0.1.998898.3.579.2.593 1978 Unknown [id number] 2.16.84 0.1.675029.3.579.2.593 1978 Unknown [id number] 2.16.84 0.1.036673.3.579.2.593 1978 Unknown [id number] 2.16.84 0.1.050043.3.579.2.593 1978 Unknown [id number] 2.16.84 0.1.091116.3.579.2.593 1978 Unknown [id number] 2.16.84 0.1.870235.3.579.2.593 1978 Unknown [id number] 2.16.84 0.1.934663.3.579.2.593 1978 Unknown [id number] 2.16.84 0.1.034028.3.579.2.593 1978 Unknown [id number] 2.16.84 0.1.105317.3.579.2.1259 1978 Unknown [id number] 2.16.84 0.1.406410.3.579.2.1259 1978 Unknown [id number] 2.16.84 0.1.580953.3.579.2.1259 1978 Unknown [id number] 2.16.84 0.1.958397.3.579.2.9 1978 Unknown [id number] 2.16.84 0.1.425180.3.579.2.1259 1978 Unknown [id number] 2.16.84 0.1.847166.3.579.2.1259 1959 Medicaid [id number] 2. [id number] 1959 Medicare [id number] 2.1 [id number] 1959 Self-pay 1949 Unknown [id number] 2.16. 840.1.558378.3.579.2.1286 Social History Date Type Detail Facility Unknown if ever smoked [employer] Other Start: 11-27-2020 End: 03-11-2023 Sex Assigned At [facility] Other Start: 07-07-2018 End: 03-11-2023 Tobacco smoking status [facility] Never smoked tobacco (finding) [facility] Start: 1980 Sex Assigned At Male F [facility] Start: 03-11-2023 Alcoholic beverage intake Lifetime non-drinker (finding) [facility] Start: 11-27-2020 End: 03-11-2023 History of Social function [facility] Start: 03-11-2023 Alcohol Comment Caffeine: none [facility] Start: 1980 Sex assigned at Not on file N [facility] Tobacco smoking status PRIS Tobacco smoking consumption unknown [facility] Unknown [facility] Start: 05-22-2015 End: 01-30-2025 Sex Male (finding) [facility] Clinical Notes 09-29-2021 to 01-30-2025 Note Date & Type Note Facility 01-30-2025 Evaluation note Diagnosis Onset Date Resolution Developmental delay, severe acute January 30, 2025 2:10pm Acute sinusitis noneactive January 2:10pm Developmental delay, severe acute April 24, 2025 1:47pm Developmental language disorder with language impairment acute April 24, 2025 1:47pm Generalized onset fvjisrrpf-szafi-npcned epileptic seizure acute April 24, 2025 1:47pm Medicare annual wellness visit, subsequent noneactive April 24, 2025 1:47pm Screening for colon cancer noneactive April 24, 2025 1:47pm [facility] Work Phone: [phone] 631-593703-04-2025 History of Present illness Narrative* Gordy Scott MD - 12/18/2024 10:45 AM ESTAssociated Problem(s): Focal epilepsy with impairment of consciousness, [...] Take 100 mg by mouth at bedtime * Gordy Scott MD - 12/18/2024 10:45 AM ESTAssociated Problem(s): Developmental delay, severe (No available tx.) * Gordy Scott MD - 12/18/2024 10:45 AM ESTAssociated Problem(s): Static encephalopathy (No available tx.) * Gordy Scott MD - 12/18/2024 10:45 AM EST Images from the original note were not included. Outpatient Progress Note Patient: Armando Hameed Dept: Neurology : 1980 Appt Date: 12/18/2024 Prev Appt: 09/18/2024 Chief Complaint Patient presents with Seizures Appointment Note -- 4 mo Assessment and Plan - Assessment & Plan [...] Take 100 mg by mouth at bedtime Developmental delay, severe (No available tx.) Static encephalopathy (No available tx.) No orders of the defined types were placed in this encounter. Follow-Up - Follow up in about 6 months (around 06/20/2025), or MD. Lab Frequency Next Occurrence XR lumbar spine 6+ views including oblique flexion extension Once 07/14/2023 History of Present Illness, Associated Treatments and Results - Dx EPILEPSY Tx CNB 100 [was 11.8 on 100, 2.6 on 50] <16>decr'd to 50 see TE + VPA 250 q12 [was 41/9.4f] + LTG 200 q12 [was 23.3, 10.5, 15.7 (on 500), was 8.0..11.2 (on 400)] + BRV 100 q12 [was 2.9] + clonazapam 0.25 hs + prn midazolam nasal 5 AEs somnolence Hx Sz - 5-10/mo. 9 in Oct, chewing on hands, jerks, no convulsions. 10 in Nov, up to 18', similar. Jerks - 10-26/d. Prev up to 40/d in Jan, now much less. . ... Mid-Jan 9 jerks in a row. [...] clonazepam 0.5 (drooling, other behaviors) ZNS 200 (mood- grouchy, chewing hands), <10/22>FMV779 (somn) ... Highest LTG dose 400 mg/d, no more effective; failed GTC wean (11/2018) (GTC) Note possibility that ASDs are controlling GTCs but extremity extension events are behavioral. Onset after 1982 (after age 3) Semeiology Staring -> extrems extended to lower right, body to upper left. No GTCs. Duration 1-2s. Extremity jerks in bouts of 2-20 min. Chewing on hands. (Note some descriptions use the word jerks , but description was more shukri to brief tonic sz.). Many/most early AM after pt's arrival at work, apparently all myoclonic jerks. 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 Only 2-3 words at age 3. L hand preference noted age 10 mo. Trigger Behavioral, excitement. Also suspect carbs at breakfast. Preg EEG (_, [facility]) - _ (_, [place]) - _. Amb EEG (none). VEEG (03/2022) [...] MR PET SPECT Imaging CT brain (02/2022, ) - patchy hypodensities . Testing Surgery Born [...] to gross testing, coordination, and gait are normalor at baseline unless noted below. HEENT - [...] - Visit Vitals Ht 5' 4 Wt 150 lb BMI 25.75 kg/m Smoking Status Never BSA 1.75 m Review of Systems - . Const: [...] Onset Hypertension Mother Heart disease Father COD: ID Hypertension Maternal Grandmother Cancer Maternal Grandmother Hypertension Maternal Grandfather Diabetes Maternal Grandfather Hypertension Paternal Grandmother Hypertension Paternal Grandfather Outpatient Encounter Medications as of 12/18/2024 Medication Sig Dispense Refill brivaracetam (Briviact) 100 [...] tablet 1 tab Q12 60 tablet 5 Midazolam 5 MG/0.1ML solution 1 dose after convulsive seizure > 5 minutes. May repeat in other nostril 10 minutes later if needed 4 each 3 [DISCONTINUED] clonazePAM (KlonoPIN) 0.5 MG tablet TAKE 1/2 (ONE-HALF) OF A TABLET BY MOUTH AT BEDTIME 15 tablet 5 [DISCONTINUED] lamoTRIgine (LaMICtal) 200 MG tablet Take 1 tablet (200 mg) by mouth in the morning and 1 tablet (200 mg) before bedtime. 180 tablet 3 No facility-administered encounter medications on file as of 12/18/2024. Gordy Scott M.D. [facility] ? [address] [place] [address] ? [place], [place] [address] ? ? fax Neurology ? Clinical Neurophysiology ? Epilepsy ? Sleep Disorders ? Clinical Informatics documented in this [facility]01-23-2025 Telephone encounter Note* Telephone Encounter - Alex River - 11/08/2024 2:53 PM EST Mom called crying and upset stated that patient had 4 mild seizures at work today, she said that patient had 1/2 tab of the Xcopri at bedtime on Tuesday, Tuesday and Tuesday. She wanted to know if it was okay to start giving him 1 tab at bedtime tonight. I spoke with Stephenie, she said yes go back to 1 tab at bedtime.. [facility] [id number] Miscellaneous Notes* Telephone Encounter - Alex River - 11/08/2024 2:53 PM EST Mom called crying and upset stated that patient had 4 mild seizures at work today, she said that patient had 1/2 tab of the Xcopri at bedtime on Tuesday, Tuesday and Tuesday. She wanted to know if it was okay to start giving him 1 tab at bedtime tonight. I spoke with Stephenie, she said yes go back to 1 tab at bedtime.. documented in this [facility]12-03-2024 History of Present illness Narrative* Gordy Scott MD - 09/18/2024 11:30 AM ESTAssociated Problem(s): Focal epilepsy with impairment of consciousness, intractable (CMS/HCC) Driving - does not drive. (Continue current regimen.) Re-refer for VNS implantation - [facility]. No phone call received. Levels before appt. Orders: Midazolam 5 MG/0.1ML solution; 1 dose after convulsive seizure > 5 minutes. May repeat in other nostril 10 minutes later if needed * Gordy Scott MD - 09/18/2024 11:30 AM ESTAssociated Problem(s): Static encephalopathy * Gordy Scott MD - 09/18/2024 11:30 AM EST Images from the original note were not [...] work, apparently all myoclonic jerks. ?Behavioral, excitement. ?Carbswith breakfast. ... Mid-Jan 9 jerks in a [...] clonazepam 0.5 (drooling, other behaviors) ZNS 200 (mood- grouchy, chewing hands) ... Highest LTGdose 400 mg/d, no more effective; failed GTC wean (11/2018) (GTC) Note possibility that ASDs are controlling GTCs but extremity extension events are behavioral. Onset after 1982 (after age 3) Semeiology Staring -> extrems extended to lower right, body to upper left. No GTCs. Duration 1-2s . No significant change since age 1. [...] Preg EEG (_, [facility]) - _ (_, [place]) - _. Amb EEG (none). VEEG (03/2022) [...] MR PET SPECT Imaging CT brain (02/2022, ) - patchy hypodensities . Testing Surgery Born [...] to gross testing, coordination, and gait are normalor at baseline unless noted below. HEENT - [...] Onset Hypertension Mother Heart disease Father COD: ID Hypertension Maternal Grandmother Cancer Maternal Grandmother Hypertension [...] file as of 09/18/2024. Gordy Scott M.D. [facility] ? [address] [place] [address] ? [place] [address] ? ? fax Neurology ? Clinical Neurophysiology ? Epilepsy ? Sleep Disorders ? Clinical Informatics documented in this encounterCitizens Memorial [id number] Miscellaneous Notes* Telephone Encounter - Rebekah Lavern - 08/30/2024 2:30 PM EST First Attempt Made from [employer] Voicemail New patient referral received. Dx:Localization-related (focal) (partial) symptomatic epilepsy and epileptic syndromes with complexpartial seizures, intractable, without status epilepticus (CMS-HCC) [G40.219]/ Referred by: Gordy Scott MD Referred to: Providers patient can see in clinic (Make sure if ASHLI is listed the patient has not seen a Neurologist before): Please contact patient to schedule from referral, Thanks! PLEASE REVIEW PLAN OVER THE PHONE AND ADVISE PATIENT TO BRING UPDATED INSURANCE INFORMATION TO THEIR NEW PATIENT APPOINTMENT * Telephone Encounter - Kate Baca - 08/30/2024 2:30 PM EST 2nd attempt: Called and left patient a voicemail once more letting them know we have received theirreferral, are ready to schedule, and to call us back at their earliest convenience to do so. Planer Setter provided callback number for scheduling or to address any questions or concerns they may have. documented in this encounterKettering Health MiamisburgJSC [facility] [id number] Telephone encounter Note* Telephone Encounter - Rebekahkimberli Puckett - 08/30/2024 2:30 PM EST First Attempt Made from [employer] Voicemail New patient referral received. Dx:Localization-related (focal) (partial) symptomatic epilepsy and epileptic syndromes with complexpartial seizures, intractable, without status epilepticus (CMS-HCC) [G40.219]/ Referred by: Gordy Scott MD Referred to: Providers patient can see in clinic (Make sure if ASHLI is listed the patient has not seen a Neurologist before): Please contact patient to schedule from referral, Thanks! PLEASE REVIEW PLAN OVER THE PHONE AND ADVISE PATIENT TO BRING UPDATED INSURANCE INFORMATION TO THEIR NEW PATIENT APPOINTMENT [facility] [place]11-14-2024 Telephone encounter Note* Telephone Encounter - Kate Baca - 08/30/2024 2:30 PM EST 2nd attempt: Called and left patient a voicemail once more letting them know we have received theirreferral, are ready to schedule, and to call us back at their earliest convenience to do so. Planer Setter provided callback number for scheduling or to address any questions or concerns they may have. [facility]10-01-2024 History of Present illness Narrative* Gordy Scott MD - 07/17/2024 11:55 AM EDTAssociated Problem(s): Focal epilepsy with impairment of consciousness, intractable (CMS/HCC) Driving - does not drive. Incr CNB to 100 hs. Refer for VNS implantation - [facility]. I will get the name of the surgeon. CNB level before f/u appt. * Gordy Scott MD - 07/17/2024 11:30 AM EDT Images from the original note were not [...] work, apparently all myoclonic jerks. ?Behavioral, excitement. ?Carbswith breakfast. ... Mid-Jan 9 jerks in a [...] clonazepam 0.5 (drooling, other behaviors) ZNS 200 (mood- grouchy, chewing hands) ... Highest LTGdose 400 mg/d, no more effective; failed GTC wean (11/2018) (GTC) Note possibility that ASDs are controlling GTCs but extremity extension events are behavioral. Onset after 1982 (after age 3) Semeiology Staring -> extrems extended to lower right, body to upper left. No GTCs. Duration 1-2s . No significant change since age 1. [...] Preg EEG (_, [facility]) - _ (_, [place]) - _. Amb EEG (none). VEEG (03/2022) [...] MR PET SPECT Imaging CT brain (02/2022, ) - patchy hypodensities . Testing Surgery Born [...] to gross testing, coordination, and gait are normalor at baseline unless noted below. HEENT - [...] Onset Hypertension Mother Heart disease Father COD: ID Hypertension Maternal Grandmother Cancer Maternal Grandmother Hypertension [...] 07/17/2024. Gordy Scott M.D. documented in this encounterCitizens Memorial [id number] Evaluation note* Encounter Date Diagnosis Assessment Notes Treatment Notes Treatment Clinical Notes Jun, Pneumonia of left lower lobe due to infectious organism (ICD-10 - J18.9) [employer] Other 04-11-2023 Evaluation note* Encounter Date Diagnosis [...] (ICD-10 - S70.02XD) Ice/heat and Voltaren Gel [employer] Other 2022 Evaluation note* Encounter Date Diagnosis [...] the ER for worsening symptoms or concerns. [employer] Other 12-14-2021 Evaluation note* Encounter Date Diagnosis Assessment Notes Treatment Notes Treatment Clinical Notes Sep, Injury of left knee, initial encounter (ICD-10 - S89.92XA) . Use TYLENOL AND VOLTARON GEL as directed for pain if needed. Contact office if symptoms are not improved within the next few days and we will help you get into specialist. [employer] Other Evaluation noteNo InformationNort [employer] Other [facility]Noprogress [facility] [employer] Other Evaluation note* Diagnosis Onset Date Resolution Status Developmental delay, severe acute Developmental language disor olesya with language impairment acute Generalized onset myoclonic- tonic-clonic epileptic seizure acute Screening for colon cancer n oneactive Wellness examination noneact [facility] Work Phone: Evaluation note* Diagnosis Onset Date Resolution Status Developmental delay, severe acute Developmental language disor olesya with language impairment acute Generalized onset myoclonic- tonic-clonic epileptic seizure acute Medicare annual wellness visit, subsequent noneactive Screening for colon cancer n oneactive [facility] Work Phone: Evaluation note* Diagnosis Focal epilepsy [...] with simple partial seizures, with intractable epilepsy documented in this encounter [facility] HealthcareEvaluation [facility]* [...] with simple partial seizures, with intractable epilepsy Developmental delay, severe 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, [...] with simple partial seizures, with intractable epilepsy Developmental delay, severe 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, spinal cord, 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, intractable (CMS/HCC) Localization-related (focal) (partial) epilepsy and epileptic syndromes with simple partial seizures, with intractable epilepsy documented in this encounter [facility] HealthcareEvaluation note* Diagnosis Onset Date Resolution Status Admit Date Developmental delay, severe acute January 30, 2025 2:10pm Acute sinusitis noneactive January 2:10pm [facility] Work Phone: Evaluation note* Diagnosis Focal epilepsy with impairment of consciousness, intractable (HCC)- Primary Localization-related (focal) (partial) epilepsy and epileptic syndromes with simple partial seizures, with intractable epilepsy 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, spinal cord, and nervous system Medication side effect Focal epilepsy with impairment of consciousness, intractable (HCC)- Primary Localization-related (focal) (partial) epilepsy and epileptic syndromes with simple partial seizures, with intractable epilepsy Medication side effect Focal epilepsy with impairment of consciousness, intractable (HCC)- Primary Localization-related (focal) (partial) epilepsy and epileptic syndromes with simple partial seizures, with intractable epilepsy 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, spinal cord, and nervous system Medication side effect Focal epilepsy with impairment of consciousness, intractable (HCC) Localization-related (focal) (partial) epilepsy and epileptic syndromes with simple partial seizures, with intractable epilepsy Focal epilepsy with impairment of consciousness, intractable (HCC) Localization-related (focal) (partial) epilepsy and epileptic syndromes with simple partial seizures, with intractable epilepsy Focal epilepsy with impairment of consciousness, intractable (HCC) Localization-related (focal) (partial) epilepsy and epileptic syndromes with simple partial seizures, with intractable epilepsy Focal epilepsy with impairment of consciousness, intractable (HCC)- Primary Localization-related (focal) (partial) epilepsy and epileptic syndromes with simple partial seizures, with intractable epilepsy 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, spinal cord, 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, intractable (HCC)- Primary Localization-related (focal) (partial) epilepsy and epileptic syndromes with simple partial seizures, with intractable epilepsy 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, spinal cord, 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, intractable (HCC)- Primary Localization-related (focal) (partial) epilepsy and epileptic syndromes with simple partial seizures, with intractable epilepsy Developmental delay, severe 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, spinal cord, 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, intractable (HCC) Localization-related (focal) (partial) epilepsy and epileptic syndromes with simple partial seizures, with intractable epilepsy documented in this encounter [facility] HealthcareHistory general Narrative - Reported* Type Description Date Medical History seizures Medical History htn Medical History mrdd Surgical History dental surgery Surgical History cystoscopy Hospitalization History pneumonia [facility] [employer] Other History general Narrative - Reported* Type Description Date Medical History Development delay Medical History Functional urinary incontinence Medical History Generalized seizure disorder 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 Medical History Impaired verbal communication Surgical History dental surgery Surgical History cystoscopy Hospitalization History pneumonia [facility] [employer] Other History general Narrative - ReportedNortJefferson Health [employer] Other InstructionsNot on filedocumented in this encounter [facility] SystemRes[facility] (narrative)No reason for referral information availableCherrington Hospital Work Phone: Summary Purpose Family History Relationship Condition Age at Onset Recorded Date/T bronson father Unknown Advance Directives Advance Directive Response Recorded Date/ Time Advance Directives No October 23, 2017 12:06pm Chief Complaint and Reason for Visit Chief Complaint wellness Reason for Visit Developmental delay, severe Developmental language disorder with language impairment Generalized onset vbaiqssti-fnjdo-hmskjc epileptic seizure Screening for colon cancer Wellness examination Chief Complaint wellness flu shot Reason for Visit Developmental delay, severe Developmental language disorder with language impairment Generalized onset dtlkxeljk-ikpws-dlglsh epileptic seizure Medicare annual wellness visit, subsequent Screening for colon cancer Chief Complaint Admit Date Cough January 30, 2025 2:1 0pm Reason for Visit Admit Date Developmental delay, severe January 30, 2025 2:10pm Acute sinusitis January 30, 2025 2:1 0pm Chief Complaint Admit Date Cough January 30, 2025 2:1 0pm wellness April 24, 2025 1:47p m Reason for Visit Admit Date Developmental delay, severe January 30, 2025 2:10pm Acute sinusitis January 30, 2025 2:1 0pm Developmental delay, severe April 24 1:47pm Developmental language disorder with tj guage impairment April 24, 2025 1:47pm Generalized onset hkdlydxbp-tpsnf-pkllpu epileptic seizure April 24, 2025 1:47pm Medicare annual wellness visit, subseque nt April 24, 2025 1:47pm Screening for colon cancer April 24 1:47pm Additional Source Comments (unrecognized sect ion and content) No Status Records FoundNo Status Records FoundNo Status Records FoundNo Status Records Found INFORMATION SOURCE (unrecogn ized section and content) DATE CREATED AUTHOR [facility]/11/2018 [facility] DATE CREATED AUTHOR AUTHOR'S ORGANIZ ATION 01/24/2023 [facility] DATE CREATED AUTHOR AUTHOR'S ORGANIZ ATION 12/20/2024 [facility] EPIC DATE CREATED AUTHOR AUTHOR'S ORGANIZ ATION 03/29/2025 [facility] REASON FOR VISIT (unrecogniz ed section and content) Reason Comments Seizures Reason Onset Date Comments Med Refill 11/30/2024 Reason Onset Date Comments NEW PATIENT REFERRAL 08/30/2024 Reason Comments Med Refill Reason Onset Date Comments Med Refill 06/04/2025 Care Teams (unrecognized sec tion and content) [...] Attending Provider Active Start: March 26, 2024 Polytechnic Teacher Relationship Specialty Start Date End Date Gasper Persaud MD PCP - General Internal Medicine 03/15/23 Polytechnic Teacher Relationship Specialty Start Date End Date Gasper Persaud MD PCP - General Internal Medicine 03/15/23 Polytechnic Teacher Relationship Specialty Start Date End Date Gasper Persaud MD PCP - General Internal Medicine 03/15/23 Polytechnic Teacher Relationship Specialty Start Date End Date Gasper Persaud MD PCP - General Internal Medicine 03/15/23 Polytechnic Teacher Relationship Specialty Start Date End Date Gasper Persaud MD PCP - General Internal Medicine 03/15/23 Polytechnic Teacher Relationship Specialty Start Date End Date Gasper Persaud DO [facility] [place] [address] PCP - General 05/25/17 Polytechnic Teacher Relationship Specialty Start Date End Date Gasper Persaud MD PCP - General Internal Medicine 03/15/23 Polytechnic Teacher Relationship Specialty Start Date End Date Gasper Persaud MD PCP - General Internal Medicine 03/15/23 Polytechnic Teacher Relationship Specialty Start Date End Date Gasper Persaud MD PCP - General Internal Medicine 03/15/23 Team Status: Inactive Member Role Status Dates PHYSICIAN NO FAMILY Primary Care Provider Active Start: January 30, 2025 End: January 30, 2025 Gasper Persaud DO Attending Provider Active Sta rt: January 30, 2025 End: January 30, 2025 Team Status: Active Member Role Status Dates Gasper Persaud DO Primary Care Provider Active Team Status: Inactive Member Role Status Dates Gasper Persaud DO Primary Care Provider Active Start: April 24, 2025 End: April 24, 2025 Gasper Persaud DO Attending Provider Active Sta rt: April 24, 2025 End: April 24, 2025 Polytechnic Teacher Relationship Specialty Start Date End Date Gasper Persaud DO PCP - General Internal Medicine 03/15/23 Goals [...] BE BASED ON THE PRIMARY CLINICAL RECORDS. [email or web address] provides no warranty or guarantee of the accuracy or completeness of information in this document.
[2025-06-20 10:08] LABS: Lamotrigine (Lamictal), Serum 15.0 ug/mL (2.0-20.0)
== END 2025-06-18 14:56 | disposition home or self-care (01) ==
LOC: LAB 14:56
PROVIDERS: PCP Internal Medicine; Visit Provider Psychiatry & Neurology Neurology
DX: R51.9 Headache, unspecified (principal); G62.9 Polyneuropathy, unspecified; R79.89 Other specified abnormal findings of blood chemistry; G60.9 Hereditary and idiopathic neuropathy, unspecified; Z11.3 Encounter for screening for infections with a predominantly sexual mode of transmission; E53.1 Pyridoxine deficiency; I70.91 Generalized atherosclerosis; D51.3 Other dietary vitamin B12 deficiency anemia; M79.10 Myalgia, unspecified site; E78.5 Hyperlipidemia, unspecified
CPT/HCPCS: 36415; 80164; 80165; 80175; 80299

== ENCOUNTER 2025-09-16 10:55 | Emergency (ER) | payer MEDICARE, MEDICAID, SELFPAY ==
[2025-09-16 11:10] VITALS: BP 148/80; PULSE 89; TEMP 36.4; O2SAT 98; BMI 25.8
--- NOTE | 2025-09-16 11:29 | ED.FALL1 ---
HPI HPI - Fall General Chief Complaint: Fall Stated Complaint: FALL Time Seen by Provider: 09/16/25 10:57 Source: family Mode of arrival: Wheelchair Limitations: language barrier and altered mental status History of Present Illness HPI Narrative: The patient 45 years old brought to us by his mom who is his caregiver, patient have a history of MRDD and is nonverbal, the patient have a habit of biting his right hand which is not new, according to the mother she found him yesterday on the floor for few seconds as she was there just few second before this happened, she found on the left side that he did not have any complain then he continued the whole day with no difficulty but today the patient was walking and avoiding putting weight on his left knee, there was no loss of consciousness there was no head injury Patient is nonverbal and there is obvious contusion to the left knee According to the mother he had a history of multiple falls before which is not new Related Data Home Medications ?Medication ?Instructions ?Recorded ?Confirmed brivaracetam 100 mg tablet mg PO 03/12/24 (Briviact) clonazepam 0.5 mg tablet mg 03/12/24 divalproex 250 mg tablet,delayed mg PO 03/12/24 release lamotrigine 200 mg tablet mg 03/12/24 Previous Rx's ?Medication ?Instructions ?Recorded ibuprofen 600 mg tablet 600 mg PO TID PRN pain #10 tabs 09/16/25 Allergies Allergy/AdvReac Type Severity Reaction Status Date / Time Pertussis Vaccines Allergy Intermediate Rash Verified 09/16/25 11:10 Opioid HPI Opioid Management Most Recent Pain and Opioid Data: Last Pain Scale 4 Today, 11:30 Last MAR Pain Assessment Today, 11:30 Review of Systems ROS Status of ROS 10 or more systems reviewed and unremarkable except as noted in history and below [facility] Social History Smoking status: Never smoker Exam Narrative Exam Narrative: Nurses notes and vital signs reviewed and patient is not hypoxic. General: Nonverbal, but awake biting his right hand Skin: Warm, dry, no pallor noted. No rash. Head: Normocephalic, atraumatic. Neck: Supple, non-tender. Eye: Pupils are equal, round and EOMI. No scleral icterus. Cardiovascular: Regular Rate and Rhythm without murmur, gallop or rub. Respiratory: No accessory muscle use or respiratory distress. Lungs are clear to auscultation, no wheezing, rales or rhonchi Chest Wall: no tenderness Musculoskeletal: normal ROM, no calf or popliteal tenderness, contusion to the left knee but the patient not cooperative to see if there is a full range of movement but he is able to move it with no difficulty, mild effusion as well to the anterior knee, no open wound no redness no hotness GI: Abdomen is soft, non-distended. Normal bowel sounds. No masses appreciated. No tenderness to palpation. No rebound, guarding, or rigidity noted. Neurological: Alert nonverbal. No cranial nerve dysfunction observed. Constitutional Vital Signs, click to edit/add: Last Vital Signs Temp 97.5 F L 09/16/25 11:10 Pulse 89 09/16/25 11:10 Resp 20 09/16/25 11:10 BP 148/80 H 09/16/25 11:10 Pulse Ox 98 09/16/25 11:10 Course Vital Signs Vital signs: Vital Signs Temperature 97.5 F L 09/16/25 11:10 Pulse Rate 89 09/16/25 11:10 Respiratory Rate 20 09/16/25 11:10 Blood Pressure 148/80 H 09/16/25 11:10 Pulse Oximetry 98 09/16/25 11:10 Temperature 97.5 F L 09/16/25 11:10 Pulse Rate 89 09/16/25 11:10 Respiratory Rate 20 09/16/25 11:10 Blood Pressure 148/80 H 09/16/25 11:10 Pulse Oximetry 98 09/16/25 11:10 MDM - Fall MDM Narrative Medical decision making narrative: The patient x-ray of the knee as well as x-ray of the hip showed no acute pathology Mitch wrap applied supportive care and ibuprofen for pain Mother was instructed about providing supportive care The patient to follow-up with the primary care within 2 to 3 days and to come back to the ER in case of any worsening of the current symptoms or any new symptoms or concerns Discharge Plan Discharge Chief Complaint: Fall Clinical Impression: Contusion of knee Patient Disposition: Home, Self-Care Time of Disposition Decision: 13:10 Condition: Good Prescriptions / Home Meds: New ibuprofen 600 mg tablet 600 mg PO TID PRN (Reason: pain) Qty: 10 0RF No Action lamotrigine 200 mg tablet divalproex 250 mg tablet,delayed release (DR/EC) PO clonazepam 0.5 mg tablet Briviact 100 mg tablet PO Print Language: Greenlandic Instructions: Contusion in Adults (ED) Referrals: Gasper Persaud DO [Primary Care Provider, Internal Medicine] - 1 week
[2025-09-16] MEDS: IBUPROFEN 600 MG TABLET PO (11:30)
--- NOTE | 2025-09-16 12:15 | XR_ITS ---
[facility] [place] [id number] Patient Name: NOA LEWIS MRN: [id number] date: 1980 Sex: M Assigned Patient Location: ER Current Patient Location: ED.MAIN Accession/Order Number: [id number] Exam Date: 09/16/2025 12:06 Report Date: 09/16/2025 12:43 At the request of: CHICHI ELI MD Procedure: XR hip LT 2V w/ pelvis XR hip LT 2V w/ pelvis 09/16/2025 12:15 PM SIGNS AND SYMPTOMS: ^fall, left hip pain PROTOCOL: Frontal radiograph the pelvis with frontal and frog-leg views of the left hip COMPARISON: 01/23/2023 FINDINGS: There is minimal narrowing of the joint spaces of the hips. There is no fracture or dislocation. The bony ring pelvis is intact. XR/XR hip LT 2V w/ pelvis IMPRESSION: No acute bony injury. Impression dictated by: Prabhu Andrews M.D. 09/16/2025 12:43 PM Dictation Location: [place] [address] Electronically authenticated by: [id number] Y Date: 09/16/2025 12:43
--- NOTE | 2025-09-16 12:15 | XR_ITS ---
[facility] [place] [id number] Patient Name: NOA LEWIS MRN: [id number] date: 1980 Sex: M Assigned Patient Location: ER Current Patient Location: ED.MAIN Accession/Order Number: [id number] Exam Date: 09/16/2025 12:06 Report Date: 09/16/2025 12:41 At the request of: CHICHI ELI MD Procedure: XR knee LT 3V XR knee LT 3V 09/16/2025 12:15 PM SIGNS AND SYMPTOMS: ^fall PROTOCOL: 3 views of the left knee COMPARISON: 06/09/2022 FINDINGS: The weightbearing and patellofemoral joint spaces are preserved. There is no fracture or dislocation. Enthesophyte formation is noted at the quadriceps insertion. No soft tissue swelling or joint effusion. XR/XR knee LT 3V IMPRESSION: No acute bony injury. Impression dictated by: Prabhu Andrews M.D. 09/16/2025 12:41 PM Dictation Location: [place] [address] Electronically authenticated by: [id number] Y Date: 09/16/2025 12:41
--- OUTSIDE RECORDS SUMMARY | 2025-09-16 12:21 | XMS_ITS | Clinical Summary ---
Author Organization [facility] Address [address] [place] [address] Care Team Providers Care Roof Fixer Name Role Phone Gasper Persaud Primary Care Provider Allergies Active AllergyReactionsCriticalityNoted DateCommentsPertussis Immune Globulin 05/30/2003 Medications MedicationSigDispense QuantityRefillsLast FilledStart DateEnd DateStatus Midazolam 5 MG/0.1ML solution Indications:Focal epilepsy with impairment of consciousness, intractable (HCC)1 dose after convulsive seizure > 5 minutes. May repeat in other nostril 10 minutes later if needed 4 each 4Active lamoTRIgine (LaMICtal) 200 MG tablet Indications:Focal epilepsy with impairment of consciousness, intractable (HCC) Take 1 tablet (200 mg) by mouth in the morning and 1 tablet (200 mg) before bedtime. 60 tablet 5Active Briviact 100 MG tablet tablet Indications:Focal epilepsy with impairment of consciousness, intractable (HCC) TAKE 1 TABLET BY MOUTH EVERY 12 HOURS 60 tablet 505Active clonazePAM (KlonoPIN) 0.5 MG tablet Indications:Focal epilepsy with impairment of consciousness, intractable (HCC) TAKE 1/2 (ONE-HALF) OF A TABLET BY MOUTH AT BEDTIME 15 tablet 505Active Cenobamate (Xcopri) 150 MG tablet Indications:Focal epilepsy with impairment of consciousness, intractable (HCC) Take 150 mg by mouth at bedtime 30 tablet 5036Active divalproex (Depakote) 250 MG EC tablet Indications:Focal epilepsy with impairment of consciousness, intractable (HCC)1 tab QAM 30 tablet 5Active divalproex (Depakote) 250 MG EC tablet Indications:Focal epilepsy with impairment of consciousness, intractable (HCC)1 tab QAM 30 tablet 5065110/30/2024Discontinued divalproex (Depakote) 250 MG EC tablet Indications:Focal epilepsy with impairment of consciousness, intractable (HCC) TAKE 1 TAB BY MOUTH EVERY 12 HOURS 62 tablet 5115111/03/2024Discontinued(Reorder) Active Problems ProblemNoted DateDiagnosed DateDevelopmental delay, zluuvo6409/17/2024 Assessment & Plan (07/02/2025 5:43 PM EDT): (No available tx.) Assessment & Plan (12/19/2024 9:57 AM EST): (No available tx.) Medication side ffwnvw2705/17/2023 Assessment & Plan (07/19/2023 12:58 PM EDT): (Med stopped.) Focal epilepsy with impairment of consciousness, ieoynuvlfhi01/30/2023 Assessment & Plan (07/02/2025 5:43 PM EDT): Driving - does not drive. Incr CNB to 150 hs. Hold off on VNS referral for now, mom wants to consider. Ask pt ambassador to speak with mom. Re-emphasized low carb diet. (Has been on protein drinks with questionable carb content.) Consult senior qa tester - via [place] possibly? Or ask Dr. Miguel A Luciano's office's recommendation. CNB, VPA f+t, LTG levels before appt. Orders: Cenobamate (Xcopri) 150 MG tablet; Take 150 mg by mouth at bedtime Assessment & Plan (12/19/2024 9:57 AM EST): [...] Consider amb EEG, VNS, re-EMU. ]]] Static ihxtlayqpgnplu60/30/2023 Assessment & Plan (07/02/2025 5:43 PM EDT): (No available tx.) Assessment & Plan (12/19/2024 9:57 AM EST): (No available tx.) Assessment & Plan (09/18/2024 2:57 PM EST): Encounters DateTypeDepartmentCare XloqHayzgvpzynw41/18/2025Refill [facility] [address] [place] [address] Stephenie Bobby MA Focal epilepsy with impairment of consciousness, intractable (HCC)08/30/2025 Refill [facility] [address] [facility] [address] [place] [address] Prabhu Scott MD Focal epilepsy with impairment of consciousness, intractable (HCC)07/10/2025 Telephone [facility] [address] [facility] [address] [address] Stephenie Bobby MA 07/04/2025Refill [facility] [address] [facility] [address] [place] [address] Stephenie Bobby MA Focal epilepsy with impairment of consciousness, intractable (HCC)07/02/2025 10:45 AM EDTOffice Visit [facility] [place] [facility] [address] [facility] [address] [place] [address] Prabhu Scott MD Focal epilepsy with impairment of consciousness, intractable (HCC) (Primary Dx); Developmental delay, severe; Static ofuaytkdxdbiaz13/16/2025amboo flowsheet [facility] [address] [place] [address] Prabhu Scott MD 07/02/2025Travelfrom Last 3 Months Family History Medical HistoryRelationNameCommentsHeart diseaseFatherCOD: MIDiabetesMaternal GrandfatherHypertensionMaternal GrandfatherCancerMaternal Grandmother HypertensionMaternal GrandmotherHypertensionMotherHypertensionPaternal GrandfatherHypertensionPaternal GrandmotherRelationNameStatusCommentsFather DeceasedMaternal GrandfatherMaternal GrandmotherMotherAlivePaternal Grandfather Paternal Grandmother Social History Tobacco UseTypesPacks/DayYears UsedDateSmoking Tobacco: Never Tobacco Cessation:Counseling Given: Not Answered Alcohol UseStandard Drinks/WeekCommentsNever0 (1 standard drink = 0.6 oz pure alcohol)Caffeine: noneSex and Gender InformationValueDate RecordedSex Assigned at BirthNot on fileLegal MqoHata7112/29/2022 7:17 PM EDTGender IdentityNot on file Sexual OrientationNot on file Last Filed Vital Signs Vital SignReadingTime TakenCommentsBlood Itknhtus087/85416 1:00 PM EDT Brsbm9178 1:00 PM EDTTemperature--Respiratory Rate--Oxygen Saturation-- Inhaled Oxygen Concentration--Mvbero53.4 kg (153 lb)07/02/2025 10:45 AM EDT Gezjno028.6 cm (5' 4 )07/02/2025 10:45 AM EDTBody Mass Index26.26007/02/2025 10:45 AM EDT Plan of Treatment DateTypeDepartmentCare Team (Latest Contact Info)Qhbabnrotec60/16/2025 10:45 AM ESTOffice Visit [facility] [place] [address] [facility] [address] [place] [address] Prabhu Scott MD [address] [facility] [address] [place], [place] [id number] Health MaintenanceDue DateLast DoneCommentsCT Yoqmmfxidqly1978Colonoscopy 1978Colorectal Cancer Iengacofn1978FIT-DNA1978FIT1978 FOBT1978 4811Hoikpuigudjuh1978COVID-19 Vaccine ( season) /, 11/13/2020Influenza Vaccine (#1)/07/2024, 07/28/2022, 07/11/2018, Additional history existsPneumococcal Vaccine: Pediatrics (0 to 5 Years) and At-Risk Patients (6 to 64 Years)Aged OutNo longer eligible based on patient's age to [place] [address] Care Teams Team MemberRelationshipSpecialtyStart DateEnd Date Gasper Persaud DO [address] [facility] [place] [address] PCP - GeneralInternal Medicine03/15/23
--- OUTSIDE RECORDS SUMMARY | 2025-09-16 12:21 | XMS_ITS | Clinical Summary ---
Author Organization [facility] Address [address] [facility] [place] [address] Care Team Providers Care Home Performance Consultant Name Role Phone Unavailable Primary Care Provider Unavailabl e Source Comments The following information is NOT included in Care Everywhere downloads:Psychiatric notes, ECG results, Cardiac Rehab notes, Pulmonary Function notes, data from SmartForms (includes but not limited toPregnancy data,audiograms, eye exams, pre-surgical evaluation notes, well-child exam data).[facility] Encounters DateTypeDepartmentCare SuniGccrhoqfcuv82/23/2025Prep for Surgery [place] [id number] Capo Smith DDS 07/03/2025 11:10 [place] [address] from Last 3 Months Immunizations ImmunizationAdministration DatesNext DueInfluenza, Injectable, MDCK, Quadrivalent, Preservative (ATI=961)07/11/2018Influenza, Injectable, MDCK, Quadrivalent, Preservative Free (KNG=782)07/28/2022Influenza, injectable, trivalent, preservative (KPX=788)07/13/2017Influenza, injectable, trivalent, preservative free (ZCY=521)06/26/2024Td (adult), 2 Lf tetanus toxoid, preservative free, adsorbed (CVX=09)05/22/2019 Social History Tobacco UseTypesPacks/DayYears UsedDateSmoking Tobacco: Never AssessedSex and Gender InformationValueDate RecordedSex Assigned at BirthNot on fileLegal Sex Male02/25/2025 1:06 PM EDTGender IdentityNot on fileSexual OrientationNot on file Plan of Treatment NamePriorityAssociated DiagnosesDate/TimeDENTAL RESTORATIONSRoutine scheduled Dental decay Health MaintenanceDue DateLast CaztXicnvldqIsjqqmfxtlf1978Dental Oral Exam 1978Dental Zderrncrzwq1978Dental X-Ray: Mvcxbvshu1978HIV Test 1993Hepatitis C Sofroiwk11/18/1996Tdap Dyspuaz0509/03/1996Hepatitis A (HAV) Vaccine (optional start 19+ years)1997Hepatitis B (HBV) Vaccine (1 of 3 - 19+ 3-dose series)09/03/19976957Kwkmwkmpzcu56/18/2013CRC Qoouujoyw70/18/2023 Cologuard (Stool DNA)2023FIT2023Welcome to Medicare Visit (G0402) 02/25/2025OVID-19 Vaccine (2024- season)502/, 11/13/2020 Influenza Vaccine (#1)509/07/2024, 07/28/2022, 07/11/2018, Additional history existsShingles (RZV) Vaccine (1 of 2)2028Pneumococcal Vaccine(s) Aged OutNo longer eligible based on patient's age to complete this topic Procedures Procedure NamePriorityDate/TimeAssociated DiagnosisCommentsLIMITED EXAMRoutine 07/03/2025 11:10 AM EDTfrom Last 3 Months Insurance
--- OUTSIDE RECORDS SUMMARY | 2025-09-16 12:21 | XMS_ITS | Encounter Summary ---
Author Organization [facility] Address [address] [facility] [place] [address] Care Team Providers Care Child Care Cook Name Role Phone Gasper Persaud DO Primary Care Provider [phone] Reason for Visit * ReasonOnset DateCommentsMed Thdagt7909/03/2025 Encounter Details DateTypeDepartmentCare Team (Latest Contact Info)Pisuktechit68/18/2025Refill [facility] [address] [facility] [address] [place] [address] Stephenie Bobby MA Focal epilepsy with impairment of consciousness, intractable (HCC) Social History Tobacco UseTypesPacks/DayYears UsedDateSmoking Tobacco: NeverAlcohol UseStandard Drinks/WeekCommentsNever0 (1 standard drink = 0.6 oz pure alcohol)Caffeine: none Sex and Gender InformationValueDate RecordedSex Assigned at BirthNot on file Legal XpbDmtk6012/29/2022 7:17 PM EDTGender IdentityNot on fileSexual Orientation Not on filedocumented as of this encounter Miscellaneous Notes * Telephone Encounter - Stephenie Bobby MA - 2025 11:11 AM EST All Care called to question VPA script sent yesterday for 1 tab Q12 and said pt has been filling for 1 tab QAM since March. See 03/18/25 tel enc. Pharmacist asked for new script for once daily. 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
--- OUTSIDE RECORDS SUMMARY | 2025-09-16 12:23 | XMS_ITS | CCD ---
Author Organization [facility] CliniSyms Care Team Providers Care Hemodialysis Charge Nurse Name Role Phone SHAHNAZ GASPER~[phone] UNKNOWN Unavailable Unavailable SHAHNAZ, GASPER~[phone] UNKNOWN Unavailable Unavailable SHAHNAZ, GASPER~[phone] UNKNOWN Unavailable Unavailable BALL, GASPER~[phone] UNKNOWN Unavailable Unavailable Donna Haque Unavailable Jennifer Trujillo Unavailable Gasper Christie Unavailable JUICE NAVA Consulting Unavailable DIAB ., [...] BALL, DR TURCIOS Attending Unavailable BALL, DR TUCRIOS Admitting Unavailable BEJ, GORDY Consulting Unavailable SHAHNAZ, [...] Admitting Unavailable BALL, DR TURCIOS Consulting Unavailable SHAHNAZ, DR TURCIOS Primary Care Unavailable BALL, DR TURCIOS Attending Unavailable BALL, DR TURCIOS Admitting Unavailable ZIEBER, DR VAISHNAVI Larkin Consulting Unavailable SHAHNAZ, DR TURCIOS Consulting Unavailable SHAHNAZ, DR TURCIOS Primary Care Unavailable SHAHNAZ, DR TURCIOS Attending Unavailable SHAHNAZ, DR TURCIOS Admitting Unavailable ZIEBER, DR VAISHNAVI Larkin Consulting Unavailable GRECHTIARRA ALANIZ Consulting Unavailable VEL ., SIRI Attending Unavailable VEL ., SIRI Admitting Unavailable SHAHNAZ, DR TURCIOS Primary Care Unavailable JUICE WILD Consulting Unavailable PAY ., DR MACIAS Consulting Unavailable PAY ., DR MACIAS Attending Unavailable PAY ., DR MACIAS Admitting Unavailable SHAHNAZ, DR TURCIOS Primary Care Unavailable Gasper Christie MD Primary Care Provider Gasper Christie DO Primary Care Provider GASPER CHRISTIE Referring Unavailable GASPER CHRISTIE Primary Care Unavailable NO FAMILY, PHYSICIAN Primary Care Provider Unava ilable Gasper Christie DO Attending Provider [phone] Gasper Christie DO Primary Care Provider [phone] Gasper Christie DO Primary Care Provider GORDY SCOTT Attending Unavailable GORDY SCOTT Attending Unavailable GORDY SCOTT Attending Unavailable GORDY SCOTT Attending Unavailable Unavailable Primary Care Provider UnavailGasper Raines DO Attending Provider [phone] Gordy Scott MD Attending Provider PROVIDER, UNKNOWN Attending Unavailable PROVIDER, UNKNOWN Admitting Unavailable Allergies Allergy ClassificationReported Allergen(s)Allergy TypeDate of OnsetReaction(s) Facility (1 source)Pertussis Immune GlobulinDrug allergy (disorder)23-33-8899Zgb [facility] Repository (3 sources)Pertussis VaccineDrug AllergyLutheran Hospital Of IndianaGreen Earth [employer] Other (3 sources)Vaccine product containing Bordetella pertussis antigen (medicinal product)Drug qxctatk95-26-5561WqlfuacIxuwuGreen Earth [employer] Technologies Other (3 sources)patient allergy list reviewed by nurse or physiciaPropensity to adverse -[phone]:[employer] Other (18 sources)Pertussis Immune GlobulinPropensity to adverse olnncninj92-14-5151 [facility] (2 sources)Pertussis Vaccines; Translations: [PERTUSSIS VACCINES]Propensity to adverse reactions to ikoj36-58-7546[facility] Medications Current Medications MedicationDrug Class(es)DatesSig (Normalized)Sig (Original)brivaracetam 100 mg oral tablet (20 sources)Start: 05-31-2024 End: 32-33-6773jauy 1 tablet by mouth every twelve hoursBriviact 100 MG tablet tablet Indications: Focal epilepsy with impairment of consciousness, intractable (HCC) TAKE 1 TABLET BY MOUTH EVERY 12 HOURS 60 tablet 5 06/03/2025 Active cenobamate 150 mg oral tablet (20 sources)Start: 07-02-2025 End: 74-21-8291nokh 1 tablet by mouth at bedtimeCenobamate (Xcopri) 150 MG tablet Indications: Focal epilepsy with impairment of consciousness, intractable (HCC) Take 150 mg by mouth at bedtime 30 tablet 5 07/04/2025 12/31/2025 Active Start: 07-18-2024 End: 46-75-9393tmxf 1 tablet by mouth once daily at bedtimeXcopri 100 MG tablet Indications: Focal epilepsy with impairment of consciousness, intractable (HCC) TAKE 1 TABLET BY MOUTH ONCE DAILY AT BEDTIME 30 tablet 5 01/15/2025 07/02/2025 DiscontinuedStart: 05-09-2024 End: 49-83-0036sqno 1 tablet by mouth at bedtimeCenobamate (Xcopri) 50 MG tablet Indications: Focal epilepsy with impairment of consciousness, intractable (CMS/HCC) Take 50 mg by mouth at bedtime 30 tablet 3 05/09/2024 07/17/2024 Discontinued (Therapy completed)clonazePAM 0.5 mg oral tablet (20 sources)BenzodiazepineStart: 04-10-2024 End: 60-96-4483eyny 1 tablet by mouth once daily at bedtimetake 1 tablet by mouth every twenty-four hoursKlonoPIN 0.5 MG 1 tablet at bedtime Orally Once a day ActivecloNIDine hydrochloride 0.1 mg oral tablet (1 source)Central alpha-2 Adrenergic AgonistStart: 17-81-3873vjvg 1 tablet by mouth twice dailycloNIDine (CATAPRES) 0.1 mg tablet Take 1 tablet (0.1 mg total) by mouth 2 (two) times a day. 60 tablet 5 08/26/2017 Activedexamethasone 6 mg oral tablet (1 source)CorticosteroidStart: 76-36-7173hgqj 1 tablet by mouth every twenty- four hoursDexamethasone 6 MG 1 tablet Orally Once a day for 5 day(s) Sep, Activedoxycycline hyclate 100 mg oral capsule (8 sources)Tetracycline-class DrugStart: 73-11-5624mxks 1 capsule by mouth twice dailyDoxycycline Hyclate 100 MG 1 capsule Orally twice daily for 10 days Jan, Activeeslicarbazepine acetate 200 mg oral tablet (16 sources)Start: 80-15-8294mssp 1 tablet by mouth once dailyAptiom Active fluticasone propionate 0.05 mg/actuat metered dose nasal spray (10 sources)CorticosteroidStart: 93-54-8313vtvs 1 spray(s) nasal route once dailyStart: 63-72-2220rpku 1 spray(s) nasal route once dailyFlonase Allergy Relief 50 MCG/ACT 1 spray in each nostril Nasally Once a day for 30 days Apr, ActiveStart: 54-44-0578pfhdpaitys 600 mg oral tablet (14 sources)Anti-epileptic AgentStart: 86-93-3182rjgt 1 tablet by mouth twice dailytake 1 tablet by mouth every twelve hoursGabapentin 600 MG 1 tablet Orally twice a day ActivelamoTRIgine 200 mg oral tablet (20 sources)Mood Stabilizer, Anti-epileptic AgentStart: 12-27-2023 End: 77-66-4372frhg 1 tablet by mouth twice dailytake 450 mg by mouth once daily LAMOTRIGINE (LAMICTAL ORAL) Indications: 450mg daily Take by mouth Indications: 450mg daily. Activetake 1 tablet by mouth every twelve hoursLaMICtal 200 MG 1 tablet Orally twice a day Activetake 1 tablet by mouth every twenty-four hours LaMICtal 100 MG 1 tablet Orally Once a day for 30 day(s) Activeloratadine 10 mg oral tablet (10 sources)Start: 74-49-2815zmwc 1 tablet by mouth once dailyStart: 04-18-2023 take 1 tablet by mouth once dailyLoratadine 10 MG 1 tablet Orally Once a day for 30 days Apr, ActiveStart: 53-12-3468HPCfkpoqd 0.5 mg oral tablet (1 source)BenzodiazepineStart: 17-34-5632SFKbpnfzp (ATIVAN) 0.[address] Cobian 11/01/2017 Activemidazolam 50 mg/ml nasal spray (20 sources)BenzodiazepineStart: 05-09-2024 End: 68-36-2552Glsaybgxk 5 MG/0.1ML solution Indications: Focal epilepsy with impairment of consciousness, intractable (HCC) 1 dose after convulsive seizure > 5 minutes. May repeat in other nostril 10 minutes later if needed 4 each 3 09/18/2024 Activedivalproex sodium 250 mg delayed release oral tablet (20 sources)Mood Stabilizer, Anti-epileptic AgentStart: 04-97-0134ilkcrlcrfx (Depakote) 250 MG EC tablet Indications: Focal epilepsy with impairment of consciousness, intractable (HCC) 1 tab QAM 30 tablet 5 03/18/2025 ActiveStart: 04-17-2024 End: 43-18-9540vwdepypwbo (Depakote) 250 MG EC tablet Indications: Focal epilepsy with impairment of consciousness, intractable (CMS/HCC) 1 tab Q12 60 tablet 5 12/18/2024 Active Completed/Discontinued Medications MedicationDrug Class(es)DatesSig (Normalized)Sig (Original)azithromycin 250 mg oral tablet (3 sources)Macrolide AntimicrobialStart: 01-30-2025 End: 82-96-3937Nwuxfnceihae 250 mg tablet Discontinued 250 MG PO .COMPLEX 6 5 January 30, 2025 12:00am April 24, 2025 1:51pm 2 tabs on first day followed by 1 tab on days 2-5Cenobamate (Xcopri) 25 MG tablet (3 sources)Start: 05-09-2024 End: 49-49-8755Jahbzsidfw (Xcopri) 25 MG tablet Indications: Focal epilepsy with impairment of consciousness, intractable (CMS/HCC) Take 12.5 mg by mouth at bedtime for 14 days, THEN 25 mg at bedtime for 14 days, THEN 50 mg at bedtime. 30 tablet 05/09/2024 07/17/2024 Discontinued (Therapy completed)Start: 58-28-9961Qztdlrzpsj (Xcopri) 25 MG tablet Indications: Focal epilepsy with impairment of consciousness, intractable (CMS/HCC) Take 12.5 mg by mouth at bedtime for 14 days, THEN 25 mg at bedtime for 14 days, THEN 50 mg at bedtime. 30 tablet 05/09/2024 Active Problems Active Problems Problem ClassificationProblemDateDocumented DateEpisodic/ChronicAcute bronchitis (10 sources)Acute bronchitis due to other specified organisms; Translations: [Acute bronchitis]Onset: 77-02-4237FxyyrvioOdikwmkjpy pneumonitis; food/vomitus (7 sources)Pneumonitis due to inhalation of food and vomit; Translations: [Pneumonitis due to inhalation of food or vomitus]Onset: 41-26-7791Sxurrjys Attention-deficit, conduct, and disruptive behavior disorders (3 sources)Attention deficit hyperactivity disorder; Translations: [Attention deficit disorder of childhood with hyperactivity]Onset: 39-00-7665Ilbmlgo Deficiency and other anemia (1 source)Other dietary vitamin B12 deficiency anemia; Translations: [OTH DIETARY VITAMIN B12 DEF ANEMIA]Onset: 21-99-7537IypgkkwxScuokkzuttlec disorders (20 sources)Difficulty using verbal communication; Translations: [Developmental disorder of speech and language, unspecified]Onset: hronic Diseases of mouth; excluding dental (6 sources)Xerostomia; Translations: [Dry mouth, unspecified]Onset: 08-24-2016 EpisodicDisorders of lipid metabolism (6 sources)Hyperlipidemia, unspecified; Translations: [Hypercholesterolemia] Onset: 491524-98-4827YpuzmhkGwfbpwkhj of teeth and jaw (2 sources)Dental caries; Translations: [Dental caries, unspecified]07-09-2025 EpisodicDisorders usually diagnosed in infancy, childhood, or adolescence (13 sources)Autism spectrum disorder; Translations: [Pervasive developmental disorder, unspecified]Onset: 987020-49-0948NopmrczI Codes: Fall (2 sources)Unspecified fall, initial encounter; Translations: [Fall on same level from slipping, tripping and stumbling with subsequent striking against unspecified object, initial encounter]Onset: 53-48-4727OxthpwodHiphwjmy; convulsions (20 sources)Epilepsy; Translations: [Generalized seizure disorder]Onset: 41-43-7625RyxwerpUpmpxnct; convulsions (1 source)Unspecified convulsions; Translations: [UNSPECIFIED CONVULSIONS]Onset: 78-56-5516JmgnijrxHlzgbnnnfhlur symptoms and ill-defined conditions (9 sources)Functional urinary incontinence; Translations: [Functional urinary incontinence]ChronicHeadache; including migraine (5 sources)Headache; including migraine; Translations: [HEADACHE UNSPECIFIED] Onset: 31-69-0431Eabjmzajeahdv and screening for infectious disease (4 sources)Encounter for screening for infections with a predominantly sexual mode of transmission; Translations: [Vaccination given]Onset: 64-26-3104Ziffaztw Intracranial injury (1 source)Concussion without loss of consciousness, subsequent encounterEpisodic Joint disorders and dislocations; trauma-related (3 sources)Unspecified subluxation of left shoulder joint, subsequent encounter; Translations: [Unspecified subluxation of left shoulder joint, subsequent encounter]EpisodicNutritional deficiencies (1 source)Pyridoxine deficiency; 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]Onset: 92-58-4388SgyvpxszLxbow aftercare (1 source)Other correction (current) drug therapy; Translations: [OTH YARD PERSON CURRENT DRUG THERAPY]Onset: 63-32-1466UcvefdrmEpmec aftercare (3 sources)Long-term current use of drug therapy; 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 manager long term care (current) drug therapy]EpisodicOther aftercare (2 sources)Taking high risk medication; 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 manager long term care (current) drug therapy]53-18-9874SafkgtdkSiabu connective tissue disease (1 source)Myalgia, unspecified site; Translations: [MYALGIA UNSPECIFIED SITE] Onset: 54-31-6134TdsvtderJuujc connective tissue disease (1 source)Repeated falls; Translations: [Repeated falls]Onset: 03-15-2025 EpisodicOther ear and sense organ disorders (3 sources)Hearing loss; Translations: [Unspecified hearing loss, bilateral] Onset: 13-13-5046StenbalLadpf injuries and conditions due to external causes (4 sources)Other specified injuries of head, initial encounter; Translations: [OTH SPEC INJURIES HEAD INITIAL ENC]Onset: 49-65-4780KqfujluzBcmix nervous system disorders (1 source)Hereditary and idiopathic neuropathy, unspecified; Translations: [HEREDITARY IDIOPATH NEUROPATHY UNS]Onset: 34-54-4607GiplfxyLgodp nervous system disorders (5 sources)Polyneuropathy, unspecified; Translations: [POLYNEUROPATHY UNSPECIFIED]Onset: 17-71-6665RztluxuLewyt nervous system disorders (20 sources)Static encephalopathy; 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]Onset: 705485-02-6727PtwqznwQyscq non-traumatic joint disorders (4 sources)Pain in left shoulder; Translations: [PAIN IN LEFT SHOULDER]Onset: 28-25-6470LdfddtrbDdddg non-traumatic joint disorders (6 sources)Shoulder joint pain; Translations: [Pain in left shoulder]Onset: 80-94-0997WgyceqzbHjudq nutritional; endocrine; and metabolic disorders (3 sources)Simple obesity ; 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 obesity due to excess calories] Onset: 80-68-8797MvbhzrpZffqy nutritional; endocrine; and metabolic disorders (3 sources)Obese class I; Translations: [Body mass index 32.0-32.9, adult]Onset: 76-79-9559BvblgvoKmvaf nutritional; endocrine; and metabolic disorders (3 sources)Body mass index 30+ - obesity; Translations: [Body mass index 30.0- 30.9, adult]Onset: 30-34-6250QzxqxolWzjys nutritional; endocrine; and metabolic disorders (20 sources)Developmental delay; Translations: [Unspecified lack of expected normal physiological development in childhood]Onset: EpisodicOther nutritional; endocrine; and metabolic disorders (4 sources)Unspecified lack of expected normal physiological development in childhood; Translations: [Lack of normal physiological development, unspecified] Onset: 688540-77-2751PsimukrgKyfyd nutritional; endocrine; and metabolic disorders (3 sources)Physiological development failure; Translations: [Unspecified lack of expected normal physiologicaldevelopment in childhood]EpisodicOther screening for suspected conditions (not mental disorders or infectious disease) (5 sources)Other specified abnormal findings of blood chemistry; Translations: [Encounter for screening for malignant neoplasm of colon]Onset: 09-18-2022 87-52-0408IieerevrWuxrr skin disorders (1 source)Hidradenitis suppurativaEpisodicOther upper respiratory disease (5 sources)Allergic rhinitis due to pollen; Translations: [Allergic rhinitis due to pollen]ChronicOther upper respiratory disease (1 source)Allergic rhinitis due to pollenChronicOther upper respiratory disease (3 sources)Seasonal allergic rhinitis; 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 seasonal allergic rhinitis]Onset: 79-33-7130IntmhuoBbmpy upper respiratory disease (3 sources)Vasomotor rhinitis; Translations: [Vasomotor rhinitis]Onset: 47-53-0718HlcusubAfclr upper respiratory infections (8 sources)Acute maxillary sinusitis; Translations: [Acute maxillary sinusitis, unspecified]Onset: 760291-95-9578KgiavpvvEmirndcoa (14 sources)Ataxic cerebral palsy; 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]Onset: 51-37-0989LhddzwxUbvawfyspv and visceral atherosclerosis (2 sources)Unspecified atherosclerosis; Translations: [Generalized atherosclerosis]Onset: 67-39-5713XceaccoGowvrgcgm (except that caused by tuberculosis or sexually transmitted disease) (6 sources)Pneumonia, unspecified organism; Translations: [Pneumonia]Onset: 32-04-4679ShnunrjeSfae and subcutaneous tissue infections (9 sources)Carbuncle of right axilla; Translations: [Carbuncle of right axilla] EpisodicSprains and strains (7 sources)Strain of unspecified muscle, fascia and tendon at shoulder and upper arm level, left arm, subsequent encounter; Translations: [Sprain of shoulder and upper arm] Resolved: 79-69-0556SuevqqyqIzhcjjbybru injury; contusion (20 sources)Contusion of left hip, initial encounter; Translations: [Contusion of scalp, initial encounter]Onset: 02-20-2016 Resolved: 04-10-1693GvygsoneKxamibjzakur (1 source)CONTACT W/AND (SUSP) EXPOS COVID-19; Translations: [CONTACT W/AND (SUSP) EXPOS COVID-19]Onset: 02-23-2022 Past or Other Problems Problem ClassificationProblemDateDocumented DateEpisodic/ChronicBacterial infection; unspecified site (3 sources)Bacterial infectious disease; Translations: [Bacterial infection, unspecified, in conditions classified elsewhere and of unspecified site]Onset: 90-74-1521JpbvashgEvtabzjjhhesq of surgical procedures or medical care (18 sources)Drug therapy finding; Translations: [Unspecified adverse effect of drug or medicament, initial encounter]Onset: 152432-29-3047RmmjowslL Codes: Adverse effects of medical drugs (3 sources)Antihypertensive adverse reaction; Translations: [Adverse effect of other antihypertensive drugs, initial encounter]Onset: 98-87-4407Nqxukifl Influenza (3 sources)Influenza due to identified novel influenza A virus with other respiratory manifestations; Translations: [Influenza due to identified novel influenza A virus with other respiratory manifestations]Onset: 01-01-2019 EpisodicMalaise and fatigue (2 sources)Other malaise; 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 fatigue]Onset: 32-13-1033Uypgnptv Nonmalignant breast conditions (3 sources)Hypertrophy of breast; Translations: [Hypertrophy of breast]Onset: 62-16-3575InyghfgaNxjpqowycod chest pain (3 sources)Chest pain; 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 chest pain]Onset: 48-96-0049Ugjeveoz Other ear and sense organ disorders (3 sources)Impacted cerumen; Translations: [Impacted cerumen]Onset: 08-11-2016 EpisodicOther fractures (3 sources)Fracture of multiple ribs ; Translations: [Multiple fractures of ribs, left side, subsequent encounter for fracture with routine healing]Onset: 31-92-6281MdyvnvuoCxupe gastrointestinal disorders (4 sources)Dysphagia, unspecified; Translations: [DYSPHAGIA UNSPECIFIED]Onset: 16-37-1328CniycefqJfbvs injuries and conditions due to external causes (4 sources)Unspecified injury of left lower leg, initial encounter; Translations: [UNS INJURY LT LOWER LEG INITIAL ENC]Onset: 09-29-2021 Resolved: 50-82-3977EzmuklevEodod injuries and conditions due to external causes (3 sources)History of fall; Translations: [History of falling]Onset: 10-04-2018 EpisodicResidual codes; unclassified (3 sources)Pain, unspecified; Translations: [PAIN UNSPECIFIED]Onset: 02-14-2022 EpisodicResidual codes; unclassified (3 sources)Requires influenza virus vaccination; Translations: [Need for prophylactic vaccination and inoculation, Influenza]Onset: 78-90-8092Elunycmk Unclassified (1 source)Contact with and (suspected) exposure to covid-19 Z20.822Onset: 06-19-2022 Resolved: 23-73-5075Fcflw infection (1 source)COVID-19Onset: 06-19-2022 Resolved: 06-19-2022 Results Test NameValueInterpretationReference RangeFacilityProgress Noteson 07-03-2025 [employer] Paire[employer] Authentication Interface Message TextAmy Yajaira RD Medications Ordered Prior to Encounter[1] Pt is special needs and was with his caregiver/ mother. Limited Exam for OR consult. Pt would open his mouth for a toothbrush. Dr. Scanlon slightly saw into pt. mouth. Mother believes pt may be in pain because sometimes he does not eat. Pt has not seen a dentist in years. OR request was placed by Dr. Scanlon Contact info: Mother Bre Hameed [phone] Friend Daphne Llamas [phone] Treasure Larkin [facility]/ Dr. Scanlon [1] No current outpatient medications on file prior to visit. No current facility-administered medications on file prior to visit.NormalThe [facility] SystemNo Panel InformationOrdered By: Gordy Scott on 06-18-2025 Lamotrigine (Lamictal) Level15.0 ug/mL2.0-20.0[facility] Comment on above:Detection Limit = 1.0Performed at: [facility] [employer] [id number] Director: Chris Lux MD, Phone: [phone] TestCOMMENT.[facility] CenterComment on above:Test Ordered: [id number] Cenobamate (Xcopri), PlasmaCenobamate 8.8 ug/mL MX Reference Range: .Although the therapeutic range is not well established, thesuggested range at doses of 100 - 400 mg/day is 5 - 35 ug/mL.Toxic range has not been established.This test was developed and its performance character isticsdetermined by [facility]. It has not been cleared or approvedby the Food and Drug Administration.Performed at: [facility] [address] [id number] Director: Vero Hicks [facility], Phone: [phone] at: [facility] [id number] Director: Silvestre Nelson PhD, Phone: [phone] Auto (Bld) [#/Vol]Ordered By: Gasper Christie on 68-56-5849Ybcajkgas (Bld) [#/Vol]0.0 10 3/uL0.0-0.1FCleveland Clinic Lutheran HospitalBasophils/100 WBC Auto (Bld)Ordered By: Gasper Christie on 17-95-6435Abnhrvbpa/100 WBC (Bld)0.6 %0.2-2.0[facility] CenterEosinophils/100 WBC Auto (Bld)Ordered By: Gasper Christie on 95-08-2136Wmpktlvedru/100 WBC (Bld)2.8 %0.9-7.0[facility] CenterErythrocyte distribution width Auto (RBC) [Ratio]Ordered By: Gasper Christie on 54-58-8527Pnronqvpuup distribution width (RBC) [Ratio]12.9 %11.0-15.0 [facility] CenterGlobulin Calc (S) [Mass/Vol]Ordered By: Gasper Christie on 89-40-3046Nprfancz (S) [Mass/Vol]4.8 g/dLFairfield Medical CenterGlomerular filtration rate (GFR) estimation in non- AmericanOrdered By: Gasper Christie on 92-53-1532DHY/1.73 sq M.predicted among non-blacks MDRD (S/P/Bld) [Vol rate/Area]mL/min/{1.73_m2}>=60 mL/min/1.73m 2 [facility] CenterHematocrit Auto (Bld) [Volume fraction]Ordered By: Gasper Christie on 60-80-0835Vjawulqprn (Bld) [Volume fraction]47.0 %42.0-54.0 [facility] CenterHemoglobin [Mass/volume] in BloodOrdered By: Gasper Christie on 63-58-2214Nvljrcotrg (Bld) [Mass/Vol]15.7 g/dL14.0-18.0 [facility] CenterLaboratory - Chemistry and Chemistry - challengeOrdered By: Gasper Christie on 60-10-8243Gkeoybf [Mass/Vol]2.9 g/dLLow 3.4-5.0[facility] CenterALP [Catalytic activity/Vol]116 U/L 46-116[facility] CenterALT [Catalytic activity/Vol]19 U/L16-63 [facility] CenterAST [Catalytic activity/Vol]17 U/L15-37 [facility] CenterBilirubin [Mass/Vol]0.1 mg/dLLow0.2-1.0 [facility] CenterCalcium [Mass/Vol]9.5 mg/dL8.5-10.1FCleveland Clinic Lutheran HospitalChloride [Moles/Vol]103 mmol/J65-699IsuvqepywFairfield Medical CenterCO2 [Moles/Vol]32.4 mmol/LHigh21.0-32.0[facility] CenterCreatinine [Mass/Vol]1.00 mg/dL0.70-1.30[facility] GFR/1.73 sq M.predicted MDRD (S/P/Bld) [Vol rate/Area]mL/min/{1.73_m2}>=60 mL/min/1.73m 2FCleveland Clinic Lutheran HospitalGlucose [Mass/Vol]114 mg/dLHigh 74-106[facility] CenterPotassium [Moles/Vol]4.3 mmol/L3.5-5.1 [facility] CenterProtein [Mass/Vol]7.7 g/dL6.4-8.2FCincinnati Children's Hospital Medical Centerodium [Moles/Vol]141 mmol/P787-589PifetermcFairfield Medical CenterUrea nitrogen [Mass/Vol]15.0 mg/dL7.0-18.0[facility] CenterUrea nitrogen/Creatinine [Mass ratio]15.0 mg/mgFairfield Medical CenterLaboratory - Hematology and Cell countsOrdered By: Gasper Christie on 12-45-0988Wxfrguoe granulocytes/100 WBC (Bld)0.3 %0.0-0.5FCleveland Clinic Lutheran HospitalLeukocytes [#/volume] corrected for nucleated erythrocytes in Blood by Automated counOrdered By: Gasper Christie on 87-65-0981YYG corrected for nucl RBC Auto (Bld) [#/Vol]7.3 10 3/uL4.0-11.0[facility] Lymphocytes Auto (Bld) [#/Vol]Ordered By: Gasper Christie on 17-38-5324Mlzxkidepet (Bld) [#/Vol]3.1 10 3/uL1.2-3.8[facility] CenterLymphocytes/100 WBC Auto (Bld)Ordered By: Gasper Christie on 71-25-2459Ofqpznqqygf/100 WBC (Bld) 43.0 %20.5-60.0[facility] CenterMCH Auto (RBC) [Entitic mass] Ordered By: Gasper Christie on 56-79-7784HTA (RBC) [Entitic mass]30.8 pg25.9-34.0 [facility] CenterMCHC Auto (RBC) [Mass/Vol]Ordered By: Gasper Christie on 34-12-1674JJWL (RBC) [Mass/Vol]33.4 g/dL29.9-35.2FCleveland Clinic Lutheran HospitalMCV Auto (RBC) [Entitic vol]Ordered By: Gasper Christie on 42-57-6755XBJ (RBC) [Entitic vol]92.2 fL80.0-94.0[facility] CenterMonocytes Auto (Bld) [#/Vol]Ordered By: Gasper Christie on 04-25-2025 Monocytes (Bld) [#/Vol]0.5 10 3/uL0.3-0.8[facility] Monocytes/100 WBC Auto (Bld)Ordered By: Gasper Christie on 39-61-4299Hcfmvposu/100 WBC (Bld)7.0 %1.7-12.0[facility] CenterNeutrophils Auto (Bld) [#/Vol]Ordered By: Gasper Christie on 06-99-4856Zacnkzpkzvv (Bld) [#/Vol]3.4 10 3/uL1.4-6.5FCleveland Clinic Lutheran HospitalNeutrophils/100 WBC Auto (Bld) Ordered By: Gasper Christie on 30-40-1263Ogoqorireks/100 WBC (Bld)46.3 %43.0-75.0 [facility] CenterNo Panel InformationOrdered By: Gasper Christie on 74-88-7816Gexageluymb # (Auto)0.2 10 3/uL0.0-0.7FCleveland Clinic Lutheran HospitalImmature Granulocyte # (Auto)0.02 10 3/uL0.00-0.03[facility] CenterPlatelet mean volume Auto (Bld) [Entitic vol]Ordered By: Gasper Christie on 48-34-3096Odxkkovo mean volume (Bld) [Entitic vol]8.6 fLLow9.5-13.5 [facility] CenterPlatelets Auto (Bld) [#/Vol]Ordered By: Gasper Christie on 94-48-8540Zpkufnwir (Bld) [#/Vol]208 10 3/dE931-851OqjtvwaqcFairfield Medical CenterRBC Auto (Bld) [#/Vol]Ordered By: Gasper Christie on 16-17-3201MPM (Bld) [#/Vol]5.10 10 6/uL4.70-6.10[facility] Centererum or plasma albumin/globulin mass ratioOrdered By: Gasper Christie on 81-64-4074Fefsdkz/Globulin [Mass ratio]0.6 {ratio}[facility] Health Centererum or plasma anion gap determinationOrdered By: Gasper Christie on 36-17-8491Ievhz gap [Moles/Vol]9.9 mmol/LFCleveland Clinic Lutheran HospitalNo Panel Informationon 21-61-0277Deynsoioioj (Lamictal) Level19.4 ug/mL2.0-20.0 [facility] CenterComment on above:Detection Limit = 1.0Performed at: [facility] [employer] [id number] Director: Chris Lux MD, Phone: [phone] TestCOMMENT. [facility] CenterComment on above:Test Ordered: [id number] Cenobamate (Xcopri), PlasmaCenobamate 2.6 [L ] ug/mL MX Reference Range: .Altho ugh the therapeutic range is not well established, thesuggested range at doses of 100 - 400 mg/day is 5 - 35 ug/mL.Toxic range has not been established.This test was developed and its performance characteristicsdetermined by [facility]. It has not been cleared or approvedby the Food and Drug Administration.Performed at: [facility] [place] [id number] Director: Vero Hicks [facility], Phone: [phone] at: [facility] [id number] Director: Silvestre Nelson PhD, Phone: [phone] Panel Informationon 24-92-0270Ghhusvfrrpans TestCOMMENT. [facility] CenterComment on above:Test Ordered: [id number] Valproic Acid (Total+Free)Valproic Acid (Depakote)(R),S 41 [L ] ug/mL Reference Range: 50-100 Detection Limit = 4 <4 indicates None DetectedToxicity may occur at levels of 100-500. Measurementsof free unbound valproic acid may improve the assess-ment of clinical response.Free Valproic Acid (Depakote) 9.4 ug/mL Reference Range: 6.0-22.0 Detection Limit = 0.5Performed at: [facility] [employer] [id number] Director: Silvestre Nelson PhD, Phone: [phone] at: [address] [id number] Director: Chris Lux MD, Phone: [phone] Laboratory - Chemistry and Chemistry - challengeon 48-23-8231RME [Catalytic activity/Vol]23 U/I78-35FoaeiffcuFairfield Medical CenterAmmonia (P) [Moles/Vol] 38 umol/LBxwe51-28DaoyrpegcFairfield Medical CenterAST [Catalytic activity/Vol] 17 U/K08-97TpndpnthmFairfield Medical CenterNo Panel Informationon 04-23-2024 Lamotrigine (Lamictal) Level23.3 ug/mLAbnormal2.0-20.0[facility] CenterComment on above:Verified by repeat analysis Detection Limit = 1.0Performed at: [facility] [employer] [id number] Director: Chris Lux MD, Phone: [phone] Test COMMENT.[facility] Medical CenterComment on above:Test Ordered: [id number] Brivaracetam, SE/PLBrivaracetam 3.33 [H ] ug/mL MX Reference Range: 0.20 - 2.00 This test was developed and its performance characteristicsdetermined by [facility]. It has not been cleared or approvedby the Food and Drug Administration.Performed at: [employer] [address] [id number] Director: Vero Hicks [facility], Phone: [phone] at: [id number] [place], [place] [id number] Director: Silvestre Nelson PhD, Phone: [phone] Panel Informationon 03-26-2024 Lamotrigine (Lamictal) Level17.1 ug/mL2.0-20.0[facility] Comment on above:Detection Limit = 1.0Performed at: [employer] [id number] Director: Chris Lux MD, Phone: [phone] TestCOMMENT.[facility] Medical CenterComment on above:Test Ordered: [id number] Valproic Acid (Total+Free)Valproic Acid (Depakote)(R),S 11 [L ] ug/mL Reference Range: 50-100 Detection Limit = 4 <4 indicates None DetectedToxicity may occur at levels of 100-500. Measurementsof free unbound valproic acid may improve the assess-ment of clinical response.Free Valproic Acid (Depakote) 2.6 [L ] ug/mL Reference Range: 6.0-22.0 Detection Limit = 0.5Performed at: [facility] [address] [id number] Director: Silvestre Nelson PhD, Phone: [phone] at: [employer] [address] [id number] Director: Chris Lux MD, Phone: [phone] HIP LT 2 3V W PELVISon 79-45-7283TX HIP LT 2 3V W PELVISEXAM: PA of the pelvis and left hip [...] Electronically authenticated by: JUICE NAVA Date: 2023-01-23 09:52[facility] CenterXR SHOULDER LT 2V or >on 27-40-1245WI SHOULDER LT 2V or >EXAM: XR SHOULDER LT 2V or > HISTORY: [...] Electronically authenticated by: JUICE NAVA Date: 2023-01-23 09:51NormKettering HealthLAMOTRIGINEon 79-78-1091Tbwuwxosydq, Serum15.7 ug/mLNormal 2.0-20.0[facility] on above:Result Comment: Detection Limit = 1.0Performed By: #### LAMOT #### [facility] [address] [place] [address] Dr. Daphne CheneyLAMOTRIGINEon 80-82-5244Gxehwxmzaah, Serum23.2 ug/mLInvalid Interpretation Code2.0-20.0[facility] on above:Result Comment: Verified by repeat analysis Detection Limit = 1.0Performed By: #### LAMOT #### [facility] [address] [place] [address] Dr. Daphne FrederickRS-CoV-2 (COVID-19) RNA TEO+probe Ql (Resp)on 06-19-2022 SARS-CoV-2 (COVID-19) RNA TEO+probe Ql (Unsp spec)PositiveNort Xunlei Other XR MODIFIED BARIUM SWALLOWon 41-23-4748YE MODIFIED BARIUM SWALLOWEXAMINATION: XR MODIFIED BARIUM SWALLOW HISTORY: Dysphagia COMPARISON: [...] Electronically authenticated by: VAISHNAVI BAER Date: 2022-06-16 11:18NoMorrow County HospitalXR KNEE GEMA 4V or >on 89-74-8646OZ KNEE GEMA 4V or >EXAM: XR KNEE GEMA 4V or > HISTORY: Unspecified fall COMPARISON: None. TECHNIQUE: 9 views total FINDINGS: No fracture, dislocation, subluxation or osseous lesion. No visualized knee effusion. Joint spaces are normal. IMPRESSION: Normal knee x-rays Electronically authenticated by: JUICE WILD Date: 2022-06-09 17:19NoMorrow County HospitalLAMOTRIGINEon 26-11-1405Fewrfpbpzrg, Serum11.2 ug/mLNormal 2.0-20.0[facility] HospitalComment on above:Result Comment: Detection Limit = 1.0Performed By: #### LAMOT ####[facility] [address] [place], [place] [address]Ej. Daphne CheneyXR CHEST 2 Von 97-04-5295PT CHEST 2 V EXAMINATION: XR CHEST 2 V HISTORY: Pneumonitis due to inhaled [...] Electronically authenticated by: VAISHNAVI BAER Date: 2022-03-10 14:59NoMorrow County HospitalCARDIAC GORDY 3-6on 80-33-1268PO [Catalytic activity/Vol]73 U/L Qzsnsz46-885GklGrand Lake Joint Township District Memorial HospitalComment on above:Performed By: #### CMREP #### [facility] [address] [place] [address] Dr. Daphne Ford.MB [Mass/Vol]0.95 ng/mLNormal<=3.60[facility] Comment on above:Performed By: #### CMREP #### [facility] [address] [place] [address] Dr. Daphne JesusOP4.8 pg/mLNormal4.0-76.1The [facility] HospitalComment on above:Result Comment: CUT-OFF POINTS HAVE BEEN ESTABLISHED BASED ON THE FOURTH UNIVERSAL DEFINITIONS OF MYOCARDIAL INFARCTION. THE UPPER REFERENCE LIMIT (URL) OF TROPONIN, DEFINED THE 99TH PERCENTILE OF cTnI DISTRIBUTION IN A REFERENCE POPULATION, HAS BEEN CONFIRMED THE DECISION THRESHOLD FOR MO DIAGNOSIS.Performed By: #### CMREP #### [facility] [address] [place] [address] Dr. Daphne KAMINSKI ADMITon 64-11-1472DT [Catalytic activity/Vol]64 U/L Tznhlf10-760UtqGrand Lake Joint Township District Memorial HospitalComment on above:Performed By: #### JUNE AUGUSTDM #### [facility] [address] [place] [address] Dr. Daphne Ford.MB [Mass/Vol]0.85 ng/mLNormal<=3.60[facility] Comment on above:Performed By: #### MATA CMADM #### [facility] [address] [place] [address] Dr. Daphne Maldonado4.1 pg/mLNormal4.0-76.1[facility] HospitalComformerly [facility] on above:Result Comment: CUT-OFF POINTS HAVE BEEN ESTABLISHED BASED ON THE FOURTH UNIVERSAL DEFINITIONS OF MYOCARDIAL INFARCTION. THE UPPER REFERENCE LIMIT (URL) OF TROPONIN, DEFINED THE 99TH PERCENTILE OF cTnI DISTRIBUTION IN A REFERENCE POPULATION, HAS BEEN CONFIRMED THE DECISION THRESHOLD FOR MO DIAGNOSIS.Performed By: #### BMP, CMADM #### [facility] [address] [place] [address] Dr. Daphne ZamanO98 ng/mLCritically eury53-95Hen [facility] HospitalComment on above:Performed By: #### BMP, CMADM #### [facility] [address] [address] [address] Daphne Doe AUTO DIFFon 20-97-9418UOIS #0.1 103/ulNormal0.0-0.1The [facility] HospitalComment on above:Performed By: #### CBC ####[facility] [address] [place], [place] [address]Dr.Daphne ChangBasophils/100 WBC (Bld)0.5 %Normal0.2-2.0The [facility] HospitalComformerly [facility] hospital on above:Performed By: #### CBC ####[facility] [address] [place], [place] [address]Dr.Shahrzadlan ChangEO #0.0 103/ulNormal0.0-0.7The [facility] HospitalComment on above:Performed By: #### CBC ####[facility] [address] [place], [place] [address]Dr.Daphne ChangEosinophils/100 WBC (Bld)0.2 %Critically low0.9-7.0The [facility] HospitalComformerly [facility] hospital on above:Performed By: #### CBC ####[facility] [address] [place], [place] [address]Dr. Daphne ChangErythrocyte distribution width (RBC) [Ratio]13.0 %Glhdia43.0-15.0The [facility] HospitalComment on above:Performed By: #### CBC ####[facility] [address] [place], [place] [address]Dr.Daphne ChangHematocrit (Bld) [Volume fraction]48.6 %Yuienw49.0-54.0The [facility] HospitalComment on above:Performed By: #### CBC ####[facility] [address] [place], [place] [address]Dr.Daphne ChangHemoglobin (Bld) [Mass/Vol]15.2 g/dL Rcnuts45.0-18.0The [facility] HospitalComment on above:Performed By: #### CBC ####[facility] [address] [address]Dr. Daphne CheneyIG #0.05 10e3/ulCritically high0.00-0.03The [facility] HospitalComment on above:Performed By: #### CBC ####[facility] [address] [address]Dr.Daphne ChangIG %0.4 %Normal0.0-0.5The [facility] HospitalComment on above:Performed By: #### CBC ####[facility] [address] [place] [address]Dr.Daphne CheneyLYMPH #1.2 103/ulNormal1.2-3.8The [facility] HospitalComment on above:Performed By: #### CBC ####[facility] [address] [place], [place] [address]Dr. Daphne CheneyLymphocytes/100 WBC (Bld)9.2 %Critically low20.5-60.0The [facility] HospitalComment on above:Performed By: #### CBC ####[facility] [address] [place] [address]Dr.Daphne CheneyMANUAL DIFF REQ NONormalThe [facility] HospitalComment on above:Performed By: #### CBC ####[facility] [address] [place], [place] [address]Dr. Daphne CheneyNUVANCE HEALTH (RBC) [Entitic mass]28.7 kdRrjmoo10.9-34.0The [facility] Comment on above:Performed By: #### CBC ####[facility] [address] [place], [place] [address]Dr.Daphne CheneyHC (RBC) [Mass/Vol]31.3 g/dL Oxrxhs22.9-35.2The [facility] HospitalComment on above:Performed By: #### CBC ####[facility] [address] [place], [place] [address]Dr. Daphne CheneyV (RBC) [Entitic vol]91.9 uVTefebi54.0-94.0The [facility] Comment on above:Performed By: #### CBC ####[facility] [address] [address]Dr.Daphne CheneyMONO #0.9 103/ulCritically high0.3-0.8The [facility] HospitalComment on above:Performed By: #### CBC ####[facility] [address] [address]Dr. Yilan ChangMonocytes/100 WBC (Bld)7.2 %Normal1.7-12.0[facility] Comment on above:Performed By: #### CBC ####[facility] [address] [address]Dr.Shahrzadlan ShravanNEUT #10.7 103/ulCritically high1.4-6.5The [facility] HospitalComment on above:Performed By: #### CBC ####[facility] [address] [place], [place] [address]Dr. Yilan ChangNeutrophils/100 WBC (Bld)82.5 %Critically high43.0-75.0The [facility] HospitalComment on above:Performed By: #### CBC ####[facility] Pa[address]efdryoe[address] [place], [place] [address]Dr.Daphne CheneyPlatelet mean volume (Bld) [Entitic vol]8.4 fLCritically low9.5-13.5The [facility] Comment on above:Performed By: #### CBC ####[facility] [address] [place], [place] [address]Dr.Yilan GmkcjEJX691 103/acGundwl834-827Pkj [facility] HospitalComment on above:Performed By: #### CBC ####[facility] [address] [address]Dr.Shahrzadlan ChangRBC5.29 106/ul Normal4.70-6.10The [facility] HospitalComment on above:Performed By: #### CBC ####[facility] [address]urgs[address] [place], [place] [address]Dr. Yilan DxqcqZJP76.0 103/ulCritically high4.0-11.0The [facility] HospitalComment on above:Performed By: #### CBC ####[facility] [address] [place], [place] [address]IfMikel CheneyCT ABD/PELVIS WO CONon 21-22-6222ZT ABD/PELVIS WO CONEXAMINATION: CT CHEST WO CON, CT ABD/PELVIS WO [...] Electronically authenticated by: EMMA RODRIGUEZ Date: 2022-02-14 08:30[facility] CenterCT HEAD WO CONon 63-10-8826YY HEAD WO CONEXAMINATION: CT HEAD WO CON HISTORY: Pain COMPARISON: [...] authenticated by: GERALD CRUZ Date: 2022-02-14 08:27 NormalThe [facility] HospitalCovid-19 PCR (CVDTBH)on 91-94-1828UBRI-CoV-2 (COVID- 19) RNA TEO+probe Ql (Unsp spec)Not detectedNormalNOT DETECTEDThe [facility] HospitalComment on above:Result Comment: When diagnostic testing is negative, the possibility of a false negative should be considered in the context of a patient's recent exposures and the presence of clinical signs and symptoms consistent with SARS-CoV-2. This test is not yet approved or cleared by the [place] Food and Drug Administration (FDA). This test was developed by [employer], [place], [place]. The performance characteristics of this test were validated by The [facility]. The results are not intended to be used as the sole means for clinical diagnosis or patient management decisions. The [facility] is authorized under Clinical Laboratory Improvement [...] for this test is supported by the [place] of Health and Human Service's declaration that circumstances exist to justify the emergency use of in vitro diagnostics for the detection and/or diagnosis of the virus that causes COVID-19. This EUA will remain in effect for the duration of the COVID-19 declaration justifying emergency of IVDs, unless it is terminated or revoked by the FDA (after which the test may no longer be used).Performed By: #### CVDTBH #### [facility] [address] [place] [address] Dr. Daphne Madden 22-99-2529Xwvwwc [Catalytic activity/Vol]92.0 U/LNormal 73.0-393.0The [facility] HospitalComment on above:Performed By: #### LIPA ####[facility] [address] [address]Dr. Daphne Ash BLD IMMUNO SCREENon 10-81-6445VRHATM BLOODNegativeNormalNEGATIVE The [facility] HospitalComment on above:Performed By: #### OBSCRN ####[facility] [address] [place] [address]Dr. Daphne CheneyPROF CHEM 8 (BAS METB)on 03-48-0509Kdhhp gap [Moles/Vol]12.3 mmol/LNormalThe [facility] HospitalComment on above:Performed By: #### MATA, CMADM #### [facility] [address] [address] [address] Daphne CheneyCalcium [Mass/Vol]9.6 mg/dLNormal8.5-10.1The [facility] Comment on above:Performed By: #### MATA, CMADM #### [facility] [address] [address] [address] Daphne CheneyChloride [Moles/Vol]98 mmol/IDquxjb72-775ZerGrand Lake Joint Township District Memorial Hospital Comment on above:Performed By: #### MATA, CMADM #### [facility] [address] [address] [address] Daphne CheneyCO2 [Moles/Vol]32.4 mmol/LCritically high21.0-32.0The [facility] HospitalComment on above:Performed By: #### BMP, CMADM #### [facility] [address] [address] [address] Daphne CheneyCreatinine [Mass/Vol]1.19 mg/dLNormal0.70-1.30The [facility] HospitalComment on above:Performed By: #### MATA, CMADM #### [facility] [address] [place] [address] Dr. Daphne LoydGFR-AF MOLDOVAN>60Normal>=60The [facility] HospitalComment on above:Performed By: #### BMP, CMADM #### [facility] [address] [address] [address] Daphne LoydGFR-NON AF MOLDOVAN>60Normal>=60The [facility] HospitalComment on above:Performed By: #### BMP, CMADM #### [facility] [address] [address] [address] Daphne CheneyGlucose [Mass/Vol]120 mg/dLCritically vsex27-734Ube [facility] HospitalComment on above:Performed By: #### BMP, CMADM #### [facility] [address] [place] [address] Dr. Daphne CheneyPotassium [Moles/Vol]4.7 mmol/LNormal3.5-5.1The [facility] Comment on above:Performed By: #### BMP, CMADM #### [facility] [address] [place] [address] Dr. Daphne CheneySodium [Moles/Vol]138 mmol/FEqmipw429-137Pcx [facility] Comment on above:Performed By: #### BMP, CMADM #### [facility] [address] [place] [address] Dr. Daphne CheneyUrea nitrogen [Mass/Vol]12.0 mg/dLNormal7.0-18.0The [facility] HospitalComment on above:Performed By: #### BMP, CMADM #### [facility] [address] [place] [address] Dr. Daphne Becker nitrogen/Creatinine [Mass ratio]10.1 mg/mgNormalThe [facility] HospitalComment on above:Performed By: #### BMP, CMADM #### [facility] [address] [place] [address] Dr. Daphne hCeneyXR KUB 1 VIEWon 69-21-5089LS KUB 1 VIEWEXAM: XR KUB 1 VIEW 02/14/2022 4:13 AM [...] Electronically authenticated by: RAY GREEN Date: 2022-02-14 06:35[facility] AUTO DIFFon 38-08-6355REAS #0.0 103/ulNormal0.0-0.1The [facility] HospitalComment on above:Performed By: #### CBC #### [facility] [address] [address] [address] Daphne CheneyBasophils/100 WBC (Bld)0.2 %Normal0.2-2.0The [facility] Comment on above:Performed By: #### CBC #### [facility] [address] [place] [address] Dr. Daphne Colon #0.0 103/ulNormal0.0-0.7The [facility] HospitalComment on above: Performed By: #### CBC #### [facility] [address] [address] [address] Daphne Loydosinophils/100 WBC (Bld)0.0 %Critically low0.9-7.0The [facility] HospitalComment on above:Performed By: #### CBC #### [facility] [address] [place] [address] Dr. Daphne Loydrythrocyte distribution width (RBC) [Ratio]13.8 %Jzdhbj04.0-15.0 The [facility] HospitalComment on above:Performed By: #### CBC #### [facility] [address] [place] [address] Dr. Daphne CheneyHematocrit (Bld) [Volume fraction]42.5 %Luqlfe46.0-54.0The [facility] HospitalComment on above:Performed By: #### CBC #### [facility] [address] [place] [address] Dr. Daphne CheneyHemoglobin (Bld) [Mass/Vol]13.9 g/dLCritically low14.0-18.0The [facility] HospitalComment on above:Performed By: #### CBC #### [facility] [address] [address] [address] Daphne Schneider #0.13 10e3/ulCritically high0.00-0.03The [facility] Comment on above:Performed By: #### CBC #### [facility] [address] [place] [address] Dr. Daphne Schneider %1.0 %Critically high0.0-0.5The [facility] HospitalComment on above:Performed By: #### CBC #### [facility] [address] [place] [address] Dr. Daphne Lindsey #1.2 103/ulNormal1.2-3.8The [facility] HospitalComment on above:Performed By: #### CBC #### [facility] [address] [place] [address] Dr. Daphne Becerrahocytes/100 WBC (Bld)8.6 %Critically low20.5-60.0The [facility] HospitalComment on above:Performed By: #### CBC #### [facility] [address] [place] [address] Dr. Daphne ElliottUAL DIFF REQNONormalThe [facility] HospitalComment on above: Performed By: #### CBC #### [facility] [address] [place] [address] Dr. Daphne Higgins (RBC) [Entitic mass]29.4 lpVjfary79.9-34.0The [facility] HospitalComment on above:Performed By: #### CBC #### [facility] [address] [place] [address] Dr. Daphne Higgins (RBC) [Mass/Vol]32.7 g/pPZpcueb24.9-35.2The [facility] HospitalComment on above:Performed By: #### CBC #### [facility] [address] [place] [address] Dr. Daphne Higgins (RBC) [Entitic vol]90.0 oIHjljny03.0-94.0The [facility] HospitalComment on above:Performed By: #### CBC #### [facility] [address] [address] [address] Daphne Chilel #1.3 103/ulCritically high0.3-0.8The [facility] Comment on above:Performed By: #### CBC #### [facility] [address] [address] [address] Daphne Rizzoocytes/100 WBC (Bld)9.2 %Normal1.7-12.0[facility] Comment on above:Performed By: #### CBC #### [facility] [address] [address] [address] Daphne Campos #11.0 103/ulCritically high1.4-6.5ThOhioHealth Riverside Methodist Hospital Comment on above:Performed By: #### CBC #### [facility] [address] [place] [address] Dr. Daphne Foxutrophils/100 WBC (Bld)81.0 %Critically high43.0-75.0[facility] HospitalComment on above:Performed By: #### CBC #### [facility] [address] [place] [address] Dr. Daphne Leylet mean volume (Bld) [Entitic vol]9.6 fLNormal9.5-13.5ThOhioHealth Riverside Methodist HospitalComment on above:Performed By: #### CBC #### [facility] [facility] [address] [place] [address] Dr. Daphne CheneyPLT193 103/fqQmawcm977-289Wyt [facility] HospitalComment on above: Performed By: #### CBC #### [facility] [address] [place] [address] Dr. Daphne CheneyRBC4.72 106/ulNormal4.70-6.10The [facility] HospitalComment on above:Performed By: #### CBC #### [facility] [address] [place] [address] Dr. Daphne CheneyWBC13.6 103/ulCritically high4.0-11.0The [facility] HospitalComment on above:Performed By: #### CBC #### [facility] [address] [address] [address] Daphne CheneyPROF 14(COMP METB)on 69-81-2129Iodynrp [Mass/Vol]2.4 g/dL Critically low3.4-5.0The [facility] HospitalComment on above:Performed By: #### CMP #### [facility] [address] [address] [address] Daphne CheneyAlbumin/Globulin [Mass ratio]0.4 {ratio}NormalThe [facility] HospitalComment on above:Performed By: #### CMP #### [facility] [address] [address] [address] Daphne LudwigP [Catalytic activity/Vol]111 U/HTadelu58-623Mtz [facility] HospitalComment on above:Performed By: #### CMP #### [facility] [address] [place] [address] Dr. Daphne LudwigT [Catalytic activity/Vol]92 U/LCritically rjsq16-73Log [facility] HospitalComment on above:Performed By: #### CMP #### [facility] [address] [address] [address] Daphne Hare gap [Moles/Vol]13.5 mmol/LNormalThe [facility] Comment on above:Performed By: #### CMP #### [facility] [address] [place] [address] Dr. Daphne CheneyAST [Catalytic activity/Vol]83 U/LCritically aaek34-98Csi [facility] HospitalComment on above:Performed By: #### CMP #### [facility] [address] [address] [address] Daphne CheneyBilirubin [Mass/Vol]0.7 mg/dLNormal0.2-1.3The [facility] Comment on above:Performed By: #### CMP #### [facility] [address] [place] [address] Dr. Daphne CheneyCalcium [Mass/Vol]8.8 mg/dLNormal8.5-10.1[facility] Comment on above:Performed By: #### CMP #### [facility] [address] [address] [address] Daphne CheneyChloride [Moles/Vol]105 mmol/PTofabu07-657Lzm [facility] Comment on above:Performed By: #### CMP #### [facility] [address] [address] [address] Daphne CheneyCO2 [Moles/Vol]28.4 mmol/SHlddzo90.0-30.0The [facility] Comment on above:Performed By: #### CMP #### [facility] [address] [address] [address] Daphne CheneyCreatinine [Mass/Vol]1.09 mg/dLNormal0.66-1.25The [facility] HospitalComment on above:Performed By: #### CMP #### [facility] [address] [address] [address] Serna ChangEGFR-AF MOLDOVAN>60Normal>=60The [facility] HospitalComment on above:Performed By: #### CMP #### [facility] [address] [address] [address] Daphne LoydGFR-NON AF MOLDOVAN>60Normal>=60The [facility] HospitalComment on above:Performed By: #### CMP #### [facility] [address] [address] [address] Daphne CheneyGlobulin (S) [Mass/Vol]5.4 g/dLNormalThe [facility] HospitalComment on above:Performed By: #### CMP #### [facility] [address] [address] [address] Daphne CheneyGlucose [Mass/Vol]122 mg/dLCritically jgld96-815Xll [facility] HospitalComment on above:Performed By: #### CMP #### [facility] [address] [address] [address] Daphne CheneyPotassium [Moles/Vol]3.9 mmol/LNormal3.4-5.0The [facility] Comment on above:Performed By: #### CMP #### [facility] [id number] Daphne CheneyProtein [Mass/Vol]7.8 g/dLNormal6.1-8.2[facility] Comment on above:Performed By: #### CMP #### [facility] [id number] Daphne CheneySodium [Moles/Vol]143 mmol/RTwasbn725-403IldGrand [facility] Joint [facility] Comment on above:Performed By: #### CMP #### [facility] [address] [address] [address] Daphne CheneyUrea nitrogen [Mass/Vol]23.0 mg/dLCritically high7.0-18.0[facility] HospitalComment on above:Performed By: #### CMP #### [facility] [id number] Daphne Becker nitrogen/Creatinine [Mass ratio]21.1 mg/mgNoMorrow County HospitalComment on above:Performed By: #### CMP #### [facility] [address] [address] [address] Daphne CheneyXR CHEST 2 Von 26-82-5967AK CHEST 2 VEXAMINATION: XR CHEST 2 V HISTORY: Acute bronchitis , cough, [...] Electronically authenticated by: VAISHNAVI BAER Date: 2022-02-02 11:00[facility] Vital Signs Date TimeVital SignValuePerforming SgqpuovgtGqgpwpdn23-77-9606 10:45-0400Body .6 cmGordy Scott MD Work Phone: [facility]OUniversity [facility] Medical CenterScavxzsuec02-51-4254 10:45-0400Body mass index (BMI) [Ratio]26.26 kg/m2Gordy Scott MD Work Phone: [facility] HospitalTvhmdotdbd91-43-5826 10:45-0400Body .4 kg Gordy Scott MD Work Phone: [facility] HospitalBobqjbqeso53-57-2880 13:54-0400Body hcdgef441.1 cmPHYSICIAN [facility]07-09-2025 13:54-0400Body mass index (BMI) [Ratio]25.1 kg/b8CCTXGFSIH [facility]07-09-2025 13:54-0400Body lbirmh53.49 kgPHYSICIAN [facility]07-09-2025 13:54-0400Diastolic blood howwhwus69 mm[Hg] PHYSICIAN NO [facility]07-09-2025 13:54-0400Heart rate73 /minPHYSICIAN [facility]07-09-2025 13:54-0400Respiratory rate12 /minPHYSICIAN [facility]07-09-2025 13:54-0400Systolic blood wigpzimf227 mm[Hg]PHYSICIAN NO [facility]04-16-2025 14:21-0400Body rlsodx170.1 cm [facility]04-16-2025 14:21-0400Body kclcelswchb75.1 [degF][facility]04-16-2025 14:21-0400Diastolic blood jisswryq63 mm[Hg][facility]04-16-2025 14:21-0400Heart rate73 /[facility]04-16-2025 14:21-0400Respiratory rate16 /[facility]04-16-2025 14:21-0400Systolic blood mm[Hg][facility]03-04-2025 10:41-0500Body ocmwuy432.6 cmGordy Scott MD Work Phone: [facility] HospitalPobpwyfcng24-52-8928 10:41-0500Body mass index (BMI) [Ratio]25.75 kg/m2Gordy Scott MD Work Phone: [facility] HospitalUlbfvpphsf21-29-7609 10:41-0500Body hwrrvo07.04 kgGordy Scott MD Work Phone: [facility] HospitalYkmyfinxfb32-80-4919 12:00-0500Body ggzexa743.6 cmGordy Scott MD Work Phone: [facility] HospitalOirrhvtgue32-74-0422 12:00-0500Body mass index (BMI) [Ratio]26.61 kg/m2Gordy Scott MD Work Phone: [facility] HospitalMplynqugoq47-60-7917 12:00-0500Body sbborw73.31 kgGordy Scott MD Work Phone: [facility] HospitalWowtbuhodj19-14-1077 14:40-0400Body pkvmyd137.1 cmFair[facility]06-25-2024 14:40-0400Body mass index (BMI) [Ratio]27.1 kg/c3MzobdyljmFairfield Medical Center06-25-2024 14:40-0400Body srlyov09.93 kgFairfield Medical Center06-25-2024 14:40-0400Diastolic blood ziwjpwzz01 mm[Hg][facility]06-25-2024 14:40-0400 Heart rate65 /[facility]06-25-2024 14:40-0400 Respiratory rate12 /[facility]06-25-2024 14:40-0400 Systolic blood lbiflfvl085 mm[Hg][facility]07-03-2023 15:15-0400Body nldraz022.1 cmBenjamin Ball Other [employer] Other 07-03-2023 15:15-0400Body mass index (BMI) [Ratio] 27.15 kg/p5Tsfehgeg Ball Other [employer] Other 07-03-2023 15:15-0400Body giyyra06.03 kgBenjamin Ball Other [phone] Other 07-03-2023 15:15-0400Diastolic blood mm[Hg] Gasper Ball Other [employer] Other 07-03-2023 15:15-0400Respiratory rate12 /minBenjamin Ball Other [facility] [employer] Other 07-03-2023 15:15-0400Systolic blood tgldxucn839 mm[Hg] Gasper Ball Other [facility] [employer] Other 04-11-2023 14:30-0400Body .1 cmBenjamin Ball Other [facility] [employer] Other 04-11-2023 14:30-0400Body mass index (BMI) [Ratio] 24.96 kg/d4Ilbgyxvg Ball Other [employer] Other 04-11-2023 14:30-0400Body .04 kgBenjamin Ball Other [employer] Other 04-11-2023 14:30-0400Respiratory rate12 /minBenjamin Ball Other [employer] Other 2022 10:35-0400Body znyiwd840.1 Brandonapolloremberto Trujillo Other [employer] Other 12-14-2021 16:50-0500Body owfsrj360.1 Sushma Haque Other [employer] Other 12-14-2021 16:50-0500Body fwmhigrmfpb63.7 [degF] Donna Haque Other [employer] Other 12-14-2021 16:50-0500Diastolic blood mm[Hg] Donna Archerault Other [employer] Other 12-14-2021 16:50-0500Respiratory rate18 /minSboy Shabnam Other [employer] Other 12-14-2021 16:50-1470BvN9% (BldA) [Mass fraction]98 % Donna Archerault Other [employer] Other 12-14-2021 16:50-0500Systolic blood mm[Hg] Donna Shabnam Other [employer] Other Encounters Encounter DateEncounter TypeCare ProviderFacilityStart: 07-09-2025 End: 44-19-4040Nzjzpogps to same day surgery [facility] Sarah DDS Work Phone: [facility] HospitalStart: 07-08-2025 End: 13-05-9201cyysuigrssOzrwbxui Ball DO Work Phone: [facility] Work Phone: Start: 07-08-2025 End: 25-53-0121Wzmjuwm encounter procedureBenjamin Ball DO-[facility] Work Phone: Start: 07-04-2025 End: 77-33-9151MvchgsIypoAster GARCIA [facility] 111Comment on above: Focal epilepsy with impairment of consciousness, intractable (HCC)Start: 06-22-3471rmqxetp oral evaluation - problem focusedEmanate Health/Queen Of The Valley Hospitaljoseph DDS Work Phone: [facility] Work Phone: Start: 07-03-2025 End: 90-60-4295Jxzrotb encounter procedureMbh [place] OverflowMetroHealth [facility] DentistryComment on above:ArrivedStart: 07-03-2025 ambulatoryUNKNOWN PROVIDERFacility:METROHealthStart: 07-02-2025 End: 62-55-1341Onbfmw Pito Scott MD Work Phone: noMS BM NEUROLOGYStart: 07-02-2025 End: 96-20-2603Xwydvm Pito Scott MD Work Phone: noms NEUROLOGYStart: 07-02-2025 End: 32-85-5058Sorrkz outpatient visit 25 minutesGordy Scott MD Work Phone: noSweet[facility] NeurologyComment on above: Focal epilepsy with impairment of consciousness, intractable (HCC) (Primary Dx); Developmental delay, severe; Static encephalopathyStart: 07-02-2025 End: 49-55-3738gamqjgwmmyWFHV D BEJNot AvailableStart: 70-29-7395Wlq-patient / Non-visitGordy Lopez MD-[facility] Work Phone: Start: 06-04-2025 End: 50-78-2413IhulptRyps [facility] Neurology 111Comment on above: Focal epilepsy with impairment of consciousness, intractable (HCC)Start: 06-02-2025 End: 16-17-7859KcljgaYcjc D Bej MD Work Phone: noSweet[facility] Association NeurologyComment on above: Focal epilepsy with impairment of consciousness, intractable (HCC)Start: 47-72-9156Weu-patient / Non-visitGasper Christie DO-[facility] [employer] [facility] Work Phone: Start: 04-24-2025 End: 78-41-0224kinffvjyswTIXPBTJLT [facility] Work Phone: Start: 04-24-2025 End: 25-81-5826Jgrdokt encounter procedureGasper Christie DO-[facility] Work Phone: Start: 56-44-6291aeuiuhhtpnPRQKNFGE E BALLWvumedicine Harrison Community Hospitalyuliana [facility] Centertart: 01-30-2025 End: 27-13-4703uozzmafkdpCydmogujrRiverside Methodist Hospital Work Phone: Start: 01-30-2025 End: 59-44-6014Jpagieh encounter procedureAffinity Health Partners Physician Group-[facility] Work Phone: Start: 01-14-2025 End: 95-88-2760VznpcoUdht D Bej MD Work Phone: noms [facility] NEUR BComment on above:Focal epilepsy with impairment of consciousness, intractable (CMS/HCC)Start: 12-18-2024 End: 16-88-4555Kwlqai Pito Scott MD Work Phone: noms NEUROLOGYStart: 12-18-2024 End: 11-54-8361Eaqxhu Pito Scott MD Work Phone: noms NEUROLOGYStart: 12-18-2024 End: 10-30-6277Tczlfd outpatient visit 25 minutesGordy Scott MD Work Phone: noms [facility] NEUR BComment on above:Focal epilepsy with impairment of consciousness, intractable (CMS/HCC) (Primary Dx); Developmental delay, severe; Static encephalopathy; Focal epilepsy with impairment of consciousness, intractable (CMS/HCC)Start: 12-18-2024 End: 46-53-8340npkgisswmpLLTP D BEJNot AvailableStart: 11-30-2024 End: 31-63-4575LkxpmkEkakjshw Anderson MANOMS [facility] NEURO 111Comment on above: Focal epilepsy with impairment of consciousness, intractable (CMS/HCC)Start: 11-08-2024 End: 50-46-4967Ebybjaqbn Jj Scott MD Work Phone: noms [facility] NEURO 111Start: 09-18-2024 End: 30-05-3517Fvpwvp flowsAntonio Scott MD Work Phone: noms NEUROLOGYStart: 09-18-2024 End: 56-72-5133Rpwylo Pito Scott MD Work Phone: NOMS NEUROLOGYStart: 09-18-2024 End: 99-52-2580Wwkeii outpatient visit 25 minutesGordy Scott MD Work Phone: [facility] NEUR BComment on above:Focal epilepsy with impairment of consciousness, intractable (CMS/HCC) (Primary Dx); Static encephalopathyStart: 09-18-2024 End: 16-36-3779liytlafnlpOQBH D BEJNot AvailableStart: 08-30-2024 End: 52-80-8469Dxtgcryto encounterSelect Medical Specialty Hospital - Youngstownkimberli [facility] Comment on above:NEW PATIENT REFERRALStart: 07-17-2024 End: 52-86-4099Nqleuq Pito Scott MD Work Phone: NOMS NEUROLOGYStart: 07-17-2024 End: 27-82-3247Myumgk Pito Scott MD Work Phone: [facility]OMS NEUROLOGYStart: 07-17-2024 End: 31-67-3151Fjwjza outpatient visit 25 minutesGordy Scott MD Work Phone: [facility] NEUR BComment on above:Focal epilepsy with impairment of consciousness, intractable (CMS/HCC) (Primary Dx); Static encephalopathyStart: 07-17-2024 End: 01-19-9478qzyhaqakdaWSHX D BEJNot AvailableStart: 06-26-2024 End: 27-96-4313mgobmnbcaoRdfiofgxkRiverside Methodist Hospital Work Phone: Start: 06-26-2024 End: 08-55-8545Qvvfsdo encounter procedureErlanger Western Carolina Hospitalvilma Physician Group-[facility] Work Phone: Start: 55-66-1261Zpo-patient / Non-visitDorothea Dix Hospitaljerad Physician Group-[facility] Work Phone: Start: 50-11-4403Wya-patient / Non-visitAffinity Health Partners Physician Group-[facility] Work Phone: Start: 08-44-1375Knk-patient / Non-visitAffinity Health Partners Physician GroupPeacehealth [facility] Work Phone: Start: 04-10-2024 End: 09-61-3362acydfpedxjXvdkotfrvRiverside Methodist Hospital Work Phone: Start: 04-10-2024 End: 62-61-7367Aoinphuyz for general adult medical examination without abnormal findingsOhioHealth Nelsonville Health Centertart: 04-10-2024 End: 95-93-7757Jhdzfdi encounter procedureAffinity Health Partners Physician Group-[facility] Work Phone: Start: 99-73-5299Mhu-patient / Non-visitAffinity Health Partners Physician GroupPeacehealth [facility] Work Phone: Start: 07-07-2023 End: 64-61-4359bevccikucbHlcqbgaf Ball Other [employer] Other Start: 39-61-2482Dozecgupj encounterBenjamin BallFPG [facility] ClinicStart: 07-06-2023 End: 84-26-7187tuuviiruzbIxyndemm Ball Other [employer] Other Start: 20-40-3211Qirllfgxb encounterBenjamin BallFPG [facility] ClinicStart: 06-21-2023 End: 66-11-9617acxfuvdkgxSqsnfbxa Ball Other [employer] Other Start: 41-80-7755Gdkjjoz evaluation of patient and reportBenjamin BallFPG [facility] Medical ClinicStart: 05-02-2023 End: 51-77-1970xlpbbcuzbnTahyyvhl Ball Other [employer] Other Start: 35-93-4147Wnjxuwvxb encounterBenjamin BallFPG [facility] ClinicStart: 04-18-2023 End: 63-16-8257afsqqfiziqAheglrwa Ball Other [employer] Other Start: 51-02-3271Ujbigw outpatient visit 15 minutes Gasper BallFPG [facility] ClinicStart: 02-07-2023 End: 72-81-0726clhwihruraGhfifriz Ball Other [employer] Other Start: 29-33-7594Tkwffyudh encounterBenjamin BallFPG [facility] ClinicStart: 01-26-2023 End: 00-27-0154wwpzrrjcfxMqyiczzv Ball Other [employer] Other Start: 45-42-9366Qydpwauqv encounterBenjamin BallFPG [facility] ClinicStart: 01-25-2023 End: 22-68-8951fxikrulkwjEyzxxxlv Ball Other [employer] Other Start: 31-54-0499Yykauy outpatient visit 15 minutes Gasper BallXIMENAG [facility] ClinicStart: 01-23-2023 End: 57-22-4901zkzfongprfBCREK BROWNFacility:M8Fgdjn: 01-07-2023 End: 86-73-9503aubpcgvvuvRlcajtfg Ball Other [employer] Other Start: 80-20-1725Poephkozt encounterBenjamin BallFPG [facility] ClinicStart: 11-23-2022 End: 24-91-7133mtsdqfujvjMQYL BEJFacility:A8Wvgda: 11-19-2022 End: 75-68-8444btikgpdptuFN COLLEEN JOHNSON .Facility:W6Ihnyk: 09-13-2022 End: 11-10-6543rzqgwedxhaNNWE BEJFacility:S2Vhvtz: 06-19-2022 End: 51-99-1018sqbjceyrmvNwhmnk Dymond Other [employer] Other Start: 66-89-8280Jlpnmo outpatient visit 15 minutes Jennifer TrujilloFPG Urgent Care ClydeStart: 06-16-2022 End: 17-53-3684rpuztztekcIZ VAISHNAVI Larkin ZIEBERFacility:H0Ukany: 06-09-2022 End: 90-43-6553hfmnxqvddqSTJOUJM GRECHNYFacility:B5Zpvsx: 04-21-2022 End: 35-34-9967vrzippxysvMFWY BEJFacility:M8Hyxvr: 95-99-9585zgvqrnfgdhUX GASPER BALLFacility:A5Touca: 03-10-2022 End: 28-45-9897bxueeahhijKO GASPER BALLFacility:O0Olrao: 02-14-2022 End: 74-11-9144iqlqcxwdfeVOKKU PARKERFacility:F1Lvaxg: 02-02-2022 End: 94-10-9237mfzfwaljsuJS GASPER CHRISTIEFacility:K1Vswkn: 09-29-2021 End: 11-61-4597qupwuypogmGkweigmie Breault Other [employer] Other Start: 06-40-7176Gkkbdb outpatient visit 15 minutes Donna ArchersanjanaCYNTHIA Urgent Care ClydeStart: 58-03-6973Tmgsa health examination Gasper Christie Other [employer] Other Start: 03-21-2017 End: 02-40-8851GbbplmegiuYVNRMFVM~[id number] UNKNOWN BALLFacility:[facility] Plan of Treatment DateCare ActivityDetailAuthorStart: 61-47-5528Jzrfnlga (RZV) Vaccine (1 of 2) Shingles (RZV) Vaccine (1 of 2)MetroHealthStart: 10-01-2025 End: 99-82-4640Neletjo encounter clbsjsamx18/16/2025 10:45 AM EST Office Visit [facility] [address] [place] [address] Gordy Scott MD [address] [id number] [facility]OMJer[facility] Start: 07-02-2025 End: 81-83-7262Ividwce encounter procedureNOMS SWS NEUR BComment on above: ArrivedStart: 86-94-4987HLEPN-19 Vaccine ( season)COVID-19 Vaccine ( season)MetroHealthStart: 10-95-4502Wrzadicxu vaccinationInfluenza Vaccine (#1)[facility] HealthcareStart: 32-51-1032Feeqwpv to Medicare Visit (G0402) Welcome to Medicare Visit (G0402)MetroHealthStart: 12-18-2024 End: 70-98-9116Xyzwrki encounter procedureNOMS SWS NEUR BComment on above: ArrivedStart: 09-18-2024 End: 76-10-1965Gcuqwvy encounter procedureNOMS SWS NEUR BComment on above: ArrivedStart: 07-17-2024 End: 01-81-1378Fupqmfu encounter suchppeuw96/01/2024 11:30 AM EDT Office Visit [facility] NEUR B [address] [phone] Gordy Scott MD [address] [phone] ArrivedNOMS SWS NEUR BComment on above:ArrivedStart: 17-93-0145Pnjyvfict vaccinationNOIA HealthcareStart: 30-76-8682Rdlwxaqnm for malignant neoplasm of colonMetroHealthStart: 89-32-1434Wxzny panelCholesterol MetroHealthStart: 94-52-0572DZnU,Tdap and Td Vaccines (1 - Tdap)DTaP,Tdap and Td Vaccines (1 - Tdap)[facility] SystemStart: 25-74-5873Dxckyirit A (HAV) Vaccine (optional start 19+ years)Hepatitis A (HAV) Vaccine (optional start 19+ years)MetroHealthStart: 91-67-0074Kwmscyhnu B vaccinationHepatitis B (HBV) Vaccine (1 of 3 - 19+ 3-dose series)MetroHealthStart: 26-02-2533Dlyyo BMI ScreeningAdult BMI ScreeningProSamaritan North Health Centertart: 17-32-8006Vcdukzcnm C screeningHepatitis C AntibodyMetroHealthStart: 78-55-4644Lzuf BoosterTdap BoosterMetroHealthStart: 29-33-9679BWE screeningHIV TestMetroHealthStart: 57-71-9059Loyvinzeqo ScreeningDepression ScreeningProAdena Regional Medical Center SystemStart: 49-28-2386Fixthhb ScreeningTobacco ScreeningProSamaritan North Health Centertart: 34-72-2658Whfkam Oral ExamDental Oral ExamMetroHealthStart: 08-98-5378Abeodb ProphylaxisDental ProphylaxisMetroHealthStart: 68-08-4165Rtwphx X-Ray: [facility] X-Ray: BitewingsMetroHealthStart: 70-33-2690Wqbmrtznf for malignant neoplasm of colonNOIA HealthcareComprehensive metabolic 1999 panel - Serum or PlasmaFairfield Medical CenterComprehensive metabolic 1999 panel - Serum or [facility] HospitalDENTAL RESTORATIONSDENTAL RESTORATIONS Routine scheduled Dental decayMetSt. Mary's Medical Center Immunizations Immunization DateImmunizationNotesCare BoaffwgiIuwxkstn05-79-9263bsipclyai, seasonal, injectable, preservative freeBenjamin Ball DO Work Phone: [facility]09-10-2024influenza, seasonal, injectable, preservative [facility] 24-07-8281uqjdmtaxi virus vaccine, unspecified formulationGordy Scott MD Work Phone: [facility] HospitalUucucjihru37-46-2721mgzhgbpem, injectable, quadrivalent, preservative freeBenjamin Ball Other [facility]10-12-2022influenza virus vaccine, split virus (incl. purified surface antigen)Gasper Christie Other [employer] Other [id number] virus vaccine, unspecified formulationFairfield Medical Center10-12-2022Influenza, injectable, Madin [place] Canine Kidney, preservative free, quadrivalentLubaba Sarah DDS Work Phone: [phone]yResuna97-41-2551sydnmrdqg virus vaccine, split virus (incl. purified surface antigen)Gasper Christie Other [employer] Other 10-383330-82-7896cyayyodga virus vaccine, unspecified formulationFairfield Medical Center09-22-2020influenza virus vaccine, split virus (incl. purified surface antigen)Gasper Christie Other [employer] Other 09-972747-85-9320khozhdbtt virus vaccine, unspecified formulationFairfield Medical Center10-15-2019influenza virus vaccine, split virus (incl. purified surface antigen)Gasper Christie Other [employer] Other 10-909725-26-6377juqnxirxf virus vaccine, unspecified formulationFairfield Medical Center08-06-2019tetanus and diphtheria toxoids, adsorbed, preservative free, for adult use (2 Lf of tetanus toxoid and 2 Lf of diphtheria toxoid)Capo Smith DDS Work Phone: [phone]82034EwztfTdudsh74-19-5056miiphhm and diphtheria toxoids, adsorbed, preservative free, for adult use (5 Lf of tetanus toxoid and 2 Lf of diphtheria toxoid)[facility]08-06-2019tetanus toxoid, reduced diphtheria toxoid, and acellular pertussis vaccine, adsorbedGasper Christie Other [employer] Other 09-906711-14-4920cdwomexft virus vaccine, split virus (incl. purified surface antigen)Gasper Christie Other [employer] Other 09-25558082-39-9116tzszwkupl virus vaccine, unspecified formulationFairfield Medical Center09-25-2018Influenza, injectable, Madin [place] Canine Kidney, quadrivalent with preservativeLubaba Ramadan DDS Work Phone: [phone]fLhmxsi37-43-7657tqlfbccvd, seasonal, injectable Lubaba Ramadan DDS Work Phone: [phone]qAynqxs46-45-7456ubwxsrm and diphtheria toxoids, adsorbed, preservative free, for adult use (5 Lf of tetanus toxoid and 2 Lf of diphtheria toxoid)Gasper Christie Other [facility]10-27-2016influenza virus vaccine, split virus (incl. purified surface antigen)Gasper Christie Other [place] [employer] Other 10-242185-86-4039vvvqesfjj virus vaccine, unspecified formulationFairfield Medical Center10-09-2015tetanus and diphtheria toxoids, adsorbed, preservative free, for adult use (5 Lf of tetanus toxoid and 2 Lf of diphtheria toxoid)Gasper Christie Other [facility]10-13-2014tetanus and diphtheria toxoids, adsorbed, preservative free, for adult use (5 Lf of tetanus toxoid and 2 Lf of diphtheria toxoid)Gasper Christie Other [facility]10-24-2013tetanus and diphtheria toxoids, adsorbed, preservative free, for adult use (5 Lf of tetanus toxoid and 2 Lf of diphtheria toxoid)Gasper Christie Other [facility] Payers DatePayer CategoryPayerPolicy [id number] FFSMEDICARE - RAILROAD [id number] --Stand AloneDENTAL- MEDICAID [id number] 2017Medicaid [id number] [id number] 2008 [id number] 2..1.806974.3.57[id number] 2..1.268198.3.57[id number] 2..1.503560.3.57[id number] 2..1.311942.3.57[id number] 2..1.390138.3.57[id number] 2..1.039768.3.57[id number] 2.16.840.1.837392.3.57[id number] 2.16.840.1.406487.3.57[id number] 2.16.840.1.467111.3.57[id number] 2.16.840.1.301688.3.57[id number] 2.16.840.1.099417.3.57[id number] 2.16.840.1.158730.3.57[id number] 2..840.1.397597.3.57[id number] 2.16.840.1.173094.3.57[id number] 2.16.840.1.789557.3.57[id number] 2.16.840.1.831869.3.579.2.732 [id number] 2.16.840.1.580639.19 [id number] 2.16.840.1.719695.20369509-52-4678Vjvy-esr12-23-8824 [id number] 2.16.840.1.882841.3.579.2.1286 Social History DateTypeDetailFacilityUnknown if ever smokedNoWhale Communications Other Start: 11-27-2020 End: 52-85-0649Fgh Assigned At BirthNoWhale Communications Other Start: 07-07-2018 End: 19-62-9325Sldtmxi smoking status NHISNever smoked tobacco (finding) [facility]: 34-58-6397Lmp Assigned At BirthMale [facility] Centertart: 57-86-1609Obuutbsoh beverage intake Lifetime non-drinker (finding)[facility] HealthcareStart: 11-27-2020 End: 07-36-3546Imoamkk of Social functionNOMS HealthcareStart: 05-18-6518Zxbtbzx CommentCaffeine: noneNOMS HealthcareStart: 66-29-7745Wid assigned at birthNot on fileOREM COMMUNITY [facility] HealthcareTobacco smoking status NHISTobacco smoking consumption unknownDayton Children's HospitalChildLifecare Complex Care [facility] SystemStart: 05-22-2015 End: 39-85-7110MbfMqjm (finding)[facility] Clinical Notes 09-29-2021 to 07-04-2025 Note Date & KfrfAyafBizdfjdz81-35-8163 Telephone encounter Note* Telephone Encounter - Stephenie Bobby MA - 07/04/2025 10:35 AM EDT Pharmacist, Madelyn, from [facility] called and said they received incr script for Xcopri 150 HS. Said they are rarely able to get the 150 and do not have. When Madelyn informed pt's mom they said pt's mom got very upset and said pt was out of the 100mg. Madelyn told mom that 100mg was just filled 06/12/25 and pt should not be out and that is when mom told her that someone from our office told her Dr. Scott wanted her to incr the 100mg to twice daily being every 12 hours. Madelyn said she was not sure how long momhas been doing this but until the 06/12/25 fill date mom had been filling regularly about every 29 or 30 days so it would have been recently mom changed to twice daily. Madelyn said she called around and [facility] has a small supply of Xcopri 150 and mom was willing to go there to olive picker. Mom was concerned because pt will not have any to take today. She did give pt the 100mg twice yesterday. [facility] Kvqsayhhxq27-86-3759 Miscellaneous Notes* Telephone Encounter - Stephenie Bobby MA - 07/04/2025 10:35 AM EDT Pharmacist, Madelyn, from [facility] called and said they received incr script for Xcopri 150 HS. Said they are rarely able to get the 150 and do not have. When Madelyn informed pt's mom they said pt's mom got very upset and said pt was out of the 100mg. Madelyn told mom that 100mg was just filled 06/12/25 and pt should not be out and that is when mom told her that someone from our office told her Dr. Scott wanted her to incr the 100mg to twice daily being every 12 hours. Madelyn said she was not sure how long momhas been doing this but until the 06/12/25 fill date mom had been filling regularly about every 29 or 30 days so it would have been recently mom changed to twice daily. Amdelyn said she called around and [facility] has a small supply of Xcopri 150 and mom was willing to go there to olive picker. Mom was concerned because pt will not have any to take today. She did give pt the 100mg twice yesterday. documented in this encounterI-70 Community HospitalBnzanhjpcx16-52-3996 History of Present illness Narrative* Treasure Gates RDH - 07/03/2025 1:17 PM EDT Treasure Gates [facility] Medications Ordered Prior to Encounter[1] Pt is special needs and was with his caregiver/ mother. Limited Exam for OR consult. Pt would open his mouth for a toothbrush. Dr. Scanlon slightly saw into pt. mouth. Mother believes pt may be in pain because sometimes he does not eat. Pt has not seen a dentist in years. OR request was placed by Dr. Scanlon Contact info: Mother Bre Hameed [phone] Friend Daphne Llamas [phone]/ Dr. Scanlon [1] No current outpatient medications on file prior to visit. No current facility-administered medications on file prior to visit. Cosigned by Emma Reese DDS at 07/03/2025 5:48 PM EDT documented in this [id number] History of Present illness Narrative* Gordy Scott MD - 07/02/2025 10:45 AM EDTAssociated Problem(s): Focal epilepsy with impairment of consciousness, intractable (HCC) Driving - does not drive. Incr CNB to 150 hs. Hold off on VNS referral for now, mom wants to consider. Ask pt ambassador to speak with mom. Re-emphasized low carb diet. (Has been on protein drinks with questionable carb content.) Consult lead project engineer - via [facility] possibly? Or ask Dr. Miguel A Luciano's office's recommendation. CNB, VPA f+t, LTG levels before appt. Orders: Cenobamate (Xcopri) 150 MG tablet; Take 150 mg by mouth at bedtime * Gordy Scott MD - 07/02/2025 10:45 AM EDTAssociated Problem(s): Developmental delay, severe (No available tx.) * Gordy Scott MD - 07/02/2025 10:45 AM EDTAssociated Problem(s): Static encephalopathy (No available tx.) * Gordy Scott MD - 07/02/2025 10:45 AM EDT Images from the original note were not included. Outpatient Progress Note Patient: Armando Hameed Dept: Neurology : 1980 Appt Date: 07/02/2025 Prev Appt: Visit date not found Chief Complaint Patient presents with Seizures Appointment Note -- 6 mo Assessment and Plan - Assessment & Plan Focal epilepsy with impairment of consciousness, intractable (HCC) Driving - does not drive. Incr CNB to 150 hs. Hold off on VNS referral for now, mom wants to consider. Ask pt ambassador to speak with mom. Re-emphasized low carb diet. (Has been on protein drinks with questionable carb content.) Consult lead project engineer - via [employer] possibly? Or ask Dr. Miguel A Luciano's office's recommendation. CNB, VPA f+t, LTG levels before appt. 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 Follow-Up - Follow up in about 3 months (around 10/01/2025). Lab Frequency Next Occurrence XR lumbar spine 6+ views including oblique flexion extension Once 07/14/2023 History of Present Illness, Associated Treatments and Results - Dx EPILEPSY Tx CNB 100 [was 8.8, 11.8 on 100, 2.6 on 50] <1/6>decr'd to 50 see TE + VPA 250 q12 [was 24/_, 41/9.4f] + LTG 200 q12 [was 15.0, 23.3, 10.5, 15.7 (on 500), was 8.0..11.2 (on 400)] + BRV 100 q12 [was 2.9] + clonazapam 0.25 hs + prn midazolam nasal 5 + low-carb diet AEs somnolence Hx Sz - 5-10/mo. 9 [...] behaviors) ZNS 200 (mood- grouchy, chewing hands), <1/6>WII199 (somn) ... Highest LTG dose 400 mg/d, [...] Preg EEG (_, [facility]) - _ (_, [facility]) - _. Amb EEG (none). VEEG (03/2022) [...] - Visit Vitals Ht 5' 4 Wt 153 lb BMI 26.26 kg/m Smoking Status Never BSA 1.77 m Review of Systems - . Const: [...] History: Diagnosis Date Developmental delay Seizure disorder (HCC) Past Surgical History: Procedure Laterality Date DENTAL SURGERY multiple Allergies Allergen Reactions Pertussis Immune Globulin Family History Problem Relation Name Age of Onset Hypertension Mother Heart disease Father COD: [place] Hypertension Maternal Grandmother Cancer Maternal Grandmother Hypertension Maternal Grandfather Diabetes Maternal Grandfather Hypertension Paternal Grandmother Hypertension Paternal Grandfather Outpatient Encounter Medications as of 07/02/2025 Medication Sig Dispense Refill Briviact 100 MG tablet tablet TAKE 1 TABLET BY MOUTH EVERY 12 HOURS 60 tablet 5 clonazePAM (KlonoPIN) 0.5 MG tablet TAKE 1/2 (ONE-HALF) OF A TABLET BY MOUTH AT BEDTIME 15 tablet 5 divalproex (Depakote) 250 MG EC tablet 1 tab QAM 30 tablet 5 lamoTRIgine (LaMICtal) 200 MG tablet Take 1 tablet (200 mg) by mouth in the morning and 1 tablet (200 mg) before bedtime. 60 tablet 5 Midazolam 5 MG/0.1ML solution 1 dose after convulsive seizure > 5 minutes. May repeat in other nostril 10 minutes later if needed 4 each 3 Xcopri 100 MG tablet TAKE 1 TABLET BY MOUTH ONCE DAILY AT BEDTIME 30 tablet 5 No facility-administered encounter medications on file as of 07/02/2025. Gordy Scott M.D. [facility] ? [address] ? [place] [address] ? ? fax Neurology ? Clinical Neurophysiology ? Epilepsy ? Sleep Disorders ? Clinical Informatics documented in this encounterI-70 Community HospitalEghkotlazu80-13-5670 Evaluation note* Diagnosis Onset Date Resolution Status Admit Date Developmental delay, severe acuteJuly 2024 1:47pmDevelopmental language disorder with language impairmentacuteJuly 2024 1:47pmGeneralized onset losylosim-ybqob-qcflrx epileptic seizureacuteJuly 2024 1:47pmMedicare annual wellness visit, subsequentnoneactiveJuly 2024 1:47pmScreening for colon cancernoneactive [place]othe[place] 2024 1:47pm [facility] Work Phone: 1(760) 340-527204-16-2025 Evaluation note* Diagnosis Onset Date Resolution Status Admit Date Developmental delay, severe acuteApril 2024 2:10pmAcute sinusitisnoneactiveApril 2024 2:10pm Developmental delay, severeacuteJuly 2024 1:47pmDevelopmental language disorder with language impairmentacuteJuly 2024 1:47pmGeneralized onset ndvagbszk-evoby-zbpvga epileptic seizureacuteJuly 2024 1:47pmMedicare annual wellness visit, subsequentnoneactiveJuly 2024 1:47pmScreening for colon cancernoneactiveJuly 2024 1:47pm [facility] Work Phone: 1(823) 702-683803-04-2025 History of Present illness Narrative* Gordy Scott [...] in about 6 months (around 06/20/2025), or . Lab Frequency Next Occurrence XR lumbar spine 6+ views including oblique flexion extension Once 07/14/2023 History of Present Illness, Associated Treatments and Results - Dx EPILEPSY Tx CNB 100 [was 11.8 on 100, 2.6 on 50] <1/6>decr'd to 50 see TE + VPA 250 q12 [was 41/9.4f] + LTG 200 q12 [was 23.3, 10.5, 15.7 (on 500), was 8.0..11.2 (on 400)] + BRV 100 q12 [was 2.9] + clonazapam 0.25 hs + prn midazolam nasal 5 AEs somnolence Hx Sz - 5-10/mo. 9 in Oct, chewing on hands, jerks, no convulsions. 10 in Nov, up to ', similar. Jerks - 10-/d. Prev up to 40/d in Jan, now [...] behaviors) ZNS 200 (mood- grouchy, chewing hands), <16>PQK919 (somn) ... Highest LTG dose 400 mg/d, [...] Onset Hypertension Mother Heart disease Father COD: MO Hypertension Maternal Grandmother Cancer Maternal Grandmother Hypertension [...] Gordy Scott M.D. [facility] ? [address] ? [place], [place] [address] ? ? fax Neurology ? Clinical Neurophysiology ? Epilepsy ? Sleep Disorders ? Clinical Informatics documented in this [facility]01-23-2025 Telephone encounter Note* Telephone Encounter - Alex [...] go back to 1 tab at bedtime.. I[facility]70 Community HospitalOlxtxffidj37-06-7815 Miscellaneous Notes* Telephone Encounter - Alex River [...] 1 tab at bedtime.. documented in this [facility]12-03-2024 History of Present illness Narrative* Gordy Scott MD - 09/18/2024 11:30 AM ESTAssociated Problem(s): Focal epilepsy with impairment of consciousness, intractable ([facility]) Driving - does not drive. (Continue current [...] Preg EEG (_, [facility]) - _ (_, [facility]) - _. Amb EEG (none). VEEG (03/2022) Review of phone video of recent event. Pt stares, rocks forward/backward, R hand brought to mouth, then will stick arms out, R arm somewhat more stiffly than L. Then back to rocking, arm to mouth. Several iterations. Will follow some instructions (07/2016, 6 d, [facility]) - (a) EEG Sz L fro-tem, no [...] Onset Hypertension Mother Heart disease Father COD: MO Hypertension Maternal Grandmother Cancer Maternal Grandmother Hypertension [...] Gordy Scott M.D. [facility] ? [address] ? [place], [place] [address] ? ? fax Neurology ? Clinical Neurophysiology ? Epilepsy ? Sleep Disorders ? Clinical Informatics documented in this encounterI-70 Community HospitalVabbkdhrkw81-15-1563 Miscellaneous Notes* Telephone Encounter - Rebekah Lavern - 08/30/2024 2:30 PM EST First Attempt Made from [employer] New patient referral received. Dx:Localization-related (focal) (partial) symptomatic epilepsy and epileptic syndromes with complexpartial seizures, intractable, without status epilepticus ([facility] [...] PATIENT APPOINTMENT * Telephone Encounter - Kate Gilmer Baca - 08/30/2024 2:30 PM EST 2nd attempt: Called and left patient a voicemail once more letting them know we have received theirreferral, are ready to schedule, and to call us back at their earliest convenience to do so. Senior Architect provided callback number for scheduling or to address any questions or concerns they may have. documented in this encounterDayton [facility]11[facility]14-[facility]24 Telephone encounter Note* Telephone Encounter - Rebekahkimberli Puckett - 08/30/2024 2:30 PM EST First Attempt Made from [employer] New patient referral received. Dx:Localization-related (focal) (partial) symptomatic epilepsy and epileptic syndromes with complexpartial seizures, intractable, without status epilepticus (CMS-HCC) [G40.219]/ Referred by: Gordy Scott MD Referred to: Providers patient can see in clinic (Make sure if SAHLI is listed the patient has not seen a Neurologist before): Please contact patient to schedule from referral, Thanks! PLEASE REVIEW PLAN OVER THE PHONE AND ADVISE PATIENT TO BRING UPDATED INSURANCE INFORMATION TO THEIR NEW PATIENT APPOINTMENT [facility]11-14-2024 Telephone encounter Note* Telephone Encounter - Kate Scherer Phuong - 08/30/2024 2:30 PM EST 2nd attempt: Called and left patient a voicemail once more letting them know we have received theirreferral, are ready to schedule, and to call us back at their earliest convenience to do so. Senior Architect provided callback number for scheduling or to address any questions or concerns they may have. [facility]10-01-2024 History of Present illness Narrative* Gordy Scott [...] Will follow some instructions (07/2016, 6 d, [facility]) - (a) EEG Sz L fro-tem, no clinical signs; (b) Parox Event (rocking back and forth, repeated touching of R hand to mouth, mouth opening and closing, head turning R & L), no EEG change; (c) SW L fro-tem & R tem (2007, 6 d) - ??Sp L temp. ARMAAN MR PET SPECT Imaging CT brain (02/2022, [facility]) - patchy hypodensities . Testing Surgery Born [...] Onset Hypertension Mother Heart disease Father COD: [place] Hypertension Maternal Grandmother Cancer Maternal Grandmother Hypertension [...] 07/17/2024. Gordy Scott M.D. documented in this encounterI-70 Community HospitalFvkpgitlaj57-45-1413 Evaluation note* Encounter Date Diagnosis Assessment Notes Treatment Notes Treatment Clinical Notes Jun, Pneumonia of left lo wer lobe due to infectious organism (ICD-10 - J18.9) [facility] Other 04-11-2023 Evaluation note* Encounter Date Diagnosis Assessment Notes Treatment Notes Treatment Clinical Notes Jan, Hidradenitis axillaris (ICD-10 - L73.2) warm compresses, begin antibiotics Jan,oncussion without loss of consciousness, subsequent encounter (ICD- 10 - S06.0X0D)Rest, Advil as needed, monitor for MS changes Jan,Strain of left shoulder, subsequent encounter (ICD-10 - S46.912D) Heat/ice and lidocaine. ROM exercises Jan,ontusion of left hip, subsequent encounter (ICD-10 - S70.02XD) Ice/heat and Voltaren Gel [facility] Other 2022 Evaluation note* Encounter Date Diagnosis Assessment Notes Treatment Notes Treatment Clinical Notes Jun, Contact with and (hodge spected) exposure to covid-19 (ICD-10 - Z20.822) Jun,OVID-19 (ICD-10 - U07.1)Discharge Instructions for COVID-19 (Suspected or Confirmed ) [...] the ER for worsening symptoms or concerns. [facility] Other 12-14-2021 Evaluation note* Encounter Date Diagnosis Assessment Notes Treatment Notes Treatment Clinical Notes Sep, Injury of left knee, initial enc ounter (ICD-10 - S89.92XA) . Use TYLENOL AND VOLTARON GEL as directed for pain if needed. Contact office if symptoms are not improved within the next few days and we will help you get into specialist. [facility] Other Evaluation noteNo InformationNort Xunlei Other Evaluation noteNort Xunlei Other Evaluation note* Diagnosis Onset Date Resolution Status Developmental delay, severe acuteDevelopmental language disorder with language impairmentacuteGeneralized onset aqyfpcsxv-xncln-pcagtm epileptic seizureacuteScreening for colon cancer noneactiveWellness examinationnonTrinity [facility] Work Phone: Evaluation note* Diagnosis Onset Date Resolution Status Developmental delay, severe acuteDevelopmental language disorder with language impairmentacuteGeneralized onset sknjpdpzf-deoco-otrzmw epileptic seizureacuteMedicare annual wellness visit, subsequentnoneactiveScreening for colon cancernonTrinity Health [facility] Work Phone: Evaluation note* Diagnosis [...] with intractable epilepsy documented in this encounter [facility] HealthcareEvaluation note* Diagnosis Onset Date Resolution Status Admit Date Developmental delay, severe acuteApril 2024 2:10pmAcute sinusitisnoneactiveApril 2024 2:10pm [facility] Work Phone: Evaluation note* Diagnosis Focal [...] in this encounter [facility] HealthcareEvaluation note* Diagnosis Dental decay- Primary Unspecified dental caries documented in this encounter [facility] Narrative - Reported* Type Description Date Medical History seizures Medical HistoryhtnMedical HistorymrddSurgical Historydental surgerySurgical HistorycystoscopyHospitalization HistorypneuWorld Firstia [facility] [employer] Other History general Narrative - Reported* Type Description Date Medical History Development delay Medical HistoryFunctional urinary incontinenceMedical HistoryGeneralized seizure disorderMedical HistoryAtaxic cerebral palsyMedical HistoryPervasive developmental disorderMedical HistoryCognitive developmental delayMedical HistoryImpaired verbal communicationSurgical Historydental surgerySurgical HistorycystoscopyHospitalization HistorypnWorld Firstva NimbusBase [facility] [employer] Other History general Narrative - ReportedNomineral [facility] Xunlei Other InstructionsNot on filedocumented in this encounter [facility] SystemReason for referral (narrative)No reason for referral information availableMorrow County Hospital Work Phone: Summary Purpose Family History No Family History Records Found Relationship Condition Age at Onset Recorded Date/T bronson father Unknown Advance Directives No Advanced Directives Records Found Advance Directive Response Recorded Date/ Time Advance Directives No October 23, 2017 12:06pm Chief Complaint and Reason for Visit Chief Complaint wellness Reason for Visit Developmental delay, severe Developmental language disorder with language impairment Generalized onset avejiryqq-bjcbm-vlscay epileptic seizure Screening for colon cancer Wellness examination Chief Complaint wellness flu shotReason for VisitDevelopmental delay, severe Developmental language disorder with language impairment Generalized onset nmzsjrfdd-gxaes-ipxyqc epileptic seizure Medicare annual wellness visit, subsequent [...] impairment April 24, 2025 1:47pm Generalized onset ccqfetzmj-qjjoq-sxvkdm epileptic seizure April 24, 2025 1:47pm Medicare annual wellness visit, claribel nt April 24, 2025 1:47pm Screening for colon cancer April 24 1:47pm Chief Complaint Admit Date wellness April 24, 2025 1:47p m Flu Shot, white van July 08, 2025 2:58pm Reason for Visit Admit Date Developmental delay, severe April 24 1:47pm Developmental language disorder with tj guage impairment April 24, 2025 1:47pm Generalized onset slqetsctd-knqdo-tztvdg epileptic seizure April 24, 2025 1:47pm Medicare annual wellness visit, claribel nt Dorothea 9th, 2025 1:47pm Screening for colon cancer April 24 1:47pm Additional Source Comments (unrecognized sect ion and content) No Status Records FoundNo Status Records FoundNo Status Records FoundNo Status Records FoundNo Status Records Found INFORMATION SOURCE (unrecogn ized section and content) DATE CREATED AUTHOR 04/11/2018 [facility] DATE CREATED AUTHOR AUTHOR'S ORGANIZ ATION 01/24/2023 [facility] DATE CREATED AUTHOR AUTHOR'S ORGANIZ ATION 03/29/2025 [facility] DATE CREATED AUTHOR AUTHOR'S ORGANIZ ATION 07/03/2025 [facility] DATE CREATED AUTHOR AUTHOR'S ORGANIZ ATION 07/09/2025 [facility] REASON FOR VISIT (unrecogniz ed section and content) ReasonCommentsSeizuresReasonOnset DateCommentsMed Bqwwll4011/30/2024ReasonOnset DateCommentsNEW PATIENT JRLCOHXJ35/14/2024easonCommentsMed RefillReasonOnset DateCommentsMed Tkwjlh9306/04/2025 Care Teams (unrecognized sec tion and content) Team Status: Active Member Role Status Dates PHYSICIAN NO FAMILY Primary Care Provider Active Team Status: Inactive Member Role Status Dates PHYSICIAN NO FAMILY Primary Care Provider Active Start: April 10, 2024 End: April 10Olu Martínez ProviderActiveStart: April 10, 2024 End: April 10, 2024 Team Status: Active Member Role Status Dates PHYSICIAN NO FAMILY Primary Care Provider Active Start: April 23, 2024 Beth Albright ProviderActiveStart: April 23, 2024 Team Status: Active Member Role Status Dates PHYSICIAN NO FAMILY Primary Care Provider Active Start: April 27, 2024 Beth Albright ProviderActiveStart: April 27, 2024 Team Status: Active Member Role Status Dates PHYSICIAN NO FAMILY Primary Care Provider Active Start: June 05, 2024 Beth Albright ProviderActiveStart: June 05, 2024 Team Status: Inactive Member Role Status Dates PHYSICIAN NO FAMILY Primary Care Provider Active Start: June 26, 2024 End: June 26Olu Martínez ProviderActiveStart: June 26, 2024 End: June 26, 2024 Team Status: Active Member Role Status Dates PHYSICIAN NO FAMILY Primary Care Provider Active Start: March 26, 2024 Gordy Scott , MDAttending ProviderActiveStart: March 26, 2024 Team MemberRelationshipSpecialtyStart DateEnd Date Gasper Christie MD PCP - GeneralInternal Medicine03/15/23Team MemberRelationshipSpecialtyStart Date End Date Gasper Christie MD PCP - GeneralInternal Medicine03/15/23am MemberRelationshipSpecialtyStart Date End Date Gasper Christie MD PCP - GeneralInternal Medicine03/15/23am MemberRelationshipSpecialtyStart Date End Date Gasper Christie MD PCP - GeneralInternal Medicine03/15/23am MemberRelationshipSpecialtyStart Date End Date Gasper Christie MD PCP - GeneralInternal Medicine03/15/23Team MemberRelationshipSpecialtyStart Date End Date Gasper Christie DO [address] [place] [address] PCP - General05/25/17Team MemberRelationshipSpecialtyStart DateEnd Date Gasper Christie MD PCP - GeneralInternal Medicine03/15/23am MemberRelationshipSpecialtyStart Date End Date Gasper Christie MD PCP - GeneralInternal Medicine03/15/23Team MemberRelationshipSpecialtyStart Date End Date Gasper Christie MD [facility] - [facility]23 Team Status: Inactive Member Role Status Dates PHYSICIAN NO FAMILY Primary Care Provider Active Start: January 30, 2025 End: January 30mark Christie DOAttending ProviderActiveStart: January 30, 2025 End: January 30, 2025 Team Status: Active Member Role Status Dates Gasper Christie DO Primary Care Provider Active Team Status: Inactive Member Role Status Dates Gasper Christie DO Primary Care Provider Active Start: April 24, 2025 End: April 24mark Christie DOAttle ProviderActiveStart: April 24, 2025 End: April 24, 2025Team MemberRelationshipSpecialtyStart DateEnd Date Gasper Christie DO PCP - [facility]ern[facility]03/15/23Team MemberRelationshipSpecialtyStart Date End Date Gasper Christie [facility]Team MemberRelationshipSpecialtyStart Date End Date Gasper Christie DO PCP - [facility]03/15/23Team MemberRelationshipSpecialtyStart Date End Date Gasper Christie DO PCP - [facility]03/15/23 Team Status: Active Member Role Status Dates Gasper Christie DO Primary Care Provider Active Start: April 25, 2025 Olu Li ProviderActiveStart: April 25, 2025 Team Status: Active Member Role Status Dates Gasper Christie DO Primary Care Provider Active Start: June 18, 2025 Gordy Scott MDAttle ProviderActiveStart: June 18, 2025 Team Status: Inactive Member Role Status Dates Gasper Christie DO Primary Care Provider Active Start: July 08, 2025 End: July 08enjaayana Christie DOAttending ProviderActiveStart: July 08, 2025 End: July 08, 2025 Goals (unrecognized section and content) Goals may [...] BE BASED ON THE PRIMARY CLINICAL RECORDS. [facility]. provides no warranty or guarantee of the accuracy or completeness of information in this document.
== END 2025-09-16 13:20 | disposition home or self-care (01) ==
PROVIDERS: Emergency Provider Emergency Medicine; PCP Internal Medicine
DX: S80.02XA Contusion of left knee, initial encounter (principal); W19.XXXA Unspecified fall, initial encounter; Z91.81 History of falling; F79 Unspecified intellectual disabilities
CPT/HCPCS: 73502; 73562; 99283

== ENCOUNTER 2025-09-30 14:45 | Outpatient (OUT) | payer MEDICARE, MEDICAID, SELFPAY ==
[2025-10-02 16:09] LABS: Lamotrigine (Lamictal), Serum 13.1 ug/mL (2.0-20.0)
== END 2025-09-30 14:46 | disposition home or self-care (01) ==
LOC: LAB 14:47
PROVIDERS: PCP Internal Medicine; Visit Provider Psychiatry & Neurology Neurology
DX: G62.9 Polyneuropathy, unspecified (principal); R79.89 Other specified abnormal findings of blood chemistry; G60.9 Hereditary and idiopathic neuropathy, unspecified; Z11.3 Encounter for screening for infections with a predominantly sexual mode of transmission; E53.1 Pyridoxine deficiency; I70.91 Generalized atherosclerosis; D51.3 Other dietary vitamin B12 deficiency anemia; M79.10 Myalgia, unspecified site; E78.5 Hyperlipidemia, unspecified
CPT/HCPCS: 36415; 80175